=== PATIENT | male | born 1940 | race Caucasian/White ===

== ENCOUNTER 2016-08-03 09:50 | Inpatient (IN) | payer BC, MEDICARE ==
[~2016-08-03] VITALS: Ht 170.2 cm; Wt 86.2 kg
[~2016-08-03 09:50] MED LIST: ATOR20TA PO; CLON1TAB3 PO; HYDR-2758 PO; HYOS0.3715 PO; INSU100C4 SQ; INSU100I13 SQ; INSU100I17 SQ; MULT1TAB52 PO; Metoprolol Tartrate PO; NAPR220C4 PO; NITR0.4T SL; QUIN40TA7 PO; RANI150T6 PO; TICA90TA PO; ZOLP12.54 PO; [UNRECOGNIZED DRUG - CODE] PO
[2016-08-03] MEDS ORDERED: FAMOTIDINE 20 MG/2 ML VIAL IVP ONE (10:30)
[2016-08-03] MEDS ORDERED: IV NORMAL SALINE 1000ML BAG 1,000 ML IV ONE ×2 (10:30→15:15)
[2016-08-03] MEDS ORDERED: ONDANSETRON PF 4 MG/2 ML VIAL. IV ONE (10:30)
[2016-08-03] MEDS ORDERED: fentaNYL PF VIAL 100 MCG/2 ML VIAL IV ONE ×3 (10:30→13:45)
[2016-08-03 10:40] LABS: BASO # 0.1 x10^3/uL (0.0-0.2); BASO % 0 % (0-3); EOS % 0 % (0-3); HEMATOCRIT 42.5 % (39.0-53.0); HEMOGLOBIN 14.6 g/dL (13.0-17.5); LYMPH # 1.6 x10^3/uL (1.0-4.8); LYMPH % 11 % (24-48); MEAN CORPUSCULAR HEMOGLOBIN 31 pg (25-35); MEAN CORPUSCULAR HGB CONC 34 g/dL (31-37); MEAN CORPUSCULAR VOLUME 91 fL (79-100); MONO % 8 % (0-9); NEUT % 81 % (31-73); PLATELET COUNT 332 x10^3/uL (140-400); RED BLOOD COUNT 4.68 x10^6/uL (4.30-5.70); RED CELL DISTRIBUTION WIDTH 12.6 % (11.5-14.5); WHITE BLOOD COUNT 14.9 x10^3/uL (4.0-11.0)
--- NOTE | 2016-08-03 10:42 | PHYS DOC ---
Past Medical History Past Medical History: Anxiety, Arthritis, Diabetes-Type II, High Cholesterol, Hypertension, GA, Other Past Surgical History: Cholecystectomy, Knee Replacement, Other Additional Past Surgical Histo: lt anklex3,bilat ROTATOR CUFF,rt.knee replacement, CARDIAC STENT, BACK SX Alcohol Use: None Drug Use: None Adult General Chief Complaint Chief Complaint: BLOODY STOOL HPI HPI Patient is a 76 year old male with history of hypertension, diabetes type 2, anxiety, who presents today with generalized abdominal pain and diarrhea that began 3 days ago. Patient denies any nausea vomiting. He is also complaining of bloody stools since this morning. Patient states he was seen by the PCP 3 days ago on the onset of symptoms. He states they did labs that he has not received any results. PCP Dr. Catrachita Henry but currently sees Dr. Archana Etienne's because Dr. Henry is out of town for 1 month. Review of Systems Review of Systems Constitutional: Denies fever or chills [] Eyes: Denies change in visual acuity, redness, or eye pain [] HENT: Denies nasal congestion or sore throat [] Respiratory: Denies cough or shortness of breath [] Cardiovascular: No additional information not addressed in HPI [] GI: generalized abdominal pain, diarrhea and bloody stools [] : Denies dysuria or hematuria [] Musculoskeletal: Denies back pain or joint pain [] Integument: Denies rash or skin lesions [] Neurologic: Denies headache, focal weakness or sensory changes [] Endocrine: Denies polyuria or polydipsia [] Current Medications Current Medications Current Medications Medications (Trade) Dose Ordered Sig/Amber Start Time Stop Time Status Last Admin Dose Admin Ciprofloxacin Lactate 200 ml @ 200 mls/hr ONCE ONCE 08/03/16 14:15 08/03/16 15:14 DC Famotidine (Pepcid) 20 mg 1X ONCE 08/03/16 10:30 08/03/16 10:36 DC 08/03/16 10:46 20 MG Fentanyl Citrate (Fentanyl 2ml Vial) 50 mcg 1X ONCE 08/03/16 13:45 08/03/16 13:46 DC 08/03/16 13:34 50 MCG Info (Do NOT chart on this entry -- for MONITORING) 1 each PRN DAILY PRN 08/03/16 12:45 08/05/16 12:44 Iohexol (Omnipaque 300 Mg/ml) 60 ml 1X ONCE 08/03/16 12:45 08/03/16 12:46 DC Metronidazole 100 ml @ 100 mls/hr ONCE ONCE 08/03/16 14:15 08/03/16 15:14 DC 08/03/16 14:22 100 MLS/HR Ondansetron HCl (Zofran) 4 mg 1X ONCE 08/03/16 10:30 08/03/16 10:36 DC 08/03/16 10:47 4 MG Sodium Chloride 1,000 ml @ 1,000 mls/hr 1X ONCE 08/03/16 10:30 08/03/16 11:29 DC 08/03/16 10:46 1,000 MLS/HR Allergies Allergies Allergies Coded Allergies Type Severity Reaction Last Updated Verified pseudoephedrine Allergy Severe urinary retention 08/22/14 Yes codeine Adverse Reaction Intermediate gi upset 08/22/14 Yes Physical Exam Physical Exam Constitutional: Well developed, well nourished, no acute distress, non-toxic appearance. [] HENT: Normocephalic, atraumatic, bilateral external ears normal, oropharynx moist, no oral exudates, nose normal. [] Eyes: PERRLA, EOMI, conjunctiva normal, no discharge. [] Neck: Normal range of motion, no tenderness, supple, no stridor. [] Cardiovascular:Heart rate regular rhythm, no murmur [] Lungs & Thorax: Bilateral breath sounds clear to auscultation [] Abdomen: Bowel sounds normal, soft, no tenderness, no masses, no pulsatile masses. [] Skin: Warm, dry, no erythema, no rash. [] Back: No tenderness, no CVA tenderness. [] Extremities: No tenderness, no cyanosis, no clubbing, ROM intact, no edema. [] Neurologic: Alert and oriented X 3, normal motor function, normal sensory function, no focal deficits noted. [] Psychologic: Affect normal, judgement normal, mood normal. [] Current Patient Data Vital Signs Vital Signs Date Time Temp Pulse Resp B/P (MAP) Pulse Ox O2 Delivery O2 Flow Rate FiO2 08/03/16 13:09 92 21 177/84 (115) 95 Room Air 08/03/16 10:12 98.9 98.9 Lab Values Laboratory Tests Test 08/03/16 10:30 08/03/16 13:10 White Blood Count 14.9 x10^3/uL (4.0-11.0) H Red Blood Count 4.68 x10^6/uL (4.30-5.70) Hemoglobin 14.6 g/dL (13.0-17.5) Hematocrit 42.5 % (39.0-53.0) Mean Corpuscular Volume 91 fL (79-100) Mean Corpuscular Hemoglobin 31 pg (25-35) Mean Corpuscular Hemoglobin Concent 34 g/dL (31-37) Red Cell Distribution Width 12.6 % (11.5-14.5) Platelet Count 332 x10^3/uL (140-400) Neutrophils (%) (Auto) 81 % (31-73) H Lymphocytes (%) (Auto) 11 % (24-48) L Monocytes (%) (Auto) 8 % (0-9) Eosinophils (%) (Auto) 0 % (0-3) Basophils (%) (Auto) 0 % (0-3) Neutrophils # (Auto) 12.2 x10^3uL (1.8-7.7) H Lymphocytes # (Auto) 1.6 x10^3/uL (1.0-4.8) Monocytes # (Auto) 1.1 x10^3/uL (0.0-1.1) Eosinophils # (Auto) 0.0 x10^3/uL (0.0-0.7) Basophils # (Auto) 0.1 x10^3/uL (0.0-0.2) Stool Occult Blood Positive (NEG) Sodium Level 143 mmol/L (136-145) Potassium Level 3.9 mmol/L (3.5-5.1) Chloride Level 107 mmol/L (98-107) Carbon Dioxide Level 23 mmol/L (21-32) Anion Gap 13 (6-14) Blood Urea Nitrogen 13 mg/dL (8-26) Creatinine 1.4 mg/dL (0.7-1.3) H Estimated GFR (Cockcroft-Gault) 49.4 BUN/Creatinine Ratio 9 (6-20) Glucose Level 156 mg/dL (70-99) H Calcium Level 8.7 mg/dL (8.5-10.1) Total Bilirubin 0.6 mg/dL (0.2-1.0) Aspartate Amino Transferase (AST) 20 U/L (15-37) Alanine Aminotransferase (ALT) 21 U/L (16-63) Alkaline Phosphatase 90 U/L (46-116) Total Protein 6.5 g/dL (6.4-8.2) Albumin 2.8 g/dL (3.4-5.0) L Albumin/Globulin Ratio 0.8 (1.0-1.7) L Lipase 156 U/L (73-393) Urine Collection Type Unknown Urine Color Yellow Urine Clarity Clear Urine pH 6.0 Urine Specific [place] 1.020 Urine Protein >=300 mg/dL (NEG-TRACE) Urine Glucose (UA) 250 mg/dL (NEG) Urine Ketones (Stick) 15 mg/dL (NEG) Urine Blood Negative (NEG) Urine Nitrite Negative (NEG) Urine Bilirubin Negative (NEG) Urine Urobilinogen Dipstick 0.2 mg/dL (0.2 mg/dL) Urine Leukocyte Esterase Negative (NEG) Urine RBC Occ /HPF (0-2) Urine WBC Occ /HPF (0-4) Urine Bacteria 0 /HPF (0-FEW) Urine Hyaline Casts Few /HPF Urine Mucus Slight /LPF Laboratory Tests 08/03/16 10:30 Laboratory Tests 08/03/16 10:30 EKG EKG [] Radiology/Procedures Radiology/Procedures []PROCEDURE: CT ABD PELV W/ IV CONTRST ONLY Indication abdominal pain. Bloody stools. Diarrhea. Axial images through the abdomen and pelvis were obtained. IV contrast, approximately 60 cc of Omnipaque 300 was administered. No oral contrast was administered. No prior CT imaging of the abdomen or pelvis is available. No acute or significant finding is seen at either lung base. Postoperative changes are noted in the groin. The liver and spleen appear unremarkable. Clips are seen in the gallbladder fossa. There are no adrenal masses and the kidneys appear normal. No pancreatic abnormality is seen. There is marked thickening involving the cecum and the ascending colon with similar findings involving the transverse colon but not quite to as great a degree as in the right colon. Similar findings are seen in the proximal descending colon. Apart from diverticulosis the remainder of the descending and sigmoid colon appear unremarkable. There is perhaps some thickening involving the rectosigmoid. The findings are most compatible with colitis. This may be on an infectious or ischemic basis. Inflammatory bowel disease is not excluded. No additional finding in the pelvis is seen. Degenerative changes are seen in the lumbar spine. IMPRESSION: Changes involving the large bowel, predominantly the right and transverse colon, compatible with colitis. DICTATED and SIGNED BY: EVELYN TOMPKINS MD DATE: 08/03/16 1312 CC: EDUARDO HAINES APRN; ARCHANA THOMAS MD ~ Course & Med Decision Making Course & Med Decision Making Pertinent Labs and Imaging studies reviewed. (See chart for details) This is a 76-year-old male patient who presents today with generalized abdominal pain, diarrhea for 3 days. Patient is complaining of bloody stools since this morning. Positive Hemoccult, CBC with a WBC of 14.9, CMP with creatinine of 1.4. CT of the abdomen and pelvic was noted for colitis. Patient was given IV fluids in the ED. He was given multiple doses of pain medicine with no relief. Patient was admitted on Flagyl and Cipro IV fluids nausea medicine and pain medicine. 14:[address] Franklin was accepted patient for admission. 14:30 Consulted with [facility] for Dr. Miller who will follow-up with patient for GI Dragon Disclaimer Dragon Disclaimer This electronic medical record was generated, in whole or in part, using a voice recognition dictation system. Departure Departure Impression: Primary Impression: Acute colitis Additional Impression: Intractable abdominal pain Disposition: ADMITTED INPATIENT Admitting Physician: Bryan Franklin Condition: STABLE Referrals: MARINE HENRY MD (PCP) Problem Qualifiers EDUARDO HAINES APRN Aug 03, 2016 10:42
[2016-08-03 10:48] LABS: CALCIUM 8.7 mg/dL (8.5-10.1); CREATININE 1.4 mg/dL (0.7-1.3); GFR 49.4; POTASSIUM 3.9 mmol/L (3.5-5.1)
--- NOTE | 2016-08-03 10:52 | ACF ---
Admission Forms Criteria GASTROINTESTINAL BLEEDING Clinical Indications for Inpatient Care (Place 'X' for any and all applicable criteria): Ongoing inpatient care may be indicated for gastrointestinal bleeding with ANY ONE of the following (4)(20)(21)(22)(23)(24): [X]I. Active bleeding (eg, fresh voluminous blood in emesis or nasogastric aspirate, or per rectum) [ ]II. Hemodynamic instability [ ]III. Anticoagulation therapy or coagulopathy ((eg, advanced liver disease, irreversible anticoagulation) [ ]IV. Ischemic colitis (22) [ ]V. Endoscopy showing arterial bleeding, adherent clot, nonbleeding visible vessel, varices, flat red spots, ulcer size greater than 2 cm, or portal hypertensive gastropathy [ ]. High-risk low platelet count [ ]VII. Anemia requiring inpatient care as indicated by ANY ONE of the following a)[ ] Cognitive impairment b)[ ] Syncope c)[ ] Heart failure d)[ ] Chest pain e)[ ] Dyspnea f)[ ] Other findings suggesting inadequate perfusion (eg, peripheral or myocardial ischemia, end organ dysfunction) [ ]VIII. High-risk low platelet count [ ]IX. Suspected variceal cause of bleeding as indicated by ANY ONE of the following(27)(28): a)[ ] Known varices b)[ ] Hepatomegaly or splenomegaly c)[ ] Ascites d)[ ] Jaundice or scleral icterus e)[ ] History of liver disease (eg, cirrhosis) f)[ ] Physical findings of portal hypertension (eg, caput medusa) g)[ ] Comorbid disorder indicating risk for portal vein thrombosis (eg , abdominal surgery, sepsis, shock, exchange transfusion, prior umbilical vein catheterization) Extended stay may be needed until ALL of the following are present(20)(38)(47): [ ]a) Hemodynamic stability [ ]b) No evidence of active bleeding (eg, stable Hematocrit) [ ]c) Platelet count, prothrombin time, and partial thromboplastin time acceptable for next level of care [ ]d) Surgical or other acute intervention not needed [ ]e) Oral hydration and diet tolerated The original [employer] content created by Brandon Fragoso has been revised. The portions of the content which have been revised are identified through the use of italic text or in bold, and Brandon Fragoso has neither reviewed nor approved the modified material. All other unmodified content is copyright [facility]. Please see references footnoted in the original [facility] edition 2016 ROXANA ANDERSON. Aug 03, 2016 10:52
[2016-08-03 10:53] LABS: ALBUMIN 2.8 g/dL (3.4-5.0); ALBUMIN/GLOBULIN RATIO 0.8 (1.0-1.7); TOTAL BILIRUBIN 0.6 mg/dL (0.2-1.0); TOTAL PROTEIN 6.5 g/dL (6.4-8.2)
[2016-08-03 10:55] LABS: NEG OBC FOB NEG; POS OBC FOB POS
[2016-08-03] MEDS ORDERED: CONTRAST GIVEN MC PRN (12:45)
[2016-08-03] MEDS ORDERED: IOHEXOL 300 MG/ML 75 ML VIAL IV ONE (12:45)
[2016-08-03 13:19] LABS: BILIRUBIN,URINE NEGATIVE (NEG); GLUCOSE,URINE 250 mg/dL (NEG); NITRITE,URINE NEGATIVE (NEG); PROTEIN,URINE >=300 mg/dL (NEG-TRACE); UROBILINOGEN,URINE 0.2 mg/dL (0.2 mg/dL)
--- NOTE | 2016-08-03 13:22 | RAD ---
Indication abdominal pain. Bloody stools. Diarrhea. Axial images through the abdomen and pelvis were obtained. IV contrast, approximately 60 cc of Omnipaque 300 was administered. No oral contrast was administered. No prior CT imaging of the abdomen or pelvis is available. No acute or significant finding is seen at either lung base. Postoperative changes are noted in the groin. The liver and spleen appear unremarkable. Clips are seen in the gallbladder fossa. There are no adrenal masses and the kidneys appear normal. No pancreatic abnormality is seen. There is marked thickening involving the cecum and the ascending colon with similar findings involving the transverse colon but not quite to as great a degree as in the right colon. Similar findings are seen in the proximal descending colon. Apart from diverticulosis the remainder of the descending and sigmoid colon appear unremarkable. There is perhaps some thickening involving the rectosigmoid. The findings are most compatible with colitis. This may be on an infectious or ischemic basis. Inflammatory bowel disease is not excluded. No additional finding in the pelvis is seen. Degenerative changes are seen in the lumbar spine. IMPRESSION: Changes involving the large bowel, predominantly the right and transverse colon, compatible with colitis.
[2016-08-03 13:28] LABS: BACTERIA,URINE 0 /HPF (0-FEW); RBC,URINE OCC /HPF (0-2); WBC,URINE OCC /HPF (0-4)
[2016-08-03] MEDS ORDERED: CIPROFLOXACIN 400MG PREMIX 200 ML IV ONE (14:15)
[2016-08-03 15:15] VITALS: BP 183/91
[2016-08-03] MEDS ORDERED: ONDANSETRON PF 4 MG/2 ML VIAL. IV PRN ×2 (15:15→16:15)
--- NOTE | 2016-08-03 15:45 | PDOC2 ---
GI CONSULT Reason For Consult: Colitis HPI: HPI: 76 y/o male evaluated in the ER for 3 days of diarrhea (>5 watery stools daily) and diffuse abdominal pain. He has also noted red blood mixed w/ stool beginning yesterday. No sick contacts. His , Stacey, notes he did recently travel to [place] where he ate a lot of spicy foods (which he also did on Father's Day). No n/v but hasn't eaten much because eating makes pain worse. says he looks bloated. Tried some leftover antibiotics at home ( three doses) w/o relief. Occasional reflux improved w/ Zantac PRN. H/o pancreatitis in the attributed to alcohol, no longer drinks. Also s/p cholecystectomy for gallstones. Has had EGD and colonoscopy in the past (?[facility] >10 years ago), believes both normal. Take ASA 81mg QD and Advil PRN. Significant labs: WBC 14.9, Cr 1.4, glucose 156, hemoccult +. CT w/ colitis, worse in the right colon, also sigmoid and descending colon diverticulosis. D/ w ER provider, started on IV Flagyl and Cipro. PMH: PMH: CAD/NV w/ 1 heart stent, HTN, HLD, IDDM, arthritis, anxiety, cholecystectomy, right knee replacement, left ankle surgery, bilateral rotator cuff repair, back surgery x 2, bilateral inguinal hernia repair FH: Family History: No pertinent hx Social History: ALCOHOL: none Drugs: None ROS: GEN: Denies fevers, chills, sweats HEENT: Denies blurred vision, sore throat CV: Denies chest pain RESP: Denies shortness of air, cough GI: Per HPI : Denies hematuria, dysuria ENDO: Denies weight changes NEURO: Denies confusion, dizziness MSK: Denies weakness, joint pain/swelling SKIN: Denies jaundice, pruritus Vitals: Vitals: Vital Signs Date Time Temp Pulse Resp B/P (MAP) Pulse Ox O2 Delivery O2 Flow Rate FiO2 08/03/16 13:09 92 21 177/84 (115) 95 Room Air 08/03/16 10:12 98.9 98.9 Labs: Labs: Laboratory Tests Test 08/03/16 10:30 08/03/16 13:10 White Blood Count 14.9 x10^3/uL (4.0-11.0) Red Blood Count 4.68 x10^6/uL (4.30-5.70) Hemoglobin 14.6 g/dL (13.0-17.5) Hematocrit 42.5 % (39.0-53.0) Mean Corpuscular Volume 91 fL (79-100) Mean Corpuscular Hemoglobin 31 pg (25-35) Mean Corpuscular Hemoglobin Concent 34 g/dL (31-37) Red Cell Distribution Width 12.6 % (11.5-14.5) Platelet Count 332 x10^3/uL (140-400) Neutrophils (%) (Auto) 81 % (31-73) Lymphocytes (%) (Auto) 11 % (24-48) Monocytes (%) (Auto) 8 % (0-9) Eosinophils (%) (Auto) 0 % (0-3) Basophils (%) (Auto) 0 % (0-3) Neutrophils # (Auto) 12.2 x10^3uL (1.8-7.7) Lymphocytes # (Auto) 1.6 x10^3/uL (1.0-4.8) Monocytes # (Auto) 1.1 x10^3/uL (0.0-1.1) Eosinophils # (Auto) 0.0 x10^3/uL (0.0-0.7) Basophils # (Auto) 0.1 x10^3/uL (0.0-0.2) Stool Occult Blood Positive (NEG) Sodium Level 143 mmol/L (136-145) Potassium Level 3.9 mmol/L (3.5-5.1) Chloride Level 107 mmol/L (98-107) Carbon Dioxide Level 23 mmol/L (21-32) Anion Gap 13 (6-14) Blood Urea Nitrogen 13 mg/dL (8-26) Creatinine 1.4 mg/dL (0.7-1.3) Estimated GFR (Cockcroft-Gault) 49.4 BUN/Creatinine Ratio 9 (6-20) Glucose Level 156 mg/dL (70-99) Calcium Level 8.7 mg/dL (8.5-10.1) Total Bilirubin 0.6 mg/dL (0.2-1.0) Aspartate Amino Transf (AST/SGOT) 20 U/L (15-37) Alanine Aminotransferase (ALT/SGPT) 21 U/L (16-63) Alkaline Phosphatase 90 U/L (46-116) Total Protein 6.5 g/dL (6.4-8.2) Albumin 2.8 g/dL (3.4-5.0) Albumin/Globulin Ratio 0.8 (1.0-1.7) Lipase 156 U/L (73-393) Urine Collection Type Unknown Urine Color Yellow Urine Clarity Clear Urine pH 6.0 Urine Specific [place] 1.020 Urine Protein >=300 mg/dL (NEG-TRACE) Urine Glucose (UA) 250 mg/dL (NEG) Urine Ketones (Stick) 15 mg/dL (NEG) Urine Blood Negative (NEG) Urine Nitrite Negative (NEG) Urine Bilirubin Negative (NEG) Urine Urobilinogen Dipstick 0.2 mg/dL (0.2 mg/dL) Urine Leukocyte Esterase Negative (NEG) Urine RBC Occ /HPF (0-2) Urine WBC Occ /HPF (0-4) Urine Bacteria 0 /HPF (0-FEW) Urine Hyaline Casts Few /HPF Urine Mucus Slight /LPF Allergies: Coded Allergies: pseudoephedrine (Verified Allergy, Severe, urinary retention, 08/22/14) codeine (Verified Adverse Reaction, Intermediate, gi upset, 08/22/14) Medications: Current Medications Medications (Trade) Dose Ordered Sig/Amber Route PRN Reason Start Time Stop Time Status Last Admin Dose Admin Sodium Chloride 1,000 ml @ 1,000 mls/hr 1X ONCE IV 08/03/16 10:30 08/03/16 11:29 DC 08/03/16 10:46 Famotidine (Pepcid) 20 mg 1X ONCE IVP 08/03/16 10:30 08/03/16 10:36 DC 08/03/16 10:46 Fentanyl Citrate (Fentanyl 2ml Vial) 50 mcg 1X ONCE IV 08/03/16 10:30 08/03/16 10:36 DC 08/03/16 10:47 Ondansetron HCl (Zofran) 4 mg 1X ONCE IV 08/03/16 10:30 08/03/16 10:36 DC 08/03/16 10:47 Fentanyl Citrate (Fentanyl 2ml Vial) 50 mcg 1X ONCE IV 08/03/16 12:00 08/03/16 12:02 DC 08/03/16 12:06 Fentanyl Citrate (Fentanyl 2ml Vial) 50 mcg 1X ONCE IV 08/03/16 13:45 08/03/16 13:46 DC 08/03/16 13:34 Metronidazole 100 ml @ 100 mls/hr ONCE ONCE IV 08/03/16 14:15 08/03/16 15:14 DC 08/03/16 14:22 Imaging: Imaging: CT A/P w/ IV contrast 08/03/16 No acute or significant finding is seen at either lung base. Postoperative changes are noted in the groin. The liver and spleen appear unremarkable. Clips are seen in the gallbladder fossa. There are no adrenal masses and the kidneys appear normal. No pancreatic abnormality is seen. There is marked thickening involving the cecum and the ascending colon with similar findings involving the transverse colon but not quite to as great a degree as in the right colon. Similar findings are seen in the proximal descending colon. Apart from diverticulosis the remainder of the descending and sigmoid colon appear unremarkable. There is perhaps some thickening involving the rectosigmoid. The findings are most compatible with colitis. This may be on an infectious or ischemic basis. Inflammatory bowel disease is not excluded. No additional finding in the pelvis is seen. Degenerative changes are seen in the lumbar spine. IMPRESSION: Changes involving the large bowel, predominantly the right and transverse colon, compatible with colitis. PE: GEN: NAD, seen in ER, pleasant/cooperative HEENT: Atraumatic, PERRL LUNGS: CTAB anteriorly HEART: RRR ABD: NABS, soft, some distention, diffusely "sore" EXTREMITY: No edema SKIN: No rashes, no jaundice NEURO/PSYCH: A & O 3 A/P: A/P: Abd pain, diarrhea, bloody stools -onset 3 days ago, recent travel to [place] -began w/ pain and diarrhea, noted some blood mixed w/ stool yesterday Abnormal CT, leukocytosis -c/w colitis, worse in right colon -on IV atbx Acid reflux - occasional -takes H2 harleen PRN -occasional NSAID use -has had previous EGD, believes normal CRC screen -recalls normal colonoscopy @ [facility] >10 years ago -- ?infectious colitis, possibly ischemic Agree w/ IV atbx. Note cardiac diet ordered - would keep to clears for now. ROXY NIETO Aug 03, 2016 15:45
[2016-08-03] MEDS: HYDROmorphone 2 MG/ML VIAL IV PRN ×3 (15:53→22:45)
[2016-08-03] MEDS ORDERED: ACETAMINOPHEN 325 MG TABLET. PO PRN (16:15)
[2016-08-03] MEDS ORDERED: hydrALAZINE 20 MG/ML VIAL. IVP PRN (16:15)
[2016-08-03] MEDS ORDERED: HYDROcodone/APAP 5/325MG 1 TAB TABLET PO PRN (16:15)
--- NOTE | 2016-08-03 16:16 | PDOC1 ---
History and Physical Past Medical History Cardiovascular: HTN, Hyperlipidemia Pulmonary: No pertinent hx GI: GERD Heme/Onc: No pertinent hx Hepatobiliary: No pertinent hx Psych: Anxiety Rheumatologic: No pertinent hx Infectious disease: No pertinent hx Renal/: No pertinent hx Endocrine: Diabetes Past Surgical History Past Surgical History: Cholecystectomy, Other Social History ALCOHOL: none Drugs: None Current Problem List Problem List Problems Medical Problems: (1) Acute colitis Status: Acute (2) Intractable abdominal pain Status: Acute Current Medications Current Medications Current Medications Medications (Trade) Dose Ordered Sig/Amber Start Time Stop Time Status Last Admin Dose Admin Ciprofloxacin Lactate 200 ml @ 200 mls/hr ONCE ONCE 08/03/16 14:15 08/03/16 15:14 DC 08/03/16 15:54 200 MLS/HR Famotidine (Pepcid) 20 mg 1X ONCE 08/03/16 10:30 08/03/16 10:36 DC 08/03/16 10:46 20 MG Fentanyl Citrate (Fentanyl 2ml Vial) 50 mcg 1X ONCE 08/03/16 13:45 08/03/16 13:46 DC 08/03/16 13:34 50 MCG Hydromorphone HCl (Dilaudid) 1 mg PRN Q3HRS PRN 08/03/16 15:15 08/03/16 15:53 1 MG Info (Do NOT chart on this entry -- for MONITORING) 1 each PRN DAILY PRN 08/03/16 12:45 08/05/16 12:44 Iohexol (Omnipaque 300 Mg/ml) 60 ml 1X ONCE 08/03/16 12:45 08/03/16 12:46 DC Metronidazole 100 ml @ 100 mls/hr ONCE ONCE 08/03/16 14:15 08/03/16 15:14 DC 08/03/16 14:22 100 MLS/HR Ondansetron HCl (Zofran) 4 mg PRN Q8HRS PRN 08/03/16 15:15 08/04/16 15:14 Sodium Chloride 1,000 ml @ 100 mls/hr 1X ONCE 08/03/16 15:15 08/04/16 01:14 08/03/16 15:53 100 MLS/HR Allergies Allergies Allergies Coded Allergies Type Severity Reaction Last Updated Verified pseudoephedrine Allergy Severe urinary retention 08/22/14 Yes codeine Adverse Reaction Intermediate gi upset 08/22/14 Yes ROS Review of System CONSTITUTIONAL: No fever or chills EYES: No recent changes SKIN: No rash or itching CARDIOVASCULAR: No chest pain, syncope, palpitations, or edema RESPIRATORY: No SOB or cough GASTROINTESTINAL: Nausea, diarrhea, abdominal pain NEUROLOGICAL: No headaches or weakness ENDOCRINE: No cold or heat intolerance GENITOURINARY: No urgency or frequency of urination MUSCULOSKELETAL: No back pain or joint pain LYMPHATICS: No enlarged lymph nodes PSYCHIATRIC: No anxiety or depression Physical Exam Physical Exam GEN.: No apparent distress. Alert and oriented times 3 HEENT: Head is normocephalic, atraumatic NECK: Supple. no JVD LUNGS: Clear to auscultation. normal airflow. HEART: RRR, S1, S2 present. Peripheral pulses intact ABDOMEN: Soft, nontender. Positive bowel sounds. distended. EXTREMITIES: Without any cyanosis. NEUROLOGIC: Normal speech, normal tone PSYCHIATRIC: Normal affect, normal mood. SKIN: No ulcerations Vitals Vitals Vital Signs Date Time Temp Pulse Resp B/P (MAP) Pulse Ox O2 Delivery O2 Flow Rate FiO2 08/03/16 15:15 97.9 106 18 183/91 (121) 95 Room Air 97.9 Labs Labs Laboratory Tests Test 08/03/16 10:30 08/03/16 13:10 White Blood Count 14.9 x10^3/uL (4.0-11.0) Red Blood Count 4.68 x10^6/uL (4.30-5.70) Hemoglobin 14.6 g/dL (13.0-17.5) Hematocrit 42.5 % (39.0-53.0) Mean Corpuscular Volume 91 fL (79-100) Mean Corpuscular Hemoglobin 31 pg (25-35) Mean Corpuscular Hemoglobin Concent 34 g/dL (31-37) Red Cell Distribution Width 12.6 % (11.5-14.5) Platelet Count 332 x10^3/uL (140-400) Neutrophils (%) (Auto) 81 % (31-73) Lymphocytes (%) (Auto) 11 % (24-48) Monocytes (%) (Auto) 8 % (0-9) Eosinophils (%) (Auto) 0 % (0-3) Basophils (%) (Auto) 0 % (0-3) Neutrophils # (Auto) 12.2 x10^3uL (1.8-7.7) Lymphocytes # (Auto) 1.6 x10^3/uL (1.0-4.8) Monocytes # (Auto) 1.1 x10^3/uL (0.0-1.1) Eosinophils # (Auto) 0.0 x10^3/uL (0.0-0.7) Basophils # (Auto) 0.1 x10^3/uL (0.0-0.2) Stool Occult Blood Positive (NEG) Sodium Level 143 mmol/L (136-145) Potassium Level 3.9 mmol/L (3.5-5.1) Chloride Level 107 mmol/L (98-107) Carbon Dioxide Level 23 mmol/L (21-32) Anion Gap 13 (6-14) Blood Urea Nitrogen 13 mg/dL (8-26) Creatinine 1.4 mg/dL (0.7-1.3) Estimated GFR (Cockcroft-Gault) 49.4 BUN/Creatinine Ratio 9 (6-20) Glucose Level 156 mg/dL (70-99) Calcium Level 8.7 mg/dL (8.5-10.1) Total Bilirubin 0.6 mg/dL (0.2-1.0) Aspartate Amino Transf (AST/SGOT) 20 U/L (15-37) Alanine Aminotransferase (ALT/SGPT) 21 U/L (16-63) Alkaline Phosphatase 90 U/L (46-116) Total Protein 6.5 g/dL (6.4-8.2) Albumin 2.8 g/dL (3.4-5.0) Albumin/Globulin Ratio 0.8 (1.0-1.7) Lipase 156 U/L (73-393) Urine Collection Type Unknown Urine Color Yellow Urine Clarity Clear Urine pH 6.0 Urine Specific [place] 1.020 Urine Protein >=300 mg/dL (NEG-TRACE) Urine Glucose (UA) 250 mg/dL (NEG) Urine Ketones (Stick) 15 mg/dL (NEG) Urine Blood Negative (NEG) Urine Nitrite Negative (NEG) Urine Bilirubin Negative (NEG) Urine Urobilinogen Dipstick 0.2 mg/dL (0.2 mg/dL) Urine Leukocyte Esterase Negative (NEG) Urine RBC Occ /HPF (0-2) Urine WBC Occ /HPF (0-4) Urine Bacteria 0 /HPF (0-FEW) Urine Hyaline Casts Few /HPF Urine Mucus Slight /LPF Laboratory Tests Test 08/03/16 10:30 08/03/16 13:10 White Blood Count 14.9 x10^3/uL (4.0-11.0) Red Blood Count 4.68 x10^6/uL (4.30-5.70) Hemoglobin 14.6 g/dL (13.0-17.5) Hematocrit 42.5 % (39.0-53.0) Mean Corpuscular Volume 91 fL (79-100) Mean Corpuscular Hemoglobin 31 pg (25-35) Mean Corpuscular Hemoglobin Concent 34 g/dL (31-37) Red Cell Distribution Width 12.6 % (11.5-14.5) Platelet Count 332 x10^3/uL (140-400) Neutrophils (%) (Auto) 81 % (31-73) Lymphocytes (%) (Auto) 11 % (24-48) Monocytes (%) (Auto) 8 % (0-9) Eosinophils (%) (Auto) 0 % (0-3) Basophils (%) (Auto) 0 % (0-3) Neutrophils # (Auto) 12.2 x10^3uL (1.8-7.7) Lymphocytes # (Auto) 1.6 x10^3/uL (1.0-4.8) Monocytes # (Auto) 1.1 x10^3/uL (0.0-1.1) Eosinophils # (Auto) 0.0 x10^3/uL (0.0-0.7) Basophils # (Auto) 0.1 x10^3/uL (0.0-0.2) Stool Occult Blood Positive (NEG) Sodium Level 143 mmol/L (136-145) Potassium Level 3.9 mmol/L (3.5-5.1) Chloride Level 107 mmol/L (98-107) Carbon Dioxide Level 23 mmol/L (21-32) Anion Gap 13 (6-14) Blood Urea Nitrogen 13 mg/dL (8-26) Creatinine 1.4 mg/dL (0.7-1.3) Estimated GFR (Cockcroft-Gault) 49.4 BUN/Creatinine Ratio 9 (6-20) Glucose Level 156 mg/dL (70-99) Calcium Level 8.7 mg/dL (8.5-10.1) Total Bilirubin 0.6 mg/dL (0.2-1.0) Aspartate Amino Transf (AST/SGOT) 20 U/L (15-37) Alanine Aminotransferase (ALT/SGPT) 21 U/L (16-63) Alkaline Phosphatase 90 U/L (46-116) Total Protein 6.5 g/dL (6.4-8.2) Albumin 2.8 g/dL (3.4-5.0) Albumin/Globulin Ratio 0.8 (1.0-1.7) Lipase 156 U/L (73-393) Urine Collection Type Unknown Urine Color Yellow Urine Clarity Clear Urine pH 6.0 Urine Specific [place] 1.020 Urine Protein >=300 mg/dL (NEG-TRACE) Urine Glucose (UA) 250 mg/dL (NEG) Urine Ketones (Stick) 15 mg/dL (NEG) Urine Blood Negative (NEG) Urine Nitrite Negative (NEG) Urine Bilirubin Negative (NEG) Urine Urobilinogen Dipstick 0.2 mg/dL (0.2 mg/dL) Urine Leukocyte Esterase Negative (NEG) Urine RBC Occ /HPF (0-2) Urine WBC Occ /HPF (0-4) Urine Bacteria 0 /HPF (0-FEW) Urine Hyaline Casts Few /HPF Urine Mucus Slight /LPF VTE Prophylaxis Ordered VTE Prophylaxis Devices: Yes VTE Pharmacological Prophylaxi: Yes REBEL SIM MD Aug 03, 2016 16:16
[2016-08-03] MEDS ORDERED: DEXTROSE 50% 25 GM / 50ML DISP.SYRIN. IV PRN (16:30)
[2016-08-03] MEDS: IV NORMAL SALINE 1000ML BAG 1,000 ML IV SCH ×2 (16:30→21:54)
[2016-08-03] MEDS: INSULIN ASPART 300 UNITS/3 ML INSULN.PEN SQ SCH (17:00)
[2016-08-03] MEDS ORDERED: INSU100I13 SQ (17:49)
[2016-08-03] MEDS ORDERED: CALC1TAB75 PO (17:49)
[2016-08-03] MEDS ORDERED: HYDR-2758 PO (17:49)
[2016-08-03] MEDS ORDERED: TAMS0.4C2 PO (17:49)
[2016-08-03] MEDS ORDERED: ATOR40TA59 PO (17:49)
[2016-08-03] MEDS ORDERED: QUIN20TA7 PO (17:49)
[2016-08-03] MEDS ORDERED: ASPI-630 PO (17:49)
[2016-08-03] MEDS ORDERED: AMLO10TA2 PO (17:49)
[2016-08-03] MEDS ORDERED: TRIA80OI TP (17:49)
[2016-08-03] MEDS ORDERED: CYCL5TAB PO (17:49)
[2016-08-03] MEDS ORDERED: TRIAMCINOLONE ACETONIDE 0.1% TOPICAL CREAM 15GM TUBE. TP PRN ×2 (18:45)
[2016-08-03 19:15] VITALS: BP 152/83
[2016-08-03] MEDS: ATORVASTATIN CALCIUM 40 MG TABLET. PO SCH (21:22)
[2016-08-03] MEDS: ZOLPIDEM 5 MG TABLET. PO SCH (21:22)
[2016-08-03] MEDS: CIPROFLOXACIN 400MG PREMIX 200 ML IV SCH (21:22)
[2016-08-03] MEDS: INSULIN DETEMIR 300 UNITS/3 ML INSULN.PEN. SQ SCH (21:26)
[2016-08-03 23:08] VITALS: BP 153/78
[2016-08-04] MEDS: HYDROmorphone 2 MG/ML VIAL IV PRN ×5 (02:45→16:30)
[2016-08-04] MEDS: IV NORMAL SALINE 1000ML BAG 1,000 ML IV SCH ×2 (02:46→16:30)
[2016-08-04 03:04] VITALS: BP 138/97
[2016-08-04 05:24] LABS: BASO # 0.1 x10^3/uL (0.0-0.2); BASO % 0 % (0-3); EOS % 0 % (0-3); HEMATOCRIT 40.9 % (39.0-53.0); HEMOGLOBIN 13.5 g/dL (13.0-17.5); LYMPH # 1.6 x10^3/uL (1.0-4.8); LYMPH % 10 % (24-48); MEAN CORPUSCULAR HEMOGLOBIN 31 pg (25-35); MEAN CORPUSCULAR HGB CONC 33 g/dL (31-37); MEAN CORPUSCULAR VOLUME 93 fL (79-100); MONO % 9 % (0-9); NEUT % 81 % (31-73); PLATELET COUNT 315 x10^3/uL (140-400); RED BLOOD COUNT 4.41 x10^6/uL (4.30-5.70); RED CELL DISTRIBUTION WIDTH 13.1 % (11.5-14.5); WHITE BLOOD COUNT 16.5 x10^3/uL (4.0-11.0)
[2016-08-04 05:49] LABS: ALBUMIN 2.2 g/dL (3.4-5.0); ALBUMIN/GLOBULIN RATIO 0.7 (1.0-1.7); CALCIUM 7.8 mg/dL (8.5-10.1); CREATININE 1.2 mg/dL (0.7-1.3); POTASSIUM 4.2 mmol/L (3.5-5.1); TOTAL BILIRUBIN 0.4 mg/dL (0.2-1.0); TOTAL PROTEIN 5.3 g/dL (6.4-8.2)
[2016-08-04 07:00] VITALS: BP 150/73
--- NOTE | 2016-08-04 07:55 | ACF ---
Admission Forms Criteria GASTROENTEROLOGY GRG Clinical Indications for Admission to Inpatient Care (Place 'X' for any and all applicable criteria): Hospital admission is needed for appropriate care of the patient because of ANY ONE of the following: [ ]I. Hemoperitoneum(7) [ ]II. Ascites requiring acute treatment indicated by ANY ONE of the following( 8)(9): [ ]a) Hemodynamic instability remaining after emergency or observation level care (as appropriate) [ ]b) Peritoneal signs present (eg, abdominal rigidity, rebound tenderness, absent bowel sounds) [ ]c) Tachypnea, Hypoxemia, or other respiratory symptoms remain after emergency or observation level care (as appropriate) [ ]d) Suspected infected ascites as indicated by ANY ONE of the following: [ ]i) Temperature greater than 100 degrees F (37.8 degrees C) [ ]ii) Abdominal pain or tenderness not relieved by paracentesis [ ]iii) Systemic signs of infection (eg, elevated WBC count, fever) [ ]iv) Ascitic fluid analysis consistent with infection ( eg, elevated WBC count): [ ]v) Vital sign abnormality [X]III. Suspected acute intra-abdominal process indicated by ANY ONE of the following(1)(2)(3)(4)(5): [ ]a) Hemodynamic instability [ ]b) Peritoneal signs present (eg, abdominal rigidity, rebound tenderness, absent bowel sounds) [ ]c) Bowel obstruction suspected (eg, severe vomiting, abdominal distension) [X]d) Suspected mesenteric ischemia or ischemic colitis(6) [ ]e) Other signs or symptoms of acute abdominal disease (eg, severe pain, free air): [ ]IV. Severe liver disease indicated by ANY ONE of the following(8)(9)(10)(11)( 12)(13)(14): [ ]a) Acute hepatitis (eg, transaminase level greater than 1000 IU/L) [ ]b) Acute elevation of prothrombin time to more than 50% above normal or INR greater than 1.5 [ ]c) Bilirubin greater than 20 mg/dL (342 micromoles/L) (15) [ ]d) New-onset or worsening hepatic encephalopathy [ ]e) Acute liver necrosis [ ]f) Vomiting or dehydration that is severe of persistent [ ]g) Hemodynamic instability due to liver disease [ ]h) Acute renal failure [ ]i) Hepatic abscess [ ]j) Dehydration that is severe or persistent [ ]k) Hepatic hydrothorax(21) [ ]l) Other indications of severe liver disease (eg, persistent fever , ingestion of hepatotoxin) [ ]V. Severe diarrhea indicated by ANY ONE of the following(17)(18)(19)(20)(21)( 22)(23): [ ]a) High fever or other high-risk infection situation [ ]b) Intractable bloody diarrhea (eg, more than 6 bloody stools per day) [ ]c) Suspected Clostridium difficile-associated diarrhea(24) [ ]d) Change in mental status that persists after emergency or observation level care (as appropriate) [ ]e) Severe dehydration (eg, greater than 9% loss of body weight in children) [ ]f) Inability to maintain hydration [ ]g) Peritoneal signs present (eg, abdominal rigidity, rebound tenderness, absent bowel sounds) [ ]h) Abdominal ischemia suspected(6) [ ]i) Hemodynamic instability that persists after emergency or observation level care (as appropriate) [ ]j) Severe electrolyte abnormalities requiring inpatient care [ ]k) Acute renal failure [ ]. Suspected toxic megacolon(5)(6) [ ]VII.Severe dysphagia indicated by ANY ONE of the following(25)(26): [ ]a) Suspected esophageal perforation or fistula(27) [ ]b) Suspected cause that requires inpatient care (eg, caustic ingestion, severe esophagitis) (28) [ ]c) Severe dehydration (eg, greater than 9% loss of body weight in children) [ ]d) Inability to manage secretions or maintain hydration [ ]e) Hemodynamic instability that persists after emergency or observation level care (as appropriate) [ ]f) Severe electrolyte abnormalities requiring inpatient care [ ]g) Acute renal failure [ ]VIII.Vomiting and ANY ONE of the following (29)(30)(31)(32): [ ]a) High fever or other high-risk infection situation [ ]b) Change in mental status that persists after emergency or observation level care (as appropriate) [ ]c) Severe dehydration (e.g., greater than 9% loss of body weight in children) [ ]d) Peritoneal signs present (e.g., abdominal rigidity, rebound tenderness, absent bowel sounds) [ ]e) Hemodynamic instability that persists after emergency or observation level care (as appropriate) [ ]f) Severe electrolyte abnormalities requiring inpatient care [ ]g) Acute renal failure [ ]h) Bowel obstruction suspected (e.g., severe vomiting, abdominal distension) [ ]i) Vomiting that is severe or persistent after medical treatment [ ]IX. Significant dehydration indicated by ANY ONE of the following(23)(24)(25) [ ]a) Clinical findings of severe dehydration indicated by ANY ONE of the following: [ ]i) Acute loss of weight from baseline (5% of body weight in adults, 9% in pediatric patients) [ ]ii) Hemodynamic instability [ ]iii) Acute renal failure [ ]iv) Serum sodium greater than 150 mEq/L (mmol/L) [ ]b) Dehydration that is persistent indicated by ALL of the following: [ ]i) Oral rehydration therapy not tolerated or insufficient to adequately correct dehydration [ ]ii) Appropriate intravenous treatment (eg, fluids) does not readily correct dehydration hours of (ie, after 12 to 24 of treatment) [ ]X. Gastroparesis and ANY ONE of the following(37)(38)(39): [ ]a) Dehydration that is severe or persistent [ ]b) Severe electrolyte abnormalities requiring inpatient care [ ]c) Acute renal failure [ ]d) Vomiting that is severe or persistent [ ]XI. Complications of transplanted liver indicated by ANY ONE of the following (40)(41): [ ]a) Acute graft rejection requiring inpatient management (eg, intravenous immunosuppression)(42) [ ]b) Failure of transplanted liver as indicated by ANY ONE of the following: [ ]i) Acute hepatitis (eg, transaminase level greater than 1000 International Units per liter (IU/L)) [ ]ii) Acute elevation of prothrombin time to more than 50% above baseline or INR greater than 1.5 [ ]iii) Bilirubin greater than 20 mg/dL (342 micromoles/L) [ ]iv) New-onset or worsening hepatic encephalopathy [ ]v) Acute elevation of serum ammonia level (eg, greater than 210 mcg/dL (150 micromoles/L)) [ ]vi) Acute liver necrosis [ ]c) Infection requiring inpatient management (eg, Hemodynamic instability, need for intravenous antimicrobial treatment)(43)(44)(45)(46)(47)(48)(49)(50) [ ]d) Other complication of transplanted liver (eg, thrombosis, autoimmune hepatitis, variceal bleeding) requiring inpatient management(51)(52) [ ]XII Complications of transplanted pancreas indicated by ANY ONE of the following(53): [ ]a) Acute graft rejection requiring inpatient management (eg, intravenous immunosuppression)(42)(54) [ ]b) Failure of transplanted pancreas as indicated by ANY ONE of the following: [ ]i) Serum amylase greater than 3 times the upper limit of normal or baseline [ ]ii) Serum lipase greater than 3 times the upper limit of normal or baseline [ ]iii) Imaging findings consistent with pancreatic inflammation or necrosis [ ]c) Infection requiring inpatient management (eg, Hemodynamic instability, need for intravenous antimicrobial treatment)(43)(44)(45)(46)(47)(48)(49)(50) [ ]d) Other complication of transplanted liver (eg, thrombosis, autoimmune hepatitis, variceal bleeding) requiring inpatient management(51)(52) [ ]X. Gastroenterology condition and ALL of the following: [ ]a) Symptom or finding for which emergency and observation care have failed or are not considered appropriate (Also use General Criteria: Observation Care as appropriate) [ ]b) Presence of ANY ONE of the following: [ ]i) A General Admission Criteria [ ]ii) A Pediatric General Admission Criteria. The original [facility] [employer] content created by [employer] has been revised. The portions of the content which have been revised are identified through the use of italic text or in bold,and [facility] has neither reviewed nor approved the modified material. All other unmodified content is copyright [facility]. Please see references footnoted in the original [email or web address] edition [facility] Admission Criteria Met?: Yes ROXANA ANDERSON Aug 04, 2016 07:55
[2016-08-04 07:59] LABS: PLT ESTIMATE ADEQUATE (ADEQUATE)
[2016-08-04] MEDS: INSULIN ASPART 300 UNITS/3 ML INSULN.PEN SQ SCH ×3 (08:00→16:43)
--- NOTE | 2016-08-04 08:21 | HP ---
ADMIT DATE: 08/03/2016 CHIEF COMPLAINT: Abdominal pain. HISTORY OF PRESENT ILLNESS: A 76-year-old male patient presented to the ER with complaints of 3 days' history of diarrhea, nausea and abdominal pain, diffuse. He is not feeling well last Monday and went to see his family doctor; however, symptoms got worse today and noted to have some blood in his stool with diarrhea. The patient went to [place] last week and he ate some spicy food last Monday and Monday and Monday, family thinks, which might have contributed to his symptoms. The patient has a history of pancreatitis in the past and denies any alcohol usage right now and he tried antibiotics at home, 3 doses. PAST MEDICAL HISTORY: Coronary artery disease; type 2 diabetes mellitus, insulin dependent; CAD with HI in the past; arthritis; anxiety; cholecystectomy; right knee replacement; left knee surgery; back surgery; inguinal hernia repair. FAMILY HISTORY: No GI cancer. PERSONAL HISTORY: No smoking, no alcohol, no drug abuse. ALLERGIES: CODEINE, SULFA, PSEUDOEPHEDRINE. REVIEW OF SYSTEMS: CONSTITUTIONAL: No fever or chills. EYES: No recent vision changes. SKIN: No rash or itching. CARDIOVASCULAR: No chest pain, syncope, palpitations or edema. RESPIRATORY: No shortness of breath, cough. GASTROINTESTINAL: No nausea, vomiting, diarrhea or abdominal pain. NEUROLOGICAL: No headache, paralysis. ENDOCRINOLOGIC: No cold or heat intolerance. GENITOURINARY: No burning with urination, no urgency. MUSCULOSKELETAL: No back pain or joint pain. LYMPHATICS: No enlarged nodes. PSYCHIATRIC: No anxiety or depression. PHYSICAL EXAMINATION: GENERAL: No apparent distress. HEENT: Head normocephalic, atraumatic. NECK: Supple. LUNGS: Clear to auscultation. HEART: Regular rate and rhythm; S1, S2 present; pulses intact. ABDOMEN: Soft and positive bowel sounds. EXTREMITIES: No cyanosis or edema. NEUROLOGIC: Normal speech and normal tone; alert and oriented. PSYCHIATRIC: Normal affect, normal mood. SKIN: No ulceration. LABORATORY FINDINGS: WBC of 14.9, hemoglobin 14.6, MCV 91, platelets 332. Chemistry: Sodium is 143, potassium 3.9, chloride is 107, carbon dioxide 23, BUN is 13, creatinine 1.4, glucose is 156. Urine, clarity is clear, protein is more than 30, ____. Stool occult blood positive. IMAGING STUDIES: CT of the abdomen and pelvis showed large bowel changes, prominently right and transverse colon combative with colitis. ASSESSMENT: 1. Acute abdominal pain due to colitis. 2. Leukocytosis. 3. Gastroesophageal reflux disease. 4. Hypertension. 5. Type 2 diabetes mellitus, insulin dependent. 6. Coronary artery disease. 7. Benign prostatic hypertrophy. PLAN: 1. The patient has been placed on IV hydration with normal saline at 125 mL per hour and currently is on ciprofloxacin and Flagyl and we will continue both antibiotics. 2. Clear liquid diet. 3. Pain has been controlled with Dilaudid. The patient tolerating very well. Avoid CO2 narcosis. 4. Gastroenterology has been consulted. 5. We will cut down his insulin. We will change it to 10 units of Levemir at nighttime and morning with sliding scale insulin as the patient is taking less food at this time. 6. CBC and BMP in the a.m. Monitor leukocytosis. 7. The patient's blood pressure has been not controlled. I will give 10 mg of IV hydralazine x 1. 8. No DVT prophylaxis due to fobt positive. 9. If the patient's hemoglobin drops significantly less than 8, we will transfuse 1 unit of PRBC. REBEL SIM MD DR: DAYNA/tata JOB#: [id number] / [id number] LAURENT
[2016-08-04] MEDS: CIPROFLOXACIN 400MG PREMIX 200 ML IV SCH ×2 (08:26→20:29)
[2016-08-04] MEDS: TAMSULOSIN 0.4 MG CAP.ER.24H. PO SCH (08:26)
[2016-08-04] MEDS: ASPIRIN CHEWABLE 81 MG TABLET. PO SCH (08:26)
[2016-08-04] MEDS: CYCLOBENZAPRINE 10 MG TABLET. PO SCH (08:26)
[2016-08-04] MEDS: CALCIUM CARB/VIT D3 500/200 TABLET. PO SCH (08:26)
[2016-08-04] MEDS: LISINOPRIL 10 MG TABLET PO SCH (08:27)
[2016-08-04] MEDS: amLODIPine BESYLATE 10 MG TABLET PO SCH (08:27)
[2016-08-04] MEDS: INSULIN DETEMIR 300 UNITS/3 ML INSULN.PEN. SQ SCH ×2 (08:32→21:22)
[2016-08-04] MEDS ORDERED: QUINAPRIL HCL PO SCH (09:00)
--- NOTE | 2016-08-04 10:51 | PDOC ---
PROGRESS NOTES Chief Complaint Chief Complaint 1. COlitis, infectious vs ischemic - first episode 2. SIRS POA, no sepsis 3. Acute abd pain sec to # 1 4. DM 2 controlled 5. Mild to MOd PCM History of Present Illness History of Present Illness Abd pain, mostly hypogastric persists but well controlled with Current IV pain med - CTs can reviewed, shows colitis, first episode LAst c scope yrs ago -ok Gi fahad reviewed WBC 16, HH ok NO fevers ON antibiotics IV On liquid diet NO bloody BM today PLAN: COnt IVF- might be able to dec rate to 100cc CBC again cristopher Keep on liquid diet Check ESR Dw pt and COnt iV antibiotics Vitals Vitals Vital Signs Date Time Temp Pulse Resp B/P (MAP) Pulse Ox O2 Delivery O2 Flow Rate FiO2 08/04/16 09:34 Nasal Cannula 1.0 08/04/16 08:27 79 150/73 08/04/16 07:01 18 08/04/16 07:00 97.7 94 97.7 Physical Exam General: Alert, Oriented X3, Cooperative Heart: Regular rate, Normal S1, Normal S2 Lungs: Clear Abdomen: Normal bowel sounds, Soft, Other (tenderness hypogastric areas) Extremities: No clubbing, No cyanosis Skin: No rashes, No breakdown Labs LABS Laboratory Tests Test 08/03/16 13:10 08/03/16 16:16 08/03/16 20:58 08/04/16 04:45 Urine Collection Type Unknown Urine Color Yellow Urine Clarity Clear Urine pH 6.0 Urine Specific [place] 1.020 Urine Protein >=300 mg/dL (NEG-TRACE) Urine Glucose (UA) 250 mg/dL (NEG) Urine Ketones (Stick) 15 mg/dL (NEG) Urine Blood Negative (NEG) Urine Nitrite Negative (NEG) Urine Bilirubin Negative (NEG) Urine Urobilinogen Dipstick 0.2 mg/dL (0.2 mg/dL) Urine Leukocyte Esterase Negative (NEG) Urine RBC Occ /HPF (0-2) Urine WBC Occ /HPF (0-4) Urine Bacteria 0 /HPF (0-FEW) Urine Hyaline Casts Few /HPF Urine Mucus Slight /LPF Glucose (Fingerstick) 159 mg/dL (70-99) 158 mg/dL (70-99) White Blood Count 16.5 x10^3/uL (4.0-11.0) Red Blood Count 4.41 x10^6/uL (4.30-5.70) Hemoglobin 13.5 g/dL (13.0-17.5) Hematocrit 40.9 % (39.0-53.0) Mean Corpuscular Volume 93 fL (79-100) Mean Corpuscular Hemoglobin 31 pg (25-35) Mean Corpuscular Hemoglobin Concent 33 g/dL (31-37) Red Cell Distribution Width 13.1 % (11.5-14.5) Platelet Count 315 x10^3/uL (140-400) Neutrophils (%) (Auto) 81 % (31-73) Lymphocytes (%) (Auto) 10 % (24-48) Monocytes (%) (Auto) 9 % (0-9) Eosinophils (%) (Auto) 0 % (0-3) Basophils (%) (Auto) 0 % (0-3) Neutrophils # (Auto) 13.3 x10^3uL (1.8-7.7) Lymphocytes # (Auto) 1.6 x10^3/uL (1.0-4.8) Monocytes # (Auto) 1.5 x10^3/uL (0.0-1.1) Eosinophils # (Auto) 0.0 x10^3/uL (0.0-0.7) Basophils # (Auto) 0.1 x10^3/uL (0.0-0.2) Segmented Neutrophils % 87 % (35-66) Band Neutrophils % 2 % (0-9) Lymphocytes % 6 % (24-48) Monocytes % 5 % (0-10) Platelet Estimate Adequate (ADEQUATE) Erythrocyte Sedimentation Rate 43 (0-15) Sodium Level 142 mmol/L (136-145) Potassium Level 4.2 mmol/L (3.5-5.1) Chloride Level 108 mmol/L (98-107) Carbon Dioxide Level 24 mmol/L (21-32) Anion Gap 10 (6-14) Blood Urea Nitrogen 13 mg/dL (8-26) Creatinine 1.2 mg/dL (0.7-1.3) Estimated GFR (Cockcroft-Gault) 59.0 BUN/Creatinine Ratio 11 (6-20) Glucose Level 142 mg/dL (70-99) Calcium Level 7.8 mg/dL (8.5-10.1) Total Bilirubin 0.4 mg/dL (0.2-1.0) Aspartate Amino Transf (AST/SGOT) 18 U/L (15-37) Alanine Aminotransferase (ALT/SGPT) 16 U/L (16-63) Alkaline Phosphatase 75 U/L (46-116) Total Protein 5.3 g/dL (6.4-8.2) Albumin 2.2 g/dL (3.4-5.0) Albumin/Globulin Ratio 0.7 (1.0-1.7) Test 08/04/16 07:35 Glucose (Fingerstick) 133 mg/dL (70-99) Review of Systems Review of Systems abd pain, no emesis, no diarrhea/bloody BM today Assessment and Plan Assessmemt and Plan Problems Medical Problems: (1) Acute colitis Status: Acute (2) Intractable abdominal pain Status: Acute Problems: Comment Review of Relevant I have reviewed the following items yasmine (where applicable) has been applied. Labs Laboratory Tests Test 08/03/16 10:30 08/03/16 13:10 08/03/16 16:16 08/03/16 20:58 White Blood Count 14.9 x10^3/uL (4.0-11.0) Red Blood Count 4.68 x10^6/uL (4.30-5.70) Hemoglobin 14.6 g/dL (13.0-17.5) Hematocrit 42.5 % (39.0-53.0) Mean Corpuscular Volume 91 fL (79-100) Mean Corpuscular Hemoglobin 31 pg (25-35) Mean Corpuscular Hemoglobin Concent 34 g/dL (31-37) Red Cell Distribution Width 12.6 % (11.5-14.5) Platelet Count 332 x10^3/uL (140-400) Neutrophils (%) (Auto) 81 % (31-73) Lymphocytes (%) (Auto) 11 % (24-48) Monocytes (%) (Auto) 8 % (0-9) Eosinophils (%) (Auto) 0 % (0-3) Basophils (%) (Auto) 0 % (0-3) Neutrophils # (Auto) 12.2 x10^3uL (1.8-7.7) Lymphocytes # (Auto) 1.6 x10^3/uL (1.0-4.8) Monocytes # (Auto) 1.1 x10^3/uL (0.0-1.1) Eosinophils # (Auto) 0.0 x10^3/uL (0.0-0.7) Basophils # (Auto) 0.1 x10^3/uL (0.0-0.2) Stool Occult Blood Positive (NEG) Sodium Level 143 mmol/L (136-145) Potassium Level 3.9 mmol/L (3.5-5.1) Chloride Level 107 mmol/L (98-107) Carbon Dioxide Level 23 mmol/L (21-32) Anion Gap 13 (6-14) Blood Urea Nitrogen 13 mg/dL (8-26) Creatinine 1.4 mg/dL (0.7-1.3) Estimated GFR (Cockcroft-Gault) 49.4 BUN/Creatinine Ratio 9 (6-20) Glucose Level 156 mg/dL (70-99) Calcium Level 8.7 mg/dL (8.5-10.1) Total Bilirubin 0.6 mg/dL (0.2-1.0) Aspartate Amino Transf (AST/SGOT) 20 U/L (15-37) Alanine Aminotransferase (ALT/SGPT) 21 U/L (16-63) Alkaline Phosphatase 90 U/L (46-116) Total Protein 6.5 g/dL (6.4-8.2) Albumin 2.8 g/dL (3.4-5.0) Albumin/Globulin Ratio 0.8 (1.0-1.7) Lipase 156 U/L (73-393) Urine Collection Type Unknown Urine Color Yellow Urine Clarity Clear Urine pH 6.0 Urine Specific [place] 1.020 Urine Protein >=300 mg/dL (NEG-TRACE) Urine Glucose (UA) 250 mg/dL (NEG) Urine Ketones (Stick) 15 mg/dL (NEG) Urine Blood Negative (NEG) Urine Nitrite Negative (NEG) Urine Bilirubin Negative (NEG) Urine Urobilinogen Dipstick 0.2 mg/dL (0.2 mg/dL) Urine Leukocyte Esterase Negative (NEG) Urine RBC Occ /HPF (0-2) Urine WBC Occ /HPF (0-4) Urine Bacteria 0 /HPF (0-FEW) Urine Hyaline Casts Few /HPF Urine Mucus Slight /LPF Glucose (Fingerstick) 159 mg/dL (70-99) 158 mg/dL (70-99) Test 08/04/16 04:45 08/04/16 07:35 White Blood Count 16.5 x10^3/uL (4.0-11.0) Red Blood Count 4.41 x10^6/uL (4.30-5.70) Hemoglobin 13.5 g/dL (13.0-17.5) Hematocrit 40.9 % (39.0-53.0) Mean Corpuscular Volume 93 fL (79-100) Mean Corpuscular Hemoglobin 31 pg (25-35) Mean Corpuscular Hemoglobin Concent 33 g/dL (31-37) Red Cell Distribution Width 13.1 % (11.5-14.5) Platelet Count 315 x10^3/uL (140-400) Neutrophils (%) (Auto) 81 % (31-73) Lymphocytes (%) (Auto) 10 % (24-48) Monocytes (%) (Auto) 9 % (0-9) Eosinophils (%) (Auto) 0 % (0-3) Basophils (%) (Auto) 0 % (0-3) Neutrophils # (Auto) 13.3 x10^3uL (1.8-7.7) Lymphocytes # (Auto) 1.6 x10^3/uL (1.0-4.8) Monocytes # (Auto) 1.5 x10^3/uL (0.0-1.1) Eosinophils # (Auto) 0.0 x10^3/uL (0.0-0.7) Basophils # (Auto) 0.1 x10^3/uL (0.0-0.2) Segmented Neutrophils % 87 % (35-66) Band Neutrophils % 2 % (0-9) Lymphocytes % 6 % (24-48) Monocytes % 5 % (0-10) Platelet Estimate Adequate (ADEQUATE) Erythrocyte Sedimentation Rate 43 (0-15) Sodium Level 142 mmol/L (136-145) Potassium Level 4.2 mmol/L (3.5-5.1) Chloride Level 108 mmol/L (98-107) Carbon Dioxide Level 24 mmol/L (21-32) Anion Gap 10 (6-14) Blood Urea Nitrogen 13 mg/dL (8-26) Creatinine 1.2 mg/dL (0.7-1.3) Estimated GFR (Cockcroft-Gault) 59.0 BUN/Creatinine Ratio 11 (6-20) Glucose Level 142 mg/dL (70-99) Calcium Level 7.8 mg/dL (8.5-10.1) Total Bilirubin 0.4 mg/dL (0.2-1.0) Aspartate Amino Transf (AST/SGOT) 18 U/L (15-37) Alanine Aminotransferase (ALT/SGPT) 16 U/L (16-63) Alkaline Phosphatase 75 U/L (46-116) Total Protein 5.3 g/dL (6.4-8.2) Albumin 2.2 g/dL (3.4-5.0) Albumin/Globulin Ratio 0.7 (1.0-1.7) Glucose (Fingerstick) 133 mg/dL (70-99) Laboratory Tests Test 08/03/16 13:10 08/03/16 16:16 08/03/16 20:58 08/04/16 04:45 Urine Collection Type Unknown Urine Color Yellow Urine Clarity Clear Urine pH 6.0 Urine Specific [place] 1.020 Urine Protein >=300 mg/dL (NEG-TRACE) Urine Glucose (UA) 250 mg/dL (NEG) Urine Ketones (Stick) 15 mg/dL (NEG) Urine Blood Negative (NEG) Urine Nitrite Negative (NEG) Urine Bilirubin Negative (NEG) Urine Urobilinogen Dipstick 0.2 mg/dL (0.2 mg/dL) Urine Leukocyte Esterase Negative (NEG) Urine RBC Occ /HPF (0-2) Urine WBC Occ /HPF (0-4) Urine Bacteria 0 /HPF (0-FEW) Urine Hyaline Casts Few /HPF Urine Mucus Slight /LPF Glucose (Fingerstick) 159 mg/dL (70-99) 158 mg/dL (70-99) White Blood Count 16.5 x10^3/uL (4.0-11.0) Red Blood Count 4.41 x10^6/uL (4.30-5.70) Hemoglobin 13.5 g/dL (13.0-17.5) Hematocrit 40.9 % (39.0-53.0) Mean Corpuscular Volume 93 fL (79-100) Mean Corpuscular Hemoglobin 31 pg (25-35) Mean Corpuscular Hemoglobin Concent 33 g/dL (31-37) Red Cell Distribution Width 13.1 % (11.5-14.5) Platelet Count 315 x10^3/uL (140-400) Neutrophils (%) (Auto) 81 % (31-73) Lymphocytes (%) (Auto) 10 % (24-48) Monocytes (%) (Auto) 9 % (0-9) Eosinophils (%) (Auto) 0 % (0-3) Basophils (%) (Auto) 0 % (0-3) Neutrophils # (Auto) 13.3 x10^3uL (1.8-7.7) Lymphocytes # (Auto) 1.6 x10^3/uL (1.0-4.8) Monocytes # (Auto) 1.5 x10^3/uL (0.0-1.1) Eosinophils # (Auto) 0.0 x10^3/uL (0.0-0.7) Basophils # (Auto) 0.1 x10^3/uL (0.0-0.2) Segmented Neutrophils % 87 % (35-66) Band Neutrophils % 2 % (0-9) Lymphocytes % 6 % (24-48) Monocytes % 5 % (0-10) Platelet Estimate Adequate (ADEQUATE) Erythrocyte Sedimentation Rate 43 (0-15) Sodium Level 142 mmol/L (136-145) Potassium Level 4.2 mmol/L (3.5-5.1) Chloride Level 108 mmol/L (98-107) Carbon Dioxide Level 24 mmol/L (21-32) Anion Gap 10 (6-14) Blood Urea Nitrogen 13 mg/dL (8-26) Creatinine 1.2 mg/dL (0.7-1.3) Estimated GFR (Cockcroft-Gault) 59.0 BUN/Creatinine Ratio 11 (6-20) Glucose Level 142 mg/dL (70-99) Calcium Level 7.8 mg/dL (8.5-10.1) Total Bilirubin 0.4 mg/dL (0.2-1.0) Aspartate Amino Transf (AST/SGOT) 18 U/L (15-37) Alanine Aminotransferase (ALT/SGPT) 16 U/L (16-63) Alkaline Phosphatase 75 U/L (46-116) Total Protein 5.3 g/dL (6.4-8.2) Albumin 2.2 g/dL (3.4-5.0) Albumin/Globulin Ratio 0.7 (1.0-1.7) Test 08/04/16 07:35 Glucose (Fingerstick) 133 mg/dL (70-99) Medications Current Medications Sodium Chloride 1,000 ml @ 1,000 mls/hr 1X ONCE IV Last administered on 10:46; Start 08/03/16 at 10:30; Stop 08/03/16 at 11:29; Status DC Famotidine (Pepcid) 20 mg 1X ONCE IVP Last administered on 08/03/16 10:46; Start 08/03/16 at 10:30; Stop 08/03/16 at 10:36; Status DC Fentanyl Citrate (Fentanyl 2ml Vial) 50 mcg 1X ONCE IV Last administered on 10:47; Start 08/03/16 at 10:30; Stop 08/03/16 at 10:36; Status DC Ondansetron HCl (Zofran) 4 mg 1X ONCE IV Last administered on 08/03/16 10:47 ; Start 08/03/16 at 10:30; Stop 08/03/16 at 10:36; Status DC Fentanyl Citrate (Fentanyl 2ml Vial) 50 mcg 1X ONCE IV Last administered on 12:06; Start 08/03/16 at 12:00; Stop 08/03/16 at 12:02; Status DC Iohexol (Omnipaque 300 Mg/ml) 60 ml 1X ONCE IV ; Start 08/03/16 at 12:45; Stop 08/03/16 at 12:46; Status DC Info (Do NOT chart on this entry -- for MONITORING) 1 each PRN DAILY PRN MC SEE COMMENTS; Start 08/03/16 at 12:45; Stop 08/05/16 at 12:44 Fentanyl Citrate (Fentanyl 2ml Vial) 50 mcg 1X ONCE IV Last administered on 13:34; Start 08/03/16 at 13:45; Stop 08/03/16 at 13:46; Status DC Metronidazole 100 ml @ 100 mls/hr Q8HRS IV Last administered on 08/04/16 06: 10; Start 08/03/16 at 22:00 Ciprofloxacin Lactate 200 ml @ 200 mls/hr Q12HR IV Last administered on 08:26; Start 08/03/16 at 21:00 Ciprofloxacin Lactate 200 ml @ 200 mls/hr ONCE ONCE IV Last administered on 15:54; Start 08/03/16 at 14:15; Stop 08/03/16 at 15:14; Status DC Metronidazole 100 ml @ 100 mls/hr ONCE ONCE IV Last administered on 14:22; Start 08/03/16 at 14:15; Stop 08/03/16 at 15:14; Status DC Ondansetron HCl (Zofran) 4 mg PRN Q8HRS PRN IV NAUSEA/VOMITING; Start 08/03/16 at 15:15; Stop 08/03/16 at 18:05; Status DC Sodium Chloride 1,000 ml @ 100 mls/hr 1X ONCE IV Last administered on 15:53; Start 08/03/16 at 15:15; Stop 08/04/16 at 01:14; Status DC Hydromorphone HCl (Dilaudid) 1 mg PRN Q3HRS PRN IV PAIN SEVERE Last administered on 08/04/16 09:34; Start 08/03/16 at 15:15 Acetaminophen (Tylenol) 325 mg PRN Q6HRS PRN PO MILD PAIN / TEMP; Start at 16:15 Acetaminophen/ Hydrocodone Bitart (Lortab 5/325) 1 tab PRN Q6HRS PRN PO MODERATE TO SEVERE PAIN; Start 08/03/16 at 16:15 Hydralazine HCl (Apresoline) 10 mg PRN Q4HRS PRN IVP ELEVATED BP, SEE COMMENTS ; Start 08/03/16 at 16:15 Ondansetron HCl (Zofran) 4 mg PRN Q8HRS PRN IV NAUSEA/VOMITING; Start 08/03/16 at 16:15; Stop 08/04/16 at 08:15; Status DC Sodium Chloride 1,000 ml @ 125 mls/hr Q8H IV Last administered on 08/04/16 02 :46; Start 08/03/16 at 16:30; Stop 08/05/16 at 16:29 Insulin Aspart (NovoLOG) 0-9 UNITS TIDWMEALS SQ ; Start 08/03/16 at 17:00 Dextrose (Dextrose 50%-Water Syringe) 12.5 gm PRN Q15MIN PRN IV SEE COMMENTS; Start 08/03/16 at 16:30 Insulin Detemir (Levemir) 10 units BID SQ Last administered on 08/04/16 08:32 ; Start 08/03/16 at 21:00 Amlodipine Besylate (Norvasc) 10 mg DAILY PO Last administered on 08/04/16 08: 27; Start 08/04/16 at 09:00 Aspirin (Children'S Aspirin) 81 mg DAILY PO Last administered on 08/04/16 08: 26; Start 08/04/16 at 09:00 Atorvastatin Calcium (Lipitor) 40 mg QHS PO Last administered on 08/03/16 21: 22; Start 08/03/16 at 21:00 Tamsulosin HCl (Flomax) 0.4 mg DAILY PO Last administered on 08/04/16 08:26; Start 08/04/16 at 09:00 Calcium/Vitamin D (Oscal D 500mg/ 200uts) 1 tab DAILY PO Last administered on 08:26; Start 08/04/16 at 09:00 Cyclobenzaprine HCl (Flexeril) 5 mg DAILY PO Last administered on 08/04/16 08: 26; Start 08/04/16 at 09:00 Non-Formulary Medication 50 mg DAILY PO ; Start 08/04/16 at 09:00; Stop at 09:00; Status DC Triamcinolone Acetonide (Kenalog) 1 nadya PRN BID PRN TP DRY SCALY SKIN ON LEGS; Start 08/03/16 at 18:45; Status Cancel Zolpidem Tartrate (Ambien) 5 mg QHS PO Last administered on 08/03/16 21:22; Start 08/03/16 at 21:00 Lisinopril (Prinivil) 10 mg DAILY PO Last administered on 08/04/16 08:27; Start 08/04/16 at 09:00 Triamcinolone Acetonide (Kenalog) 1 nadya PRN BID PRN TP DRY SCALY SKIN ON LEGS; Start 08/03/16 at 18:45 Ondansetron HCl (Zofran) 4 mg PRN Q6HRS PRN IV NAUSEA/VOMITING; Start 08/04/16 at 16:15 Active Scripts Active Nitrostat (Nitroglycerin) 0.4 Mg Tab.subl 0.4 Mg SL PRN Q5MIN PRN 30 Days [Metoprolol Tartrate] 25 MG Tablet 12.5 Mg PO BID Reported Quinapril Hcl 20 Mg Tablet 50 Mg PO DAILY Calcium 600 + Vit D 200 Tablet (Calcium Carbonate/Vitamin D3) 1 Each Tablet 1 Each PO DAILY Hydrocodone-Apap 5-325 (Hydrocodone Bit/Acetaminophen) 1 Each Tablet 1 Tab PO BID Aspirin 81 Mg Tab.chew 1 Tab PO DAILY Tamsulosin Hcl 0.4 Mg Cap.er.24h 1 Cap PO DAILY Cyclobenzaprine Hcl 5 Mg Tablet 1 Tab PO DAILY Atorvastatin Calcium 40 Mg Tablet 1 Tab PO QHS Amlodipine Besylate 10 Mg Tablet 10 Mg PO DAILY Triamcinolone Acetonide 80 Gm Oint...g. 1 Nadya TP BID PRN Lantus Solostar (Insulin Glargine,Hum.rec.anlog) 100 Unit/1 Ml Insuln.pen 20 Unit SQ BID Multivitamins (Multivitamin) 1 Each Tablet 1 Tab PO DAILY Zolpidem Tartrate Er (Zolpidem Tartrate) 12.5 Mg Tab.mphase 1 Tab PO QHS Clonazepam 1 Mg Tablet 1 Mg PO HS Zantac (Ranitidine Hcl) 150 Mg Tablet 300 Mg PO DAILY PRN Vitals/I & O Vital Sign - Last 24 Hours 08/03/16 08/03/16 08/03/16 08/03/16 11:05 11:35 12:05 12:06 Pulse 85 84 92 Resp B/P (MAP) 166/77 (106) 168/82 (110) 174/84 (114) Pulse Ox 90 94 95 95 O2 Delivery Room Air Room Air Room Air Room Air 08/03/16 08/03/16 08/03/16 08/03/16 13:09 15:15 19:15 19:16 Temp 97.9 98.2 97.9 98.2 Pulse 92 106 95 Resp 18 18 18 B/P (MAP) 177/84 (115) 183/91 (121) 152/83 (106) Pulse Ox 95 95 92 O2 Delivery Room Air Room Air Room Air Room Air 08/03/16 08/03/16 08/03/16 08/04/16 20:30 22:45 23:08 02:45 Temp 97.9 97.9 Pulse 89 Resp 18 18 B/P (MAP) 153/78 (103) Pulse Ox 92 O2 Delivery Room Air Room Air Room Air Nasal Cannula O2 Flow Rate 1.0 08/04/16 08/04/16 08/04/16 08/04/16 03:04 07:00 07:01 07:15 Temp 97.5 97.7 97.5 97.7 Pulse 91 79 Resp 18 20 18 B/P (MAP) 138/97 (111) 150/73 (98) Pulse Ox 94 94 O2 Delivery Nasal Cannula Nasal Cannula Nasal Cannula Room Air O2 Flow Rate 2.0 2.0 1.0 1.0 08/04/16 08/04/16 08/04/16 08:27 08:27 09:34 Pulse 79 79 B/P (MAP) 150/73 150/73 O2 Delivery Nasal Cannula O2 Flow Rate 1.0 Intake and Output 08/03/16 08/03/16 08/04/16 15:00 23:00 07:00 Intake Total 1000 ml 100 ml 200 ml Balance 1000 ml 100 ml 200 ml MADAI WING MD Aug 04, 2016 10:51
[2016-08-04 11:00] VITALS: BP 121/64
--- NOTE | 2016-08-04 11:41 | PDOC ---
Subjective: Subjective: Pain controlled w/ meds. No recurrent diarrhea or bleeding. Tolerating clears. Objective: Vital Signs: Vital Signs Date Time Temp Pulse Resp B/P (MAP) Pulse Ox O2 Delivery O2 Flow Rate FiO2 08/04/16 11:27 Room Air 08/04/16 11:00 97.7 75 20 121/64 (83) 93 2.0 97.7 Labs: Laboratory Tests Test 08/03/16 13:10 08/03/16 16:16 08/03/16 20:58 08/04/16 04:45 Urine Collection Type Unknown Urine Color Yellow Urine Clarity Clear Urine pH 6.0 Urine Specific [place] 1.020 Urine Protein >=300 mg/dL Urine Glucose (UA) 250 mg/dL Urine Ketones (Stick) 15 mg/dL Urine Blood Negative Urine Nitrite Negative Urine Bilirubin Negative Urine Urobilinogen Dipstick 0.2 mg/dL Urine Leukocyte Esterase Negative Urine RBC Occ /HPF Urine WBC Occ /HPF Urine Bacteria 0 /HPF Urine Hyaline Casts Few /HPF Urine Mucus Slight /LPF Glucose (Fingerstick) 159 mg/dL 158 mg/dL White Blood Count 16.5 x10^3/uL Red Blood Count 4.41 x10^6/uL Hemoglobin 13.5 g/dL Hematocrit 40.9 % Mean Corpuscular Volume 93 fL Mean Corpuscular Hemoglobin 31 pg Mean Corpuscular Hemoglobin Concent 33 g/dL Red Cell Distribution Width 13.1 % Platelet Count 315 x10^3/uL Neutrophils (%) (Auto) 81 % Lymphocytes (%) (Auto) 10 % Monocytes (%) (Auto) 9 % Eosinophils (%) (Auto) 0 % Basophils (%) (Auto) 0 % Neutrophils # (Auto) 13.3 x10^3uL Lymphocytes # (Auto) 1.6 x10^3/uL Monocytes # (Auto) 1.5 x10^3/uL Eosinophils # (Auto) 0.0 x10^3/uL Basophils # (Auto) 0.1 x10^3/uL Segmented Neutrophils % 87 % Band Neutrophils % 2 % Lymphocytes % 6 % Monocytes % 5 % Platelet Estimate Adequate Erythrocyte Sedimentation Rate 43 Sodium Level 142 mmol/L Potassium Level 4.2 mmol/L Chloride Level 108 mmol/L Carbon Dioxide Level 24 mmol/L Anion Gap 10 Blood Urea Nitrogen 13 mg/dL Creatinine 1.2 mg/dL Estimated GFR (Cockcroft-Gault) 59.0 BUN/Creatinine Ratio 11 Glucose Level 142 mg/dL Calcium Level 7.8 mg/dL Total Bilirubin 0.4 mg/dL Aspartate Amino Transf (AST/SGOT) 18 U/L Alanine Aminotransferase (ALT/SGPT) 16 U/L Alkaline Phosphatase 75 U/L Total Protein 5.3 g/dL Albumin 2.2 g/dL Albumin/Globulin Ratio 0.7 Test 08/04/16 07:35 08/04/16 10:54 Glucose (Fingerstick) 133 mg/dL 203 mg/dL PE: GEN: NAD LUNGS: clear, nasal cannula HEART: RRR ABD: BS hyperactive, sanding machine 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 Concern for ischemic colitis - worse in right colon. Continue atbx and clears for now. ROXY NIETO Aug 04, 2016 11:41
[2016-08-04 15:00] VITALS: BP 120/65
[2016-08-04] MEDS ORDERED: ONDANSETRON PF 4 MG/2 ML VIAL. IV PRN (16:15)
[2016-08-04 19:05] VITALS: BP 123/62
[2016-08-04] MEDS: ATORVASTATIN CALCIUM 40 MG TABLET. PO SCH (20:29)
[2016-08-04] MEDS: ZOLPIDEM 5 MG TABLET. PO SCH ×2 (21:17→22:47)
[2016-08-04 23:10] VITALS: BP 132/61
[2016-08-05] MEDS: IV NORMAL SALINE 1000ML BAG 1,000 ML IV SCH ×2 (00:30→08:30)
[2016-08-05 03:30] VITALS: BP 140/73
[2016-08-05 04:04] LABS: BASO # 0.1 x10^3/uL (0.0-0.2); BASO % 1 % (0-3); EOS % 4 % (0-3); HEMATOCRIT 35.2 % (39.0-53.0); HEMOGLOBIN 11.8 g/dL (13.0-17.5); LYMPH % 18 % (24-48); MEAN CORPUSCULAR HEMOGLOBIN 31 pg (25-35); MEAN CORPUSCULAR HGB CONC 33 g/dL (31-37); MEAN CORPUSCULAR VOLUME 93 fL (79-100); MONO % 10 % (0-9); NEUT % 68 % (31-73); PLATELET COUNT 290 x10^3/uL (140-400); RED CELL DISTRIBUTION WIDTH 13.2 % (11.5-14.5); WHITE BLOOD COUNT 11.3 x10^3/uL (4.0-11.0)
[2016-08-05 04:13] LABS: CALCIUM 7.6 mg/dL (8.5-10.1); CREATININE 1.3 mg/dL (0.7-1.3); GFR 53.8; POTASSIUM 3.8 mmol/L (3.5-5.1)
[2016-08-05 07:15] VITALS: BP 150/78
[2016-08-05] MEDS: INSULIN ASPART 300 UNITS/3 ML INSULN.PEN SQ SCH ×3 (08:00→16:41)
[2016-08-05] MEDS: CYCLOBENZAPRINE 10 MG TABLET. PO SCH (08:09)
[2016-08-05] MEDS: CALCIUM CARB/VIT D3 500/200 TABLET. PO SCH (08:09)
[2016-08-05] MEDS: ASPIRIN CHEWABLE 81 MG TABLET. PO SCH (08:09)
[2016-08-05] MEDS: TAMSULOSIN 0.4 MG CAP.ER.24H. PO SCH (08:09)
[2016-08-05] MEDS: LISINOPRIL 10 MG TABLET PO SCH (08:11)
[2016-08-05] MEDS: amLODIPine BESYLATE 10 MG TABLET PO SCH (08:11)
[2016-08-05] MEDS: CIPROFLOXACIN 400MG PREMIX 200 ML IV SCH (08:21)
[2016-08-05] MEDS: INSULIN DETEMIR 300 UNITS/3 ML INSULN.PEN. SQ SCH ×2 (08:25→21:19)
[2016-08-05] MEDS ORDERED: IOHEXOL 350 MG/ML 100 ML VIAL. IV ONE (08:45)
[2016-08-05] MEDS ORDERED: CONTRAST GIVEN MC PRN (09:00)
[2016-08-05 10:50] VITALS: BP 151/78
--- NOTE | 2016-08-05 11:09 | RAD ---
CTA of the abdomen and pelvis with contrast, 07/16/2016: History: Bloody diarrhea, possible ischemia Multidetector CT imaging was performed following an IV bolus injection of iodinated contrast material. Multiplanar reconstructions were produced as well as 3-D volume rendered reconstructions of the major arteries. There is moderate aortoiliac calcific plaquing. There is no evidence of aortic aneurysm or dissection. There is mild calcific plaquing at the origin of the celiac artery without evidence of high-grade stenosis. There is more extensive calcific plaquing of the superior mesenteric artery origin, however, there is only mild associated luminal narrowing. There are single bilateral renal arteries. There is mild associated narrowing of the proximal left renal artery and moderate narrowing of the proximal right renal artery. A patent inferior mesenteric artery is present with mild calcific plaquing at its origin. No high-grade iliac or common femoral arterial stenosis is identified. A small amount of bilateral pleural fluid has developed since 08/03/2016. There is mild underlying streaky atelectasis/infiltrate in the left base. There is bilateral renal cortical scarring. A couple of small renal cortical cysts are present on the right. Scattered diverticula are present in the colon. Colonic mural thickening involving primarily the right colon appears to have improved slightly. No free fluid or free air is evident in the abdomen or pelvis. IMPRESSION: 1. Moderate calcific plaquing of the abdominal aorta and its branches. 2. No high-grade celiac or superior mesenteric arterial stenosis is evident. 3. Moderate narrowing of the proximal right renal artery. 4. Mural thickening in the right colon appears to have improved slightly since 08/03/2016. 5. Colonic diverticulosis. 6. Small bilateral pleural effusions have developed with mild left basilar atelectasis/infiltrate. PQRS Compliance Statement: One or more of the following individualized dose reduction techniques were utilized for this examination: 1. Automated exposure control 2. Adjustment of the mA and/or kV according to patient size 3. Use of iterative reconstruction technique
[2016-08-05] MEDS ORDERED: LABETALOL 20 MG/4 ML DISP.SYRIN. IVP PRN (12:00)
--- NOTE | 2016-08-05 12:07 | PDOC ---
PROGRESS NOTES Chief Complaint Chief Complaint 1. c diff diarrhea with colitis- first episode 2. SIRS POA, no sepsis 3. Acute abd pain sec to # 1 4. DM 2 controlled 5. 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 HTN, uncontrolled History of Present Illness History of Present Illness Still having loose BM, non bloody BP on high side C diff positive - first episode ESR only 40s, no fever WBC down to 11 from 16 Rpt CTA reveiwed, some plaquing, reduced colon inflammation BP on high side PLAN: Dec IVF rate to 80cc Start liquid diet LAbs cristopher Labetolol prn Will dc once tolerating PO, reduced freq BM and BP controlled Dw and RN C diff literature provided Vitals Vitals Vital Signs Date Time Temp Pulse Resp B/P (MAP) Pulse Ox O2 Delivery O2 Flow Rate FiO2 08/05/16 10:50 98.2 88 18 151/78 (102) 91 Room Air 98.2 08/04/16 23:10 Physical Exam General: Alert, Oriented X3, Cooperative Heart: Regular rate, Normal S1, Normal S2 Lungs: Clear Abdomen: Normal bowel sounds, Soft, Other (tenderness hypogastric areas) Extremities: No clubbing, No cyanosis Skin: No rashes, No breakdown Labs LABS Laboratory Tests Test 08/04/16 16:06 08/04/16 20:39 08/05/16 03:30 08/05/16 08:19 Glucose (Fingerstick) 100 mg/dL (70-99) 158 mg/dL (70-99) 123 mg/dL (70-99) White Blood Count 11.3 x10^3/uL (4.0-11.0) Red Blood Count 3.80 x10^6/uL (4.30-5.70) Hemoglobin 11.8 g/dL (13.0-17.5) Hematocrit 35.2 % (39.0-53.0) Mean Corpuscular Volume 93 fL (79-100) Mean Corpuscular Hemoglobin 31 pg (25-35) Mean Corpuscular Hemoglobin Concent 33 g/dL (31-37) Red Cell Distribution Width 13.2 % (11.5-14.5) Platelet Count 290 x10^3/uL (140-400) Neutrophils (%) (Auto) 68 % (31-73) Lymphocytes (%) (Auto) 18 % (24-48) Monocytes (%) (Auto) 10 % (0-9) Eosinophils (%) (Auto) 4 % (0-3) Basophils (%) (Auto) 1 % (0-3) Neutrophils # (Auto) 7.7 x10^3uL (1.8-7.7) Lymphocytes # (Auto) 2.0 x10^3/uL (1.0-4.8) Monocytes # (Auto) 1.1 x10^3/uL (0.0-1.1) Eosinophils # (Auto) 0.4 x10^3/uL (0.0-0.7) Basophils # (Auto) 0.1 x10^3/uL (0.0-0.2) Sodium Level 142 mmol/L (136-145) Potassium Level 3.8 mmol/L (3.5-5.1) Chloride Level 109 mmol/L (98-107) Carbon Dioxide Level 26 mmol/L (21-32) Anion Gap 7 (6-14) Blood Urea Nitrogen 13 mg/dL (8-26) Creatinine 1.3 mg/dL (0.7-1.3) Estimated GFR (Cockcroft-Gault) 53.8 Glucose Level 111 mg/dL (70-99) Calcium Level 7.6 mg/dL (8.5-10.1) Test 08/05/16 10:52 Glucose (Fingerstick) 119 mg/dL (70-99) Review of Systems Review of Systems no abd pain, diarrhea, no emesis, no cp Assessment and Plan Assessmemt and Plan Problems Medical Problems: (1) Acute colitis Status: Acute (2) Intractable abdominal pain Status: Acute Problems: Comment Review of Relevant I have reviewed the following items yasmine (where applicable) has been applied. Labs Laboratory Tests Test 08/03/16 13:10 08/03/16 16:16 08/03/16 16:20 08/03/16 20:58 Urine Collection Type Unknown Urine Color Yellow Urine Clarity Clear Urine pH 6.0 Urine Specific [place] 1.020 Urine Protein >=300 mg/dL (NEG-TRACE) Urine Glucose (UA) 250 mg/dL (NEG) Urine Ketones (Stick) 15 mg/dL (NEG) Urine Blood Negative (NEG) Urine Nitrite Negative (NEG) Urine Bilirubin Negative (NEG) Urine Urobilinogen Dipstick 0.2 mg/dL (0.2 mg/dL) Urine Leukocyte Esterase Negative (NEG) Urine RBC Occ /HPF (0-2) Urine WBC Occ /HPF (0-4) Urine Bacteria 0 /HPF (0-FEW) Urine Hyaline Casts Few /HPF Urine Mucus Slight /LPF Glucose (Fingerstick) 159 mg/dL (70-99) 158 mg/dL (70-99) Clostridium difficile Toxin (PCR) Positive (Negative) Test 08/04/16 04:45 08/04/16 07:35 08/04/16 10:54 08/04/16 16:06 White Blood Count 16.5 x10^3/uL (4.0-11.0) Red Blood Count 4.41 x10^6/uL (4.30-5.70) Hemoglobin 13.5 g/dL (13.0-17.5) Hematocrit 40.9 % (39.0-53.0) Mean Corpuscular Volume 93 fL (79-100) Mean Corpuscular Hemoglobin 31 pg (25-35) Mean Corpuscular Hemoglobin Concent 33 g/dL (31-37) Red Cell Distribution Width 13.1 % (11.5-14.5) Platelet Count 315 x10^3/uL (140-400) Neutrophils (%) (Auto) 81 % (31-73) Lymphocytes (%) (Auto) 10 % (24-48) Monocytes (%) (Auto) 9 % (0-9) Eosinophils (%) (Auto) 0 % (0-3) Basophils (%) (Auto) 0 % (0-3) Neutrophils # (Auto) 13.3 x10^3uL (1.8-7.7) Lymphocytes # (Auto) 1.6 x10^3/uL (1.0-4.8) Monocytes # (Auto) 1.5 x10^3/uL (0.0-1.1) Eosinophils # (Auto) 0.0 x10^3/uL (0.0-0.7) Basophils # (Auto) 0.1 x10^3/uL (0.0-0.2) Segmented Neutrophils % 87 % (35-66) Band Neutrophils % 2 % (0-9) Lymphocytes % 6 % (24-48) Monocytes % 5 % (0-10) Platelet Estimate Adequate (ADEQUATE) Erythrocyte Sedimentation Rate 43 (0-15) Sodium Level 142 mmol/L (136-145) Potassium Level 4.2 mmol/L (3.5-5.1) Chloride Level 108 mmol/L (98-107) Carbon Dioxide Level 24 mmol/L (21-32) Anion Gap 10 (6-14) Blood Urea Nitrogen 13 mg/dL (8-26) Creatinine 1.2 mg/dL (0.7-1.3) Estimated GFR (Cockcroft-Gault) 59.0 BUN/Creatinine Ratio 11 (6-20) Glucose Level 142 mg/dL (70-99) Calcium Level 7.8 mg/dL (8.5-10.1) Total Bilirubin 0.4 mg/dL (0.2-1.0) Aspartate Amino Transf (AST/SGOT) 18 U/L (15-37) Alanine Aminotransferase (ALT/SGPT) 16 U/L (16-63) Alkaline Phosphatase 75 U/L (46-116) Total Protein 5.3 g/dL (6.4-8.2) Albumin 2.2 g/dL (3.4-5.0) Albumin/Globulin Ratio 0.7 (1.0-1.7) Glucose (Fingerstick) 133 mg/dL (70-99) 203 mg/dL (70-99) 100 mg/dL (70-99) Test 08/04/16 20:39 08/05/16 03:30 08/05/16 08:19 08/05/16 10:52 Glucose (Fingerstick) 158 mg/dL (70-99) 123 mg/dL (70-99) 119 mg/dL (70-99) White Blood Count 11.3 x10^3/uL (4.0-11.0) Red Blood Count 3.80 x10^6/uL (4.30-5.70) Hemoglobin 11.8 g/dL (13.0-17.5) Hematocrit 35.2 % (39.0-53.0) Mean Corpuscular Volume 93 fL (79-100) Mean Corpuscular Hemoglobin 31 pg (25-35) Mean Corpuscular Hemoglobin Concent 33 g/dL (31-37) Red Cell Distribution Width 13.2 % (11.5-14.5) Platelet Count 290 x10^3/uL (140-400) Neutrophils (%) (Auto) 68 % (31-73) Lymphocytes (%) (Auto) 18 % (24-48) Monocytes (%) (Auto) 10 % (0-9) Eosinophils (%) (Auto) 4 % (0-3) Basophils (%) (Auto) 1 % (0-3) Neutrophils # (Auto) 7.7 x10^3uL (1.8-7.7) Lymphocytes # (Auto) 2.0 x10^3/uL (1.0-4.8) Monocytes # (Auto) 1.1 x10^3/uL (0.0-1.1) Eosinophils # (Auto) 0.4 x10^3/uL (0.0-0.7) Basophils # (Auto) 0.1 x10^3/uL (0.0-0.2) Sodium Level 142 mmol/L (136-145) Potassium Level 3.8 mmol/L (3.5-5.1) Chloride Level 109 mmol/L (98-107) Carbon Dioxide Level 26 mmol/L (21-32) Anion Gap 7 (6-14) Blood Urea Nitrogen 13 mg/dL (8-26) Creatinine 1.3 mg/dL (0.7-1.3) Estimated GFR (Cockcroft-Gault) 53.8 Glucose Level 111 mg/dL (70-99) Calcium Level 7.6 mg/dL (8.5-10.1) Laboratory Tests Test 08/04/16 16:06 08/04/16 20:39 08/05/16 03:30 08/05/16 08:19 Glucose (Fingerstick) 100 mg/dL (70-99) 158 mg/dL (70-99) 123 mg/dL (70-99) White Blood Count 11.3 x10^3/uL (4.0-11.0) Red Blood Count 3.80 x10^6/uL (4.30-5.70) Hemoglobin 11.8 g/dL (13.0-17.5) Hematocrit 35.2 % (39.0-53.0) Mean Corpuscular Volume 93 fL (79-100) Mean Corpuscular Hemoglobin 31 pg (25-35) Mean Corpuscular Hemoglobin Concent 33 g/dL (31-37) Red Cell Distribution Width 13.2 % (11.5-14.5) Platelet Count 290 x10^3/uL (140-400) Neutrophils (%) (Auto) 68 % (31-73) Lymphocytes (%) (Auto) 18 % (24-48) Monocytes (%) (Auto) 10 % (0-9) Eosinophils (%) (Auto) 4 % (0-3) Basophils (%) (Auto) 1 % (0-3) Neutrophils # (Auto) 7.7 x10^3uL (1.8-7.7) Lymphocytes # (Auto) 2.0 x10^3/uL (1.0-4.8) Monocytes # (Auto) 1.1 x10^3/uL (0.0-1.1) Eosinophils # (Auto) 0.4 x10^3/uL (0.0-0.7) Basophils # (Auto) 0.1 x10^3/uL (0.0-0.2) Sodium Level 142 mmol/L (136-145) Potassium Level 3.8 mmol/L (3.5-5.1) Chloride Level 109 mmol/L (98-107) Carbon Dioxide Level 26 mmol/L (21-32) Anion Gap 7 (6-14) Blood Urea Nitrogen 13 mg/dL (8-26) Creatinine 1.3 mg/dL (0.7-1.3) Estimated GFR (Cockcroft-Gault) 53.8 Glucose Level 111 mg/dL (70-99) Calcium Level 7.6 mg/dL (8.5-10.1) Test 08/05/16 10:52 Glucose (Fingerstick) 119 mg/dL (70-99) Medications Current Medications Sodium Chloride 1,000 ml @ 1,000 mls/hr 1X ONCE IV Last administered on 10:46; Start 08/03/16 at 10:30; Stop 08/03/16 at 11:29; Status DC Famotidine (Pepcid) 20 mg 1X ONCE IVP Last administered on 08/03/16 10:46; Start 08/03/16 at 10:30; Stop 08/03/16 at 10:36; Status DC Fentanyl Citrate (Fentanyl 2ml Vial) 50 mcg 1X ONCE IV Last administered on 10:47; Start 08/03/16 at 10:30; Stop 08/03/16 at 10:36; Status DC Ondansetron HCl (Zofran) 4 mg 1X ONCE IV Last administered on 08/03/16 10:47 ; Start 08/03/16 at 10:30; Stop 08/03/16 at 10:36; Status DC Fentanyl Citrate (Fentanyl 2ml Vial) 50 mcg 1X ONCE IV Last administered on 12:06; Start 08/03/16 at 12:00; Stop 08/03/16 at 12:02; Status DC Iohexol (Omnipaque 300 Mg/ml) 60 ml 1X ONCE IV ; Start 08/03/16 at 12:45; Stop 08/03/16 at 12:46; Status DC Info (Do NOT chart on this entry -- for MONITORING) 1 each PRN DAILY PRN MC SEE COMMENTS; Start 08/03/16 at 12:45; Stop 08/05/16 at 12:44 Fentanyl Citrate (Fentanyl 2ml Vial) 50 mcg 1X ONCE IV Last administered on 13:34; Start 08/03/16 at 13:45; Stop 08/03/16 at 13:46; Status DC Metronidazole 100 ml @ 100 mls/hr Q8HRS IV Last administered on 08/05/16 06: 25; Start 08/03/16 at 22:00 Ciprofloxacin Lactate 200 ml @ 200 mls/hr Q12HR IV Last administered on 08:21; Start 08/03/16 at 21:00 Ciprofloxacin Lactate 200 ml @ 200 mls/hr ONCE ONCE IV Last administered on 15:54; Start 08/03/16 at 14:15; Stop 08/03/16 at 15:14; Status DC Metronidazole 100 ml @ 100 mls/hr ONCE ONCE IV Last administered on 14:22; Start 08/03/16 at 14:15; Stop 08/03/16 at 15:14; Status DC Ondansetron HCl (Zofran) 4 mg PRN Q8HRS PRN IV NAUSEA/VOMITING; Start 08/03/16 at 15:15; Stop 08/03/16 at 18:05; Status DC Sodium Chloride 1,000 ml @ 100 mls/hr 1X ONCE IV Last administered on 15:53; Start 08/03/16 at 15:15; Stop 08/04/16 at 01:14; Status DC Hydromorphone HCl (Dilaudid) 1 mg PRN Q3HRS PRN IV PAIN SEVERE Last administered on 08/04/16 16:30; Start 08/03/16 at 15:15 Acetaminophen (Tylenol) 325 mg PRN Q6HRS PRN PO MILD PAIN / TEMP; Start at 16:15 Acetaminophen/ Hydrocodone Bitart (Lortab 5/325) 1 tab PRN Q6HRS PRN PO MODERATE TO SEVERE PAIN Last administered on 08/04/16 21:17; Start 08/03/16 at 16:15 Hydralazine HCl (Apresoline) 10 mg PRN Q4HRS PRN IVP ELEVATED BP, SEE COMMENTS ; Start 08/03/16 at 16:15 Ondansetron HCl (Zofran) 4 mg PRN Q8HRS PRN IV NAUSEA/VOMITING; Start 08/03/16 at 16:15; Stop 08/04/16 at 08:15; Status DC Sodium Chloride 1,000 ml @ 100 mls/hr Q10H IV Last administered on 08/04/16 16:30; Start 08/03/16 at 16:30; Stop 08/05/16 at 16:29 Insulin Aspart (NovoLOG) 0-9 UNITS TIDWMEALS SQ Last administered on 08/04/16 12:20; Start 08/03/16 at 17:00 Dextrose (Dextrose 50%-Water Syringe) 12.5 gm PRN Q15MIN PRN IV SEE COMMENTS; Start 08/03/16 at 16:30 Insulin Detemir (Levemir) 10 units BID SQ Last administered on 08/04/16 21:22 ; Start 08/03/16 at 21:00 Amlodipine Besylate (Norvasc) 10 mg DAILY PO Last administered on 08/04/16 08: 27; Start 08/04/16 at 09:00 Aspirin (Children'S Aspirin) 81 mg DAILY PO Last administered on 08/04/16 08: 26; Start 08/04/16 at 09:00 Atorvastatin Calcium (Lipitor) 40 mg QHS PO Last administered on 08/04/16 20: 29; Start 08/03/16 at 21:00 Tamsulosin HCl (Flomax) 0.4 mg DAILY PO Last administered on 08/04/16 08:26; Start 08/04/16 at 09:00 Calcium/Vitamin D (Oscal D 500mg/ 200uts) 1 tab DAILY PO Last administered on 08:26; Start 08/04/16 at 09:00 Cyclobenzaprine HCl (Flexeril) 5 mg DAILY PO Last administered on 08/04/16 08: 26; Start 08/04/16 at 09:00 Non-Formulary Medication 50 mg DAILY PO ; Start 08/04/16 at 09:00; Stop at 09:00; Status DC Triamcinolone Acetonide (Kenalog) 1 nadya PRN BID PRN TP DRY SCALY SKIN ON LEGS; Start 08/03/16 at 18:45; Status Cancel Zolpidem Tartrate (Ambien) 5 mg QHS PO Last administered on 08/04/16 22:47; Start 08/03/16 at 21:00 Lisinopril (Prinivil) 10 mg DAILY PO Last administered on 08/04/16 08:27; Start 08/04/16 at 09:00 Triamcinolone Acetonide (Kenalog) 1 nadya PRN BID PRN TP DRY SCALY SKIN ON LEGS; Start 08/03/16 at 18:45 Ondansetron HCl (Zofran) 4 mg PRN Q6HRS PRN IV NAUSEA/VOMITING; Start 08/04/16 at 16:15 Iohexol (Omnipaque 350 Mg/ml) 90 ml 1X ONCE IV Last administered on 08/05/16 08:45; Start 08/05/16 at 08:45; Stop 08/05/16 at 08:46; Status DC Info (Do NOT chart on this entry -- for MONITORING) 1 each PRN DAILY PRN MC SEE COMMENTS; Start 08/05/16 at 09:00; Stop 08/07/16 at 08:59 Labetalol HCl (Normodyne) 10 mg PRN Q2HR PRN IVP HYPERTENSION, SEE COMMENTS; Start 08/05/16 at 12:00 Active Scripts Active Nitrostat (Nitroglycerin) 0.4 Mg Tab.subl 0.4 Mg SL PRN Q5MIN PRN 30 Days [Metoprolol Tartrate] 25 MG Tablet 12.5 Mg PO BID Reported Quinapril Hcl 20 Mg Tablet 50 Mg PO DAILY Calcium 600 + Vit D 200 Tablet (Calcium Carbonate/Vitamin D3) 1 Each Tablet 1 Each PO DAILY Hydrocodone-Apap 5-325 (Hydrocodone Bit/Acetaminophen) 1 Each Tablet 1 Tab PO BID Aspirin 81 Mg Tab.chew 1 Tab PO DAILY Tamsulosin Hcl 0.4 Mg Cap.er.24h 1 Cap PO DAILY Cyclobenzaprine Hcl 5 Mg Tablet 1 Tab PO DAILY Atorvastatin Calcium 40 Mg Tablet 1 Tab PO QHS Amlodipine Besylate 10 Mg Tablet 10 Mg PO DAILY Triamcinolone Acetonide 80 Gm Oint...g. 1 Nadya TP BID PRN Lantus Solostar (Insulin Glargine,Hum.rec.anlog) 100 Unit/1 Ml Insuln.pen 20 Unit SQ BID Multivitamins (Multivitamin) 1 Each Tablet 1 Tab PO DAILY Zolpidem Tartrate Er (Zolpidem Tartrate) 12.5 Mg Tab.mphase 1 Tab PO QHS Clonazepam 1 Mg Tablet 1 Mg PO HS Zantac (Ranitidine Hcl) 150 Mg Tablet 300 Mg PO DAILY PRN Vitals/I & O Vital Sign - Last 24 Hours 08/04/16 08/04/16 08/04/16 08/04/16 13:16 15:00 16:30 17:15 Temp 98.1 98.1 Pulse 80 Resp 20 B/P (MAP) 120/65 (83) Pulse Ox 94 O2 Delivery Nasal Cannula Nasal Cannula Room Air Room Air O2 Flow Rate 1.0 2.0 08/04/16 08/04/16 08/04/16 08/04/16 19:05 20:00 21:17 22:30 Temp 97.9 97.9 Pulse 95 Resp 20 18 18 B/P (MAP) 123/62 (82) Pulse Ox 91 O2 Delivery Room Air Room Air Room Air Room Air 08/04/16 08/05/16 08/05/16 08/05/16 23:10 03:30 07:15 07:45 Temp 98.2 98.6 99.3 98.2 98.6 99.3 Pulse 100 90 93 Resp 18 16 22 B/P (MAP) 132/61 (84) 140/73 (95) 150/78 (102) Pulse Ox 91 91 90 O2 Delivery Room Air Room Air Room Air O2 Flow Rate 08/05/16 08/05/16 08/05/16 08:11 08:11 10:50 Temp 98.2 98.2 Pulse 93 93 88 Resp 18 B/P (MAP) 150/78 150/78 151/78 (102) Pulse Ox 91 O2 Delivery Room Air Intake and Output 08/04/16 08/04/16 08/05/16 15:00 23:00 07:00 Intake Total 340 ml 0 ml Output Total 200 ml 220 ml 150 ml Balance -200 ml 120 ml -150 ml MADAI WING MD Aug 05, 2016 12:07
--- NOTE | 2016-08-05 13:39 | PDOC ---
Subjective: Subjective: Better. No diarrhea. A little pain. Tried a different diet last night (?), felt sick. Did okay w/ full liquids for lunch. Objective: Vital Signs: Vital Signs Date Time Temp Pulse Resp B/P (MAP) Pulse Ox O2 Delivery O2 Flow Rate FiO2 08/05/16 10:50 98.2 88 18 151/78 (102) 91 Room Air 98.2 08/04/16 23:10 Labs: Laboratory Tests Test 08/04/16 16:06 08/04/16 20:39 08/05/16 08:19 08/05/16 10:52 Glucose (Fingerstick) 100 mg/dL (70-99) 158 mg/dL (70-99) 123 mg/dL (70-99) 119 mg/dL (70-99) Imaging: CTA A/P 08/05/16 IMPRESSION: 1. Moderate calcific plaquing of the abdominal aorta and its branches. 2. No high-grade celiac or superior mesenteric arterial stenosis is evident. 3. Moderate narrowing of the proximal right renal artery. 4. Mural thickening in the right colon appears to have improved slightly since . 5. Colonic diverticulosis. 6. Small bilateral pleural effusions have developed with mild left basilar atelectasis/infiltrate. PE: GEN: NAD, laying in bed LUNGS: clear, nasal cannula HEART: RRR ABD: BS+, soft, maybe a little tender NEURO/PSYCH: A & O 3 A/P: C Diff -no more bleeding/diarrhea, still has some pain/bloating (improving) -tolerating full liquids -on IV Cipro and Flagyl -last colonoscopy >10 years ago -colitis worse in right colon, CTA as above (no SMA/celiac stenosis, improving colitis) -- Stop Cipro. Will change to PO Flagyl. ROXY LANDERS Aug 05, 2016 13:39
[2016-08-05] MEDS: metroNIDAZOLE 500 MG TABLET PO SCH ×2 (14:00→21:13)
[2016-08-05 16:20] VITALS: BP 146/83
[2016-08-05 19:00] VITALS: BP 157/77
[2016-08-05] MEDS: ATORVASTATIN CALCIUM 40 MG TABLET. PO SCH (21:13)
[2016-08-05] MEDS: ZOLPIDEM 5 MG TABLET. PO SCH (21:13)
[2016-08-05 23:00] VITALS: BP 164/84
[2016-08-06] VITALS (7 sets, daily range): BP systolic 151–177; BP diastolic 76–89
[2016-08-06] MEDS: metroNIDAZOLE 500 MG TABLET PO SCH ×3 (06:15→21:55)
[2016-08-06 06:22] LABS: BASO # 0.1 x10^3/uL (0.0-0.2); BASO % 1 % (0-3); EOS % 2 % (0-3); HEMATOCRIT 39.4 % (39.0-53.0); HEMOGLOBIN 13.3 g/dL (13.0-17.5); LYMPH % 18 % (24-48); MEAN CORPUSCULAR HEMOGLOBIN 31 pg (25-35); MEAN CORPUSCULAR HGB CONC 34 g/dL (31-37); MEAN CORPUSCULAR VOLUME 91 fL (79-100); MONO % 9 % (0-9); NEUT % 71 % (31-73); PLATELET COUNT 352 x10^3/uL (140-400); RED BLOOD COUNT 4.32 x10^6/uL (4.30-5.70); RED CELL DISTRIBUTION WIDTH 12.8 % (11.5-14.5); WHITE BLOOD COUNT 11.3 x10^3/uL (4.0-11.0)
[2016-08-06 06:48] LABS: CALCIUM 8.1 mg/dL (8.5-10.1); GFR 72.8; POTASSIUM 3.8 mmol/L (3.5-5.1)
[2016-08-06] MEDS: INSULIN ASPART 300 UNITS/3 ML INSULN.PEN SQ SCH ×3 (08:00→16:57)
[2016-08-06] MEDS: ASPIRIN CHEWABLE 81 MG TABLET. PO SCH (09:23)
[2016-08-06] MEDS: LISINOPRIL 10 MG TABLET PO SCH (09:23)
[2016-08-06] MEDS: CALCIUM CARB/VIT D3 500/200 TABLET. PO SCH (09:24)
[2016-08-06] MEDS: CYCLOBENZAPRINE 10 MG TABLET. PO SCH (09:24)
[2016-08-06] MEDS: amLODIPine BESYLATE 10 MG TABLET PO SCH (09:24)
[2016-08-06] MEDS: TAMSULOSIN 0.4 MG CAP.ER.24H. PO SCH (09:24)
[2016-08-06] MEDS: INSULIN DETEMIR 300 UNITS/3 ML INSULN.PEN. SQ SCH ×2 (09:27→21:58)
--- NOTE | 2016-08-06 12:51 | PDOC ---
PROGRESS NOTES Chief Complaint Chief Complaint 1. c diff diarrhea with colitis- first episode 2. SIRS POA, no sepsis 3. Acute abd pain sec to # 1 4. DM 2 controlled 5. 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 HTN, uncontrolled History of Present Illness History of Present Illness no loose stools REading the papers Wants 1 more day to stay Family at bedside NO fevers Now on PO flagyl; PLAN: HOme cristopher on PO flagyl x 14 days total duration Vitals Vitals Vital Signs Date Time Temp Pulse Resp B/P (MAP) Pulse Ox O2 Delivery O2 Flow Rate FiO2 08/06/16 11:25 97.9 79 20 151/81 (104) 95 Room Air 97.9 Physical Exam General: Alert, Oriented X3, Cooperative Heart: Regular rate, Normal S1, Normal S2 Lungs: Clear Abdomen: Normal bowel sounds, Soft, Other (tenderness hypogastric areas) Extremities: No clubbing, No cyanosis Skin: No rashes, No breakdown Labs LABS Laboratory Tests Test 08/05/16 16:18 08/05/16 20:44 08/06/16 05:50 08/06/16 07:17 Glucose (Fingerstick) 130 mg/dL (70-99) 142 mg/dL (70-99) 136 mg/dL (70-99) White Blood Count 11.3 x10^3/uL (4.0-11.0) Red Blood Count 4.32 x10^6/uL (4.30-5.70) Hemoglobin 13.3 g/dL (13.0-17.5) Hematocrit 39.4 % (39.0-53.0) Mean Corpuscular Volume 91 fL (79-100) Mean Corpuscular Hemoglobin 31 pg (25-35) Mean Corpuscular Hemoglobin Concent 34 g/dL (31-37) Red Cell Distribution Width 12.8 % (11.5-14.5) Platelet Count 352 x10^3/uL (140-400) Neutrophils (%) (Auto) 71 % (31-73) Lymphocytes (%) (Auto) 18 % (24-48) Monocytes (%) (Auto) 9 % (0-9) Eosinophils (%) (Auto) 2 % (0-3) Basophils (%) (Auto) 1 % (0-3) Neutrophils # (Auto) 8.0 x10^3uL (1.8-7.7) Lymphocytes # (Auto) 2.0 x10^3/uL (1.0-4.8) Monocytes # (Auto) 1.0 x10^3/uL (0.0-1.1) Eosinophils # (Auto) 0.2 x10^3/uL (0.0-0.7) Basophils # (Auto) 0.1 x10^3/uL (0.0-0.2) Sodium Level 143 mmol/L (136-145) Potassium Level 3.8 mmol/L (3.5-5.1) Chloride Level 108 mmol/L (98-107) Carbon Dioxide Level 26 mmol/L (21-32) Anion Gap 9 (6-14) Blood Urea Nitrogen 8 mg/dL (8-26) Creatinine 1.0 mg/dL (0.7-1.3) Estimated GFR (Cockcroft-Gault) 72.8 Glucose Level 125 mg/dL (70-99) Calcium Level 8.1 mg/dL (8.5-10.1) Test 08/06/16 11:26 Glucose (Fingerstick) 157 mg/dL (70-99) Review of Systems Review of Systems all 14 pt negative Assessment and Plan Assessmemt and Plan Problems Medical Problems: (1) Acute colitis Status: Acute (2) Intractable abdominal pain Status: Acute Problems: Comment Review of Relevant I have reviewed the following items yasmine (where applicable) has been applied. Labs Laboratory Tests Test 08/04/16 16:06 08/04/16 20:39 08/05/16 03:30 08/05/16 08:19 Glucose (Fingerstick) 100 mg/dL (70-99) 158 mg/dL (70-99) 123 mg/dL (70-99) White Blood Count 11.3 x10^3/uL (4.0-11.0) Red Blood Count 3.80 x10^6/uL (4.30-5.70) Hemoglobin 11.8 g/dL (13.0-17.5) Hematocrit 35.2 % (39.0-53.0) Mean Corpuscular Volume 93 fL (79-100) Mean Corpuscular Hemoglobin 31 pg (25-35) Mean Corpuscular Hemoglobin Concent 33 g/dL (31-37) Red Cell Distribution Width 13.2 % (11.5-14.5) Platelet Count 290 x10^3/uL (140-400) Neutrophils (%) (Auto) 68 % (31-73) Lymphocytes (%) (Auto) 18 % (24-48) Monocytes (%) (Auto) 10 % (0-9) Eosinophils (%) (Auto) 4 % (0-3) Basophils (%) (Auto) 1 % (0-3) Neutrophils # (Auto) 7.7 x10^3uL (1.8-7.7) Lymphocytes # (Auto) 2.0 x10^3/uL (1.0-4.8) Monocytes # (Auto) 1.1 x10^3/uL (0.0-1.1) Eosinophils # (Auto) 0.4 x10^3/uL (0.0-0.7) Basophils # (Auto) 0.1 x10^3/uL (0.0-0.2) Sodium Level 142 mmol/L (136-145) Potassium Level 3.8 mmol/L (3.5-5.1) Chloride Level 109 mmol/L (98-107) Carbon Dioxide Level 26 mmol/L (21-32) Anion Gap 7 (6-14) Blood Urea Nitrogen 13 mg/dL (8-26) Creatinine 1.3 mg/dL (0.7-1.3) Estimated GFR (Cockcroft-Gault) 53.8 Glucose Level 111 mg/dL (70-99) Calcium Level 7.6 mg/dL (8.5-10.1) Test 08/05/16 10:52 08/05/16 16:18 08/05/16 20:44 08/06/16 05:50 Glucose (Fingerstick) 119 mg/dL (70-99) 130 mg/dL (70-99) 142 mg/dL (70-99) White Blood Count 11.3 x10^3/uL (4.0-11.0) Red Blood Count 4.32 x10^6/uL (4.30-5.70) Hemoglobin 13.3 g/dL (13.0-17.5) Hematocrit 39.4 % (39.0-53.0) Mean Corpuscular Volume 91 fL (79-100) Mean Corpuscular Hemoglobin 31 pg (25-35) Mean Corpuscular Hemoglobin Concent 34 g/dL (31-37) Red Cell Distribution Width 12.8 % (11.5-14.5) Platelet Count 352 x10^3/uL (140-400) Neutrophils (%) (Auto) 71 % (31-73) Lymphocytes (%) (Auto) 18 % (24-48) Monocytes (%) (Auto) 9 % (0-9) Eosinophils (%) (Auto) 2 % (0-3) Basophils (%) (Auto) 1 % (0-3) Neutrophils # (Auto) 8.0 x10^3uL (1.8-7.7) Lymphocytes # (Auto) 2.0 x10^3/uL (1.0-4.8) Monocytes # (Auto) 1.0 x10^3/uL (0.0-1.1) Eosinophils # (Auto) 0.2 x10^3/uL (0.0-0.7) Basophils # (Auto) 0.1 x10^3/uL (0.0-0.2) Sodium Level 143 mmol/L (136-145) Potassium Level 3.8 mmol/L (3.5-5.1) Chloride Level 108 mmol/L (98-107) Carbon Dioxide Level 26 mmol/L (21-32) Anion Gap 9 (6-14) Blood Urea Nitrogen 8 mg/dL (8-26) Creatinine 1.0 mg/dL (0.7-1.3) Estimated GFR (Cockcroft-Gault) 72.8 Glucose Level 125 mg/dL (70-99) Calcium Level 8.1 mg/dL (8.5-10.1) Test 08/06/16 07:17 08/06/16 11:26 Glucose (Fingerstick) 136 mg/dL (70-99) 157 mg/dL (70-99) Laboratory Tests Test 08/05/16 16:18 08/05/16 20:44 08/06/16 05:50 08/06/16 07:17 Glucose (Fingerstick) 130 mg/dL (70-99) 142 mg/dL (70-99) 136 mg/dL (70-99) White Blood Count 11.3 x10^3/uL (4.0-11.0) Red Blood Count 4.32 x10^6/uL (4.30-5.70) Hemoglobin 13.3 g/dL (13.0-17.5) Hematocrit 39.4 % (39.0-53.0) Mean Corpuscular Volume 91 fL (79-100) Mean Corpuscular Hemoglobin 31 pg (25-35) Mean Corpuscular Hemoglobin Concent 34 g/dL (31-37) Red Cell Distribution Width 12.8 % (11.5-14.5) Platelet Count 352 x10^3/uL (140-400) Neutrophils (%) (Auto) 71 % (31-73) Lymphocytes (%) (Auto) 18 % (24-48) Monocytes (%) (Auto) 9 % (0-9) Eosinophils (%) (Auto) 2 % (0-3) Basophils (%) (Auto) 1 % (0-3) Neutrophils # (Auto) 8.0 x10^3uL (1.8-7.7) Lymphocytes # (Auto) 2.0 x10^3/uL (1.0-4.8) Monocytes # (Auto) 1.0 x10^3/uL (0.0-1.1) Eosinophils # (Auto) 0.2 x10^3/uL (0.0-0.7) Basophils # (Auto) 0.1 x10^3/uL (0.0-0.2) Sodium Level 143 mmol/L (136-145) Potassium Level 3.8 mmol/L (3.5-5.1) Chloride Level 108 mmol/L (98-107) Carbon Dioxide Level 26 mmol/L (21-32) Anion Gap 9 (6-14) Blood Urea Nitrogen 8 mg/dL (8-26) Creatinine 1.0 mg/dL (0.7-1.3) Estimated GFR (Cockcroft-Gault) 72.8 Glucose Level 125 mg/dL (70-99) Calcium Level 8.1 mg/dL (8.5-10.1) Test 08/06/16 11:26 Glucose (Fingerstick) 157 mg/dL (70-99) Medications Current Medications Sodium Chloride 1,000 ml @ 1,000 mls/hr 1X ONCE IV Last administered on t 10:46; Start 08/03/16 at 10:30; Stop 08/03/16 at 11:29; Status DC Famotidine (Pepcid) 20 mg 1X ONCE IVP Last administered on 08/03/16 10:46; Start 08/03/16 at 10:30; Stop 08/03/16 at 10:36; Status DC Fentanyl Citrate (Fentanyl 2ml Vial) 50 mcg 1X ONCE IV Last administered on 10:47; Start 08/03/16 at 10:30; Stop 08/03/16 at 10:36; Status DC Ondansetron HCl (Zofran) 4 mg 1X ONCE IV Last administered on 08/03/16 10:47 ; Start 08/03/16 at 10:30; Stop 08/03/16 at 10:36; Status DC Fentanyl Citrate (Fentanyl 2ml Vial) 50 mcg 1X ONCE IV Last administered on 12:06; Start 08/03/16 at 12:00; Stop 08/03/16 at 12:02; Status DC Iohexol (Omnipaque 300 Mg/ml) 60 ml 1X ONCE IV ; Start 08/03/16 at 12:45; Stop 08/03/16 at 12:46; Status DC Info (Do NOT chart on this entry -- for MONITORING) 1 each PRN DAILY PRN MC SEE COMMENTS; Start 08/03/16 at 12:45; Stop 08/05/16 at 12:44; Status DC Fentanyl Citrate (Fentanyl 2ml Vial) 50 mcg 1X ONCE IV Last administered on 13:34; Start 08/03/16 at 13:45; Stop 08/03/16 at 13:46; Status DC Metronidazole 100 ml @ 100 mls/hr Q8HRS IV Last administered on 08/05/16 06: 25; Start 08/03/16 at 22:00; Stop 08/05/16 at 13:39; Status DC Ciprofloxacin Lactate 200 ml @ 200 mls/hr Q12HR IV Last administered on 08:21; Start 08/03/16 at 21:00; Stop 08/05/16 at 12:24; Status DC Ciprofloxacin Lactate 200 ml @ 200 mls/hr ONCE ONCE IV Last administered on 15:54; Start 08/03/16 at 14:15; Stop 08/03/16 at 15:14; Status DC Metronidazole 100 ml @ 100 mls/hr ONCE ONCE IV Last administered on 14:22; Start 08/03/16 at 14:15; Stop 08/03/16 at 15:14; Status DC Ondansetron HCl (Zofran) 4 mg PRN Q8HRS PRN IV NAUSEA/VOMITING; Start 08/03/16 at 15:15; Stop 08/03/16 at 18:05; Status DC Sodium Chloride 1,000 ml @ 100 mls/hr 1X ONCE IV Last administered on 15:53; Start 08/03/16 at 15:15; Stop 08/04/16 at 01:14; Status DC Hydromorphone HCl (Dilaudid) 1 mg PRN Q3HRS PRN IV PAIN SEVERE Last administered on 08/04/16 16:30; Start 08/03/16 at 15:15 Acetaminophen (Tylenol) 325 mg PRN Q6HRS PRN PO MILD PAIN / TEMP; Start at 16:15 Acetaminophen/ Hydrocodone Bitart (Lortab 5/325) 1 tab PRN Q6HRS PRN PO MODERATE TO SEVERE PAIN Last administered on 08/04/16 21:17; Start 08/03/16 at 16:15 Hydralazine HCl (Apresoline) 10 mg PRN Q4HRS PRN IVP ELEVATED BP, SEE COMMENTS ; Start 08/03/16 at 16:15 Ondansetron HCl (Zofran) 4 mg PRN Q8HRS PRN IV NAUSEA/VOMITING; Start 08/03/16 at 16:15; Stop 08/04/16 at 08:15; Status DC Sodium Chloride 1,000 ml @ 100 mls/hr Q10H IV Last administered on 08/04/16 16:30; Start 08/03/16 at 16:30; Stop 08/05/16 at 16:29; Status DC Insulin Aspart (NovoLOG) 0-9 UNITS TIDWMEALS SQ Last administered on 08/06/16 12:04; Start 08/03/16 at 17:00 Dextrose (Dextrose 50%-Water Syringe) 12.5 gm PRN Q15MIN PRN IV SEE COMMENTS; Start 08/03/16 at 16:30 Insulin Detemir (Levemir) 10 units BID SQ Last administered on 08/06/16 09:27 ; Start 08/03/16 at 21:00 Amlodipine Besylate (Norvasc) 10 mg DAILY PO Last administered on 08/06/16 09: 24; Start 08/04/16 at 09:00 Aspirin (Children'S Aspirin) 81 mg DAILY PO Last administered on 08/06/16 09: 23; Start 08/04/16 at 09:00 Atorvastatin Calcium (Lipitor) 40 mg QHS PO Last administered on 08/05/16 21: 13; Start 08/03/16 at 21:00 Tamsulosin HCl (Flomax) 0.4 mg DAILY PO Last administered on 08/06/16 09:24; Start 08/04/16 at 09:00 Calcium/Vitamin D (Oscal D 500mg/ 200uts) 1 tab DAILY PO Last administered on 09:24; Start 08/04/16 at 09:00 Cyclobenzaprine HCl (Flexeril) 5 mg DAILY PO Last administered on 08/06/16 09: 24; Start 08/04/16 at 09:00 Non-Formulary Medication 50 mg DAILY PO ; Start 08/04/16 at 09:00; Stop at 09:00; Status DC Triamcinolone Acetonide (Kenalog) 1 nadya PRN BID PRN TP DRY SCALY SKIN ON LEGS; Start 08/03/16 at 18:45; Status Cancel Zolpidem Tartrate (Ambien) 5 mg QHS PO Last administered on 08/05/16 21:13; Start 08/03/16 at 21:00 Lisinopril (Prinivil) 10 mg DAILY PO Last administered on 08/06/16 09:23; Start 08/04/16 at 09:00 Triamcinolone Acetonide (Kenalog) 1 nadya PRN BID PRN TP DRY SCALY SKIN ON LEGS; Start 08/03/16 at 18:45 Ondansetron HCl (Zofran) 4 mg PRN Q6HRS PRN IV NAUSEA/VOMITING; Start 08/04/16 at 16:15 Iohexol (Omnipaque 350 Mg/ml) 90 ml 1X ONCE IV Last administered on 08/05/16 08:45; Start 08/05/16 at 08:45; Stop 08/05/16 at 08:46; Status DC Info (Do NOT chart on this entry -- for MONITORING) 1 each PRN DAILY PRN MC SEE COMMENTS; Start 08/05/16 at 09:00; Stop 08/07/16 at 08:59 Labetalol HCl (Normodyne) 10 mg PRN Q2HR PRN IVP HYPERTENSION, SEE COMMENTS; Start 08/05/16 at 12:00 Metronidazole (Flagyl) 500 mg Q8HRS PO Last administered on 08/06/16 06:15; Start 08/05/16 at 14:00 Active Scripts Active Nitrostat (Nitroglycerin) 0.4 Mg Tab.subl 0.4 Mg SL PRN Q5MIN PRN 30 Days [Metoprolol Tartrate] 25 MG Tablet 12.5 Mg PO BID Reported Quinapril Hcl 20 Mg Tablet 50 Mg PO DAILY Calcium 600 + Vit D 200 Tablet (Calcium Carbonate/Vitamin D3) 1 Each Tablet 1 Each PO DAILY Hydrocodone-Apap 5-325 (Hydrocodone Bit/Acetaminophen) 1 Each Tablet 1 Tab PO BID Aspirin 81 Mg Tab.chew 1 Tab PO DAILY Tamsulosin Hcl 0.4 Mg Cap.er.24h 1 Cap PO DAILY Cyclobenzaprine Hcl 5 Mg Tablet 1 Tab PO DAILY Atorvastatin Calcium 40 Mg Tablet 1 Tab PO QHS Amlodipine Besylate 10 Mg Tablet 10 Mg PO DAILY Triamcinolone Acetonide 80 Gm Oint...g. 1 Nadya TP BID PRN Lantus Solostar (Insulin Glargine,Hum.rec.anlog) 100 Unit/1 Ml Insuln.pen 20 Unit SQ BID Multivitamins (Multivitamin) 1 Each Tablet 1 Tab PO DAILY Zolpidem Tartrate Er (Zolpidem Tartrate) 12.5 Mg Tab.mphase 1 Tab PO QHS Clonazepam 1 Mg Tablet 1 Mg PO HS Zantac (Ranitidine Hcl) 150 Mg Tablet 300 Mg PO DAILY PRN Vitals/I & O Vital Sign - Last 24 Hours 08/05/16 08/05/16 08/05/16 08/05/16 16:20 19:00 20:00 23:00 Temp 99.0 99.9 98.4 99.0 99.9 98.4 Pulse 88 87 84 Resp 20 20 20 B/P (MAP) 146/83 (104) 157/77 (103) 164/84 (110) Pulse Ox 94 94 93 O2 Delivery Room Air Room Air Room Air Room Air 08/06/16 08/06/16 08/06/16 08/06/16 03:00 07:15 09:23 09:24 Temp 98.1 97.7 98.1 97.7 Pulse 88 83 83 83 Resp 20 18 B/P (MAP) 159/88 (111) 169/85 (113) 169/85 169/85 Pulse Ox 93 96 O2 Delivery Room Air Room Air 08/06/16 11:25 Temp 97.9 97.9 Pulse 79 Resp 20 B/P (MAP) 151/81 (104) Pulse Ox 95 O2 Delivery Room Air Intake and Output 08/05/16 08/05/16 08/06/16 15:00 23:00 07:00 Intake Total 1200 ml 540 ml 120 ml Output Total 1000 ml Balance 1200 ml 540 ml -880 ml MADAI WING MD Aug 06, 2016 12:51
[2016-08-06] MEDS: ATORVASTATIN CALCIUM 40 MG TABLET. PO SCH (21:55)
[2016-08-07 03:08] VITALS: BP 159/78
[2016-08-07] MEDS: metroNIDAZOLE 500 MG TABLET PO SCH (06:20)
[2016-08-07 06:36] LABS: CALCIUM 8.2 mg/dL (8.5-10.1); CREATININE 1.1 mg/dL (0.7-1.3); GFR 65.3; POTASSIUM 3.5 mmol/L (3.5-5.1)
[2016-08-07 07:00] VITALS: BP 158/83
[2016-08-07] MEDS: INSULIN ASPART 300 UNITS/3 ML INSULN.PEN SQ SCH (08:00)
[2016-08-07] MEDS: ASPIRIN CHEWABLE 81 MG TABLET. PO SCH (08:33)
[2016-08-07] MEDS: LISINOPRIL 10 MG TABLET PO SCH (08:33)
[2016-08-07] MEDS: TAMSULOSIN 0.4 MG CAP.ER.24H. PO SCH (08:33)
[2016-08-07] MEDS: CYCLOBENZAPRINE 10 MG TABLET. PO SCH (08:35)
[2016-08-07] MEDS: CALCIUM CARB/VIT D3 500/200 TABLET. PO SCH (08:35)
[2016-08-07] MEDS: amLODIPine BESYLATE 10 MG TABLET PO SCH (08:35)
[2016-08-07] MEDS: INSULIN DETEMIR 300 UNITS/3 ML INSULN.PEN. SQ SCH (08:40)
[2016-08-07] MEDS ORDERED: METR500T PO (10:26)
--- NOTE | 2016-08-07 10:29 | PDOC3 ---
Discharge Summary Visit Information Date of Admission: Aug 03, 2016 Date of Discharge: Aug 07, 2016 Admitting Diagnosis Comment: 1. c diff diarrhea with colitis- first episode 2. SIRS POA, no sepsis 3. Acute abd pain sec to # 1 4. DM 2 controlled 5. 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 HTN, uncontrolled Final Diagnosis Problems Medical Problems: (1) Acute colitis Status: Acute (2) Intractable abdominal pain Status: Acute Brief Hospital Course Allergies Allergies Coded Allergies Type Severity Reaction Last Updated Verified pseudoephedrine Allergy Severe urinary retention 08/22/14 Yes codeine Adverse Reaction Intermediate gi upset 08/22/14 Yes Vital Signs Vital Signs Date Time Temp Pulse Resp B/P (MAP) Pulse Ox O2 Delivery O2 Flow Rate FiO2 08/07/16 08:35 76 158/83 08/07/16 08:00 Room Air 08/07/16 07:00 98.1 20 93 98.1 Lab Results Laboratory Tests Test 08/05/16 10:52 08/05/16 16:18 08/05/16 20:44 08/06/16 05:50 Glucose (Fingerstick) 119 mg/dL (70-99) 130 mg/dL (70-99) 142 mg/dL (70-99) White Blood Count 11.3 x10^3/uL (4.0-11.0) Red Blood Count 4.32 x10^6/uL (4.30-5.70) Hemoglobin 13.3 g/dL (13.0-17.5) Hematocrit 39.4 % (39.0-53.0) Mean Corpuscular Volume 91 fL (79-100) Mean Corpuscular Hemoglobin 31 pg (25-35) Mean Corpuscular Hemoglobin Concent 34 g/dL (31-37) Red Cell Distribution Width 12.8 % (11.5-14.5) Platelet Count 352 x10^3/uL (140-400) Neutrophils (%) (Auto) 71 % (31-73) Lymphocytes (%) (Auto) 18 % (24-48) Monocytes (%) (Auto) 9 % (0-9) Eosinophils (%) (Auto) 2 % (0-3) Basophils (%) (Auto) 1 % (0-3) Neutrophils # (Auto) 8.0 x10^3uL (1.8-7.7) Lymphocytes # (Auto) 2.0 x10^3/uL (1.0-4.8) Monocytes # (Auto) 1.0 x10^3/uL (0.0-1.1) Eosinophils # (Auto) 0.2 x10^3/uL (0.0-0.7) Basophils # (Auto) 0.1 x10^3/uL (0.0-0.2) Sodium Level 143 mmol/L (136-145) Potassium Level 3.8 mmol/L (3.5-5.1) Chloride Level 108 mmol/L (98-107) Carbon Dioxide Level 26 mmol/L (21-32) Anion Gap 9 (6-14) Blood Urea Nitrogen 8 mg/dL (8-26) Creatinine 1.0 mg/dL (0.7-1.3) Estimated GFR (Cockcroft-Gault) 72.8 Glucose Level 125 mg/dL (70-99) Calcium Level 8.1 mg/dL (8.5-10.1) Test 08/06/16 07:17 08/06/16 11:26 08/06/16 15:07 08/06/16 16:39 Glucose (Fingerstick) 136 mg/dL (70-99) 157 mg/dL (70-99) 155 mg/dL (70-99) 153 mg/dL (70-99) Test 08/06/16 20:45 08/07/16 05:40 08/07/16 07:26 Glucose (Fingerstick) 170 mg/dL (70-99) 150 mg/dL (70-99) Sodium Level 142 mmol/L (136-145) Potassium Level 3.5 mmol/L (3.5-5.1) Chloride Level 106 mmol/L (98-107) Carbon Dioxide Level 26 mmol/L (21-32) Anion Gap 10 (6-14) Blood Urea Nitrogen 12 mg/dL (8-26) Creatinine 1.1 mg/dL (0.7-1.3) Estimated GFR (Cockcroft-Gault) 65.3 Glucose Level 142 mg/dL (70-99) Calcium Level 8.2 mg/dL (8.5-10.1) Laboratory Tests Test 08/06/16 11:26 08/06/16 15:07 08/06/16 16:39 08/06/16 20:45 Glucose (Fingerstick) 157 mg/dL (70-99) 155 mg/dL (70-99) 153 mg/dL (70-99) 170 mg/dL (70-99) Test 08/07/16 05:40 08/07/16 07:26 Sodium Level 142 mmol/L (136-145) Potassium Level 3.5 mmol/L (3.5-5.1) Chloride Level 106 mmol/L (98-107) Carbon Dioxide Level 26 mmol/L (21-32) Anion Gap 10 (6-14) Blood Urea Nitrogen 12 mg/dL (8-26) Creatinine 1.1 mg/dL (0.7-1.3) Estimated GFR (Cockcroft-Gault) 65.3 Glucose Level 142 mg/dL (70-99) Calcium Level 8.2 mg/dL (8.5-10.1) Glucose (Fingerstick) 150 mg/dL (70-99) Brief Hospital Course Mr. Barraza is a 76 old [sex] who presented with [ ]diarrhea, turned out to be c diff, first episode, non immunocomp, non toxic appearing, non SNU. Diarrhea down to 2 BMs per day, tolerating PO fine. Rx given for flagyl total 14 days duration, COnsult: GI Proc NOne; Dispo: home Pt seen and examined Discharge Information Condition at Discharge: Improved, Stable Disposition/Orders: D/C to Home Scheduled Amlodipine Besylate (Amlodipine Besylate), 10 MG PO DAILY, (Reported) Aspirin (Aspirin), 1 TAB PO DAILY, (Reported) Atorvastatin Calcium (Atorvastatin Calcium), 1 TAB PO QHS, (Reported) Calcium Carbonate/Vitamin D3 (Calcium 600 + Vit D 200 Tablet), 1 EACH PO DAILY, (Reported) Clonazepam (Clonazepam), 1 MG PO HS, (Reported) Cyclobenzaprine Hcl (Cyclobenzaprine Hcl), 1 TAB PO DAILY, (Reported) Hydrocodone Bit/Acetaminophen (Hydrocodone-Apap 5-325 ), 1 TAB PO BID, ( Reported) Insulin Glargine,Hum.rec.anlog (Lantus Solostar), 20 UNIT SQ BID, (Reported) Multivitamin (Multivitamins), 1 TAB PO DAILY, (Reported) Quinapril Hcl (Quinapril Hcl), 50 MG PO DAILY, (Reported) Tamsulosin Hcl (Tamsulosin Hcl), 1 CAP PO DAILY, (Reported) Zolpidem Tartrate (Zolpidem Tartrate Er), 1 TAB PO QHS, (Reported) [Metoprolol Tartrate], 12.5 MG PO BID Scheduled PRN Nitroglycerin (Nitrostat), 0.4 MG SL PRN Q5MIN PRN for CHEST PAIN Ranitidine Hcl (Zantac), 300 MG PO DAILY PRN for INDIGESTION, (Reported) Triamcinolone Acetonide (Triamcinolone Acetonide), 1 AVANI TP BID PRN for DRY SKIN / SCALING, (Reported) MADAI WING MD Aug 07, 2016 10:29
[2016-08-07 11:00] VITALS: BP 151/76
== END 2016-08-07 11:54 | disposition home or self-care (01) | DRG 372 ==
LOC: ER 09:50 → 4 NORTH 14:18
PROVIDERS: ADMIT Internal Medicine; ATTEND Internal Medicine
DX: A04.7 Enterocolitis due to Clostridium difficile (principal); E44.0 Moderate protein-calorie malnutrition; R65.10 Systemic inflammatory response syndrome (SIRS) of non-infectious origin without acute organ dysfunction; I42.9 Cardiomyopathy, unspecified; R10.9 Unspecified abdominal pain; E11.9 Type 2 diabetes mellitus without complications; E78.00 Pure hypercholesterolemia, unspecified; E78.5 Hyperlipidemia, unspecified; F41.9 Anxiety disorder, unspecified; I10 Essential (primary) hypertension; K21.9 Gastro-esophageal reflux disease without esophagitis; K52.9 Noninfective gastroenteritis and colitis, unspecified; K57.30 Diverticulosis of large intestine without perforation or abscess without bleeding; M19.90 Unspecified osteoarthritis, unspecified site; Z90.49 Acquired absence of other specified parts of digestive tract; Z95.5 Presence of coronary angioplasty implant and graft; Z96.651 Presence of right artificial knee joint; I25.2 Old myocardial infarction; I25.10 Atherosclerotic heart disease of native coronary artery without angina pectoris; N40.0 Benign prostatic hyperplasia without lower urinary tract symptoms; Z88.5 Allergy status to narcotic agent; Z88.8 Allergy status to other drugs, medicaments and biological substances
CPT/HCPCS: 36415; 74174; 74177; 80048; 80053; 81001; 82274; 82962; 83690; 85007; 85027; 85651; 87045; 87324; 96365; 96375; 96376; J0744; J1170; J1815; J2405; J3010; J3490; J7030; Q9967; S0028; 99285-25

== ENCOUNTER → 2016-09-21 | Outpatient (CLI) | payer BC, MEDICARE ==
[~2016-09-21] MED LIST changes: +AMLO10TA2 PO; +ASPI-630 PO; +ATOR40TA59 PO; +CALC1TAB75 PO; +CYCL5TAB PO; +METR500T PO; +QUIN20TA7 PO; +TAMS0.4C2 PO; +TRIA80OI TP
--- NOTE | 2016-09-21 11:42 | KCIC ---
EXAM: Lumbar spine, 3 views HISTORY: Pain. COMPARISON: None. FINDINGS: Frontal, lateral and coned sacral views of the lumbar spine are obtained. There is mild lumbar levoscoliosis centered at L3. There is no significant listhesis. There is degenerative endplate remodeling with anterior predominant spurring at all visualized lower thoracic and lumbar levels. There is degenerative disc space narrowing and facet arthropathy predominantly at L4-L5 and L5-S1. There is atherosclerosis throughout the aorta and iliac bifurcation. There are cholecystectomy clips. There is a clip within the pelvis an there are suspected findings consistent with prior inguinal hernia repair. IMPRESSION: 1. 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 2. Mild lumbar scoliosis. Electronically signed by: Fatou Kuhn MD (09/21/2016 11:39 AM) [id number]
== END | disposition home or self-care (01) ==
LOC: KCIC 10:59
PROVIDERS: ATTEND Family Medicine
DX: M51.36 Other intervertebral disc degeneration, lumbar region (principal); M41.86 Other forms of scoliosis, lumbar region
CPT/HCPCS: 72100

== ENCOUNTER → 2016-09-28 | Outpatient (CLI) | payer BC, MEDICARE ==
[~2016-09-28] MED LIST changes: +REGADENOSON 0.4 MG/5 ML DISP.SYRIN. IV ONE
--- NOTE | 2016-09-28 13:58 | RAD ---
APPROVED REPORT Test Type: Pharmacological Stress Nurse/Tech: Zakia Peterson R.N. Test Indications: CAD Cardiac History: SEE EMR Medications: SEE EMR Medical History: SEE EMR Resting ECG: SR Resting Heart Rate: 59 bpm Resting Blood Pressure: 129/70mmHg Pretest Chest Pain: None Nurse/Tech Notes S1S2, lungs CTA, denied chest pain, SOA or dizziness. Consent: The procedure was explained to the patient in lay terms. Informed consent was witnessed. Jose Angel eout was entered into [employer]. History and Stress Test performed by Zakia Peterson R.N. Pharm. Details Pharmacologic stress testing was performed using 0.4mg per 5ml of regadenoson given intravenously ove r 7-10 seconds. Stress Symptoms Epigastric pain, nausea. POST EXERCISE Reason for Termination: Infusion complete Max HR: 93 bpm Max Blood Pressure: 147/77mmHg Blood Pressure response to exercise: Normal blood pressure response during stress. Heart Rate response to exercise: Normal Chest Pain: No. Arrhythmia: No. ST Change: No. INTERPRETATION Stress EKG Conclusion: Resting EKG shows a normal sinus rhythm with mild nonspecific ST segment carrera es. The stress EKG shows no significant changes from baseline. No EKG evidence of stress-induced ischemia. Imaging Protocol IMAGE PROTOCOL: Rest Tc-99m/stress Tc-99m 1 day Rest: Stress: Viability: Radiopharm.Tc99m [id number] Sestamibi [id number] 33mCi Img Date 09/28/2016 09/28/2016 Inj-Img [id number]. 60min. Rest Admin Site:IV - Left AntecubitalAdministrator:Radu Lazcano, RT (R)(N) Stress Admin Site: IV - Left AntecubitalAdministrator: HINA Nettles STRESS DATA End Diast. Vol.80.0mlAv. Heart Rate81.0bpm End Syst. Vol.19.0mlCO Index BSA0.0L/min Myocardial Rohb018.0gEject. Thmodryj07.0% Stress Rates Pk. Fill Rate4.82EDV/secLVtime Pk. Fill 219.50msec Pk. Empty Rate5.99ESV/secLVtime Pk. Ehbae878.27msec 02/15 Pk. Fill0.59EDV/sec Stress Scores Regional WT0.00Summed WT1.00 Regional WM0.00Summed WM1.00 LV Perfusion The stress scans showed no significant defects. The rest scans showed no significant defects. Nuclear imaging shows no reversible ischemia or infarct. Wall Motion Left ventricular systolic function is normal with an ejection fraction of greater than 70%. LV Perf. Quant 17 Seg. SSS2.00 17 Seg. SRS3.00 17 Seg. SDS0.00 Stress Defect Extent (% LAD)0.00Rest Defect Extent (% LAD)0.00Rev. Defect Extent (% LAD)0.00 Stress Defect Extent (% LCX) 15.00Rest Defect Extent (% LCX)7.50Rev. Defect Extent (% LCX)0.00 Stress Defect Extent (% RCA)0.00Rest Defect Extent (% RCA)0.00Rev. Defect Extent (% RCA)0.00 Stress Defect Extent (% FRAN)2.60Rest Defect Extent (% FRAN)1.30Rev. Defect Extent (% FRAN)0.00 Conclusion 1. No EKG evidence of stress-induced ischemia. 2. Nuclear imaging shows no reversible ischemia or infarct. 3. Normal left ventricular systolic function with ejection fraction of greater than 70%. 4. Low risk Lexiscan nuclear stress test.
--- NOTE | 2016-09-28 14:11 | CARD ---
APPROVED REPORT EXAM: Two-dimensional and M-mode echocardiogram with Doppler and color Doppler. Other Information Quality : GoodHR: 72bpm Rhythm : NSR INDICATION Cardiac Disease: CAD 2D DIMENSIONS RVDd3.0 (2.9-3.5cm)Left Atrium(2D)4.3 (1.6-4.0cm) IVSd1.0 (0.7-1.1cm)Aortic Root(2D)3.0 (2.0-3.7cm) LVDd4.8 (3.9-5.9cm)LVOT Diameter2.3 (1.8-2.4cm) PWd1.0 (0.7-1.1cm)LVDs3.3 (2.5-4.0cm) FS (%) 30.4 %SV62.4 ml LVEF(%)57.7 (>50%) Aortic Valve AoV Peak Roberto.136.8cm/sAoV VTI29.9cm AO Peak GR.7.5mmHgLVOT Peak Roberto.120.2cm/s AO Mean GR.4mmHgAVA (VMAX)3.59cm2 Mitral Valve MV E Gnyvyedn44.7cm/sMV E Peak Gr.5mmHg MV DECEL [id number] A Ikqgsiqs087.8cm/s MV E Mean Gr.2mmHgE/A Ratio0.8 MV A [id number] Pulmonary Valve PV Peak Jzorooyw159.7cm/s Tricuspid Valve TR P. Qhhdedhs322vw/sTR Peak Gr.28mmHg Pulmonary Vein S1 Erropshp95.9cm/sD2 Xnksnqbt56.3cm/s PVa ecifuvoh83sjyw LEFT VENTRICLE The left ventricle is normal size. There is normal left ventricular wall thickness. The left ventricu lar systolic function is normal and the ejection fraction is within normal range. The Ejection Fracti on is 55-60%. There is normal LV segmental wall motion. Transmitral Doppler flow pattern is Grade I-a bnormal relaxation pattern. RIGHT VENTRICLE The right ventricle is normal size. There is normal right ventricular wall thickness. The right ventr icular systolic function is normal. ATRIA The left atrium size is normal. The right atrium size is normal. The interatrial septum is intact wit h no evidence for an atrial septal defect or patent foramen ovale as noted on 2-D or Doppler imaging. AORTIC VALVE The aortic valve is mildly thickened. The aortic valve is trileaflet. Doppler and Color Flow revealed no significant aortic regurgitation. There is no significant aortic valvular stenosis. MITRAL VALVE The mitral valve leaflets are thickened. There is no evidence of mitral valve prolapse. There is no m itral valve stenosis. Doppler and Color Flow revealed mild mitral regurgitation. TRICUSPID VALVE Doppler and Color Flow revealed mild tricuspid regurgitation. The pulmonary artery systolic pressure is estimated at 32 mmHg. PULMONIC VALVE The pulmonary valve is not well visualized but appears to open adequately. Doppler and Color Flow rev ealed no pulmonic valvular regurgitation. There is no pulmonic valvular stenosis by spectral Doppler. GREAT VESSELS The aortic root is normal in size. The ascending aorta is normal in size. The pulmonary artery is nor mal. The IVC is normal in size and collapses >50% with inspiration. PERICARDIAL EFFUSION There is no evidence of significant pericardial effusion. Critical Notification Critical Value: No <Conclusion> The left ventricle is normal size. The left ventricular systolic function is normal and the ejection fraction is within normal range. The Ejection Fraction is 55-60%. There is no significant aortic valvular stenosis. Doppler and Color Flow revealed no significant aortic regurgitation. Doppler and Color Flow revealed mild mitral regurgitation. Doppler and Color Flow revealed mild tricuspid regurgitation. The pulmonary artery systolic pressure is estimated at 32 mmHg.
== END | disposition home or self-care (01) ==
LOC: NM 08:34 → EDSTATUS 09:30
PROVIDERS: ATTEND Internal Medicine Cardiovascular Disease
DX: I08.1 Rheumatic disorders of both mitral and tricuspid valves (principal); I25.10 Atherosclerotic heart disease of native coronary artery without angina pectoris
CPT/HCPCS: 78452; 82962; 93017; 93306; 96374; 96375; 96376; A9500; J2785

== ENCOUNTER → 2017-04-10 | Outpatient (CLI) | payer BC, MEDICARE | END | disposition home or self-care (01) | LOC: US 12:29 | DX: R60.0 Localized edema (principal) | CPT/HCPCS: 93970 ==

== ENCOUNTER → 2017-06-13 | Outpatient (CLI) | payer BC, MEDICARE | END | disposition home or self-care (01) | LOC: PNCL 12:49 | DX: M54.5 Low back pain (principal); I10 Essential (primary) hypertension; E11.9 Type 2 diabetes mellitus without complications; Z79.4 Long term (current) use of insulin; Z88.5 Allergy status to narcotic agent; Z90.49 Acquired absence of other specified parts of digestive tract; Z95.5 Presence of coronary angioplasty implant and graft; Z96.612 Presence of left artificial shoulder joint; Z96.653 Presence of artificial knee joint, bilateral | CPT/HCPCS: 99214 ==

== ENCOUNTER → 2017-11-06 | Outpatient (CLI) | payer BC, MEDICARE ==
[~2017-11-06] MED LIST changes: -AMLO10TA2 PO; +AMLO10TA6 PO; +AMLO1CAP15 PO; +AMLO1TAB99 PO; +AMOX500C PO; -CLON1TAB3 PO; +CLON1TAB4 PO; +CLOP75TA PO; +FINA5TAB4 PO; +LOSA100T7 PO; +QUIN20TA17 PO; -QUIN20TA7 PO; +QUIN40TA16 PO; -QUIN40TA7 PO; +RANI150T21 PO; -RANI150T6 PO; -REGADENOSON 0.4 MG/5 ML DISP.SYRIN. IV ONE; -[UNRECOGNIZED DRUG - CODE] PO
--- NOTE | 2017-11-06 09:21 | CARD ---
MR#: [id number] Date of Study: 11/06/2017 Ordering Physician: JOHN DA SILVA, Referring Physician: JOHN DA SILVA Tech: Loni Hutchins MARILEE APPROVED REPORT EXAM: Two-dimensional and M-mode echocardiogram with Doppler and color Doppler. Other Information Quality : Good INDICATION Cardiac Disease: CAD 2D DIMENSIONS IVSd1.1 (0.7-1.1cm)Aortic Root(2D)3.1 (2.0-3.7cm) LVDd4.3 (3.9-5.9cm)LVOT Diameter2.0 (1.8-2.4cm) PWd1.1 (0.7-1.1cm)LVDs3.1 (2.5-4.0cm) FS (%) 28.6 %SV46.9 ml LVEF(%)55.4 (>50%) M-Mode DIMENSIONS Left Atrium(MM)3.58 (2.5-4.0cm)Aortic Root3.45 (2.2-3.7cm) Aortic Valve AoV Peak Roberto.148.1cm/sAoV VTI32.2cm AO Peak GR.8.8mmHgLVOT Peak Roberto.98.8cm/s AO Mean GR.5mmHgAVA (VMAX)2.05cm2 JOSELYN (VTI)2.00cm2 Mitral Valve MV E Vgptkmqr10.1cm/sMV E Peak Gr.4mmHg MV DECEL [id number] A Kxzkngdo00.7cm/s MV E Mean Gr.1mmHgE/A Ratio0.8 MV A [id number] Pulmonary Valve PV Peak Hileuyhj626.0cm/s Tricuspid Valve TR P. Uhujitoa802tg/sRAP CNDLSVQR8ryHj TR Peak Gr.41jpYpJCWD75ljIi LEFT VENTRICLE The left ventricle is normal size. There is normal left ventricular wall thickness. The left ventricu lar systolic function is normal. The ejection fraction is 55-60%. There is normal LV segmental wall m otion. Transmitral Doppler flow pattern is Grade I-abnormal relaxation pattern. RIGHT VENTRICLE The right ventricle is normal size. There is normal right ventricular wall thickness. The right ventr icular systolic function is normal. ATRIA The left atrium size is normal. The right atrium size is normal. The interatrial septum is intact wit h no evidence for an atrial septal defect or patent foramen ovale as noted on 2-D or Doppler imaging. AORTIC VALVE The aortic valve is normal in structure and function. The aortic valve is trileaflet. Doppler and Col or Flow revealed no significant aortic regurgitation. There is no significant aortic valvular stenosi s. MITRAL VALVE The mitral valve is normal in structure and function. There is no evidence of mitral valve prolapse. There is no mitral valve stenosis. Doppler and Color Flow revealed no mitral valve regurgitation note d. TRICUSPID VALVE The tricuspid valve is normal in structure and function. Doppler and Color Flow revealed trace tricus pid regurgitation. The PA pressure was estimated at 29 mmHg. There is no tricuspid valve prolapse or vegetation. There is no tricuspid valve stenosis. PULMONIC VALVE The pulmonary valve is normal in structure and function. Doppler and Color Flow revealed no pulmonic valvular regurgitation. There is no pulmonic valvular stenosis. GREAT VESSELS The aortic root is normal in size. The ascending aorta is normal in size. PERICARDIAL EFFUSION There is no evidence of significant pericardial effusion. Critical Notification Critical Value: No <Conclusion> The left ventricle is normal size. The left ventricular systolic function is normal. The ejection fraction is 55-60%. There is no significant aortic valvular stenosis. Doppler and Color Flow revealed no significant aortic regurgitation. Doppler and Color Flow revealed no mitral valve regurgitation noted. Doppler and Color Flow revealed trace tricuspid regurgitation. The PA pressure was estimated at 29 mmHg. Signed by : Jose De Jesus Elliott MD Electronically Approved : 11/06/2017 09:20:14
== END | disposition home or self-care (01) ==
LOC: ECHO 08:32
PROVIDERS: ATTEND Internal Medicine Cardiovascular Disease
DX: I25.10 Atherosclerotic heart disease of native coronary artery without angina pectoris (principal); I10 Essential (primary) hypertension; E11.9 Type 2 diabetes mellitus without complications; E78.00 Pure hypercholesterolemia, unspecified; E78.5 Hyperlipidemia, unspecified; K21.9 Gastro-esophageal reflux disease without esophagitis; Z96.653 Presence of artificial knee joint, bilateral; Z96.612 Presence of left artificial shoulder joint; Z87.891 Personal history of nicotine dependence; Z88.5 Allergy status to narcotic agent; Z88.6 Allergy status to analgesic agent; Z88.8 Allergy status to other drugs, medicaments and biological substances
CPT/HCPCS: 93306

== ENCOUNTER → 2017-12-25 | Outpatient (CLI) | payer BC, MEDICARE ==
[~2017-12-25] MED LIST changes: +BUPIVACAINE MPF 0.25% 10 ML VIAL. ONE; +IOHEXOL 180 MG/ML 10 ML VIAL. ONE; +LIDOCAINE 2% PF Vial for OR 5 ML VIAL. ONE; +methylPREDNISolone ACETATE 40 MG/ML VIAL. ONE; +methylPREDNISolone ACETATE 80 MG/ML VIAL. ONE
--- NOTE | 2017-12-25 22:20 | PAIN ---
DATE OF SERVICE: 12/25/2017 PROGRESS NOTE FOR PAIN CLINIC DIAGNOSES: Lumbar radiculopathy with lumbar degenerative disk disease, post lumbar laminectomy syndrome and lumbar spondylosis and lumbosacral spondylosis. HISTORY OF PRESENT ILLNESS: The patient is a 77-year-old male who returns for followup, last seen 06/13/2017. The patient was on Plavix and we had treated him with Medrol Dosepak, which helped for several months, but the pain returned now only on the right side, it was previously on his left side in the low back, worse with standing, walking, sitting, better with lying down or resting. The patient reports the pain is severe in the back itself, not radiating to the lower extremities. He rates it as a 9 on a scale of 10 at its worst, 7 at its least, 8 on his average and is an 8 today. The patient reports it is cramping, tight, stabbing, shooting and aching in the low back itself, worse with again standing and especially with extension in the spine and axial loading of the lumbar spine. The patient reports it is better with sitting or lying down, but prolonged sitting can cause the pain as well, only on the right side. The patient reports the left side got better after Medrol Dosepak, but the right side has been very significantly tender. The patient reports no new motor or sensory deficits. No new bowel or bladder incontinence or other complaints. PHYSICAL EXAMINATION: VITAL SIGNS: The patient's blood pressure is 125/68, pulse 66, respirations 18, temperature 98.3 degrees Fahrenheit. Height is 5 feet 6 inches, weight is 189 pounds. GENERAL: The patient is awake, alert, oriented, appropriate, very pleasant demeanor. HEENT: Head shows normocephalic, atraumatic. Extraocular movements are intact and symmetrical. Oral cavity, mucous membranes moist and pink. Dentition is intact. NECK: Shows anterior throat supple without palpable lymphadenopathy noted. Swallow reflex symmetrical. CHEST: Normal with inspection. Breath sounds clear to auscultation bilaterally. HEART: Shows S1, S2 clear. No murmurs auscultated. ABDOMEN: Soft, nontender, nondistended. No palpable organomegaly is noted. No rebound or guarding demonstrated. BACK: Shows spine grossly in the midline. The patient's back shows moderate tenderness with palpation in the inferior aspect of the lumbar paraspinous musculature. Rotation shows some tenderness to the right with greater than 10 degree rotation, especially with extension, there is significant pain in the low right back and up the left, decreased with forward flexion at 45 degrees. The patient's lower extremities show deep tendon reflexes at 2+ in the patellar, 1+ tendo-calcaneus tendons. Motor exam is 4/5 and equal dorsiflexion, extension, quadriceps and hamstring flexion bilaterally. Peripheral pulses are 1+ posterior tibial. No peripheral edema is noted. Options were discussed with the patient. The patient's old chart was reviewed, as his current medications have been updated. Current review of systems updated today as well and he has been off his Plavix now for 7 days. We will proceed with a right-sided lumbar L4-L5 and L5-S1 facet joint injections. Risks were discussed including, but not limited to, bleeding, infection, possibility of epidural hematoma and subsequent neurologic compromise, dural puncture, headache, spinal cord and/or nerve damage, side effects to steroid medication, poor results regarding pain control. The patient understands and wished to proceed. The patient will return to the clinic in approximately 3 weeks for followup, was counseled as to his return appointment, activity level and side effects to be aware of. The patient will restart his Plavix tomorrow. DIAGNOSIS: Lumbar and lumbosacral spondylosis with post lumbar laminectomy syndrome and lumbar degenerative disk disease. PROCEDURE: Lumbar right-sided L4-L5 and L5-S1 facet joint injections with C-arm fluoroscopic guidance under sterile prep and drape using local anesthetic. MEDICATION INJECTED: A total of 2 mL of 0.25% bupivacaine and 1 mL of Isovue for contrast and 120 mg of Depo-Medrol as well. CONDITION ON DISCHARGE: Stable. The patient tolerated the procedure well, had no complications. KAITLIN SCHUMACHER MD DR: RICARDO/tata JOB#: [id number] / [id number]
== END | disposition home or self-care (01) ==
LOC: PNCL 08:12
PROVIDERS: ATTEND Anesthesiology
DX: M51.16 Intervertebral disc disorders with radiculopathy, lumbar region (principal); M47.817 Spondylosis without myelopathy or radiculopathy, lumbosacral region; M96.1 Postlaminectomy syndrome, not elsewhere classified; Z88.5 Allergy status to narcotic agent; Z88.8 Allergy status to other drugs, medicaments and biological substances
CPT/HCPCS: 64493; 64494; J1030; J1040; J2001; J3490; Q9965

== ENCOUNTER → 2018-02-22 | Outpatient (CLI) | payer BC, MEDICARE ==
[~2018-02-22] MED LIST changes: +CLON1TAB11 PO; -CLON1TAB4 PO; -HYDR-2758 PO; +HYDR-2761 PO; -LIDOCAINE 2% PF Vial for OR 5 ML VIAL. ONE; +LOSA100T14 PO; -LOSA100T7 PO
--- NOTE | 2018-02-22 14:05 | PAIN ---
DATE OF SERVICE: 02/22/2018 PROGRESS NOTE FOR PAIN CLINIC DIAGNOSES: Lumbar radiculopathy with lumbar degenerative disk disease, lumbar post-laminectomy syndrome and lumbar and lumbosacral spondylosis. HISTORY OF PRESENT ILLNESS: The patient is a 77-year-old male who returns for followup status post right side L4-L5 and L5-S1 facet joint injections. On 12/25/2017, the patient did very well with about 90% improvement, he reports for about the first month or so. The patient reports it is much improved first week, especially but after that the pain began to return over the next 3-4 weeks, but again doing much better for about a month towards increase in distance walking, doing household activities, sleeping better, getting out of the car easier, traveling easier with good results and good comfort. The patient reports his pain is returning now in the right side, the low back, remains in the low back without radiation in lower extremities. At this time, the patient reports his pain is 7 on a scale of 10 at its worst, 6 on average, 5 at its least and is a 6 today. The patient reports it is sharp, burning pain. It is stabbing, on and off in intensity, again worse with standing, walking, better with sitting or lying down. The patient reports no new motor or sensory deficits, no new bowel or bladder incontinence or other complaints. PHYSICAL EXAMINATION: VITAL SIGNS: The patient's blood pressure is 128/68, pulse 70, respirations 18, temperature 97.9 degrees Fahrenheit, height is 5 feet 6 inches, weight is 189 pounds. GENERAL: The patient is awake, alert, oriented, appropriate, very pleasant demeanor. HEENT: Shows normocephalic, atraumatic. Extraocular movements intact and symmetrical. Oral cavity: Mucous membranes moist and pink. Dentition is intact. NECK: Shows anterior throat supple without palpable lymphadenopathy noted. Swallow reflex symmetrical. CHEST: Shows normal on inspection. Breath sounds clear to auscultation bilaterally. HEART: Shows S1, S2 clear. No murmurs auscultated. ABDOMEN: Soft, nontender, nondistended. No palpable organomegaly is noted. No rebound or guarding demonstrated. BACK: Shows spine grossly in the midline. Normal appearing thoracic kyphosis and lumbar lordotic curvature. Lumbar paraspinous muscle shows paraspinous muscles symmetrical, but moderately tender with palpation diffusely bilaterally. Well-healed surgical scar is noted in lumbar distribution. Once again, the patient has good rotational motion, however, some extension with significant pain and axial loading in the low back on the right only. Also with right lateral rotation past 10 degrees shows some moderate to severe pain in the right side as well. Left side is nontender. Forward flexion is nontender at 45 degrees. EXTREMITIES: The patient's lower extremities show deep tendon reflexes at 1+ in patellar and tendo-calcaneus tendons. Motor exam is approximately 4 on a scale of 5, but equal and symmetrical dorsiflexion, extension, right and left. Peripheral pulses are 1+ posterior tibia. No peripheral edema is noted. Options were discussed with the patient. The patient's old chart was reviewed as his current medication regimen updated. Current review of systems updated today as well. We will proceed with a right-sided L4-L5 and L5-S1 facet joint injections using C-arm fluoroscopic guidance. Risks were again discussed including, but not limited to bleeding, infection, possibility of epidural hematoma, subsequent neurologic compromise, dural puncture, headaches, spinal cord and/or nerve damage, side effects of steroid medication and poor results regarding pain control. The patient understands and wished to proceed. The patient will return to clinic in approximately 3 weeks for followup, was counseled on return appointment, activity level and side effects to be aware of. We discussed if he has similar results, we may discuss potential radiofrequency ablation in the future. The patient is interested in pursuing this. We will see how his results do after his injection today and proceed at that point. The patient will restart his Plavix tomorrow as instructed. DIAGNOSES: Lumbar and lumbosacral spondylosis. PROCEDURES: Right-sided L4-L5 and L5-S1 facet joint injection using C-arm fluoroscopic guidance under sterile prep and drape using local anesthetic. MEDICATION INJECTED: A total of 2 mL of 0.25% bupivacaine as well as 120 mg Depo-Medrol and 1 mL of Isovue for contrast. CONDITION AT DISCHARGE: Stable. The patient tolerated the procedure well, had no complications. KAITLIN SCHUMACHER MD DR: RICARDO/tata JOB#: [id number] / [id number]
== END | disposition home or self-care (01) ==
LOC: PNCL 10:59
PROVIDERS: ATTEND Anesthesiology
DX: M47.817 Spondylosis without myelopathy or radiculopathy, lumbosacral region (principal); M51.16 Intervertebral disc disorders with radiculopathy, lumbar region; M96.1 Postlaminectomy syndrome, not elsewhere classified; Z88.5 Allergy status to narcotic agent; Z88.8 Allergy status to other drugs, medicaments and biological substances
CPT/HCPCS: 64493; 64494; J1030; J1040; J3490; Q9965

== ENCOUNTER → 2018-03-28 | Outpatient (CLI) | payer BC, MEDICARE ==
[~2018-03-28] MED LIST changes: -AMLO10TA6 PO; +AMLO10TA8 PO; -BUPIVACAINE MPF 0.25% 10 ML VIAL. ONE; -IOHEXOL 180 MG/ML 10 ML VIAL. ONE; -methylPREDNISolone ACETATE 40 MG/ML VIAL. ONE; -methylPREDNISolone ACETATE 80 MG/ML VIAL. ONE
--- NOTE | 2018-03-28 22:59 | PAIN ---
DATE OF SERVICE: 03/28/2018 PROGRESS NOTE FOR PAIN CLINIC DIAGNOSES: Lumbar radiculopathy with lumbar degenerative disk disease, lumbar post-laminectomy syndrome and lumbar and lumbosacral spondylosis. HISTORY OF PRESENT ILLNESS: The patient is a 77-year-old male who returns for followup status post bilateral lumbar facet joint injections with about 90% improvement and this has been holding on about a month. The patient reports the right side was doing much better. His left side does have some pain in it, but he attributes this to where he is walking with his left knee, scheduled for total knee replacement about a month from now and is looking forward to having this done as he says right done years ago, which is with much improvement. The patient reports his pain is back now, is more in the middle or the left, rates it 5 on a scale of 10 at its worst, 5 on average, 4 at its least and is a 4 today. The patient reports it is a burning, tight, shooting, but on and off, some days he has no pain whatsoever, other days it is present, but again very tolerable with about 90% improvement overall. The patient reports he is sleeping well at night, does not awaken him from sleep. Increases distance walking, doing activities at home, traveling without significant increase in pain and doing much more comfortably. The patient reports no new motor or sensory deficits, no new bowel or bladder incontinence or other complaints. PHYSICAL EXAMINATION: VITAL SIGNS: The patient's blood pressure is 130/77, pulse 60, respirations 16, temperature 98.0 degrees Fahrenheit, height is 5 feet 6 inches, weight is 188 pounds. GENERAL: The patient is awake, alert, oriented, appropriate, very pleasant demeanor. HEENT: Head is normocephalic, atraumatic. Extraocular movements intact and symmetrical. Oral cavity: Mucous membranes moist and pink. Dentition intact. NECK: Shows anterior throat supple without palpable lymphadenopathy noted. Swallow reflex symmetrical. CHEST: Shows normal with inspection. Breath sounds clear to auscultation bilaterally. HEART: Shows S1, S2 clear. ABDOMEN: Soft, nontender, nondistended. BACK: Shows spine grossly in the midline. Thoracic paraspinous musculature and lumbar paraspinous muscle shows symmetrical. Lumbar paraspinous muscle shows some mild tenderness to palpation in the low lumbar distribution bilaterally, right and left, but without radiation. The patient has good rotational motion with some minor tenderness with extension and axial loading but only very minor on the left side. Forward flexion relieving the pain and full rotation at 45 degrees, right and left lateral rotation, some very mild tenderness with far right rotation, but only very minimal on the right side than the left. EXTREMITIES: The patient's lower extremities show deep tendon reflexes at 1+ in the patellar and tendo-calcaneus tendons. Motor exam is 4 on a scale of 5, but equal and symmetrical with dorsiflexion, extension, quadriceps, hamstring flexion. Peripheral pulses are 1+. No peripheral edema is noted. Options were discussed with the patient. The patient's old chart was reviewed as his current medication regimen updated. Current review of systems updated today as well. We will hold on any further injections as the patient is doing quite well. Encouraged him to increase his activity as tolerated. Again, the patient is awaiting total knee replacement on the left in approximately 1 month and will follow up after total knee replacement if his lumbar spine is still problematic. In the meantime, the patient will maintain activity as tolerated, stretching and strengthening exercises as well as walking as the best as his knee will allow and the patient will follow up as scheduled. KAITLIN SCHUMACHER MD DR: RICARDO/tata JOB#: [id number] / [id number]
== END | disposition home or self-care (01) ==
LOC: PNCL 10:19
PROVIDERS: ATTEND Anesthesiology
DX: M51.16 Intervertebral disc disorders with radiculopathy, lumbar region (principal); M47.896 Other spondylosis, lumbar region; M47.897 Other spondylosis, lumbosacral region; M96.1 Postlaminectomy syndrome, not elsewhere classified
CPT/HCPCS: G0463

== ENCOUNTER → 2018-04-05 | Outpatient (CLI) | payer BC, MEDICARE ==
[~2018-04-05] MED LIST changes: +BUPIVACAINE MPF 0.25% 10 ML VIAL. ONE; +methylPREDNISolone ACETATE 40 MG/ML VIAL. ONE
--- NOTE | 2018-04-05 11:50 | PAIN ---
DATE OF SERVICE: 04/05/2018 PROGRESS NOTE FOR PAIN CLINIC DIAGNOSES: 1. Lumbar radiculopathy with lumbar degenerative disk disease, post-lumbar laminectomy syndrome and lumbosacral spondylosis. 2. Myofascial pain. HISTORY OF PRESENT ILLNESS: The patient is a 77-year-old male who returns for followup status post lumbar, right-sided L4-L5 and L5-S1 facet joint injections but very good improvement. The patient reports about 99% improvement, which is currently still lasting since performed on 02/22/2018. The patient did very well with these, was last seen on March 28 for followup, was doing quite well at that time. The patient reported since then, he has been shoveling some snow at home as it caused some significant pain in the base of his neck and shoulder, especially on the left side superiorly near the neck and upper back. The patient it is 8 on a scale of 10 at its worst, 7 on average, 3 at its least and is a 7 today; was sharp, tight, becoming more severe, spastic, constant, aching and burning. The patient reports it is better with resting or propping his arms upon out of a chair but has been difficulty with driving and using his arms for repetitive motion, especially on the left side since shoveling some snow about 3 days ago. The patient reports it does not awaken him from sleep; however, the patient reports no new motor or sensory deficits, back is doing much better and he is to increase his activities, walking, standing, change positions, traveling in the car with his back due to significant decrease in pain. PHYSICAL EXAMINATION: VITAL SIGNS: The patient's blood pressure 130/71, pulse 67, respirations 18 and temperature 98.1 degrees Fahrenheit. Height is 5 feet 6 inches and weighs 193 pounds. GENERAL: The patient is awake, alert, oriented, appropriate and very pleasant demeanor. HEENT: Head shows normocephalic and atraumatic. Extraocular movements are intact and symmetrical. Oral cavity, mucous membranes moist and pink. Dentition is intact. NECK: Shows anterior throat supple without palpable lymphadenopathy noted. Swallow reflex symmetrical. CHEST: Shows normal with inspection. Breath sounds are clear to auscultation bilaterally. HEART: Shows S1 and S2 clear. No murmurs auscultated. ABDOMEN: Soft, nontender and nondistended. No palpable organomegaly is noted. No rebound or guarding demonstrated. BACK: Shows spine grossly in the midline with slight exaggeration of the thoracic kyphosis and some minor flattening of the lumbar lordotic curvature. Lumbar paraspinal musculature shows symmetrical on inspection, on palpation shows only very mild tenderness in the low lumbar distribution but only very minimally on the right side compared to left. The patient shows good rotational motion both laterally greater than 10 degrees, right and left as well as extension greater than 10 degrees with very mild tenderness, decreased with forward flexion 45 degrees, right and left lateral rotation is nonpainful. The patient's upper back shows significant tenderness and very firm rope like musculature in the bilateral inferior cervical paraspinal musculature as well as the left greater than right but present bilaterally trapezius musculature and the superior and middle aspect of the trapezius bilaterally, very firm rope like musculature, again worse on the left and right, very tender without radiation. EXTREMITIES: The patient's upper extremity shows good rotational motion of the shoulder, both actively and passively without pain. Upper extremity deep tendon reflexes 2+ in the biceps and triceps tendons. Motor exam is strong with body technician/painter strength rated 5/5 as his biceps and triceps flexion. The patient lower extremities show deep tendon reflexes 1+ in the patella and tendo-calcaneus tendons. Motor exam is strong with approximately 4 on a scale of 5 but equal and symmetrical with dorsiflexion and extension. Peripheral pulses are 1+ posterior tibial. No peripheral edema is noted, 2+ radial. Options are discussed with the patient. The patient's old chart was reviewed as well as his current medications regimen updated. Current review of systems updated today as well and we will proceed with the trigger point injections of the bilateral cervical paraspinous musculature as well as the bilateral trapezius musculature. Risks were again discussed including, but not limited to bleeding, infection, possibility of intravascular injection sequelae, pneumothorax, side effects of steroid medication, poor results regarding pain control. The patient understands and wished to proceed. The patient will return to the clinic in approximately 2 weeks for followup, was counseled as to return appointment, activity level and side effects to be aware of. DIAGNOSIS: Myofascial pain. PROCEDURE: Trigger point injections, bilateral cervical paraspinous musculature and bilateral trapezius musculature under sterile prep and drape using local anesthetic. MEDICATION INJECTED: A total of 40 mg Depo-Medrol plus a total of 8 mL of 0.25% bupivacaine after negative aspiration at each injection site. CONDITION AT DISCHARGE: Stable. The patient tolerated the procedure well and had no complications. KAITLIN SCHUMACHER MD DR: RICARDO/tata JOB#: [id number] / [id number]
== END | disposition home or self-care (01) ==
LOC: PNCL 08:16
PROVIDERS: ATTEND Anesthesiology
DX: M79.18 Myalgia, other site (principal); M51.16 Intervertebral disc disorders with radiculopathy, lumbar region; M96.1 Postlaminectomy syndrome, not elsewhere classified; M47.27 Other spondylosis with radiculopathy, lumbosacral region; Z88.5 Allergy status to narcotic agent; Z88.8 Allergy status to other drugs, medicaments and biological substances
CPT/HCPCS: 20553; J1030; J3490

== ENCOUNTER 2018-04-23 02:30 | Inpatient (IN) | payer BC, MEDICARE ==
[~2018-04-23] VITALS: Ht 167.6 cm; Wt 85.3 kg
[~2018-04-23 02:30] MED LIST changes: -BUPIVACAINE MPF 0.25% 10 ML VIAL. ONE; +RANI-376 PO; -RANI150T21 PO; -methylPREDNISolone ACETATE 40 MG/ML VIAL. ONE
[2018-04-23] MEDS ORDERED: fentaNYL PF VIAL 100 MCG/2 ML VIAL IV ONE ×2 (03:45→05:15)
[2018-04-23 04:02] LABS: BASO # 0.1 x10^3/uL (0.0-0.2); BASO % 1 % (0-3); EOS # 0.8 x10^3/uL (0.0-0.7); EOS % 7 % (0-3); HEMOGLOBIN 12.2 g/dL (13.0-17.5); LYMPH # 1.7 x10^3/uL (1.0-4.8); LYMPH % 15 % (24-48); MEAN CORPUSCULAR HEMOGLOBIN 31 pg (25-35); MEAN CORPUSCULAR HGB CONC 33 g/dL (31-37); MEAN CORPUSCULAR VOLUME 94 fL (79-100); MONO % 8 % (0-9); NEUT # 8.1 x10^3uL (1.8-7.7); NEUT % 70 % (31-73); PLATELET COUNT 335 x10^3/uL (140-400); RED BLOOD COUNT 3.95 x10^6/uL (4.30-5.70); RED CELL DISTRIBUTION WIDTH 13.1 % (11.5-14.5); WHITE BLOOD COUNT 11.7 x10^3/uL (4.0-11.0)
--- NOTE | 2018-04-23 04:10 | PHYS DOC ---
Past Medical History Past Medical History: Anxiety, Arthritis, Diabetes-Type II, High Cholesterol, Hypertension, PR, Other Past Surgical History: Cholecystectomy, Knee Replacement, Other Additional Past Surgical Histo: lt anklex3,bilat ROTATOR CUFF,rt.knee replacement, CARDIAC STENT, BACK SX Alcohol Use: None Drug Use: None Adult General Chief Complaint Chief Complaint: MECHANICAL FALL HPI HPI Patient is a 78 year old male who presents with a mechanical fall face first. Pt and pt's deny LOC after he fell and hit his head. He reports neck pain and extreme sensitivity in his hands b/l. The fall occured one hour ago and was caused by his blanket tripping him, he adamantly denies dizziness, lightheaded ness, or muscle imbalance as the cause. He describes the hand pain as an intense burning, 10/10, present in his hands b/l that is worst in digits 3-5 b/ l. He was scheduled for surgery today (04/23/18) at 0645 - he has been off his blood thinners the past 5 days because of this surgery - he was taking clopidogrel and aspirin. He denies CP, SOB, visual changes, n/v, constipation, diarrhea, fever/chills. Review of Systems Review of Systems Constitutional: Denies fever or chills Eyes: Denies change in visual acuity, redness, or eye pain HENT: Denies nasal congestion or sore throat Respiratory: Denies cough or shortness of breath Cardiovascular: No additional information not addressed in HPI GI: Denies abdominal pain, nausea, vomiting, bloody stools or diarrhea : Denies dysuria or hematuria Musculoskeletal: Admits to neck pain and hand pain that was not present before the fall. Integument: Denies rash or skin lesions Neurologic: Denies headache, focal weakness Endocrine: Denies polyuria or polydipsia All other systems were reviewed and found to be within normal limits, except as documented in this note. Current Medications Current Medications Current Medications Medications (Trade) Dose Ordered Sig/Amber Start Time Stop Time Status Last Admin Dose Admin Dexamethasone Sodium Phosphate (Decadron) 10 mg 1X ONCE 04/23/18 05:15 04/23/18 05:16 DC Fentanyl Citrate (Fentanyl 2ml Vial) 50 mcg 1X ONCE 04/23/18 05:15 04/23/18 05:16 DC 04/23/18 05:15 50 MCG Morphine Sulfate (Morphine Sulfate) 4 mg PRN Q2HR PRN 04/23/18 05:30 04/24/18 05:29 UNV Allergies Allergies Allergies Coded Allergies Type Severity Reaction Last Updated Verified pseudoephedrine Allergy Severe urinary retention 08/22/14 Yes codeine Adverse Reaction Intermediate gi upset 08/22/14 Yes Physical Exam Physical Exam Constitutional: Mild distress, hands are flexed b/l close to his thorax and will not move them due to painl. HENT: Normocephalic, traumatic w/ superficial laceration on his forehead, nose is swollen from fall with blood present in both turbinates, no septal hematoma, deviation or fracture appreciated on inspection. Eyes: PERRLA, EOMI, conjunctiva normal, no discharge. Neck: Tenderness at C3-C5, patient was placed in C-Spine collar rapidly. Cardiovascular:Heart rate regular rhythm, no murmur Lungs & Thorax: Bilateral breath sounds clear to auscultation Abdomen: Bowel sounds normal, soft, no tenderness, no masses, no pulsatile masses. Skin: Warm, dry, no erythema, no rash. Back: No tenderness, no CVA tenderness. Extremities: Exquisitely tender in hands b/l - pt writhed in pain when his hand was slightly brushed - unable to palpate hand/wrist d/t extreme pain. Elbow extension and flexion strength was +5/5 b/l, distal hand pharmacy operations specialist/finger movements/ wrist unable to be tested d/t patients pain. LE muscle strength +5/5 b/l on hip flexion/extension, foot plantarflexion and dorsiflexion. Neurologic: Alert and oriented X 3, normal motor function in LE's b'l and UE's b /l except for hands b/l - could not be assessed. CN II-XII grossly intact b/l. no focal deficits noted. Psychologic: Affect normal, judgement normal, mood normal. Current Patient Data Vital Signs Vital Signs Date Time Temp Pulse Resp B/P (MAP) Pulse Ox O2 Delivery O2 Flow Rate FiO2 04/23/18 05:15 20 04/23/18 02:44 97.7 77 204/95 (131) 100 Room Air 97.7 Lab Values Laboratory Tests Test 04/23/18 03:50 White Blood Count 11.7 x10^3/uL (4.0-11.0) H Red Blood Count 3.95 x10^6/uL (4.30-5.70) L Hemoglobin 12.2 g/dL (13.0-17.5) L Hematocrit 37.0 % (39.0-53.0) L Mean Corpuscular Volume 94 fL (79-100) Mean Corpuscular Hemoglobin 31 pg (25-35) Mean Corpuscular Hemoglobin Concent 33 g/dL (31-37) Red Cell Distribution Width 13.1 % (11.5-14.5) Platelet Count 335 x10^3/uL (140-400) Neutrophils (%) (Auto) 70 % (31-73) Lymphocytes (%) (Auto) 15 % (24-48) L Monocytes (%) (Auto) 8 % (0-9) Eosinophils (%) (Auto) 7 % (0-3) H Basophils (%) (Auto) 1 % (0-3) Neutrophils # (Auto) 8.1 x10^3uL (1.8-7.7) H Lymphocytes # (Auto) 1.7 x10^3/uL (1.0-4.8) Monocytes # (Auto) 1.0 x10^3/uL (0.0-1.1) Eosinophils # (Auto) 0.8 x10^3/uL (0.0-0.7) H Basophils # (Auto) 0.1 x10^3/uL (0.0-0.2) Prothrombin Time 13.5 SEC (11.7-14.0) Prothrombin Time INR 1.1 (0.8-1.1) Sodium Level 140 mmol/L (136-145) Potassium Level 4.3 mmol/L (3.5-5.1) Chloride Level 105 mmol/L (98-107) Carbon Dioxide Level 25 mmol/L (21-32) Anion Gap 10 (6-14) Blood Urea Nitrogen 34 mg/dL (8-26) H Creatinine 1.6 mg/dL (0.7-1.3) H Estimated GFR (Cockcroft-Gault) 42.1 BUN/Creatinine Ratio 21 (6-20) H Glucose Level 128 mg/dL (70-99) H Calcium Level 8.6 mg/dL (8.5-10.1) Total Bilirubin 0.3 mg/dL (0.2-1.0) Aspartate Amino Transferase (AST) 43 U/L (15-37) H Alanine Aminotransferase (ALT) 54 U/L (16-63) Alkaline Phosphatase 197 U/L (46-116) H Total Protein 6.9 g/dL (6.4-8.2) Albumin 2.6 g/dL (3.4-5.0) L Albumin/Globulin Ratio 0.6 (1.0-1.7) L Laboratory Tests 04/23/18 03:50 Laboratory Tests 04/23/18 03:50 EKG EKG []Normal sinus rhythm rate of 76 no acute ischemic changes noted interpreted by me time of encounter. Radiology/Procedures Radiology/Procedures [] Impressions: FINDINGS: No pathologic extra-axial or intra-axial fluid collection. The ventricles and basal cisterns are within normal limits. No acute intracranial bleed. No focal loss of recinos-white differentiation. Orbits within normal limits. No large scalp hematoma. No acute calvarial fractures. IMPRESSION: No acute intracranial process. Indication:pt fell; head/neck pain TECHNIQUE: CT of the cervical spine without IV contrast with multiplanar reformats. COMPARISON:None FINDINGS: The cervical spine is in normal anatomic alignment. Atlantoaxial joint or is preserved. No compression deformities. Facet joints are in normal anatomic alignment with multilevel moderate facet arthropathy. No acute fractures. Noncontrast appearance of the visualized neck soft tissue is within normal limits. Moderate atherosclerotic disease of the bilateral carotid bulbs. Clear lung apices. IMPRESSION: 1. No acute cervical spine fracture. 2. Advanced multilevel degenerative disc disease of the cervical spine with facet arthropathy. Electronically signed by: Marianne Zimmerman DO (04/23/2018 4:33 AM) [facility] DICTATED and SIGNED BY: MARIANNE ZIMMERMAN DO DATE: 04/23/18 0433 MY READ HAND XRAY NO ACUTE FRACTURE. Course & Med Decision Making Course & Med Decision Making 78 yo male with a history of diabetes, arthritis, prior PR w/ stent placement, dyslipidemia, and HTN walked into the ED because of a mechanical fall in which he fell face first and hit his head w/out LOC. Pt reports neck pain and extreme hand pain, the latter described as a terrible burning pain rated 10/10. On PE the slightest brush of his skin on his hands caused him extreme pain and he writhed around in pain. He is tender at C3-5 and was immediately placed in a C- spine collar. He denies BAILEY, n/v, visual changes, fever/chills, CP, or SOA. CN II -XII are grossly intact b/l. No focal deficits were appreciated on neuro examination and muscle strength was +5/5 b/l in LE's and UE's other than his hands, which could not be tested d/t pain. Ddx Central Cord Compression SDH Epidural hematoma Diabetes Workup: CT head w/out contrast X-Ray of hands Fentanyl PERSISTENT SIGNIFICANT PAIN IN HANDS, D/W GLENDA N'SURG REVIEWED [facility] , PLAN KEEP CSPINE, GIVE DECADRN ADMIT FOR MRI THEY WILL CONSULT D/W CHRISTOFER FOR ADMIT Dragon Disclaimer Dragsweetie Disclaimer This electronic medical record was generated, in whole or in part, using a voice recognition dictation system. Departure Departure Impression: Primary Impression: Neck injury Disposition: ADMITTED INPATIENT Admitting Physician: Princess Stock Condition: STABLE Referrals: MARINE BRYSON MD (PCP) ROBERT FLOYD MD Apr 23, 2018 04:10
[2018-04-23 04:12] LABS: PROTHROMBIN TIME PATIENT 13.5 SEC (11.7-14.0)
[2018-04-23 04:14] LABS: CALCIUM 8.6 mg/dL (8.5-10.1); CREATININE 1.6 mg/dL (0.7-1.3); GFR 42.1; POTASSIUM 4.3 mmol/L (3.5-5.1)
[2018-04-23 04:21] LABS: ALBUMIN 2.6 g/dL (3.4-5.0); ALBUMIN/GLOBULIN RATIO 0.6 (1.0-1.7); TOTAL BILIRUBIN 0.3 mg/dL (0.2-1.0); TOTAL PROTEIN 6.9 g/dL (6.4-8.2)
--- NOTE | 2018-04-23 04:36 | RAD ---
PQRS Compliance statement: One or more of the following individualized dose reduction techniques were utilized for this examination: 1. Automated exposure control. 2. Adjustment of the mA and/or kV according to patient size. 3. Use of iterative reconstruction technique. Indication:pt fell; head/neck pain TECHNIQUE: CT head without IV contrast COMPARISON:None FINDINGS: No pathologic extra-axial or intra-axial fluid collection. The ventricles and basal cisterns are within normal limits. No acute intracranial bleed. No focal loss of recinos-white differentiation. Orbits within normal limits. No large scalp hematoma. No acute calvarial fractures. IMPRESSION: No acute intracranial process. Indication:pt fell; head/neck pain TECHNIQUE: CT of the cervical spine without IV contrast with multiplanar reformats. COMPARISON:None FINDINGS: The cervical spine is in normal anatomic alignment. Atlantoaxial joint or is preserved. No compression deformities. Facet joints are in normal anatomic alignment with multilevel moderate facet arthropathy. No acute fractures. Noncontrast appearance of the visualized neck soft tissue is within normal limits. Moderate atherosclerotic disease of the bilateral carotid bulbs. Clear lung apices. IMPRESSION: 1. No acute cervical spine fracture. 2. Advanced multilevel degenerative disc disease of the cervical spine with facet arthropathy. Electronically signed by: Jm Zimmerman DO (04/23/2018 4:33 AM) [facility]
--- NOTE | 2018-04-23 04:38 | RAD ---
PQRS Compliance statement: One or more of the following individualized dose reduction techniques were utilized for this examination: 1. Automated exposure control. 2. Adjustment of the mA and/or kV according to patient size. 3. Use of iterative reconstruction technique. Indication:pt fell; facial pain TECHNIQUE: CT of the maxillofacial bones without IV contrast multiplanar reformats. COMPARISON: None FINDINGS: No acute fractures. Nasal septum is slightly deviated to the right side. No nasal cavity hematoma. Hypoplastic right maxillary sinus. The bilateral temporomandibular joints and mandible are within normal limits. The globes, extraocular muscles and intraorbital fat are within normal limits. IMPRESSION: No acute findings. Electronically signed by: Jm Zimmerman DO (04/23/2018 4:35 AM) [facility]
[2018-04-23] MEDS ORDERED: DEXAMETHASONE SOD PHOS 20 MG/5 ML VIAL. IV ONE (05:15)
--- NOTE | 2018-04-23 05:46 | RAD ---
Indication:hand pain after fall TECHNIQUE: 3 views of left hand and 3 views of the right hand COMPARISON: None FINDINGS: Left hand: No acute fracture or dislocation. Moderate radiocarpal and intercarpal joint osteoarthritis. Right hand: No acute fracture or dislocation. Advanced radiocarpal an intercarpal joint osteoarthritis. IMPRESSION: As above. Electronically signed by: Jm Zimmerman DO (04/23/2018 5:43 AM) [facility]
[2018-04-23] MEDS: MORPHINE SULFATE 4 MG/ML VIAL. IV PRN ×3 (05:53→11:49)
--- NOTE | 2018-04-23 07:12 | EKG ---
[facility] [address] [place] [address] Test Date: 2018-04-23 Test Time: 03:40:09 Pat Name: JATINDER HOUSE Department: Room: 440 1 Gender: M Drafter Structural: : 1940 Requested By: ROBERT FLOYD Order Number: [id number] Reading MD: Damien Griffiths MD Measurements Intervals [place] Rate: 76 P: 48 DE: 210 QRS: 15 QRSD: 86 T: -3 QT: 370 QTc: 420 Interpretive Statements SINUS RHYTHM Electronically Signed On 05-01-2018 23:13:26 CDT by Damien Griffiths MD
[2018-04-23] MEDS ORDERED: DEXTROSE 50% 25 GM / 50ML DISP.SYRIN. IV PRN (09:00)
[2018-04-23] MEDS ORDERED: FAMOTIDINE 20 MG TABLET. PO PRN (09:00)
[2018-04-23] MEDS ORDERED: hydrALAZINE 20 MG/ML VIAL. IVP PRN (09:00)
[2018-04-23] MEDS ORDERED: ZOLPIDEM 5 MG TABLET. PO PRN (09:00)
[2018-04-23] MEDS ORDERED: NITROGLYCERIN SUBLINGUAL 0.4 MG BOTTLE OF 25. SL PRN (09:00)
[2018-04-23] MEDS ORDERED: clonazePAM 1 MG TABLET PO PRN (09:00)
[2018-04-23] MEDS ORDERED: CYCLOBENZAPRINE 10 MG TABLET. PO PRN (09:00)
--- NOTE | 2018-04-23 09:01 | PDOC1 ---
History and Physical Date of Admission Date of Admission 04/23/18 Identification/Chief Complaint Chief Complaint Fall, hand pain Source Source: Patient History of Present Illness History of Present Illness Pt was scheduled to have knee replacement today. Was preparing for surgery and had been increasing his water intake. Due to this was having to use the restroom often. Got up this morning around 2am and thinks he got tripped by a blanket, fell and hit his face on a dresser. states that they were able to get his facial bleeding controlled at home, but pt was having severe pain in his hands so they decided to come to the ER. Pt says that he was feeling well prior to this. He had stopped his Plavix for 5 days for his surgery. Denies weakness, denies numbness. Pain is a burning type of pain Past Medical History Cardiovascular: CAD, HTN, Hyperlipidemia Pulmonary: No pertinent hx CENTRAL NERVOUS SYSTEM: Carpal Tunnel Syndrome GI: GERD Heme/Onc: No pertinent hx Hepatobiliary: No pertinent hx Psych: Anxiety Rheumatologic: No pertinent hx Infectious disease: No pertinent hx ENT: No pertinent hx Renal/: Chronic renal insuff Endocrine: Diabetes Dermatology: No pertinent hx Past Surgical History Past Surgical History: Cholecystectomy, Other (knee surgery) Family History Family History: Heart Disease Social History Smoke: No ALCOHOL: none Drugs: None Current Problem List Problem List Problems Medical Problems: (1) Neck injury Status: Acute Current Medications Current Medications Current Medications Medications (Trade) Dose Ordered Sig/Amber Start Time Stop Time Status Last Admin Dose Admin Dexamethasone Sodium Phosphate (Decadron) 10 mg 1X ONCE 04/23/18 05:15 04/23/18 05:16 DC 04/23/18 05:40 10 MG Fentanyl Citrate (Fentanyl 2ml Vial) 50 mcg 1X ONCE 04/23/18 05:15 04/23/18 05:16 DC 04/23/18 05:15 50 MCG Morphine Sulfate (Morphine Sulfate) 4 mg PRN Q2HR PRN 04/23/18 05:30 04/24/18 05:29 04/23/18 05:53 4 MG Allergies Allergies Allergies Coded Allergies Type Severity Reaction Last Updated Verified pseudoephedrine Allergy Severe urinary retention 08/22/14 Yes codeine Adverse Reaction Intermediate gi upset 08/22/14 Yes ROS Review of System CONSTITUTIONAL: No fever or chills EYES: No recent changes SKIN: No rash or itching CARDIOVASCULAR: No chest pain, syncope, palpitations, or edema RESPIRATORY: No SOB or cough GASTROINTESTINAL: No nausea, vomiting or abdominal pain NEUROLOGICAL: No headaches or weakness ENDOCRINE: No cold or heat intolerance GENITOURINARY: No urgency or frequency of urination MUSCULOSKELETAL: No back pain or joint pain LYMPHATICS: No enlarged lymph nodes PSYCHIATRIC: No anxiety or depression Physical Exam Physical Exam GEN.: moderate distress when hands are touched. Alert and oriented. HEENT: Head is normocephalic, lacerations on face with no acute bleeding, pt wearing c-collar NECK: Supple. LUNGS: Clear to auscultation. HEART: RRR, S1, S2 present. Peripheral pulses intact ABDOMEN: Soft, nontender. Positive bowel sounds. EXTREMITIES: Without any cyanosis. NEUROLOGIC: Normal speech, normal tone PSYCHIATRIC: Normal affect, normal mood. SKIN: No ulcerations Vitals Vitals Vital Signs Date Time Temp Pulse Resp B/P (MAP) Pulse Ox O2 Delivery O2 Flow Rate FiO2 04/23/18 05:53 18 04/23/18 05:43 71 95 04/23/18 02:44 97.7 204/95 (131) Room Air 97.7 Labs Labs Laboratory Tests Test 04/23/18 03:50 04/23/18 08:35 White Blood Count 11.7 x10^3/uL (4.0-11.0) Red Blood Count 3.95 x10^6/uL (4.30-5.70) Hemoglobin 12.2 g/dL (13.0-17.5) Hematocrit 37.0 % (39.0-53.0) Mean Corpuscular Volume 94 fL (79-100) Mean Corpuscular Hemoglobin 31 pg (25-35) Mean Corpuscular Hemoglobin Concent 33 g/dL (31-37) Red Cell Distribution Width 13.1 % (11.5-14.5) Platelet Count 335 x10^3/uL (140-400) Neutrophils (%) (Auto) 70 % (31-73) Lymphocytes (%) (Auto) 15 % (24-48) Monocytes (%) (Auto) 8 % (0-9) Eosinophils (%) (Auto) 7 % (0-3) Basophils (%) (Auto) 1 % (0-3) Neutrophils # (Auto) 8.1 x10^3uL (1.8-7.7) Lymphocytes # (Auto) 1.7 x10^3/uL (1.0-4.8) Monocytes # (Auto) 1.0 x10^3/uL (0.0-1.1) Eosinophils # (Auto) 0.8 x10^3/uL (0.0-0.7) Basophils # (Auto) 0.1 x10^3/uL (0.0-0.2) Prothrombin Time 13.5 SEC (11.7-14.0) Prothromb Time International Ratio 1.1 (0.8-1.1) Sodium Level 140 mmol/L (136-145) Potassium Level 4.3 mmol/L (3.5-5.1) Chloride Level 105 mmol/L (98-107) Carbon Dioxide Level 25 mmol/L (21-32) Anion Gap 10 (6-14) Blood Urea Nitrogen 34 mg/dL (8-26) Creatinine 1.6 mg/dL (0.7-1.3) Estimated GFR (Cockcroft-Gault) 42.1 BUN/Creatinine Ratio 21 (6-20) Glucose Level 128 mg/dL (70-99) Calcium Level 8.6 mg/dL (8.5-10.1) Total Bilirubin 0.3 mg/dL (0.2-1.0) Aspartate Amino Transf (AST/SGOT) 43 U/L (15-37) Alanine Aminotransferase (ALT/SGPT) 54 U/L (16-63) Alkaline Phosphatase 197 U/L (46-116) Total Protein 6.9 g/dL (6.4-8.2) Albumin 2.6 g/dL (3.4-5.0) Albumin/Globulin Ratio 0.6 (1.0-1.7) Glucose (Fingerstick) 191 mg/dL (70-99) Laboratory Tests Test 04/23/18 03:50 04/23/18 08:35 White Blood Count 11.7 x10^3/uL (4.0-11.0) Red Blood Count 3.95 x10^6/uL (4.30-5.70) Hemoglobin 12.2 g/dL (13.0-17.5) Hematocrit 37.0 % (39.0-53.0) Mean Corpuscular Volume 94 fL (79-100) Mean Corpuscular Hemoglobin 31 pg (25-35) Mean Corpuscular Hemoglobin Concent 33 g/dL (31-37) Red Cell Distribution Width 13.1 % (11.5-14.5) Platelet Count 335 x10^3/uL (140-400) Neutrophils (%) (Auto) 70 % (31-73) Lymphocytes (%) (Auto) 15 % (24-48) Monocytes (%) (Auto) 8 % (0-9) Eosinophils (%) (Auto) 7 % (0-3) Basophils (%) (Auto) 1 % (0-3) Neutrophils # (Auto) 8.1 x10^3uL (1.8-7.7) Lymphocytes # (Auto) 1.7 x10^3/uL (1.0-4.8) Monocytes # (Auto) 1.0 x10^3/uL (0.0-1.1) Eosinophils # (Auto) 0.8 x10^3/uL (0.0-0.7) Basophils # (Auto) 0.1 x10^3/uL (0.0-0.2) Prothrombin Time 13.5 SEC (11.7-14.0) Prothromb Time International Ratio 1.1 (0.8-1.1) Sodium Level 140 mmol/L (136-145) Potassium Level 4.3 mmol/L (3.5-5.1) Chloride Level 105 mmol/L (98-107) Carbon Dioxide Level 25 mmol/L (21-32) Anion Gap 10 (6-14) Blood Urea Nitrogen 34 mg/dL (8-26) Creatinine 1.6 mg/dL (0.7-1.3) Estimated GFR (Cockcroft-Gault) 42.1 BUN/Creatinine Ratio 21 (6-20) Glucose Level 128 mg/dL (70-99) Calcium Level 8.6 mg/dL (8.5-10.1) Total Bilirubin 0.3 mg/dL (0.2-1.0) Aspartate Amino Transf (AST/SGOT) 43 U/L (15-37) Alanine Aminotransferase (ALT/SGPT) 54 U/L (16-63) Alkaline Phosphatase 197 U/L (46-116) Total Protein 6.9 g/dL (6.4-8.2) Albumin 2.6 g/dL (3.4-5.0) Albumin/Globulin Ratio 0.6 (1.0-1.7) Glucose (Fingerstick) 191 mg/dL (70-99) VTE Prophylaxis Ordered VTE Prophylaxis Devices: No VTE Pharmacological Prophylaxi: No Assessment/Plan Assessment/Plan Pt is a 78yo male who fell at home early this morning now with significant burning pain in his hands 1)Pain in hands- nuerosurgery has been consulted. He is still currently in c- collar. States pain is controlled with IV pain medication 2)OA- pt was supposed to be having knee replacement today 3)DM2- previously well controlled. Currently not at goal; pt only took 1/2 of Lantus last night because of scheduled surgery. Will resume pt's Lantus 20 units QHS and his Novolog 10 units with breakfast and 8 units with lunch and dinner. Will have SSI available as well 4)HTN- poorly controlled currently, likely with contribution from pain. Will resume pt's amlodipine 10mg, Metoprolol 25mg BID and will put pt on Losartan during hospitalization (normally on olmesartan). 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
[2018-04-23] MEDS ORDERED: INSULIN LISPRO 300 UNITS/3 ML INSULN.PEN. SQ SCH (09:30)
[2018-04-23] MEDS ORDERED: INSULIN GLARGINE 300 UNITS/3 ML INSULN.PEN. SQ SCH ×2 (10:00→21:00)
[2018-04-23] MEDS ORDERED: TAMSULOSIN 0.4 MG CAP.ER.24H. PO SCH (10:00)
[2018-04-23] MEDS ORDERED: LOSARTAN POTASSIUM 50 MG TABLET. PO SCH (10:00)
[2018-04-23] MEDS ORDERED: FINASTERIDE 5 MG TABLET. PO SCH (10:00)
[2018-04-23] MEDS ORDERED: HYDROcodone/APAP 5/325MG 1 TAB TABLET PO SCH (10:00)
[2018-04-23] MEDS ORDERED: ASPIRIN CHEWABLE 81 MG TABLET. PO SCH (10:00)
[2018-04-23] MEDS ORDERED: amLODIPine BESYLATE 10 MG TABLET PO SCH (10:00)
[2018-04-23] MEDS ORDERED: METOPROLOL TART IMMED RELEASE 25 MG TABLET. PO SCH (10:00)
[2018-04-23 11:00] VITALS: BP 187/88
--- NOTE | 2018-04-23 11:22 | RAD ---
EXAM: Cervical spine MRI without contrast. HISTORY: Pain status post fall. TECHNIQUE: Multiplanar, multisequence magnetic resonance imaging of the cervical spine was performed without contrast. COMPARISON: CT obtained on the same date. FINDINGS: There is cervical kyphosis centered at C5. There is mild anterolisthesis of C4 on C5, measuring 3 mm. There is mild retrolisthesis of C5 on C6, measuring 3 mm. There is a minimal retrolisthesis of C6 on C7, measuring 2 mm. There is minimal anterolisthesis of T1 on T2 and T2 on T3, measuring 2 mm. There is degenerative endplate remodeling with disc space narrowing and osteophytosis primarily at C5-C6 and C6-C7. There is nonspecific trace fluid within the disc space at C5-C6. There is no suspicious osseous lesion. There is no convincing acute or subacute fracture. There is increased signal within the interspinous space at C5-C6, physiologic or due to a ligamentous sprain. There is deformation of the cervical spinal cord at multiple levels due to significant central canal stenosis. No convincing spinal cord signal abnormality is seen to suggest myelomalacia or edema. There is paranasal sinus mucosal thickening. There is slight cerebral and cerebellar volume loss, partially included on the [id number]. There is an elongated T2 hyperintense collection within the retropharyngeal/prevertebral space extending from C2-C3 to the upper thoracic vertebral levels, measuring 5 mm in maximum thickness. Given a history of recent trauma, this is likely due to a hematoma. At C2-C3, there is endplate remodeling. There is moderate bilateral facet arthropathy. There is mild central canal stenosis measuring 8.9 mm in anterior posterior dimension. At C3-C4, there is a disc bulge and endplate osteophytosis. There is [id number] bilateral facet arthropathy. There is uncovertebral arthropathy. There is moderate right and severe left foraminal stenosis. There is mild central canal stenosis measuring 7.9 mm in anterior posterior dimension. At C4-C5, there is a disc bulge and endplate remodeling. There is mild right and severe left facet arthropathy. There is left greater than right uncovertebral arthropathy. There is mild right and severe left foraminal stenosis. There is moderate central canal stenosis measuring 7.1 mm in anterior posterior dimension. At C5-C6, there is a posterior central to left paracentral disc protrusion with minimal inferior extrusion superimposed on a disc bulge and endplate osteophytosis. There is moderate left facet arthropathy. There is bilateral uncovertebral arthropathy. There is severe left greater than right foraminal stenosis. There is severe central canal stenosis measuring 5.6 mm in anterior posterior dimension. At C6-C7, there is a disc bulge and endplate osteophytosis. There is uncovertebral arthropathy. There is severe bilateral foraminal stenosis. There is severe central canal stenosis measuring 6.0 mm in anterior posterior dimension. At C7-T1, there is a posterior central disc protrusion with slight superior extrusion superimposed on a disc bulge and endplate osteophytosis. There is mild facet arthropathy. There is mild right foraminal stenosis. There is mild central canal stenosis measuring 8.5 mm in anterior posterior dimension. IMPRESSION: 1. 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 There is no spinal cord signal abnormality to suggest myelomalacia, edema or contusion. 2. Elongated fluid collection within the prevertebral space from C2-C3 to the upper thoracic levels, measuring 5 mm in thickness. Given a history of recent trauma, this is likely a retropharyngeal/prevertebral soft tissue hematoma. 3. Slight increased signal within the interspinous space at C5-C6, possibly physiologic or due to ligamentous injury given a history of recent trauma. No fracture is seen. 4. Severe multilevel degenerative change throughout the cervical spine, resulting in significant foraminal and central canal stenosis at the aforementioned levels. Electronically signed by: Fatou Kuhn MD (04/23/2018 11:19 AM) [id number]
[2018-04-23] MEDS: INSULIN LISPRO 300 UNITS/3 ML INSULN.PEN. SQ SCH ×2 (12:07→17:18)
--- NOTE | 2018-04-23 12:22 | NUR ---
SW following. Discussed with RN, pt from home with . Pt having MRI today to determine if pt will need surgery or not. SW will continue to follow.
[2018-04-23 15:00] VITALS: BP 203/106
[2018-04-23 15:46] VITALS: BP 203/106
--- NOTE | 2018-04-23 16:55 | PDOC ---
Provider Note Provider Note Patient seen and examined s/p fall on imaging has multilevel cervical stenosis will need cervical laminectomy he will need to follow up with me in the office in 2 weeks cautioned him about falling family at bedside will start medrol dose pack may restart plavix 04/26 full consult to follow MERE OVALLES MD Apr 23, 2018 16:55
--- NOTE | 2018-04-23 17:03 | PDOC3 ---
Discharge Summary Date of Admission: Apr 23, 2018 Date of Discharge: Apr 23, 2018 Follow-Up: Other (2 weeks with neurosurgeon) Admitting Diagnosis comment: Neck pain, hand pain FINAL DIAGNOSIS Cervical stenosis, OA, DM2, HTN, BPH, CAD, Anxiety, Anemia, CKD, PEM-moderate Brief Hospital Course Pt is a 78yo male who fell at home early this morning now with significant burning pain in his hands 1)Pain in hands- pt has cervical stenosis. Dr. Sy evaluated pt and would like him to f/u in 2 weeks. Pt planning on using pain medication that he has at home 2)OA- pt was supposed to be having knee replacement today, will have to be rescheduled 3)DM2- previously well controlled. Currently not at goal; pt only took 1/2 of Lantus last night because of scheduled surgery. Pt resumed on normal regimen of Lantus 20 units QHS and his Novolog 10 units with breakfast and 8 units with lunch and dinner. SSI was also available 4)HTN- poorly controlled currently, likely with contribution from pain. Pt resumed on amlodipine 10mg, Metoprolol 25mg BID and Losartan during hospitalization (normally on olmesartan). 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 Discharge Medications Current Medications Fentanyl Citrate (Fentanyl 2ml Vial) 50 mcg 1X ONCE IV Last administered on 01/01at 03:56; Start 04/23/18 at 03:45; Stop 04/23/18 at 03:46; Status DC Dexamethasone Sodium Phosphate (Decadron) 10 mg 1X ONCE IV Last administered on 04/23/18at 05:40; Start 04/23/18 at 05:15; Stop 04/23/18 at 05:16; Status DC Fentanyl Citrate (Fentanyl 2ml Vial) 50 mcg 1X ONCE IV Last administered on 01/01at 05:15; Start 04/23/18 at 05:15; Stop 04/23/18 at 05:16; Status DC Morphine Sulfate (Morphine Sulfate) 4 mg PRN Q2HR PRN IV PAIN Last administered on 04/23/18at 11:49; Start 04/23/18 at 05:30; Stop 04/24/18 at 05:29 Aspirin (Children'S Aspirin) 81 mg DAILY PO ; Start 04/23/18 at 10:00 Clonazepam (KlonoPIN) 1 mg HS PO ; Start 04/23/18 at 21:00 Finasteride (Proscar) 5 mg DAILY PO ; Start 04/23/18 at 10:00 Acetaminophen/ Hydrocodone Bitart (Lortab 5/325) 1 tab BID PO ; Start 04/23/18 at 10:00 Insulin Glargine (Lantus) 20 units BID SQ ; Start 04/23/18 at 10:00; Stop at 10:00; Status DC Nitroglycerin (Nitrostat) 0.4 mg PRN Q5MIN PRN SL CHEST PAIN; Start 04/23/18 at 09:00 Tamsulosin HCl (Flomax) 0.4 mg DAILY PO ; Start 04/23/18 at 10:00 Amlodipine Besylate (Norvasc) 10 mg DAILY PO ; Start 04/23/18 at 10:00 Cyclobenzaprine HCl (Flexeril) 5 mg PRN Q6HRS PRN PO MUSCLE SPASMS; Start 04/23 at 09:00 Insulin Human Lispro (HumaLOG) 10 units [id number] SQ ; Start 04/23/18 at 09:30 Famotidine (Pepcid) 20 mg PRN DAILY PRN PO acid reflux; Start 04/23/18 at 09:00 Zolpidem Tartrate (Ambien) 5 mg PRN QHS PRN PO INSOMNIA; Start 04/23/18 at 09: 00 Metoprolol Tartrate (Lopressor) 25 mg BID PO ; Start 04/23/18 at 10:00 Insulin Glargine (Lantus) 20 units QHS SQ ; Start 04/23/18 at 21:00 Dextrose (Dextrose 50%-Water Syringe) 12.5 gm PRN Q15MIN PRN IV SEE COMMENTS; Start 04/23/18 at 09:00 Insulin Human Lispro (HumaLOG) 0-5 UNITS TIDWMEALS SQ Last administered on 04/23at 12:07; Start 04/23/18 at 12:00 Atorvastatin Calcium (Lipitor) 40 mg QHS PO ; Start 04/23/18 at 21:00 Clonazepam (KlonoPIN) 1 mg PRN DAILY PRN PO ANXIETY / AGITATION; Start at 09:00 Losartan Potassium (Cozaar) 100 mg DAILY PO ; Start 04/23/18 at 10:00 Hydralazine HCl (Apresoline Inj) 10 mg PRN Q4HRS PRN IVP ELEVATED BP, SEE COMMENTS Last administered on 04/23/18at 15:46; Start 04/23/18 at 09:00 Active Scripts Active Nitrostat (Nitroglycerin) 0.4 Mg Tab.subl 0.4 Mg SL PRN Q5MIN PRN 30 Days [Metoprolol Tartrate] 25 MG Tablet 12.5 Mg PO BID Reported Finasteride 5 Mg Tablet 1 Tab PO DAILY Amoxicillin 500 Mg Capsule 4 Cap PO P0ACNETE Novolog Flexpen (Insulin Aspart) 100 Unit/1 Ml Insuln.pen 13 Unit SQ TID Clopidogrel (Clopidogrel Bisulfate) 75 Mg Tablet 1 Tab PO DAILY Amlodipine-Benazepril 10-40 Mg (Amlodipine Besylate/Benazepril) 1 Each Capsule 1 Cap PO DAILY Hydrocodone-Apap 5-325 (Hydrocodone Bit/Acetaminophen) 1 Each Tablet 1 Tab PO BID Aspirin 81 Mg Tab.chew 1 Tab PO DAILY Tamsulosin Hcl 0.4 Mg Cap.er.24h 1 Cap PO DAILY Cyclobenzaprine Hcl 5 Mg Tablet 1 Tab PO DAILY Lantus Solostar (Insulin Glargine,Hum.rec.anlog) 100 Unit/1 Ml Insuln.pen 20 Unit SQ BID Multivitamins (Multivitamin) 1 Each Tablet 1 Tab PO DAILY Zolpidem Tartrate Er (Zolpidem Tartrate) 12.5 Mg Tab.mphase 1 Tab PO QHS Clonazepam 1 Mg Tablet 1 Mg PO HS Zantac (Ranitidine Hcl) 150 Mg Tablet 300 Mg PO DAILY PRN Vital Signs Vital Signs Date Time Temp Pulse Resp B/P (MAP) Pulse Ox O2 Delivery O2 Flow Rate FiO2 04/23/18 15:46 120 203/106 04/23/18 15:00 97.9 18 95 Room Air 97.9 Labs Laboratory Tests Test 04/23/18 03:50 04/23/18 08:35 04/23/18 11:58 04/23/18 16:17 White Blood Count 11.7 x10^3/uL (4.0-11.0) Red Blood Count 3.95 x10^6/uL (4.30-5.70) Hemoglobin 12.2 g/dL (13.0-17.5) Hematocrit 37.0 % (39.0-53.0) Mean Corpuscular Volume 94 fL (79-100) Mean Corpuscular Hemoglobin 31 pg (25-35) Mean Corpuscular Hemoglobin Concent 33 g/dL (31-37) Red Cell Distribution Width 13.1 % (11.5-14.5) Platelet Count 335 x10^3/uL (140-400) Neutrophils (%) (Auto) 70 % (31-73) Lymphocytes (%) (Auto) 15 % (24-48) Monocytes (%) (Auto) 8 % (0-9) Eosinophils (%) (Auto) 7 % (0-3) Basophils (%) (Auto) 1 % (0-3) Neutrophils # (Auto) 8.1 x10^3uL (1.8-7.7) Lymphocytes # (Auto) 1.7 x10^3/uL (1.0-4.8) Monocytes # (Auto) 1.0 x10^3/uL (0.0-1.1) Eosinophils # (Auto) 0.8 x10^3/uL (0.0-0.7) Basophils # (Auto) 0.1 x10^3/uL (0.0-0.2) Prothrombin Time 13.5 SEC (11.7-14.0) Prothromb Time International Ratio 1.1 (0.8-1.1) Sodium Level 140 mmol/L (136-145) Potassium Level 4.3 mmol/L (3.5-5.1) Chloride Level 105 mmol/L (98-107) Carbon Dioxide Level 25 mmol/L (21-32) Anion Gap 10 (6-14) Blood Urea Nitrogen 34 mg/dL (8-26) Creatinine 1.6 mg/dL (0.7-1.3) Estimated GFR (Cockcroft-Gault) 42.1 BUN/Creatinine Ratio 21 (6-20) Glucose Level 128 mg/dL (70-99) Calcium Level 8.6 mg/dL (8.5-10.1) Total Bilirubin 0.3 mg/dL (0.2-1.0) Aspartate Amino Transf (AST/SGOT) 43 U/L (15-37) Alanine Aminotransferase (ALT/SGPT) 54 U/L (16-63) Alkaline Phosphatase 197 U/L (46-116) Total Protein 6.9 g/dL (6.4-8.2) Albumin 2.6 g/dL (3.4-5.0) Albumin/Globulin Ratio 0.6 (1.0-1.7) Glucose (Fingerstick) 191 mg/dL (70-99) 212 mg/dL (70-99) 216 mg/dL (70-99) Laboratory Tests Test 04/23/18 03:50 04/23/18 08:35 04/23/18 11:58 04/23/18 16:17 White Blood Count 11.7 x10^3/uL (4.0-11.0) Red Blood Count 3.95 x10^6/uL (4.30-5.70) Hemoglobin 12.2 g/dL (13.0-17.5) Hematocrit 37.0 % (39.0-53.0) Mean Corpuscular Volume 94 fL (79-100) Mean Corpuscular Hemoglobin 31 pg (25-35) Mean Corpuscular Hemoglobin Concent 33 g/dL (31-37) Red Cell Distribution Width 13.1 % (11.5-14.5) Platelet Count 335 x10^3/uL (140-400) Neutrophils (%) (Auto) 70 % (31-73) Lymphocytes (%) (Auto) 15 % (24-48) Monocytes (%) (Auto) 8 % (0-9) Eosinophils (%) (Auto) 7 % (0-3) Basophils (%) (Auto) 1 % (0-3) Neutrophils # (Auto) 8.1 x10^3uL (1.8-7.7) Lymphocytes # (Auto) 1.7 x10^3/uL (1.0-4.8) Monocytes # (Auto) 1.0 x10^3/uL (0.0-1.1) Eosinophils # (Auto) 0.8 x10^3/uL (0.0-0.7) Basophils # (Auto) 0.1 x10^3/uL (0.0-0.2) Prothrombin Time 13.5 SEC (11.7-14.0) Prothromb Time International Ratio 1.1 (0.8-1.1) Sodium Level 140 mmol/L (136-145) Potassium Level 4.3 mmol/L (3.5-5.1) Chloride Level 105 mmol/L (98-107) Carbon Dioxide Level 25 mmol/L (21-32) Anion Gap 10 (6-14) Blood Urea Nitrogen 34 mg/dL (8-26) Creatinine 1.6 mg/dL (0.7-1.3) Estimated GFR (Cockcroft-Gault) 42.1 BUN/Creatinine Ratio 21 (6-20) Glucose Level 128 mg/dL (70-99) Calcium Level 8.6 mg/dL (8.5-10.1) Total Bilirubin 0.3 mg/dL (0.2-1.0) Aspartate Amino Transf (AST/SGOT) 43 U/L (15-37) Alanine Aminotransferase (ALT/SGPT) 54 U/L (16-63) Alkaline Phosphatase 197 U/L (46-116) Total Protein 6.9 g/dL (6.4-8.2) Albumin 2.6 g/dL (3.4-5.0) Albumin/Globulin Ratio 0.6 (1.0-1.7) Glucose (Fingerstick) 191 mg/dL (70-99) 212 mg/dL (70-99) 216 mg/dL (70-99) Allergies Allergies Coded Allergies Type Severity Reaction Last Updated Verified pseudoephedrine Allergy Severe urinary retention 08/22/14 Yes codeine Adverse Reaction Intermediate gi upset 08/22/14 Yes Disposition/Orders: D/C to Home MARINE BRYSON MD Apr 23, 2018 17:03
--- NOTE | 2018-04-23 17:20 | NUR ---
Discharge instructions and belongings reviewed with patient and , verbalized understanding. Escorted out by Cassidy HEARN accompanied by his .
[2018-04-23] MEDS ORDERED: ATORVASTATIN CALCIUM 40 MG TABLET. PO SCH (21:00)
[2018-04-23] MEDS ORDERED: clonazePAM 1 MG TABLET PO SCH (21:00)
[2018-04-24 00:15] LABS: HEMOGLOBIN A1C 6.8 % (4.8-5.6)
--- NOTE | 2018-04-24 12:53 | CONS ---
DATE OF CONSULTATION: 04/23/2018. REASON FOR CONSULTATION: Cervical spinal stenosis and cervical myelopathy. HISTORY OF PRESENT ILLNESS: The patient is a pleasant 78-year-old man who was actually scheduled to have knee replacement surgery today. Last night, he was up going to the bathroom, tripped and struck his forehead on a dresser. He did have some bleeding associated with this and the relates that that was controlled, but the patient was having very severe pain in his hands related to his fall and came to the Emergency Room. He reports that over the last year, he has had episodes frequently of numbness, which can radiate into his right arm. He denies weakness. Currently, denies significant numbness. He describes his pain as a severe burning pain. Of note, he does take Plavix and stopped the Plavix 5 days ago related to preparation for surgery. Following the visit to the Emergency Room, he was admitted for further evaluation and treatment. PAST MEDICAL HISTORY: Cardiovascular: Coronary artery disease, hypertension, hyperlipidemia. Endocrine: Diabetes. PAST SURGICAL HISTORY: Cholecystectomy. MEDICATIONS: Reviewed on the MRAD. ALLERGIES: PSEUDOEPHEDRINE associated with URINARY RETENTION, CODEINE with GI UPSET, remainder of his medications are noncontributory. PERSONAL HISTORY: He does not smoke. He does not use alcohol. REVIEW OF SYSTEMS: Twelve points was performed. Pertinent neurologically he has problems with carpal tunnel syndrome. PHYSICAL EXAMINATION: GENERAL: The patient is alert and oriented x 3 with normal recent and remote memory, normal speech. He is in mild distress because of bilateral hand pain. NEUROLOGIC: Cranial nerve examination: Pupils are equal, normal extraocular motor function. Facial motor and facial sensory examination was normal. Lower cranial nerves were intact. Motor examination: Strength is 5/5 in upper and lower extremities. There was significant pain with the use of each of his hands, which he describes as a burning pain, but he was able to elicit normal strength. On sensory examination, he is intact to light touch in upper and lower extremities with marked hyperesthesia of both hands. Reflexes were 1+ and symmetric without pathologic reflexes. There was full range of motion of upper and lower extremities bilaterally. LABORATORY DATA: I reviewed a CT scan of the cervical spine and an MRI of the cervical spine. There is severe stenosis present at C5-C6 and C6-C7 and more moderate stenosis at C4-C5 and C3-C4. I did not see any evidence of a spinal cord contusion on the images. There did appear to be a prevertebral fluid, which extended from C2-C3 to the upper thoracic region measuring 5 mm in thickness and was felt to be most likely vertebral soft tissue hematoma. Also at C5-C6 posteriorly, there was increased signal within the interspinous space, suggesting ligamentous injury. 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 RECOMMENDATIONS: At this point, I would treat the patient symptomatically, let him recover from this problem. In 4-6 weeks, assuming that he has a good recovery, I would move forward with a cervical laminectomy to fully decompress his spine. I feel that his knee surgery should be delayed until his cervical problems have been addressed. I discussed this with the patient and his family. MERE OVALLES MD DR: ADOLFO/tata JOB#: [id number] / [id number] LAURENT
[2018-07-18] MEDS ORDERED: AMLO1TAB99 PO (10:19)
[2018-07-18] MEDS ORDERED: METO25TA4 PO (10:19)
[2018-07-18] MEDS ORDERED: AMOX500C PO (10:19)
[2018-07-18] MEDS ORDERED: QUIN40TA16 PO (10:19)
[2018-07-18] MEDS ORDERED: CALC-161 PO (10:19)
== END 2018-04-23 17:57 | disposition home or self-care (01) | DRG 552 ==
LOC: ER 02:30 → 4 NORTH 05:00
PROVIDERS: ADMIT Family Medicine; ATTEND Family Medicine
DX: M48.02 Spinal stenosis, cervical region (principal); M50.00 Cervical disc disorder with myelopathy, unspecified cervical region; E44.0 Moderate protein-calorie malnutrition; D64.9 Anemia, unspecified; E11.22 Type 2 diabetes mellitus with diabetic chronic kidney disease; E78.00 Pure hypercholesterolemia, unspecified; E78.5 Hyperlipidemia, unspecified; F41.9 Anxiety disorder, unspecified; I12.9 Hypertensive chronic kidney disease with stage 1 through stage 4 chronic kidney disease, or unspecified chronic kidney disease; I25.10 Atherosclerotic heart disease of native coronary artery without angina pectoris; K21.9 Gastro-esophageal reflux disease without esophagitis; M46.90 Unspecified inflammatory spondylopathy, site unspecified; Z96.659 Presence of unspecified artificial knee joint; S19.9XXA Unspecified injury of neck, initial encounter; N18.9 Chronic kidney disease, unspecified; M19.90 Unspecified osteoarthritis, unspecified site; N40.0 Benign prostatic hyperplasia without lower urinary tract symptoms; W01.190A Fall on same level from slipping, tripping and stumbling with subsequent striking against furniture, initial encounter; Z79.4 Long term (current) use of insulin; Z79.899 Other long term (current) drug therapy; Z95.5 Presence of coronary angioplasty implant and graft; Y93.89 Activity, other specified; Y92.89 Other specified places as the place of occurrence of the external cause; Y99.8 Other external cause status; Z68.30 Body mass index [BMI] 30.0-30.9, adult; Z88.8 Allergy status to other drugs, medicaments and biological substances
CPT/HCPCS: 36415; 70450; 70486; 72125; 72141; 73130; 80053; 82962; 83036; 85025; 85610; 93005; 96374; 96376; J0360; J1100; J1815; J2270; J3010; 99285-25

== ENCOUNTER → 2018-06-12 | Outpatient (CLI) | payer BC, MEDICARE ==
[~2018-06-12] MED LIST changes: +BUPIVACAINE MPF 0.25% 10 ML VIAL. ONE; +CALC-161 PO; +METO25TA4 PO; +methylPREDNISolone ACETATE 40 MG/ML VIAL. ONE
--- NOTE | 2018-06-12 23:26 | PAIN ---
DATE OF SERVICE: 06/12/2018 PROGRESS NOTE FOR PAIN CLINIC DIAGNOSES: 1. Lumbar radiculopathy with lumbar degenerative disk disease, and lumbar post-laminectomy syndrome and spondylosis. 2. Myofascial pain. 3. Left knee joint pain with osteoarthritis. HISTORY OF PRESENT ILLNESS: The patient is a 78-year-old male who returns for followup status post trigger point injections and also bilateral lumbar facet injections with about 90% improvement. This was in February. The patient had trigger points in 03/2018 in the shoulders, neck and upper back, with very good results as well. The patient reports about 75% improvement. He fell shortly after that at home and hit his face on a dresser. He had multiple x-rays and CT scans of the head and neck showing some significant stenosis in the cervical spine, but no acute fractures. The patient reports that he is doing better from that, but he is scheduled to have a decompressive cervical laminotomy from Dr. Sy coming up in the near future and also left knee replacement after that. The patient reports his pain now is in the base of the shoulder on the left side and upper part of the shoulder and neck on the left as well. Right side is doing fairly well. The patient reports his pain is an 8 on a scale of 10 at its worst, 6 at its least and 8 is average and an 8 today. The patient reports it is cramping, dull, shooting, stabbing in the left shoulder posteriorly and locates it fairly specifically in the posterior left trapezius. The patient reports no radiation of the pain in the upper extremity at this point. No new findings. The patient reports no bowel or bladder incontinence or other complaints. PHYSICAL EXAMINATION: VITAL SIGNS: The patient's blood pressure is 139/69, pulse 63, respirations 18 and temperature 98.2 degrees Fahrenheit. Weight is 192 pounds. GENERAL: The patient is awake, alert, oriented, appropriate, very pleasant demeanor. HEENT EXAMINATION: Shows normocephalic and atraumatic. Extraocular movements are intact and symmetrical. Oral cavity, mucous membranes are moist and pink. Dentition is intact. NECK: Shows anterior throat supple, without palpable lymphadenopathy noted. Swallow reflex is symmetrical. CHEST: Shows normal on inspection. Breath sounds are clear to auscultation bilaterally. HEART: Shows S1, S2 clear. No murmurs auscultated. ABDOMEN: Soft, nontender and nondistended. No palpable organomegaly is noted. No rebound or guarding demonstrated. BACK: The patient's back shows spine grossly in the midline. Cervical paraspinous muscle shows symmetrical on inspection. With palpation, it shows some moderate tenderness, but only diffusely into the upper back. The left trapezius shows very firm rope-like musculature, very tender with palpation, even with moderate palpation on the left side. Right side is firm, but not specifically tender and without specific trigger points like the left. There is some significant firm tenderness in the superior medial aspect of the left trapezius. However, the rhomboid muscles are soft and nontender, with no trigger point regions identified. The patient has good rotational motion of both cervical and thoracic pines, without difficulty with extension, flexion or right and left lateral rotation. EXTREMITIES: Upper extremities show deep tendon reflexes at 2+ in the biceps and triceps tendons. Motor exam is strong with narrative writer strength rated at 5/5 and equal and his lower extremities show deep tendon reflexes 1+ in the patellar tendons. Motor exam is 4/5 with symmetrical with dorsiflexion and extension. Peripheral pulses are 2+ radial, 1+ posterior tibial. No peripheral edema is noted bilaterally. Options were discussed with the patient. The patient's old chart was reviewed as was his current medication regimen updated. Current review of systems updated today as well. We will proceed with trigger point injection of the left trapezius. Risks were discussed including, but not limited to bleeding, infection, possibility of intravascular injection sequelae, spread of local anesthetic and numbness, side effects to steroid medication and poor results regarding pain control. The patient understands and wishes to proceed. The patient will return to the clinic in approximately 2 weeks for followup. He was counseled of his return appointment, activity level and side effects to be aware of. We did discuss potential knee injection on the left on his return appointment. We will have him hold his Plavix prior to this if he would like to proceed, as he did have some significant reduction in pain from the orthopedic injection he had not long ago as well. DIAGNOSIS: Myofascial pain. PROCEDURE: Trigger point injection in the left trapezius under sterile prep and drape using local anesthetic. MEDICATION INJECTED: A total of 40 mg Depo-Medrol plus 3 mL of 0.25% bupivacaine after negative aspiration at each injection site. CONDITION AT DISCHARGE: Stable. The patient tolerated the procedure well, had no complications. KAITLIN SCHUMACHER MD DR: RICARDO/tata JOB#: [id number] / [id number]
== END | disposition home or self-care (01) ==
LOC: PNCL 08:46
PROVIDERS: ATTEND Anesthesiology
DX: M79.18 Myalgia, other site (principal); M17.12 Unilateral primary osteoarthritis, left knee; M51.16 Intervertebral disc disorders with radiculopathy, lumbar region; M96.1 Postlaminectomy syndrome, not elsewhere classified; M47.26 Other spondylosis with radiculopathy, lumbar region; Z88.5 Allergy status to narcotic agent; Z88.8 Allergy status to other drugs, medicaments and biological substances
CPT/HCPCS: 20552; J1030; J3490; 20553

== ENCOUNTER → 2018-06-26 | Outpatient (CLI) | payer BC, MEDICARE ==
[~2018-06-26] MED LIST changes: +IOHEXOL 180 MG/ML 10 ML VIAL. ONE; -methylPREDNISolone ACETATE 40 MG/ML VIAL. ONE; +methylPREDNISolone ACETATE 80 MG/ML VIAL. ONE
--- NOTE | 2018-06-26 19:10 | PAIN ---
DATE OF SERVICE: 06/26/2018 DIAGNOSES: 1. Lumbar radiculopathy with lumbar degenerative disk disease and post-lumbar laminectomy syndrome with lumbar spondylosis. 2. Myofascial pain. 3. Left knee joint pain with primary osteoarthritis. HISTORY OF PRESENT ILLNESS: The patient is a 78-year-old male who returns for followup status post both trigger point injections in left trapezius and lumbar facet injections with very good response. The patient reports his main complaint today is his left knee pain and we discussed this with him on his last visit, which was 06/12/2018. He held his Plavix for 5 days and we would like to get a left intraarticular knee joint injection. We discussed that. It was very significantly painful with walking, standing, putting weightbearing on the left leg, especially stepping on a stair or a curb, putting all his weight on his left side. The patient reports it is burning and sharp with weightbearing. Without weightbearing, is very comfortable with sitting or lying down. Does not awaken him from sleep at night, just worse with activity. The patient reports it is a 9 on a scale of 10 at its worst in the past week, 8 on average, 3 at its least and is a 3 today. The patient reports no new motor or sensory deficits, no new changes, but still significant pain in the left knee. The patient reports his shoulder is doing much better on the left side as is his low back feeling much better. The patient is planning to have some cervical surgery coming up soon with Dr. Sy. PHYSICAL EXAMINATION: VITAL SIGNS: The patient's blood pressure 140/72, pulse 60, respirations are 16, temperature is 98.0 degrees Fahrenheit, height is 5 feet 6 inches, and weight is 193 pounds. GENERAL: The patient is awake, alert, oriented, appropriate, very pleasant demeanor. HEENT: Shows normocephalic, atraumatic. Extraocular movements are intact, symmetrical. Oral cavity: Mucous membranes moist and pink. Dentition is intact. NECK: Shows anterior throat supple without palpable lymphadenopathy noted. Swallow reflex is symmetrical. CHEST: Shows normal on inspection. Breath sounds clear to auscultation bilaterally. HEART: Shows S1, S2 clear. No murmurs auscultated. ABDOMEN: Soft, nontender, nondistended. No palpable organomegaly is noted. No rebound or guarding demonstrated. BACK: Shows spine grossly in the midline. Normal appearing thoracic kyphosis and some slight flattening of lumbar lordotic curvature. Lumbar paraspinous muscle shows symmetrical on inspection. On palpation shows some moderate tenderness, but only diffusely. The patient's left shoulder shows good range of motion without significant pain reported. EXTREMITIES: The patient's lower extremities show deep tendon reflexes at 1+ in the patellar and tendo calcaneus tendons. Motor exam is approximately 4 on a scale of 5, but equal and symmetrical with dorsiflexion, extension, quadricep and hamstring flexion. Peripheral pulses are 1+ posterior tibia. No peripheral edema is noted. The patient's left knee shows good hinge motion both passively and actively without specific ratcheting, without crepitus. Options were discussed with the patient. The patient's old chart was reviewed as was his current medication regimen updated. Current review of systems is updated today as well. We will proceed with a left intraarticular knee joint injection with fluoroscopic guidance. Risks were again discussed including, but not limited to bleeding, infection, possibility of intravascular injection sequelae, spread of local anesthetic and numbness, side effects of steroid medication, exposure to fluoroscopy and poor results regarding pain control. The patient understands and wished to proceed. The patient will return to the clinic in approximately 2 weeks for followup, was counseled on return appointment, activity level and side effects to be aware of. DIAGNOSIS: Primary osteoarthritis, left knee joint with left knee joint pain. PROCEDURE: Left intraarticular knee joint injection using C-arm fluoroscopic guidance under sterile prep and drape using local anesthetic. MEDICATION INJECTED: A total of 80 mg Depo-Medrol plus total of 3 mL of 0.25% bupivacaine and 1.5 mL of contrast. CONDITION AT DISCHARGE: Stable. The patient tolerated the procedure well, had no complications. KAITLIN SCHUMACHER MD DR: RICARDO/tata JOB#: [id number] / [id number]
== END | disposition home or self-care (01) ==
LOC: PNCL 08:24
PROVIDERS: ATTEND Anesthesiology
DX: M17.12 Unilateral primary osteoarthritis, left knee (principal); M79.18 Myalgia, other site; M51.16 Intervertebral disc disorders with radiculopathy, lumbar region; M96.1 Postlaminectomy syndrome, not elsewhere classified; M47.26 Other spondylosis with radiculopathy, lumbar region; Z88.5 Allergy status to narcotic agent; Z88.8 Allergy status to other drugs, medicaments and biological substances
CPT/HCPCS: 20610; 77002; J1040; J3490; Q9965

== ENCOUNTER → 2018-07-16 | Outpatient (CLI) | payer BC, MEDICARE ==
[~2018-07-16] MED LIST changes: -BUPIVACAINE MPF 0.25% 10 ML VIAL. ONE; -IOHEXOL 180 MG/ML 10 ML VIAL. ONE; -methylPREDNISolone ACETATE 80 MG/ML VIAL. ONE
== END | disposition home or self-care (01) ==
LOC: SURGPAT 13:27
PROVIDERS: ATTEND Neurological Surgery
DX: Z01.818 Encounter for other preprocedural examination (principal); M48.02 Spinal stenosis, cervical region; M47.12 Other spondylosis with myelopathy, cervical region
CPT/HCPCS: 36415; 87641

== ENCOUNTER → 2018-10-22 | Outpatient (CLI) | payer BC, MEDICARE ==
[2018-08-03 14:24] VITALS: BP 150/86
[~2018-10-22] MED LIST changes: -AMLO1CAP15 PO; +AMLO1CAP54 PO; -CLON1TAB11 PO; +CLONAZEPAM1 MG PO; +DOCU-109 PO; +OXYC1TAB15 PO
--- NOTE | 2018-10-22 10:13 | KCIC ---
CERVICAL SPINE 2-3V History: Postop cervical fusion 08/01/2018 Comparison: April 23, 2018 exams Findings: 2 views of the cervical spine are submitted. There is now posterior fusion hardware with posterior lateral mass screws at C3, C4, C5, C6, C7 attached to intact vertical rods. There has been multilevel posterior decompression at these levels. Cervical vertebral body stature is similar. There is again mild segmental reversal of the lordotic curvature at C5-6. There is very minimal posterior subluxation C5 relative to C6 as seen previously. There is again degenerative disc disease and spondylosis greatest at C5-6 and C6-7. Impression: 1. There is now intact posterior hardware C3-C7, posterior decompression at these levels. There is again degenerative disc disease and spondylosis greatest at C5-6 and C6-7. Electronically signed by: Raj Cruz MD (10/22/2018 10:10 AM) [id number]
== END | disposition home or self-care (01) ==
LOC: KCIC 08:07
PROVIDERS: ATTEND Neurological Surgery
DX: M50.323 Other cervical disc degeneration at C6-C7 level (principal); M47.892 Other spondylosis, cervical region
CPT/HCPCS: 72040

== ENCOUNTER → 2018-11-14 | Outpatient (CLI) | payer BC, MEDICARE ==
[2018-08-03 14:24] VITALS: BP 150/86
[~2018-11-14] MED LIST changes: -NITR0.4T SL; +NITR0.4T24 SL
--- NOTE | 2018-11-14 21:23 | PAIN ---
DATE OF SERVICE: 11/14/2018 PROGRESS NOTE FOR PAIN CLINIC DIAGNOSES: 1. Lumbar radiculopathy with lumbar degenerative disk disease, lumbar spinal stenosis with post-lumbar laminectomy syndrome. 2. Myofascial pain. 3. Left knee joint pain with osteoarthritis. HISTORY OF PRESENT ILLNESS: The patient is a 78-year-old male who returns for followup status post lumbar facet injections as well as left knee joint injection and trigger point injections. The patient reports he was going to get his knee replaced. The morning of that surgery, he fell, hit his head, actually fractured his neck and ended up having a posterior cervical laminectomy and fusion. The patient reports his neck is doing much better, still has some significant pain in the left knee and is waiting until the first of new year to do a knee surgery and replacement; however, he has recovered from his neck surgery. The patient reports his low back, however, is his main complaint of significant pain in the back itself bilaterally, not with any radiation to the lower extremities. The patient reports it is worse with standing, walking and increase in activity, especially extension of the lumbar spine and axial loading of the low back. The patient reports the pain is 8 on a scale of 10 at all times, worst, average and at its least over the past week and is an 8 today. The patient reports it is tight, aching, dull, sharp, shooting at times, but mostly staying in the back itself. The patient reports it is better with lying down. He did get a new mattress, which he reports he is sleeping better, much worse with walking, standing and weightbearing. The patient is to continue to take his Plavix. PHYSICAL EXAMINATION: VITAL SIGNS: The patient's blood pressure 151/71, pulse 66, respirations 18, temperature 98.4 degrees Fahrenheit, height is 5 feet 6 inches, weight is 196 pounds. GENERAL: The patient is awake, alert, oriented, appropriate, very pleasant demeanor. HEENT: Shows normocephalic, atraumatic. Extraocular movements are intact and symmetrical. Oral cavity: Mucous membranes moist and pink. Dentition is intact. NECK: Shows anterior throat supple without palpable lymphadenopathy noted. Swallow reflex symmetrical. CHEST: Shows normal on inspection. Breath sounds clear to auscultation bilaterally. HEART: Shows S1, S2 clear. No murmurs auscultated. ABDOMEN: Soft, nontender, nondistended. No palpable organomegaly is noted. No rebound or guarding demonstrated. BACK: Shows spine grossly in the midline. Normal appearing thoracic kyphosis. Some minor flattening of lumbar lordotic curvature. Well-healed surgical scar noted in the superior thoracic and inferior cervical distribution, but it is healing nicely. The patient's low back shows well-healed surgical scar in the lumbar distribution as well. The patient's low back shows symmetrical with inspection in the lumbar paraspinous musculature. With palpation shows some moderate tenderness, but only diffusely without significant radiation. The patient has good rotational motion with some moderate tenderness with right and left lateral rotation greater than 10 degrees with some significant extension, pain greater than 10 degrees posteriorly and very mild pain with anterior forward flexion at 45 degrees. EXTREMITIES: The patient's lower extremities show deep tendon reflexes 1+ in the patellar and tendo calcaneus tendons. Motor exam is strong with 4 on a scale of 5, but equal and symmetrical with dorsiflexion, extension, quadriceps and hamstring flexion bilaterally. Peripheral pulses are 1+ in the posterior tibia. No peripheral edema is noted. PLAN: Options were discussed with the patient. The patient's old chart was reviewed as his current medication regimen updated. Current review of systems updated today as well. We will check with his prescribing physician to clear holding his Plavix for 7 days prior to lumbar facet joint injections. The patient did very well with these in the past, but significant pain now returning in the low back itself, especially with axial loading of the lumbar spine. If this is deemed safe and appropriate, we will have him hold the Plavix in 7 days and return for bilateral L4-L5 and L5-S1 facet joint injections at that time. KAITLIN SCHUMACHER MD DR: RICARDO/tata JOB#: [id number] / [id number]
== END | disposition home or self-care (01) ==
LOC: PNCL 07:53
PROVIDERS: ATTEND Anesthesiology
DX: M17.12 Unilateral primary osteoarthritis, left knee (principal); M51.16 Intervertebral disc disorders with radiculopathy, lumbar region; M48.061 Spinal stenosis, lumbar region without neurogenic claudication; M79.18 Myalgia, other site
CPT/HCPCS: G0463

== ENCOUNTER → 2018-11-26 | Outpatient (CLI) | payer BC, MEDICARE ==
[2018-08-03 14:24] VITALS: BP 150/86
[~2018-11-26] MED LIST changes: +BUPIVACAINE MPF 0.25% 10 ML VIAL. ONE; +IOHEXOL 180 MG/ML 10 ML VIAL. ONE; +methylPREDNISolone ACETATE 40 MG/ML VIAL. ONE; +methylPREDNISolone ACETATE 80 MG/ML VIAL. ONE
--- NOTE | 2018-11-26 15:28 | PAIN ---
DATE OF SERVICE: 11/26/2018 PROGRESS NOTE FOR PAIN CLINIC DIAGNOSES: Lumbar radiculopathy with lumbar degenerative disk disease and lumbar post laminectomy syndrome, lumbosacral spondylosis. HISTORY OF PRESENT ILLNESS: The patient is a 78-year-old male who returns for followup status post evaluation and preauthorization for lumbar facet joint injections. The patient has obtained this and would like to proceed today. He has been off his Plavix now for 7 days, reports pain in the bilateral low back more on the right than the left, but present bilaterally. The patient reports no new motor or sensory deficits. No new bowel or bladder incontinence, but still significant pain in the low back especially with standing, walking and extension of the lumbar spine especially with rotation of the spine, standing, walking as well. The patient reports no new motor or sensory deficits. No new bowel or bladder incontinence or other complaints, but still significant pain across the low back, more noticeable with standing. The patient describes the pain as burning, sharp, aching at times in the low back itself, rates at 8 on a scale of 10 at its worst in the past week, 7 on average, and 7 at its least and is 7 today. The patient reports no new motor or sensory deficits, no new bowel or bladder incontinence, better with lying down or sleeping, does not awaken him from sleep. PHYSICAL EXAMINATION: VITAL SIGNS: The patient's blood pressure is 136/66, pulse 70, respirations 18, temperature 99.5 degrees Fahrenheit, height is 5 feet 6 inches, weight is 189 pounds. GENERAL: The patient is awake, alert, oriented, appropriate, very pleasant demeanor. HEENT: Shows normocephalic, atraumatic. Extraocular movements are intact and symmetrical. Oral cavity: Mucous membranes moist and pink. Dentition is intact. NECK: Shows anterior throat supple without palpable lymphadenopathy noted. Swallow reflex symmetrical. CHEST: Shows normal on inspection. Breath sounds clear to auscultation bilaterally. HEART: Shows S1, S2 clear. No murmurs auscultated. ABDOMEN: Soft, nontender, nondistended. BACK: Shows spine grossly in the midline. Lumbar paraspinous muscle shows symmetrical on inspection. The patient has well-healed surgical scar. Lumbar paraspinous muscles are moderately tender with palpation bilaterally, but only diffusely without radiation. The patient shows good rotational motion with some moderate tenderness right and left lateral, more on the right than the left. With extension shows significant tenderness, decreased with forward flexion at 45 degrees. EXTREMITIES: Lower extremities show deep tendon reflexes 1+ in the patellar and tendo-calcaneus tendons. Motor exam is approximately 4 on a scale of 5, but symmetrical and equal with dorsiflexion, extension, quadriceps and hamstring flexion. Peripheral pulses are 1+ in the posterior tibia. No peripheral edema is noted. Options were discussed with the patient. The patient's old chart was reviewed as his current medication regimen updated. Current review of systems updated today as well and we will proceed with bilateral L4-L5 and L5-S1 facet joint injections today with fluoroscopic guidance. Risks were again discussed including, but not limited to bleeding, infection, possibility of epidural hematoma, subsequent neurological compromise, dural puncture, headaches, spinal cord and/or nerve damage, side effects of steroid medication and poor results regarding pain control. The patient understands and wished to proceed. The patient will return to clinic in approximately 2 weeks for followup. She was counseled on return appointment, activity level and side effects to be aware of. DIAGNOSES: Lumbar and lumbosacral spondylosis. PROCEDURES: Bilateral L4-L5 and L5-S1 facet joint injections using C-arm fluoroscopic guidance under sterile prep and drape using local anesthetic. MEDICATION INJECTED: The patient received a total of 120 mg Depo-Medrol plus total of 4 mL of 0.25% bupivacaine and total of 2 mL of contrast. CONDITION AT DISCHARGE: Stable. The patient tolerated the procedure well, had no complications. KAITLIN SCHUMACHER MD DR: RICARDO/tata JOB#: [id number] / [id number]
== END ==
LOC: PNCL 07:43
PROVIDERS: ATTEND Anesthesiology
DX: M51.16 Intervertebral disc disorders with radiculopathy, lumbar region (principal); M47.816 Spondylosis without myelopathy or radiculopathy, lumbar region; M96.1 Postlaminectomy syndrome, not elsewhere classified
CPT/HCPCS: 64493; 64494; J1030; J1040; J3490; Q9965

== ENCOUNTER → 2018-11-27 | Outpatient (CLI) | payer BC, MEDICARE ==
[2018-08-03 14:24] VITALS: BP 150/86
[~2018-11-27] MED LIST changes: -BUPIVACAINE MPF 0.25% 10 ML VIAL. ONE; -IOHEXOL 180 MG/ML 10 ML VIAL. ONE; +REGADENOSON 0.4 MG/5 ML DISP.SYRIN. IV ONE; -methylPREDNISolone ACETATE 40 MG/ML VIAL. ONE; -methylPREDNISolone ACETATE 80 MG/ML VIAL. ONE
--- NOTE | 2018-11-27 12:09 | RAD ---
MR#: [id number] Date of Study: 11/27/2018 Ordering Physician: JOHN DA SILVA Referring Physician: CRISTINA FRIED Tech: HINA Nettles APPROVED REPORT Test Type: Pharmacological Stress Nurse/Tech: Isis Lacey RN Test Indications: CAD, Dyspnea Cardiac History: Hypertension, Diabetes,ME 2013 with stent placement, decreased kidney function Medications: See Electronic Medical Record Medical History: See Electronic Medical Record Resting ECG: SB with BBB Resting Heart Rate: 57 bpm Resting Blood Pressure: 138/63mmHg Pretest Chest Pain: No chest pain Nurse/Tech Notes S1,S2 and lungs clear to auscultation. Consent: The procedure was explained to the patient in lay terms. Informed consent was witnessed. Jose Angel eout was entered into [employer]. History and Stress Test performed by HINA Nettles Pharm. Details Pharmacologic stress testing was performed using 0.4mg per 5ml of regadenoson given intravenously ove r 7-10 seconds. Stress Symptoms Dizziness POST EXERCISE Reason for Termination: Infusion complete Target HR: No Max HR: 86 bpm 71% of Maximum Predicted HR: 121 bpm Max Blood Pressure: 159/70mmHg Blood Pressure response to exercise: Normal blood pressure response during stress. Heart Rate response to exercise: WNL Chest Pain: No. Arrhythmia: No. ST Change: No. INTERPRETATION Stress EKG Conclusion: Baseline EKG showed sinus rhythm. No ischemic changes at peak stress. No arr hythmias. Imaging Protocol IMAGE PROTOCOL: Rest Tc-99m/stress Tc-99m 1 day Rest: Stress: Viability: Radiopharm.Tc99m YewqfhhoxTd14g Sestamibi Xasp61bRy 33mCi Duration 15min. 10min. Img Date 11/27/2018 11/27/2018 Inj-Img [id number]. 90min. Rest Admin Site:IV - Left AntecubitalAdministrator:HINA Nettles Stress Admin Site: IV - Left AntecubitalAdministrator: Radu Lazcano, RT (R)(N) STRESS DATA End Diast. Vol.108.0mlAv. Heart Rate80.0bpm End Syst. Vol.25.0mlCO Index BSA0.0L/min Myocardial Ahbc870.0gEject. Cguayenp87.0% Stress Rates Pk. Fill Rate4.23EDV/secLVtime Pk. Fill 192.24msec Pk. Empty Rate4.45ESV/secLVtime Pk. Bpjkn459.99msec 1/3 Pk. Fill1.22EDV/sec Stress Scores Regional WT0.00Summed WT0.00 Regional WM0.00Summed WM0.00 Study quality was good. Left Ventricular size was Normal at Rest and Stress. Lung uptake was . Left Ventricular ejection fraction is 77%. The rest and stress images show normal perfusion, normal contraction and thickening. LV Perf. Quant 17 Seg. SSS3.00 17 Seg. SRS1.00 17 Seg. SDS2.00 Stress Defect Extent (% LAD)0.00Rest Defect Extent (% LAD)0.00Rev. Defect Extent (% LAD)0.00 Stress Defect Extent (% LCX) 20.00Rest Defect Extent (% LCX)17.50Rev. Defect Extent (% LCX)0.00 Stress Defect Extent (% RCA)0.00Rest Defect Extent (% RCA)0.00Rev. Defect Extent (% RCA)0.00 Stress Defect Extent (% FRAN)3.50Rest Defect Extent (% FRAN)4.80Rev. Defect Extent (% FRAN)0.00 Conclusion 1. Regadenoson cardioisotope stress test did not show any evidence of ischemia or infarct. 2. Normal left ventricular systolic function with ejection fraction calculated at 77%. 3. Low risk for cardiac events. Signed by : John Da Silva, Electronically Approved : 11/27/2018 12:08:21
--- NOTE | 2018-11-27 12:47 | CARD ---
MR#: [id number] Date of Study: 11/27/2018 Ordering Physician: JOHN HEBERT, Referring Physician: Ebony FRIED: Kinjal Cedillo APPROVED REPORT EXAM: Two-dimensional and M-mode echocardiogram with Doppler and color Doppler. Other Information Quality : AverageHR: 70bpm INDICATION Cardiac Disease: CAD LEFT VENTRICLE The left ventricle is normal size. The left ventricular systolic function is normal. The ejection fra ction is 55-60%. There is normal LV segmental wall motion. RIGHT VENTRICLE The right ventricle is normal size. There is normal right ventricular wall thickness. The right ventr icular systolic function is normal. ATRIA The left atrium is mildly dilated. The right atrium size is normal. The interatrial septum is intact with no evidence for an atrial septal defect or patent foramen ovale as noted on 2-D or Doppler imagi ng. AORTIC VALVE The aortic valve is normal in structure and function. Doppler and Color Flow revealed no significant aortic regurgitation. There is no significant aortic valvular stenosis. MITRAL VALVE The mitral valve is normal in structure and function. There is no mitral valve stenosis. Doppler and Color Flow revealed no mitral valve regurgitation noted. TRICUSPID VALVE The tricuspid valve is normal in structure and function. Doppler and Color Flow revealed trace tricus pid regurgitation. PA Pressure 31 mm Hg. There is no tricuspid valve stenosis. GREAT VESSELS The aortic root is normal in size. PERICARDIAL EFFUSION There is no evidence of significant pericardial effusion. Critical Notification Critical Value: No <Conclusion> The left ventricular systolic function is normal. The ejection fraction is 55-60%. There is normal LV segmental wall motion. Trace tricuspid regurgitation. PA Pressure 31 mm Hg. There is no evidence of significant pericardial effusion. Signed by : John Hebert, Electronically Approved : 11/27/2018 12:46:40
== END | disposition home or self-care (01) ==
LOC: NM 08:12
PROVIDERS: ATTEND Internal Medicine Cardiovascular Disease
DX: I45.4 Nonspecific intraventricular block (principal); I25.10 Atherosclerotic heart disease of native coronary artery without angina pectoris; I10 Essential (primary) hypertension; E11.9 Type 2 diabetes mellitus without complications; I25.2 Old myocardial infarction; R06.00 Dyspnea, unspecified; R42 Dizziness and giddiness
CPT/HCPCS: 78452; 93017; 93306; A9500; J2785

== ENCOUNTER → 2019-01-07 | Outpatient (CLI) | payer BC, MEDICARE ==
[2018-08-03 14:24] VITALS: BP 150/86
[~2019-01-07] MED LIST changes: +BUPIVACAINE MPF 0.25% 10 ML VIAL. ONE; +IOHEXOL 180 MG/ML 10 ML VIAL. ONE; -REGADENOSON 0.4 MG/5 ML DISP.SYRIN. IV ONE; +methylPREDNISolone ACETATE 80 MG/ML VIAL. ONE
--- NOTE | 2019-01-07 21:43 | PAIN ---
DATE OF SERVICE: 01/07/2019 PROGRESS NOTE FOR PAIN CLINIC DIAGNOSES: 1. Lumbar degenerative disc disease with lumbar radiculopathy post lumbar laminectomy syndrome and lumbar and lumbosacral spondylosis. 2. Right shoulder joint pain with osteoarthritis and biceps tendinitis. 3. Left knee joint pain with osteoarthritis. HISTORY OF PRESENT ILLNESS: The patient is a 78-year-old male who returns for followup status post lumbar facet joint injections on 11/26. The patient reports near 100% improvement with his low back pain. He is doing much better with increased activity with greater ease and comfort, walking greater distances, doing household activities, sleeping better at night. His chief complaint today is right shoulder pain. He has had some difficulty with this in the past. It has been several years since it has been treated. He is having difficulty raising his right arm over his head and abduction of the right shoulder secondary to the pain. The patient reports he has a constant pain now, it is sharp and aching, especially with movement or any type of weight lifting or bearing with the right arm. The patient rates it as a 9 on a scale of 10 at its worst over the past week, 9 on average and 5 at its least and is at 9 today. The patient reports it is sharp and constant with activity, better with sitting or lying down. It does not generally awake him from sleep at night. PHYSICAL EXAMINATION: VITAL SIGNS: The patient's blood pressure is 172/70, respirations are 18, pulse is 87, temperature is 98.0 degrees Fahrenheit, height is 5 feet 6 inches, weighs 191 pounds. GENERAL: The patient is awake, alert, oriented, appropriate, very pleasant demeanor. HEENT: Shows normocephalic and atraumatic. Extraocular movements are intact and symmetrical. Oral cavity shows mucous membranes are moist and pink. Dentition is intact. NECK: Shows anterior throat supple without palpable lymphadenopathy noted. Swallow reflex symmetrical. CHEST: Shows normal on inspection. Breath sounds clear to auscultation bilaterally. HEART: Shows S1 and S2 clear. No murmurs auscultated. ABDOMEN: Soft, nontender, nondistended. No palpable organomegaly is noted. No rebound or guarding demonstrated. BACK: Shows spine grossly in the midline. Lumbar paraspinous muscle shows symmetrical on inspection, well-healed surgical scar. Lumbar paraspinous muscle shows some mild tenderness diffusely, but only diffusely throughout the upper, middle, and lower distributions of the paraspinous muscles without significant radiation. The patient has good rotational motion of the lumbar spine with much better comfort on previous exam, especially with extension, very minor pain with extension, but not with right or left lateral rotation or with forward flexion. EXTREMITIES: The patient's lower extremities show deep tendon reflexes at 1+ in the patellar and tendo-calcaneus tendons. Motor exam is strong with approximately 4 on a scale of 5, but equal and symmetrical dorsiflexion, extension, quadriceps, and hamstring flexion. The patient's upper extremities show deep tendon reflexes 2+ in the biceps and triceps tendons with focus on the patient's right shoulder, shows normal in appearance; with palpation shows significant tenderness over the right anterior aspect of the deltoid and over the bicipital groove of the biceps tendon. This is worse with biceps flexion, no pain with triceps flexion, and no loss of strength on resistance with either but significant pain with biceps flexion and significant pain with palpation over the biceps groove and the anterior deltoid as well. The patient shows good rotational motion of the shoulder with significant pain with resistance and abduction past 45 degrees on the right. Left side is normal on exam and appearance. Options were discussed with the patient. The patient's old chart was reviewed as his current medication regimen updated. Current review of systems updated today as well and we will proceed with a right shoulder biceps tendon injection with fluoroscopic guidance today. Risks were discussed including but not limited to bleeding, infection, possibility of intravascular injection sequelae, spread of local anesthetic and numbness, side effects of steroid medication, exposure to fluoroscopy and poor results regarding pain control. The patient understands and wished to proceed. The patient will return to the clinic in approximately 2 weeks for followup, was counseled as to his return appointment, activity level, and side effects to be aware of. DIAGNOSIS: Right biceps tendinitis. PROCEDURE: Right biceps tendon injection using C-arm fluoroscopic guidance under sterile prep and drape using local anesthetic. MEDICATION INJECTED: Total of 3 mL of 0.25% bupivacaine and 80 mg of Depo-Medrol and 1 mL of contrast. CONDITION AT DISCHARGE: Stable. The patient tolerated the procedure well, had no complications. KAITLIN SCHUMACHER MD DR: RICARDO/tata JOB#: [id number] / [id number]
== END ==
LOC: PNCL 12:51
PROVIDERS: ATTEND Anesthesiology
DX: M75.21 Bicipital tendinitis, right shoulder (principal); M51.16 Intervertebral disc disorders with radiculopathy, lumbar region; M96.1 Postlaminectomy syndrome, not elsewhere classified; M47.817 Spondylosis without myelopathy or radiculopathy, lumbosacral region; M19.011 Primary osteoarthritis, right shoulder; M17.12 Unilateral primary osteoarthritis, left knee
CPT/HCPCS: 20550; J1040; J3490; Q9965

== ENCOUNTER → 2019-01-31 | Outpatient (CLI) | payer BC, MEDICARE ==
[2018-08-03 14:24] VITALS: BP 150/86
[~2019-01-31] MED LIST changes: -BUPIVACAINE MPF 0.25% 10 ML VIAL. ONE; -IOHEXOL 180 MG/ML 10 ML VIAL. ONE; -methylPREDNISolone ACETATE 80 MG/ML VIAL. ONE
--- NOTE | 2019-01-31 09:23 | KCIC ---
EXAM: Right shoulder, 3 views. HISTORY: Pain. COMPARISON: None. FINDINGS: 3 views of the right shoulder obtained. There is decreased apical pleural space due to image projection or chronic rotator cuff pathology. There is mild acromioclavicular and glenohumeral spurring. There is no fracture. There is cervical spinal fusion instrumentation. IMPRESSION: 1. Mild acromioclavicular and glenohumeral osteoarthritis. 2. Decreased subacromial space due to image projection or chronic rotator cuff pathology. Electronically signed by: Fatou Kuhn MD (01/31/2019 9:20 AM) [place] [id number]
== END | disposition home or self-care (01) ==
LOC: KCIC 08:51
PROVIDERS: ATTEND Family Medicine
DX: M19.011 Primary osteoarthritis, right shoulder (principal); M75.81 Other shoulder lesions, right shoulder
CPT/HCPCS: 73030

== ENCOUNTER → 2019-07-18 | Outpatient (CLI) | payer BC, MEDICARE ==
[2018-08-03 14:24] VITALS: BP 150/86
[~2019-07-18] MED LIST changes: +MULT-445 PO; -MULT1TAB52 PO; -ZOLP12.54 PO; +ZOLP12.56 PO
--- NOTE | 2019-07-18 14:05 | RAD ---
INDICATION: Reason: Bilateral Lower Extremity Edema / Spl. Instructions: / History: COMPARISON: None. TECHNIQUE: Grayscale, color and doppler ultrasound images were obtained of the bilateral lower extremity venous vasculature. RIGHT: No thrombus identified in the common femoral vein, femoral vein, popliteal vein or visualized calf veins. LEFT: No thrombus identified in the common femoral vein, femoral vein, popliteal vein or visualized calf veins. IMPRESSION: * No thrombus identified in deep venous system of bilateral lower extremities. * 35 x 30 x 12 mm hypoechoic structure within the right popliteal fossa. Most common cause would be complex Galindo's cyst with other possible causes including a soft tissue hematoma. Cannot evaluate for infectious involvement on ultrasound. Electronically signed by: Tawanda Gaspar MD (07/18/2019 2:02 PM) [id number]
== END | disposition home or self-care (01) ==
LOC: US 12:54
PROVIDERS: ATTEND Family Medicine
DX: R60.0 Localized edema (principal)
CPT/HCPCS: 93970

== ENCOUNTER → 2019-08-13 | Outpatient (CLI) | payer BC, MEDICARE ==
[2018-08-03 14:24] VITALS: BP 150/86
--- NOTE | 2019-08-13 11:36 | RAD ---
MR#: [id number] Date of Study: 08/13/2019 Ordering Physician: JOHN DA SILVA, Referring Physician: JOHN DA SILVA, Tech: Cristiana Cottrell RDMS, RVT, RTR APPROVED REPORT Patient Location : OUT-PATIENT Indications Lower Extremity Edema : Bilateral Greater Saphenous Veins (GSV) Significant venous relux noted in the RIGHT GSV at the following levels : Superficial Femoral Junctio n, Proximal Thigh, Mid Thigh, Distal Thigh, Proximal Calf, Mid Calf, Distal Calf Significant venous relux noted in the LEFT GSV at the following levels : Superficial Femoral Junction , Proximal Thigh, Mid Thigh, Distal Thigh, Proximal Calf, Mid Calf, Distal Calf Findings Grayscale images of the bilateral greater saphenous veins did not reveal any obvious evidence of thro mbus. The right great saphenous vein measures 3.6 mm and has a maximum reflux time of 3 seconds. Th e left great saphenous vein measures 4.2 mm and has a maximum reflux time of 1.4 seconds. Bilateral lesser saphenous veins did not show any evidence of reflux. The left lesser saphenous vein demonstrates chronic appearing thrombus. Critical Notification Critical Value: No <Conclusion> 1. Positive for reflux in the bilateral greater saphenous veins. 2. Incidental note is made of a probable chronic thrombus involving the left lesser saphenous vein Signed by : Damien Griffiths, Electronically Approved : 08/13/2019 11:35:57
== END | disposition home or self-care (01) ==
LOC: US 11:25
PROVIDERS: ATTEND Internal Medicine Cardiovascular Disease
DX: I82.813 Embolism and thrombosis of superficial veins of lower extremities, bilateral (principal)
CPT/HCPCS: 93970

== ENCOUNTER → 2019-10-02 | Outpatient (CLI) | payer BC, MEDICARE ==
[2018-08-03 14:24] VITALS: BP 150/86
--- NOTE | 2019-10-02 16:50 | RAD ---
MR#: [id number] Date of Study: 10/02/2019 Ordering Physician: JOHN DA SILVA, Referring Physician: JOHN DA SILVA, Tech: Star Shipley MBA, RDMS, RVT, RDCS, RTR APPROVED REPORT Bilateral Lower Extremity Venous Study for DVT Patient Location: OUT-PATIENT Indications S/P B/L GSV VENASEALS Vein Imaging (Right) CFV (R): Compressible SFJ (R): Compressible FEM (R): Compressible POP (R): Compressible DFV (R): Compressible PTV (R): Spontaneous GSV (R): Absent Flow Peroneals (R): Spontaneous Vein Imaging (Left) CFV (L): Compressible SFJ (L): Compressible FEM (L): Compressible POP (L): Compressible DFV (L): Compressible PTV (L): Spontaneous GSV (L): Absent Flow Doppler Evaluation (Right) CFV (R): Spontaneous POP (R):Spontaneous Doppler Evaluation (Left) CFV (L):Spontaneous POP (L):Spontaneous Findings The bilateral lower extremity deep veins were evaluated for thrombus with color Doppler, spectral and grayscale images. On the right the grayscale images of the common femoral, superficial femoral and popliteal veins do n ot demonstrate any evidence of thrombus and these veins appear to be compressible. The below-knee vei ns were not well visualized but grossly appear to be compressible. Spectral imaging and color Doppler do not reveal any evidence of obstruction to flow with normal respirophasic variation above the knee . Below the knee there is spontaneous flow noted. On the left, the grayscale images of the common femoral, superficial femoral and popliteal veins do n ot demonstrate any evidence of thrombus and these veins appear to be compressible. The below-knee vei ns again were not well visualized but grossly appear to be compressible. Spectral imaging and color D oppler do not reveal any evidence of obstruction to flow with normal respirophasic variation above th e knee. The below-knee veins demonstrate spontaneous flow. Critical Notification Critical Value: No <Conclusion> 1. Successful bilateral GSV ablations 2. Negative for DVT Signed by : Damien Griffiths, Electronically Approved : 10/02/2019 16:49:48
== END | disposition home or self-care (01) ==
LOC: US 15:12
PROVIDERS: ATTEND Internal Medicine Cardiovascular Disease
DX: I87.2 Venous insufficiency (chronic) (peripheral) (principal); M79.604 Pain in right leg; M79.605 Pain in left leg
CPT/HCPCS: 93970

== ENCOUNTER → 2019-11-15 | Outpatient (CLI) | payer BC, MEDICARE ==
[2018-08-03 14:24] VITALS: BP 150/86
[~2019-11-15] MED LIST changes: +BUPIVACAINE MPF 0.25% 10 ML VIAL. ONE; +HYDR-2869 PO; +IOHEXOL 180 MG/ML 10 ML VIAL. ONE; +QUIN10TA15 PO; +methylPREDNISolone ACETATE 80 MG/ML VIAL. ONE
--- NOTE | 2019-11-15 11:36 | PDOC ---
Progress Note - Pain Clinic Date of Service: DOS: DATE: 11/15/19 TIME: 11:31 Diagnosis: Dx: Bilateral biceps tendinitis Right and left shoulder joint pain with osteoarthritis Lumbar degenerative disc disease with lumbar radiculopathy post lumbar laminectomy syndrome and lumbar spondylosis Left knee joint pain with primary osteoarthritis left knee History or Present Illness: HPI: 79-year-old male returns follow-up status post right shoulder joint injections and right biceps tendon injection also bilateral facet joint injections and left knee injection last year patient reports he is been doing fairly well but over the past 3 months pain is beginning to return in the left knee specifically with walking standing weightbearing especially putting all his weight on his left leg with stepping on stairs or steps rates his pain is an 8 on a scale of 10 is worst 7 on average and a 3 at its least and is a 7 today patient reports also significant pain in the bilateral shoulders right greater than left but present bilaterally with flexion and lifting items with his arms. Patient reports no new motor or sensory deficits no bowel bladder incontinence better with sitting or laying down does not awaken from sleep generally but worse with using upper extremities and standing on the left knee. Patient has pain is aching in the knee and the shoulder is more of a stabbing shooting pain which can be more sharp and severe with weightbearing and reaching. Reports no new deficits Physical Exam: VS: Blood pressure is 128/67 pulse 60 respirations 16 temperature 90.6 3 Fahrenheit weight is 190 pounds PE: PHYSICAL EXAMINATION: GENERAL: The patient is awake, alert, oriented, appropriate, very pleasant demeanor HEENT: Shows normocephalic, atraumatic. Extraocular movements are intact and symmetrical. Oral cavity: Mucous membranes moist and pink. NECK: Shows anterior throat supple without palpable lymphadenopathy noted. Swallow reflex symmetrical. CHEST: Shows normal on inspection. Breath sounds are clear bilaterally, no rales rhonchi or wheezes auscultated. HEART: Shows S1, S2 clear. No murmurs auscultated. ABDOMEN: Soft, nontender, nondistended, obese. No palpable organomegaly is noted. No rebound or guarding demonstrated. BACK: Shows spine grossly in the midline. Normal-appearing cervical lordotic curvature. There is slightly increased thoracic kyphosis, some minor flattening of the lumbar lordotic curvature. Lumbar paraspinous muscles show symmetrical on inspection, on palpation shows some moderate tenderness diffusely throughout the upper, middle and lower distribution of the paraspinous muscles bilaterally, but without specific trigger points, without radiation of pain. The patient has good rotational motion of the lumbar spine, both laterally as well as extension and flexion without significant difficulty. No tenderness over the spinous processes, sacrum or sacroiliac regions. EXTREMITIES: Lower extremities show deep tendon reflexes 1+ in the patellar and tendo calcaneus tendons. Motor exam is 4 on a scale of 5 with right dorsiflexion, extension, quadriceps and hamstring flexion and 4/5 on the left. Peripheral pulses are 1+ posterior tibial. No peripheral edema is noted bilaterally. Lower extremities are warm and dry to touch, equal in color and appearance. Patient's left knee shows some moderate tenderness with palpation over the medial and lateral collateral ligaments but with negative shelf sign shows good range of motion with hinge motion without crepitus or ratcheting. Patient's upper extremities show deep tendon reflexes 2+ in the biceps triceps tendons, geologist petroleum strength strong with approximate 4 to scale 5 equal and symmetrical geologist petroleum strength bicep and tricep flexion. Patient shows significant tenderness over the superior aspect of the biceps tendon insertion over the humerus more so on the right than left are present bilaterally patient also has well-healed surgical scar from previous shoulder replacement on the left. SKIN: Shows warm and dry, good turgor. No edema. No sores, rashes or bruising throughout. Procedure: Procedure: Options were discussed with the patient. Patient will chart was reviewed his his current medication regimen updated current review of systems updated today as well. We will proceed with bilateral biceps tendon injections with fluoroscopic guidance today. Risks are discussed including but not limited to bleeding infection possibility of intravascular injection sequelae spread of local anesthetic and numbness exposure fluoroscopy side effects of steroid medication importance of screening pain control. 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 Medication Injected: Med Injected: Under sterile prep and drape using C-arm fluoroscopic guidance patient's bilateral biceps tendons sheaths were injected using 22-gauge Quincke needle with stylette each side with good visualization with fluoroscopic guidance medications injected is 40 mg Depo-Medrol each side as well as 1 cc each side of contrast and 2 cc each side of 0.25% bupivacaine after negative aspiration each side. Patient tolerated procedure well had no complications. Condition at Discharge: Condition at Discharge: Condition at discharge stable patient tolerated procedure well had no complications. KAITLIN SCHUMACHER MD Nov 15, 2019 11:36
== END | disposition home or self-care (01) ==
LOC: PNCL 10:54
PROVIDERS: ATTEND Anesthesiology
DX: M75.21 Bicipital tendinitis, right shoulder (principal); M75.22 Bicipital tendinitis, left shoulder; M19.012 Primary osteoarthritis, left shoulder; M19.011 Primary osteoarthritis, right shoulder; M17.12 Unilateral primary osteoarthritis, left knee; M51.16 Intervertebral disc disorders with radiculopathy, lumbar region; M47.896 Other spondylosis, lumbar region; I10 Essential (primary) hypertension; E11.9 Type 2 diabetes mellitus without complications; Z88.5 Allergy status to narcotic agent; Z79.82 Long term (current) use of aspirin; Z79.899 Other long term (current) drug therapy; Z98.890 Other specified postprocedural states; Z87.891 Personal history of nicotine dependence; Z79.84 Long term (current) use of oral hypoglycemic drugs
CPT/HCPCS: 20550; 77002; J1040; J3490; Q9965; 20605

== ENCOUNTER → 2019-11-22 | Outpatient (CLI) | payer BC, MEDICARE ==
[2018-08-03 14:24] VITALS: BP 150/86
[~2019-11-22] MED LIST changes: +AMLO-187 PO; -AMLO10TA8 PO; +CALC-627 PO; -CALC1TAB75 PO; +METO50TA6 PO
--- NOTE | 2019-11-22 10:11 | PDOC ---
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 Patient had bilateral biceps tendon injections on his last visit did very well with his reports about 100% improvement in the bilateral shoulders reports his knee is slightly improved after the injection as well but still significantly painful with walking standing putting weight on his left knee and left leg such as climbing stairs or planning on a step. Patient reports the knee is a 7 on scale 10 is worst average and least over the past week is a 7 today describes as sharp and aching worse with weightbearing better with sitting or laying down does not awaken him from sleep at night not painful with resting. Patient reports no new motor or sensory deficits no new bowel or bladder consult complaints. Shoulders are much more comfortable now with repetitive motions lifting reaching over his head is very pleased with his progress thus far. Physical Exam: VS: Pressure is 141/63 pulse 59 respirations 18 temperature 98.7 F height is 5 feet 6 inches weight is 185 pounds PE: PHYSICAL EXAMINATION: GENERAL: The patient is awake, alert, oriented, appropriate, very pleasant demeanor HEENT: Shows normocephalic, atraumatic. Extraocular movements are intact and symmetrical. Patient wearing eyeglasses NECK: Shows anterior throat supple without palpable lymphadenopathy noted. Swallow reflex symmetrical. CHEST: Shows normal on inspection. Breath sounds are clear bilaterally. HEART: Shows S1, S2 clear. No murmurs auscultated. ABDOMEN: Soft, nontender, nondistended. No palpable organomegaly is noted. No rebound or guarding demonstrated. BACK: Shows spine grossly in the midline. Normal-appearing cervical lordotic curvature. There is slightly increased thoracic kyphosis, some minor flattening of the lumbar lordotic curvature. Lumbar paraspinous muscles show symmetrical on inspection, on palpation shows some moderate tenderness diffusely throughout the upper, middle and lower distribution of the paraspinous muscles bilaterally without specific trigger points, without radiation of pain. The patient has good rotational motion of the lumbar spine, both laterally as well as extension and flexion without significant difficulty. No tenderness over the spinous processes, sacrum or sacroiliac regions. EXTREMITIES: Lower extremities show deep tendon reflexes 1+ in the patellar and tendo calcaneus tendons. Motor exam is 4 on a scale of 5 with right dorsiflexion, extension, quadriceps and hamstring flexion and 4/5 on the left. Peripheral pulses are 1+ posterior tibial. No peripheral edema is noted bilaterally. Lower extremities are warm and dry to touch, equal in color and appearance. Patient's left knee shows moderate tenderness with palpation over the medial collateral ligament but not the lateral patient is good range of motion in hinged fashion without ratcheting or crepitus. SKIN: Shows warm and dry, good turgor. No edema. No sores, rashes or bruising throughout. Procedure: Procedure: Options were discussed with the patient. Patient's old chart was reviewed his his current medication regimen updated current review of systems updated today as well. We will proceed with a left intra-articular knee joint injection today with fluoroscopic guidance. Risks were discussed including but not limited to bleeding infection possibility of intravascular injection sequelae spread local anesthetic numbness side effects of steroid medication exposure to fluoroscopy and poor results chronic pain control. Patient understands wished to proceed patient return to clinic in approximately 2 weeks for follow-up was counseled as to return appointment activity level and side effects to be aware of. Medication Injected: Med Injected: Under sterile prep and drape patient in the supine position using C-arm fluoroscopic guidance patient's left knee was visualized using 1% lidocaine was topically anesthetized over the medial joint compartment space and then using a 22-gauge Quincke needle with stylette was entered into the joint space of the knee under direct visualization without significant difficulty stylet was removed at this time 1.5 cc of contrast was injected with good spread throughout the knee joint without washout. At this point bupivacaine 3 cc 0.25% and 80 mg Depo-Medrol was then injected to the knee without difficulty or resistance. Needle was withdrawn and sterile bandage was applied. Patient tolerated proced ure well had no complications. Condition at Discharge: Condition at Discharge: Condition at discharge is stable patient tolerated procedure well had no complications. KAITLIN SCHUMACHER MD Nov 22, 2019 10:11
== END ==
LOC: PNCL 09:01
PROVIDERS: ATTEND Anesthesiology
DX: M19.011 Primary osteoarthritis, right shoulder (principal); M17.12 Unilateral primary osteoarthritis, left knee; M75.22 Bicipital tendinitis, left shoulder; M75.21 Bicipital tendinitis, right shoulder; M51.16 Intervertebral disc disorders with radiculopathy, lumbar region; I10 Essential (primary) hypertension; E11.9 Type 2 diabetes mellitus without complications; M47.896 Other spondylosis, lumbar region; Z87.891 Personal history of nicotine dependence; Z79.82 Long term (current) use of aspirin; Z88.5 Allergy status to narcotic agent; Z88.8 Allergy status to other drugs, medicaments and biological substances; Z79.899 Other long term (current) drug therapy; Z79.84 Long term (current) use of oral hypoglycemic drugs
CPT/HCPCS: 20610; 77002; J1040; J3490; Q9965

== ENCOUNTER → 2019-11-28 | Outpatient (CLI) | payer BC, MEDICARE ==
[2018-08-03 14:24] VITALS: BP 150/86
[~2019-11-28] MED LIST changes: -IOHEXOL 180 MG/ML 10 ML VIAL. ONE; +methylPREDNISolone ACETATE 40 MG/ML VIAL. ONE; -methylPREDNISolone ACETATE 80 MG/ML VIAL. ONE
--- NOTE | 2019-11-28 11:28 | PDOC ---
Progress Note - Pain Clinic Date of Service: DOS: DATE: 11/28/19 TIME: 11:24 Diagnosis: Dx: Lumbar to colopathy with lumbar degenerative disc disease and lumbar postlaminectomy syndrome and spondylosis Bilateral biceps tendinitis Right shoulder joint pain with osteoarthritis Left knee joint pain with osteoarthritis Myofascial pain History or Present Illness: HPI: 79-year-old male returns follow-up status post left knee joint injection with near under percent improvement in his left knee pain his chief complaint today however is neck pain and right shoulder pain mostly the behind the right ear and radiating to the shoulder and neck on the right side worse for about 3 to 4 days patient reports last time this happened he had his eyeglasses adjusted and this helped but it did not help this time after changing his glasses he is wearing a facemask with straps around the ears but they are not extremely tight. Patient reports he is out had any other activity that may have caused this that he is aware of no injury no falls or startles no cough or strains otherwise and no different activity. Patient rates the pain as a 9 on scale 10 at all times worst least an average over the past few days describes as sharp and constant in the right neck behind the ear and into the superior aspect of the shoulder. Physical Exam: VS: Blood pressure is 124/65 pulse 63 respirations 18 temperature 98.4 F height is 5 foot 6 inches weight is 185 pounds PE: PHYSICAL EXAMINATION: GENERAL: The patient is awake, alert, oriented, appropriate, very pleasant demeanor HEENT: Shows normocephalic, atraumatic. Extraocular movements are intact and symmetrical. NECK: Shows anterior throat supple without palpable lymphadenopathy noted. Swallow reflex symmetrical. CHEST: Shows normal on inspection. Breath sounds are clear bilaterally no rales rhonchi or wheezes. HEART: Shows S1, S2 clear. No murmurs auscultated. ABDOMEN: Soft, nontender, nondistended, obese. No palpable organomegaly is noted. No rebound or guarding demonstrated. BACK: Shows spine grossly in the midline. Normal-appearing cervical lordotic curvature. Patient's neck shows some significant tenderness at the superior aspect of the medial aspect of the sternocleidomastoid muscle on the right, with very firm ropelike musculature consistent with trigger point areas of musculature in the superior aspect of this muscle. No specific radiation is elicited with direct palpation but significantly tender. There is slightly increased thoracic kyphosis, some minor flattening of the lumbar lordotic curvature. Lumbar paraspinous muscles show symmetrical on inspection, on palpation shows some moderate tenderness diffusely throughout the upper, middle and lower distribution of the paraspinous muscles bilaterally and also into the lower thoracic paraspinous musculature, firm and tender, but without specific trigger points, without radiation of pain. The patient has good rotational motion of the lumbar spine, both laterally as well as extension and flexion with out significant difficulty. SKIN: Shows warm and dry, good turgor. No edema. No sores, rashes or bruising throughout. Procedure: Procedure: Options were discussed with the patient. Patient's old chart was reviewed his his current medication regimen updated current review of systems updated today as well. We will proceed with trigger point injections of the right sternocleidomastoid muscle. Risks were discussed including but not limited to bleeding infection possibility of intravascular injection sequelae spread to local anesthetic and numbness side effects steroid medication portals regarding pain control. Patient understands wished to proceed. Patient return to clinic in approximately 2 weeks or as necessary and like to call for his next appointment when needed. Medication Injected: Med Injected: Under sterile prep and drape patient's right side of his neck was prepped and draped in usual fashion and sternocleidomastoid superior aspect was identified and very firm ropelike musculature identified and injected with 25-gauge needle using a total of 3 cc 0.25% bupivacaine and total of 40 mg Depo-Medrol after negative aspiration at 3 injection sites of the sternocleidomastoid muscle. Patient tolerated the procedure well and had no complications. Condition at Discharge: Condition at Discharge: Condition at discharge is stable patient tolerated procedure well had no complications. KAITLIN SCHUMACHER MD Nov 28, 2019 11:28
== END ==
LOC: PNCL 10:13
PROVIDERS: ATTEND Anesthesiology
DX: M51.16 Intervertebral disc disorders with radiculopathy, lumbar region (principal); M46.1 Sacroiliitis, not elsewhere classified; M79.18 Myalgia, other site; M47.896 Other spondylosis, lumbar region; M17.12 Unilateral primary osteoarthritis, left knee; M19.011 Primary osteoarthritis, right shoulder; M75.22 Bicipital tendinitis, left shoulder; M75.21 Bicipital tendinitis, right shoulder; I10 Essential (primary) hypertension; E11.9 Type 2 diabetes mellitus without complications; Z87.891 Personal history of nicotine dependence; Z79.82 Long term (current) use of aspirin; Z79.899 Other long term (current) drug therapy; Z88.5 Allergy status to narcotic agent; Z88.8 Allergy status to other drugs, medicaments and biological substances; Z79.84 Long term (current) use of oral hypoglycemic drugs
CPT/HCPCS: 20552; J1030; J3490

== ENCOUNTER → 2019-12-13 | Outpatient (CLI) | payer BC, MEDICARE ==
[2018-08-03 14:24] VITALS: BP 150/86
[~2019-12-13] MED LIST changes: +IOHEXOL 180 MG/ML 10 ML VIAL. ONE
--- NOTE | 2019-12-13 12:46 | PDOC ---
Progress Note - Pain Clinic Date of Service: DOS: DATE: 12/13/19 TIME: 12:40 Diagnosis: Dx: Right shoulder joint pain with osteoarthritis Bilateral biceps tendinitis Lumbar radiculopathy with lumbar degenerative disc disease lumbar postlaminectomy syndrome and spondylosis Left knee joint pain with osteoarthritis Myofascial pain History or Present Illness: HPI: 79-year-old male returns follow-up status post trigger point injections in the cervical and sternocleidomastoid on the right patient reports did very well with about 75% improvement after the injections patient which his chief complaint today however is right shoulder pain worse without any specific injury or accident since his last visit but reports the pain is getting worse in the anterior superior aspect of the right shoulder worse with weightbearing especially carrying things at his side any weightbearing or lifting with his arm. Patient reports is worse with raising over his head but not reaching backwards patient reports pain is a 7 on scale 10 is worse over the past week 7 on average 7 its least is a 7 today. Describes pain as aching becoming more constant with weightbearing and disturbing sleep about every 6 hours. Patient reports no new motor or sensory deficits or other complaints again his neck is doing much better after trigger point injections on his last visit. Physical Exam: VS: Blood pressure is 120/58 pulse 64 respirations 18 temperature 97.5 F weight is 183 pounds PE: PHYSICAL EXAMINATION: GENERAL: The patient is awake, alert, oriented, appropriate, very pleasant demeanor HEENT: Shows normocephalic, atraumatic. Extraocular movements are intact and symmetrical. NECK: Shows anterior throat supple without palpable lymphadenopathy noted. Swallow reflex symmetrical. CHEST: Shows normal on inspection. Breath sounds are clear bilaterally. HEART: Shows S1, S2 clear. No murmurs auscultated. ABDOMEN: Soft, nontender, nondistended, obese. No palpable organomegaly is noted. No rebound or guarding demonstrated. BACK: Shows spine grossly in the midline. Normal-appearing cervical lordotic curvature. Cervical spine shows good rotation motion both laterally greater than 45 degrees closer to 90 degrees as well as full extension full forward flexion without significant difficulty. Cervical paraspinous muscles show some moderate tenderness but only diffusely without specific trigger points on exam today right and left. There is slightly increased thoracic kyphosis, some minor flattening of the lumbar lordotic curvature, with well-healed surgical scar noted. Lumbar paraspinous muscles show symmetrical on inspection, on palpation shows some moderate tenderness diffusely throughout the upper, middle and lower distribution of the paraspinous muscles, but without specific trigger points, without radiation of pain. The patient has good rotational motion of the lumbar spine, both laterally as well as extension and flexion without significant difficulty. No tenderness over the spinous processes, sacrum or sacroiliac regions. EXTREMITIES: Lower extremities show deep tendon reflexes 1+ in the patellar and tendo calcaneus tendons. Motor exam is 4 on a scale of 5 with right dorsiflexion, extension, quadriceps and hamstring flexion and 4/5 on the left. Peripheral pulses are 1 posterior tibial. No peripheral edema is noted bilaterally. Lower extremities are warm and dry to touch, equal in color and appearance. Upper extremities show deep tendon reflexes 2+ in the bicep and triceps tendons are equal motor exam is strong with manager progressive care strength rated 5 out of 5 as is biceps triceps flexion. Patient's right shoulder significant tenderness over the right acromioclavicular joint with palpation superiorly as well as posteriorly and laterally. Patient shows some significant tenderness with abduction of the shoulder on the right with resistance but not with adduction SKIN: Shows warm and dry, good turgor. No edema. No sores, rashes or bruising throughout. Procedure: Procedure: Options were discussed with the patient. Patient will chart reviewed his his current medication regimen updated current review of systems updated today as well. We will proceed with right acromioclavicular joint injection with fluoroscopic guidance today. Risks were discussed including but not limited to bleeding infection possibility of intravascular injection sequelae spread to local anesthetic and numbness side effects steroid medication exposure fluoroscopy and portal scarring pain control. Patient understands wished to proceed patient return to clinic in approximate 2 weeks for follow-up was counseled as to return appointment activity level and side effects to be aware of. Medication Injected: Med Injected: Sterile prep and drape using C-arm fluoroscopic guidance pates right shoulder was visualized and anesthetized over the acromioclavicular joint. Using a 25- gauge needle the joint was entered under direct fluoroscopic vision negative aspiration was noted and 1.5 cc of contrast was injected with good spread within the joint. At this time 2 cc of 0.25% bupivacaine and 40 mg total of Depo- Medrol was then injected into the joint. Needle was removed sterile bandage was applied. Patient tolerated procedure well and had no complications. Condition at Discharge: Condition at Discharge: Patient tolerated the procedure well had no complications. Patient was discharged in stable condition. KAITLIN SCHUMACHER MD Dec 13, 2019 12:46
== END ==
LOC: PNCL 11:24
PROVIDERS: ATTEND Anesthesiology
DX: M19.011 Primary osteoarthritis, right shoulder (principal); M51.16 Intervertebral disc disorders with radiculopathy, lumbar region; M46.1 Sacroiliitis, not elsewhere classified; M17.12 Unilateral primary osteoarthritis, left knee; M79.18 Myalgia, other site; M47.896 Other spondylosis, lumbar region; I10 Essential (primary) hypertension; E11.9 Type 2 diabetes mellitus without complications; Z88.5 Allergy status to narcotic agent; Z88.8 Allergy status to other drugs, medicaments and biological substances; Z79.899 Other long term (current) drug therapy; Z79.82 Long term (current) use of aspirin; Z79.84 Long term (current) use of oral hypoglycemic drugs
CPT/HCPCS: 20605; 77002; J1030; J3490; Q9965

== ENCOUNTER → 2020-04-23 | Outpatient (CLI) | payer BC, MEDICARE ==
[2018-08-03 14:24] VITALS: BP 150/86
[~2020-04-23] MED LIST changes: -BUPIVACAINE MPF 0.25% 10 ML VIAL. ONE; -IOHEXOL 180 MG/ML 10 ML VIAL. ONE; -methylPREDNISolone ACETATE 40 MG/ML VIAL. ONE
--- NOTE | 2020-04-23 11:04 | RAD ---
EXAM: Bilateral lower extremity venous Doppler sonogram. HISTORY: Pain and swelling. Elevated d-dimer. TECHNIQUE: Haas scale and color Doppler sonographic evaluation of the bilateral lower extremity veins with spectral waveform analysis was performed. FINDINGS: There is normal color flow, normal compressibility and there are normal spectral waveforms in the common femoral, superficial femoral, popliteal, posterior tibial and greater saphenous veins. IMPRESSION: No Doppler evidence of lower extremity deep venous thrombosis. Electronically signed by: Fatou Kuhn MD (04/23/2020 11:02 AM) [id number]
== END ==
LOC: US 10:18
PROVIDERS: ATTEND Nurse Practitioner Gerontology
DX: R22.43 Localized swelling, mass and lump, lower limb, bilateral (principal); R79.1 Abnormal coagulation profile
CPT/HCPCS: 93970

== ENCOUNTER → 2020-05-05 | Outpatient (CLI) | payer BC, MEDICARE ==
[2018-08-03 14:24] VITALS: BP 150/86
[~2020-05-05] MED LIST changes: +REGADENOSON 0.4 MG/5 ML DISP.SYRIN. IV ONE
--- NOTE | 2020-05-05 15:46 | RAD ---
MR#: [id number] Date of Study: 05/05/2020 Ordering Physician: JOHN DA SILVA, Referring Physician: CRISTINA FRIED Tech: RT Jacqui (R) (N) APPROVED REPORT Test Type: Pharmacological Stress Nurse/Tech: MIRIAM CHU Test Indications: CAD Cardiac History: CAD, STENT, DC- SEE EMR Medications: SEE EMR Medical History: SEE EMR Resting ECG: SR W/ 1ST DEGREE AVB Resting Heart Rate: 55 bpm Resting Blood Pressure: 134/62mmHg Pretest Chest Pain: No chest pain Nurse/Tech Notes S1,S2, LUNGS CTA, DENIED CP OR SOA, VSS. Consent: The procedure was explained to the patient in lay terms. Informed consent was witnessed. Jose Angel eout was entered into [employer]. History and Stress Test performed by RT Jacqui (R) (N) Pharm. Details Pharmacologic stress testing was performed using 0.4mg per 5ml of regadenoson given intravenously ove r 7-10 seconds. Stress Symptoms PT HAD A BRIEF EPISODE OF SOA, DENIED CP, VSS. PT TOLERATED TEST WELL. POST EXERCISE Reason for Termination: Infusion complete Max HR: 70 bpm Max Blood Pressure: 144/66mmHg Blood Pressure response to exercise: Normal blood pressure response during stress. Heart Rate response to exercise: NORMAL HEART RATE RESPONSE TO STRESS Chest Pain: No. Arrhythmia: No. ST Change: No. NO SIGNIFICANT CHANGES FROM BASELINE EKG. INTERPRETATION Stress EKG Conclusion: Baseline EKG showed sinus rhythm. No ischemic changes at peak stress. No arr hythmias. Imaging Protocol IMAGE PROTOCOL: Rest Tc-99m/stress Tc-99m 1 day Rest: Stress: Viability: Radiopharm.Tc99m [id number] Sestamibi Dose10.5mCi 30.5mCi Duration 13min. 13min. Img Date 05/05/2020 05/05/2020 Inj-Img [id number]. 60min. Rest Admin Site:IV - Right AntecubitalAdministrator:J LUIS Jain, ARRT (R)(N) Stress Admin Site: IV - Right AntecubitalAdministrator: Fatou Gao RT (R)(N) STRESS DATA End Diast. Vol.137.0mlLVEDV index BSA71.0ml End Syst. Vol.37.0mlLVESV index BSA19.0ml Myocardial Ojjt683.0gEject. Zqxlyyao95.0% Stress Scores Regional WT3.00Summed WT14.00 Regional WM0.00Summed WM0.00 Study quality was good. Left Ventricular size was Normal at Rest and Stress. Lung uptake was . Left Ventricular ejection fraction is 73%. The rest and stress images show normal perfusion, normal contraction and thickening. LV Perf. Quant 17 Seg. SSS4.00 17 Seg. SRS4.00 17 Seg. SDS0.00 Stress Defect Extent (% LAD)0.00Rest Defect Extent (% LAD)0.00Rev. Defect Extent (% LAD)0.00 Stress Defect Extent (% LCX) 40.00Rest Defect Extent (% LCX)20.00Rev. Defect Extent (% LCX)15.00 Stress Defect Extent (% RCA)1.10Rest Defect Extent (% RCA)4.40Rev. Defect Extent (% RCA)0.00 Stress Defect Extent (% FRAN)9.10Rest Defect Extent (% FRAN)5.90Rev. Defect Extent (% FRAN)2.60 Conclusion 1. Regadenoson cardioisotope stress test did not show any evidence of ischemia or infarct. 2. Normal left ventricular systolic function with ejection fraction calculated at 73%. 3. Low risk for cardiac events. Signed by : John Da Silva, Electronically Approved : 05/05/2020 15:45:41
== END ==
LOC: NM 09:42
PROVIDERS: ATTEND Internal Medicine Cardiovascular Disease
DX: I25.10 Atherosclerotic heart disease of native coronary artery without angina pectoris (principal); I25.2 Old myocardial infarction; Z95.5 Presence of coronary angioplasty implant and graft
CPT/HCPCS: 78452; 93017; A9500; J2785

== ENCOUNTER → 2020-05-21 | Outpatient (CLI) | payer BC, MEDICARE ==
[2018-08-03 14:24] VITALS: BP 150/86
[~2020-05-21] MED LIST changes: +ASPI81TA59 PO; +BUPIVACAINE MPF 0.25% 10 ML VIAL. ONE; +IOHEXOL 180 MG/ML 10 ML VIAL. ONE; -REGADENOSON 0.4 MG/5 ML DISP.SYRIN. IV ONE; +methylPREDNISolone ACETATE 40 MG/ML VIAL. ONE; +methylPREDNISolone ACETATE 80 MG/ML VIAL. ONE
--- NOTE | 2020-05-21 09:09 | PDOC ---
Progress Note - Pain Clinic Date of Service: DOS: DATE: 05/21/20 TIME: 09:04 Diagnosis: Dx: Lumbar degenerative disease with lumbar and lumbosacral spondylosis and postlaminectomy syndrome Left knee joint pain with osteoarthritis left knee joint Right shoulder joint pain with osteoarthritis and bilateral biceps tendinitis History or Present Illness: HPI: 80-year-old male returns for follow-up status post previous right shoulder joint injection as well as intra-articular knee joint injections on the left right biceps tendon injection and lumbar facet injections. Patient reports he did very well with each of these about 90% improvement with each of the procedures but his main complaint today is pain in the low back on the right side also some left knee pain patient was last visit was December 12 and we had a shoulder joint injection at that time he is doing much better with that patient reports pain in the low back on the right side only worse with twisting bending standing and walking especially changing positions getting up from seated position. 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 Physical Exam: VS: Blood pressure is 157/73 pulse 66 respiration 16 temperature 98.3 F height is 5 feet 6 inches weight is 183 pounds PE: PHYSICAL EXAMINATION: GENERAL: The patient is awake, alert, oriented, appropriate, very pleasant demeanor HEENT: Shows normocephalic, atraumatic. Extraocular movements are intact and symmetrical. Oral cavity: Mucous membranes moist and pink. NECK: Shows anterior throat supple without palpable lymphadenopathy noted. Swallow reflex symmetrical. CHEST: Shows normal on inspection. Breath sounds are clear bilaterally, distant but no rales or rhonchi. HEART: Shows S1, S2 clear. No murmurs auscultated. ABDOMEN: Soft, nontender, nondistended, obese. No palpable organomegaly is noted. BACK: Shows spine grossly in the midline. Normal-appearing cervical lordotic curvature. There is slightly increased thoracic kyphosis, some minor flattening of the lumbar lordotic curvature. Well-healed midline lumbar surgical scar is noted. Lumbar paraspinous muscles show symmetrical on inspection, on palpation shows some moderate tenderness diffusely throughout the upper, middle and lower distribution of the paraspinous muscles without specific trigger points, without radiation of pain. The patient has good rotational motion of the lumbar spine, both laterally as well as extension and flexion without significant difficulty. EXTREMITIES: Lower extremities show deep tendon reflexes 1+ in the patellar and tendo calcaneus tendons. Motor exam is 4 on a scale of 5 with right dorsiflexi on, extension, quadriceps and hamstring flexion and 4/5 on the left. Peripheral pulses are 1+ posterior tibial. No peripheral edema is noted bilaterally. Lower extremities are warm and dry to touch, equal in color and appearance. SKIN: Shows warm and dry, good turgor. No edema. No sores, rashes or bruising throughout. Procedure: Procedure: Options were discussed with the patient. Patient chart was reviewed, his current medication regimen updated current review of systems updated today as well. We will proceed with right-sided L4-5 and L5-S1 facet injections today with fluoroscopic guidance. Risks were discussed including but not limited to: Bleeding, infection, possibility of epidural hematoma and subsequent neurologi eliecer compromise, dural puncture, headaches, spinal cord and/or nerve damage, side effects of steroid medication, and poor results regarding pain control. Patient understands and wished to proceed. Patient return to the clinic in approximately 2 weeks for follow-up, was counseled as to return appointment activity level and side effects to be aware of. Medication Injected: Med Injected: Under sterile prep and drape using C-arm fluoroscopic guidance AP and lateral and oblique views, right L4-5 and L5-S1 facet joint injections were performed, medications injected: 120 mg Depo-Medrol +2 cc 0.25% bupivacaine +1 cc contrast. Condition at discharge stable patient tolerated the procedure well and no complications. Condition at Discharge: Condition at Discharge: Patient discharged stable, patient alert procedure well had no complications. KAITLIN SCHUMACHER MD May 21, 2020 09:08
--- NOTE | 2020-05-21 09:09 | PDOC4 ---
PROCEDURE Procedure Patient was consented for right-sided L4-5 and L5-S1 facet injections with f luoroscopic guidance. Risks were discussed including but not limited to: Bleeding, infection, possibility of epidural hematoma and subsequent neurological compromise, dural puncture, headaches, spinal cord and/or nerve damage, side effects of steroid medication, and poor results regarding pain control. Patient understands and wished to proceed. Under sterile prep and drape using C-arm fluoroscopic guidance AP and lateral and oblique views, right L4-5 and L5-S1 facet joint injections were performed, medications injected: 120 mg Depo-Medrol +2 cc 0.25% bupivacaine +1 cc contrast. Condition at discharge stable patient tolerated the procedure well and no complications. KAITLIN SCHUMACHER MD May 21, 2020 09:09
== END | disposition home or self-care (01) ==
LOC: PNCL 08:01
PROVIDERS: ATTEND Anesthesiology
DX: M51.36 Other intervertebral disc degeneration, lumbar region (principal); M47.817 Spondylosis without myelopathy or radiculopathy, lumbosacral region; M96.1 Postlaminectomy syndrome, not elsewhere classified; M17.12 Unilateral primary osteoarthritis, left knee; M19.011 Primary osteoarthritis, right shoulder; M75.22 Bicipital tendinitis, left shoulder; M75.21 Bicipital tendinitis, right shoulder; E78.00 Pure hypercholesterolemia, unspecified; I12.9 Hypertensive chronic kidney disease with stage 1 through stage 4 chronic kidney disease, or unspecified chronic kidney disease; N18.9 Chronic kidney disease, unspecified; E66.9 Obesity, unspecified; K21.9 Gastro-esophageal reflux disease without esophagitis; E11.22 Type 2 diabetes mellitus with diabetic chronic kidney disease; N40.0 Benign prostatic hyperplasia without lower urinary tract symptoms; Z87.891 Personal history of nicotine dependence; Z79.82 Long term (current) use of aspirin; Z79.4 Long term (current) use of insulin; Z79.899 Other long term (current) drug therapy; Z98.890 Other specified postprocedural states; Z72.89 Other problems related to lifestyle; Z88.5 Allergy status to narcotic agent; Z88.8 Allergy status to other drugs, medicaments and biological substances; Z82.49 Family history of ischemic heart disease and other diseases of the circulatory system
CPT/HCPCS: 64493; 64494; J1030; J1040; J3490; Q9965

== ENCOUNTER → 2020-05-26 | Outpatient (CLI) | payer BC, MEDICARE ==
[2018-08-03 14:24] VITALS: BP 150/86
[~2020-05-26] MED LIST changes: -BUPIVACAINE MPF 0.25% 10 ML VIAL. ONE; -IOHEXOL 180 MG/ML 10 ML VIAL. ONE; -methylPREDNISolone ACETATE 40 MG/ML VIAL. ONE; -methylPREDNISolone ACETATE 80 MG/ML VIAL. ONE
--- NOTE | 2020-05-26 12:18 | CARD ---
MR#: [id number] Date of Study: 05/26/2020 Ordering Physician: JOHN DA SILVA, Referring Physician: JOHN DA SILVA Tech: Flavia Marquez [facility] APPROVED REPORT EXAM: Two-dimensional and M-mode echocardiogram with Doppler and color Doppler. Other Information Quality : GoodHR: 59bpm Rhythm : NSR INDICATION Cardiac Disease: RISK FACTORS Hypertension Hyperlipidemia Diabetes 2D DIMENSIONS RVDd3.3 (2.9-3.5cm)Left Atrium(2D)5.1 (1.6-4.0cm) IVSd1.7 (0.7-1.1cm)Aortic Root(2D)3.2 (2.0-3.7cm) LVDd4.6 (3.9-5.9cm)LVOT Diameter2.0 (1.8-2.4cm) PWd1.4 (0.7-1.1cm)LVDs3.0 (2.5-4.0cm) FS (%) 34.8 %SV63.3 ml LVEF(%)64.1 (>50%) Aortic Valve AoV Peak Roberto.126.0cm/sAoV VTI27.1cm AO Peak GR.6.4mmHgLVOT Peak Roberto.104.2cm/s AO Mean GR.3mmHgAVA (VMAX)2.61cm2 Mitral Valve MV E Rwultagz750.2cm/sMV DECEL TYEE052sx MV A Llrmxgro615.9cm/sE/A Ratio0.9 Tricuspid Valve TR P. Cnpmvthj588sz/sTR Peak Gr.34mmHg LEFT VENTRICLE The left ventricle is normal size. There is mild to moderate concentric left ventricular hypertrophy. The left ventricular systolic function is normal. Estimated ejection fraction 55-60%, There is norm al LV segmental wall motion. Transmitral Doppler flow pattern is Grade I-abnormal relaxation pattern. RIGHT VENTRICLE The right ventricle is normal size. There is normal right ventricular wall thickness. The right ventr icular systolic function is normal. ATRIA The left atrium is mildly dilated. The right atrium size is normal. The interatrial septum is intact with no evidence for an atrial septal defect or patent foramen ovale as noted on 2-D or Doppler imagi ng. AORTIC VALVE The aortic valve is normal in structure and function. Doppler and Color Flow revealed no significant aortic regurgitation. There is no significant aortic valvular stenosis. MITRAL VALVE The mitral valve is normal in structure and function. There is no evidence of mitral valve prolapse. There is no mitral valve stenosis. Doppler and Color-flow revealed mild mitral regurgitation. TRICUSPID VALVE The tricuspid valve is normal in structure and function. Doppler and Color Flow revealed mild tricusp id regurgitation. Estimated PAP 37 mmHg. There is no tricuspid valve stenosis. PULMONIC VALVE The pulmonary valve is normal in structure and function. Doppler and Color Flow revealed no pulmonic valvular regurgitation. GREAT VESSELS The aortic root is normal in size. The ascending aorta is normal in size. The IVC is normal in size a nd collapses >50% with inspiration. PERICARDIAL EFFUSION There is no evidence of significant pericardial effusion. Critical Notification Critical Value: No <Conclusion> The left ventricular systolic function is normal. Estimated ejection fraction 55-60%, There is normal LV segmental wall motion. Transmitral Doppler flow pattern is Grade I-abnormal relaxation pattern. Mild mitral regurgitation. Mild tricuspid regurgitation. Estimated PAP 37 mmHg. There is no evidence of significant pericardial effusion. Signed by : John Da Silva, Electronically Approved : 05/26/2020 12:18:03
== END ==
LOC: ECHO 08:30
PROVIDERS: ATTEND Internal Medicine Cardiovascular Disease
DX: I08.1 Rheumatic disorders of both mitral and tricuspid valves (principal); I25.10 Atherosclerotic heart disease of native coronary artery without angina pectoris
CPT/HCPCS: 93306

== ENCOUNTER → 2020-06-04 | Outpatient (CLI) | payer BC, MEDICARE ==
[2018-08-03 14:24] VITALS: BP 150/86
[~2020-06-04] MED LIST changes: +BUME1TAB3 PO; +BUPIVACAINE MPF 0.25% 10 ML VIAL. ONE; +IOHEXOL 180 MG/ML 10 ML VIAL. ONE; +LABE200T4 PO; +METH-561 PO; +OMEP20CA16 PO; +PATI8.4P PO; +methylPREDNISolone ACETATE 80 MG/ML VIAL. ONE
--- NOTE | 2020-06-04 09:24 | PDOC ---
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 Patient reports he did very well with about a 75% improvement in the pain in the low back patient reports it is still improved with walking standing changing positions feeling much better with the low back he can increase his activity distance walking household activities as well as travel with greater ease and comfort patient rates his main pain now is in his left knee rated 8 on scale 10 is worst average and least over the past week and is an 8 today patient describes as stabbing and sharp with weightbearing standing walking generally better with sitting or laying down does not awaken her from sleep at night much worse with climbing stairs and climbing up on a step putting all of his weight on his left leg. Patient reports some minor radiation to the medial aspect of the knee and into the lower leg but only rarely. Patient reports no new motor or sensory deficits no bowel or bladder incontinence no other changes. Physical Exam: VS: Blood pressure 165/68 pulse 61 respirations 18 temperature 98.4 F height 5 feet 6 inches weight is 181 pounds PE: PHYSICAL EXAMINATION: GENERAL: The patient is awake, alert, oriented, appropriate, very pleasant demeanor HEENT: Shows normocephalic, atraumatic. Extraocular movements are intact and symmetrical. NECK: Shows anterior throat supple without palpable lymphadenopathy noted. Swallow reflex symmetrical. CHEST: Shows normal on inspection. Breath sounds are clear bilaterally, no rales or rhonchi bilaterally. HEART: Shows S1, S2 clear. No murmurs auscultated. ABDOMEN: Soft, nontender, nondistended, obese. No palpable organomegaly is noted. No rebound or guarding demonstrated. BACK: Shows spine grossly in the midline. Normal-appearing cervical lordotic curvature. There is slightly increased thoracic kyphosis, some minor flattening of the lumbar lordotic curvature. Well-healed surgical scars noted in the lumbar distribution. Lumbar paraspinous muscles show symmetrical on inspection, on palpation shows some moderate tenderness diffusely throughout the upper, middle and lower distribution of the paraspinous muscles without specific trigger points, without radiation of pain. The patient has good rotational motion of the lumbar spine, both laterally as well as extension and flexion with only mild discomfort but without difficulty. EXTREMITIES: Lower extremities show deep tendon reflexes 2+ in the patellar and tendo calcaneus tendons. Motor exam is 4 on a scale of 5 with right dorsiflexion, extension, quadriceps and hamstring flexion and 4/5 on the left. Peripheral pulses are 1+ posterior tibial. No peripheral edema is noted bilaterally. Lower extremities are warm and dry to touch, equal in color and appearance. Patient's left knee shows normal on appearance with palpation shows mild tenderness the medial collateral ligament but only with deep palpation lateral aspect is nontender range of motion shows good range without ratcheting or crepitus bilaterally. SKIN: Shows warm and dry, good turgor. No edema. No sores, rashes or bruising throughout. Procedure: Procedure: Options discussed with the patient. Patient chart reviews his current medication regimen updated current review of systems updated today as well. We will proceed with a left intra-articular knee joint injection today with fluoroscopic guidance. Risks are discussed including but not limited to bleeding infection possibility of intravascular injection sequelae spread of local anesthetic numbness side effects steroid medication exposure fluoroscopy and portals regarding pain control. Patient understands wished to proceed. Patient return to clinic in approximately 3 weeks for follow-up, was counseled as to return appointment, activity level, and side effects to be aware of. Medication Injected: Med Injected: Patient supine position under sterile preparation using C-arm fluoroscopic guidance patient's left knee was sterilely prepped and draped in usual fashion using 1% lidocaine 25-gauge needle skin was anesthetized over the medial aspect of the intra-articular knee joint and using a 22-gauge quickie needle with stylette joint was entered under direct fluoroscopic visualization without difficulty. Stylet was removed 1.5 cc of contrast was then injected into the knee joint with good spread within the intra-articular knee without uptake or washout. At this time solution of 3 cc 0.25% ropivacaine and 80 mg of Depo- Medrol was then injected into the left knee joint. Needle was removed sterile bandage was applied. Patient tolerated the procedure well and had no complications. Condition at Discharge: Condition at Discharge: Condition at discharge stable, patient alert the procedure well and had no complications. KAITLIN SCHUMACHER MD Jun 04, 2020 09:24
--- NOTE | 2020-06-04 09:25 | PDOC4 ---
PROCEDURE Procedure Patient was consented for right intra-articular knee joint injection. Risk were discussed including but not limited to bleeding infection possibility of intravascular injection and sequelae, side effects of steroid medication local anesthetic spread and numbness, exposure to fluoroscopy and poor results regarding pain control. Patient understands wished to proceed. Patient supine position under sterile preparation using C-arm fluoroscopic guidance patient's left knee was sterilely prepped and draped in usual fashion using 1% lidocaine 25-gauge needle skin was anesthetized over the medial aspect of the intra-articular knee joint and using a 22-gauge quickie needle with stylette joint was entered under direct fluoroscopic visualization without difficulty. Stylet was removed 1.5 cc of contrast was then injected into the knee joint with good spread within the intra-articular knee without uptake or washout. At this time solution of 3 cc 0.25% ropivacaine and 80 mg of Depo- Medrol was then injected into the left knee joint. Needle was removed sterile bandage was applied. Patient tolerated the procedure well and had no complications. KAITLIN SCHUMACHER MD Jun 04, 2020 09:24
== END | disposition home or self-care (01) ==
LOC: PNCL 08:59
PROVIDERS: ATTEND Anesthesiology
DX: M17.12 Unilateral primary osteoarthritis, left knee (principal); M25.562 Pain in left knee; M51.36 Other intervertebral disc degeneration, lumbar region; M47.817 Spondylosis without myelopathy or radiculopathy, lumbosacral region; M96.1 Postlaminectomy syndrome, not elsewhere classified; M79.18 Myalgia, other site; M75.22 Bicipital tendinitis, left shoulder; M75.21 Bicipital tendinitis, right shoulder; M19.011 Primary osteoarthritis, right shoulder; I12.9 Hypertensive chronic kidney disease with stage 1 through stage 4 chronic kidney disease, or unspecified chronic kidney disease; E11.22 Type 2 diabetes mellitus with diabetic chronic kidney disease; N18.9 Chronic kidney disease, unspecified; E78.00 Pure hypercholesterolemia, unspecified; E66.9 Obesity, unspecified; K21.9 Gastro-esophageal reflux disease without esophagitis; N40.0 Benign prostatic hyperplasia without lower urinary tract symptoms; Z90.49 Acquired absence of other specified parts of digestive tract; Z98.890 Other specified postprocedural states; Z79.899 Other long term (current) drug therapy; Z79.82 Long term (current) use of aspirin; Z79.4 Long term (current) use of insulin; Z87.891 Personal history of nicotine dependence; Z88.5 Allergy status to narcotic agent; Z88.8 Allergy status to other drugs, medicaments and biological substances
CPT/HCPCS: 20610; 77002; J1040; J3490; Q9965

== ENCOUNTER → 2020-06-05 | Outpatient (CLI) | payer BC, MEDICARE ==
[2018-08-03 14:24] VITALS: BP 150/86
[~2020-06-05] MED LIST changes: -BUPIVACAINE MPF 0.25% 10 ML VIAL. ONE; -IOHEXOL 180 MG/ML 10 ML VIAL. ONE; -methylPREDNISolone ACETATE 80 MG/ML VIAL. ONE
--- NOTE | 2020-06-05 09:17 | RAD ---
MR#: [id number] Date of Study: 06/05/2020 Ordering Physician: JOHN DA SILVA, Referring Physician: JOHN DA SILVA, Tech: APPROVED REPORT Patient Location: OUT-PATIENT Indications Uncontrolled HTN Risk Factors Hypertension Renal Artery Doppler Right Renal Artery Left Renal Arter y Proximal 111.8/ cm/secProximal 60.9/ cm/sec Mid 90.9/ cm/secMid 61.8/ cm/sec Distal 62.7/ cm/secDistal 58.2/ cm/sec Renal/Aorta Ratio 0.96Renal/Aorta Ratio 0.53 Prox. Resistive Index 0.81Prox. Resistive Index 0.64 Mid Resistive Index 0.70Mid Resistive Index 0.63 Distal Resistive Index 0.71Distal Resistive Index 0.67 Renal Measurements RightLeft Kidney Kcomxr29.11 cm cmKidney Juwwoj20.26 cm cm Right Additional FindingsLeft Additional Findings Aortic Doppler VelocityWaveform Mid. Aorta 116.8 cm/sec Findings Grayscale images of the bilateral renal vasculature are limited due to body habitus. Grossly no renal artery stenosis identified with normal proximal, mid and distal bilateral renal artery velocities. N ormal aortic velocities with normal renal to aortic ratios bilaterally. Normal resistive indices bila terally. There is a small renal cyst on the right side measuring 1.38 x 1.45 x 1.1 cm. Based on limited images this appears to be a simple cyst. Critical Notification Critical Value: No <Conclusion> 1. No significant renal artery stenosis identified 2. Small incidental renal cyst as described above. Signed by : Damien Griffiths, Electronically Approved : 06/05/2020 09:17:18
== END ==
LOC: US 07:31
PROVIDERS: ATTEND Internal Medicine Cardiovascular Disease
DX: I10 Essential (primary) hypertension (principal); N28.1 Cyst of kidney, acquired
CPT/HCPCS: 93975

== ENCOUNTER → 2020-06-12 | Outpatient (CLI) | payer BC, MEDICARE ==
[2018-08-03 14:24] VITALS: BP 150/86
--- NOTE | 2020-06-12 08:28 | RAD ---
EXAM: Abdomen sonogram. HISTORY: Pain. TECHNIQUE: Sonographic imaging of the abdomen was performed. COMPARISON: None. FINDINGS: The liver is normal in size. No focal hepatic lesion is seen. The common bile duct is dilat ed to a caliber of 12 mm. The gallbladder is surgically absent. The kidneys are normal in size. There are small simple appearing right renal cysts. There is echogenic renal parenchyma. There is no hydro nephrosis. The spleen is normal in size. The pancreas is unremarkable. The aorta and vena cava are un remarkable. IMPRESSION: 1. Common bile duct dilatation. This can be seen with reservoir effect status post cholecystectomy. 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 2. Small simple appearing right renal cyst. Follow-up is not routinely performed for simple cysts. 3. Echogenic renal parenchyma. This can be seen with medical renal disease. Electronically signed by: Fatou Kuhn MD (06/12/2020 8:26 AM) [id number]
== END ==
LOC: US 11:44
PROVIDERS: ATTEND Nurse Practitioner Gerontology
DX: N28.1 Cyst of kidney, acquired (principal); Z90.49 Acquired absence of other specified parts of digestive tract
CPT/HCPCS: 76700

== ENCOUNTER → 2020-07-20 | Outpatient (CLI) | payer MEDICARE ==
[2018-08-03 14:24] VITALS: BP 150/86
--- NOTE | 2020-07-20 08:34 | RAD ---
EXAMINATION: Chest radiograph. VIEWS: 2 views COMPARISON: None INDICATION:80 years, Male, stage IV chronic kidney disease.. FINDINGS: Normal cardiomediastinal silhouette. Tortuous thoracic aorta with atherosclerotic calcifications. Dif fuse interstitial reticulations throughout both lungs. Cephalization of the pulmonary vessels with pr ominent bilateral kimi Atelectasis versus scarring in the left lingula. Possible trace left pleural e ffusion. No acute osseous process. Left shoulder prosthesis. Severe right acromioclavicular joint ost eoarthritis. High riding right humeral head, findings can be seen in chronic rotator cuff tear. Multi level degenerative changes in the spine. IMPRESSION: 1. Findings suggesting of pulmonary vascular congestion, without overt edema. 2. Possible trace left pleural effusion. Electronically signed by: Alena Rhodes MD (07/20/2020 8:31 AM) [id number]
== END ==
LOC: LAB 07:26
PROVIDERS: ATTEND Nurse Practitioner Adult Health
DX: E11.21 Type 2 diabetes mellitus with diabetic nephropathy (principal); N18.4 Chronic kidney disease, stage 4 (severe); D64.9 Anemia, unspecified; I10 Essential (primary) hypertension; R80.9 Proteinuria, unspecified; Z79.4 Long term (current) use of insulin; Z68.27 Body mass index [BMI] 27.0-27.9, adult
CPT/HCPCS: 36415; 71046; 86704; 86706; 86803; 87340

== ENCOUNTER → 2020-09-10 | Outpatient (CLI) | payer MEDICARE ==
[2018-08-03 14:24] VITALS: BP 150/86
[~2020-09-10] MED LIST changes: +BUPIVACAINE MPF 0.25% 10 ML VIAL. ONE; +HYDR-2759 PO; +IOHEXOL 180 MG/ML 10 ML VIAL. ONE; +methylPREDNISolone ACETATE 40 MG/ML VIAL. ONE
--- NOTE | 2020-09-10 09:15 | PDOC ---
Progress Note - Pain Clinic Date of Service: DOS: DATE: 09/10/20 TIME: 09:10 Diagnosis: Dx: Right shoulder joint pain with osteoarthritis Bilateral biceps tendinitis Lumbar radiculopathy with lumbar degenerative disease lumbar spondylosis and lumbar postlaminectomy syndrome Left knee joint pain with osteoarthritis Myofascial pain History or Present Illness: HPI: 80-year-old male returns for follow-up status post left knee joint injection with very good results but 100% improvement for the first month pain is returning slightly but his main complaint today is new and is left shoulder pain as well as pain in the base the neck and left shoulder patient reports is getting worse with activity patient has recently been started on dialysis and has a jugular catheter on the right side in place patient rates his pain in the shoulder and base the neck as a 9 on scale 10 is worse over the past week 9 on average and 8 its least is 8 today patient reports that sharp and cramping on and off in intensity worse with carrying items repetitive motions of the left shoulder and carrying items to his side as well as reaching over his head with his left hand. Patient reports no loss of motor function but significant fatigability with the left upper extremity with the pain. Patient reports disturbing his sleep occasionally but most nights he sleeps fairly well. Physical Exam: VS: Blood pressure is 119/61 pulse 85 respirations 18 temperature 90.6 3 Fahrenheit height 5 feet 6 inches weight is 176 pounds. PE: PHYSICAL EXAMINATION: GENERAL: The patient is awake, alert, oriented, appropriate, very pleasant demeanor HEENT: Shows normocephalic, atraumatic. Extraocular movements are intact and symmetrical. Oral cavity: Mucous membranes moist and pink. Dentition is intact. NECK: Shows anterior throat supple without palpable lymphadenopathy noted. Swallow reflex symmetrical. CHEST: Shows normal on inspection. Breath sounds are clear bilaterally, no rales rhonchi wheezes auscultated. Right jugular catheter present. HEART: Shows S1, S2 clear. No murmurs auscultated. ABDOMEN: Soft, nontender, nondistended. No palpable organomegaly is noted. No rebound or guarding demonstrated. BACK: Shows spine grossly in the midline. Normal-appearing cervical lordotic curvature. There is slightly increased thoracic kyphosis, some minor flattening of the lumbar lordotic curvature. Lumbar paraspinous muscles show symmetrical on inspection, on palpation shows some moderate tenderness diffusely throughout the upper, middle and lower distribution of the paraspinous muscles without specific trigger points, without radiation of pain. The patient has good rotational motion of the lumbar spine, both laterally as well as extension and flexion without significant difficulty. No tenderness over the spinous processes, sacrum or sacroiliac regions. EXTREMITIES: Lower extremities show deep tendon reflexes 2+ in the patellar and tendo calcaneus tendons. Motor exam is 5 on a scale of 5 with right dorsiflexion, extension, quadriceps and hamstring flexion and 5/5 on the left. Peripheral pulses are 1+ posterior tibial. No peripheral edema is noted bilate rally. Lower extremities are warm and dry to touch, equal in color and appearance. 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 SKIN: Shows warm and dry, good turgor. No edema. No sores, rashes or bruising throughout. Procedure: Procedure: Options were discussed with patient. Patient's old chart was viewed as his current medication regimen updated current view of systems updated today as well. We will proceed with a left acromioclavicular joint injection today with fluoroscopic guidance. Risk were discussed including but not limited to bleeding infection possibility of intravascular injection sequelae spread of local anesthetic and numbness side effects steroid medication exposure fluoroscopy and poor results regarding pain control. Patient understands wished to proceed. Patient return to clinic in approximately 4 weeks for follow-up, was counseled as return appointment activity level and side effects to be aware of. Medication Injected: Med Injected: Patient supine position under sterile prep and drape using C-arm fluoroscopic guidance patient's left shoulder was visualized and using 25-gauge needle 1% lidocaine was used to topically anesthetized area over the acromioclavicular joint on the left. Using a 25-gauge Quincke needle with stylette the joint was entered under direct fluoroscopic visualization without difficulty stylet was removed at this time 1 cc of contrast was injected with good intra-articular spread in the shoulder joint without uptake. At this time 2 cc of 0.25% bupivacaine and 40 mg Depo-Medrol was then injected into the joint. Needle was removed and sterile bandage was applied. Patient tolerated the procedure well and had no complications. Condition at Discharge: Condition at Discharge: Condition at discharge stable, patient already procedure well and had no complications. KAITLIN SCHUMACHER MD Sep 10, 2020 09:15
--- NOTE | 2020-09-10 09:16 | PDOC4 ---
Procedure Note: ICD 10 Code: ICD 10 Code: M 19.012 M 25.512 Procedure Note: Patient was consented for left acromioclavicular shoulder joint injection with fluoroscopy. Risks were discussed including but not limited to bleeding infection possibility of intravascular injection sequelae spread of local anesthetic and numbness side effects of steroid medications exposure to fluoroscopy, and poor results regarding pain control. Patient understands wished to proceed. Patient supine position under sterile prep and drape using C-arm fluoroscopic guidance patient's left shoulder was visualized and using 25-gauge needle 1% lidocaine was used to topically anesthetized area over the acromioclavicular kristin int on the left. Using a 25-gauge Quincke needle with stylette the joint was entered under direct fluoroscopic visualization without difficulty stylet was removed at this time 1 cc of contrast was injected with good intra-articular spread in the shoulder joint without uptake. At this time 2 cc of 0.25% bupivacaine and 40 mg Depo-Medrol was then injected into the joint. Needle was removed and sterile bandage was applied. Patient tolerated the procedure well and had no complications. KAITLIN SCHUMACHER MD Sep 10, 2020 09:16
== END | disposition home or self-care (01) ==
LOC: PNCL 08:05
PROVIDERS: ATTEND Anesthesiology
DX: M19.012 Primary osteoarthritis, left shoulder (principal); M19.011 Primary osteoarthritis, right shoulder; M75.22 Bicipital tendinitis, left shoulder; M75.21 Bicipital tendinitis, right shoulder; M51.16 Intervertebral disc disorders with radiculopathy, lumbar region; M47.26 Other spondylosis with radiculopathy, lumbar region; M96.1 Postlaminectomy syndrome, not elsewhere classified; M17.12 Unilateral primary osteoarthritis, left knee; M79.18 Myalgia, other site; E78.00 Pure hypercholesterolemia, unspecified; E66.9 Obesity, unspecified; K21.9 Gastro-esophageal reflux disease without esophagitis; I12.9 Hypertensive chronic kidney disease with stage 1 through stage 4 chronic kidney disease, or unspecified chronic kidney disease; E11.22 Type 2 diabetes mellitus with diabetic chronic kidney disease; N18.9 Chronic kidney disease, unspecified; N40.0 Benign prostatic hyperplasia without lower urinary tract symptoms; Z79.82 Long term (current) use of aspirin; Z79.4 Long term (current) use of insulin; Z79.899 Other long term (current) drug therapy; Z87.891 Personal history of nicotine dependence; Z90.49 Acquired absence of other specified parts of digestive tract; Z98.890 Other specified postprocedural states; Z88.5 Allergy status to narcotic agent; Z88.8 Allergy status to other drugs, medicaments and biological substances
CPT/HCPCS: 20610; 77002; J1030; J3490; Q9965; 20605

== ENCOUNTER 2020-09-24 08:27 | Day surgery (SDC) | payer MEDICARE ==
[~2020-09-24] VITALS: Ht 167.6 cm; Wt 81.2 kg
[~2020-09-24 08:27] MED LIST changes: -BUPIVACAINE MPF 0.25% 10 ML VIAL. ONE; +HEPARIN SODIUM 5,000 UNIT in IV NORMAL SALINE 500ML BAG 500 ML IRR ONE; -HYDR-2759 PO; +HYDROmorphone 2 MG/ML VIAL IVP PRN; -IOHEXOL 180 MG/ML 10 ML VIAL. ONE; +IV RINGERS,LACTATED 1000ML 1,000 ML IV SCH; +MORPHINE SULFATE 2 MG/ML INJ. IVP PRN; +PROCHLORPERAZINE 10 MG/2 ML VIAL. IVP PRN; +fentaNYL PF VIAL 100 MCG/2 ML VIAL IVP PRN; -methylPREDNISolone ACETATE 40 MG/ML VIAL. ONE
[2020-09-24] MEDS ORDERED: SCOPOLAMINE 1.5MG PATCH. TD ONE (09:00)
[2020-09-24] MEDS ORDERED: INSULIN LISPRO 100 UNIT/ML 3ML VIAL for OP,RR ONLY. SQ PRN (09:00)
[2020-09-24] MEDS ORDERED: INSULIN LISPRO 100 UNIT/ML 3ML VIAL for OP,RR ONLY. SQ ONE (09:05)
[2020-09-24 09:15] LABS: BASO # 0.1 x10^3/uL (0.0-0.2); BASO % 1 % (0-3); EOS # 0.6 x10^3/uL (0.0-0.7); EOS % 7 % (0-3); LYMPH # 1.7 x10^3/uL (1.0-4.8); LYMPH % 19 % (24-48); MEAN CORPUSCULAR HEMOGLOBIN 33 pg (25-35); MEAN CORPUSCULAR HGB CONC 33 g/dL (31-37); MEAN CORPUSCULAR VOLUME 98 fL (79-100); MONO # 0.8 x10^3/uL (0.0-1.1); MONO % 9 % (0-9); NEUT # 5.9 x10^3/uL (1.8-7.7); NEUT % 64 % (31-73); PLATELET COUNT 310 x10^3/uL (140-400); RED BLOOD COUNT 3.96 x10^6/uL (4.30-5.70); RED CELL DISTRIBUTION WIDTH 13.9 % (11.5-14.5); WHITE BLOOD COUNT 9.1 x10^3/uL (4.0-11.0)
[2020-09-24 09:45] LABS: CALCIUM 8.4 mg/dL (8.5-10.1); CREATININE 3.4 mg/dL (0.7-1.3); GFR 17.6; POTASSIUM 4.6 mmol/L (3.5-5.1)
[2020-09-24] MEDS ORDERED: PAPAVERINE 60 MG/2 ML VIAL. ONE (10:11)
[2020-09-24] MEDS ORDERED: LIDOCAINE 1% Multi-Dose 20 ML VIAL. ONE ×2 (10:11→10:12)
[2020-09-24] MEDS ORDERED: SURGICEL FIBRILLAR 1X2 EACH. ONE (10:11)
[2020-09-24] MEDS ORDERED: ONDANSETRON PF 4 MG/2 ML VIAL. ONE (10:14)
[2020-09-24] MEDS ORDERED: PROPOFOL 10 MG/ML (20ML) VIAL. IV ONE (10:14)
[2020-09-24] MEDS ORDERED: DEXAMETHASONE SOD PHOS 4 MG/ML VIAL ONE (10:14)
[2020-09-24] MEDS ORDERED: PHENYLEPHRINE in 0.9% NACL PF 1 MG/10 ML SYRINGE. IV ONE (10:54)
[2020-09-24] MEDS ORDERED: HEPARIN for IV BOLUS 10,000 UNIT/10 ML VIAL. ONE ×2 (11:19→11:46)
[2020-09-24] MEDS ORDERED: PROTAMINE 50 MG/5 ML VIAL. IV ONE (11:47)
--- NOTE | 2020-09-24 12:08 | PDOC ---
BRIEF OPERATIVE NOTE Date: Sep 24, 2020 Pre-Op Diagnosis ESRD on HD Post-Op Diagnosis Same Procedure Performed Left Basilic AVF creation Surgeon Digna Reyes DO, FACS Anesthesia Type: General Blood Loss minimal Complications None DIGNA REYES DO Sep 24, 2020 12:08
[2020-09-24] MEDS ORDERED: HYDR-2761 PO (12:09)
[2020-09-24] MEDS ORDERED: HYDR-2759 PO (12:13)
--- NOTE | 2020-09-24 12:20 | DISCH ---
DISCHARGE INSTRUCTIONS Condition on Discharge Condition on Discharge: Stable Activity After Discharge Activity Instructions for Disc: Activity as tolerated, Avoid exertion Bathing Instructions: No Tub Bath until see Diet after Discharge Diet after Discharge: Renal Dialysis, Diabetic No Calorie Level Wound Incision Care Wound Care Equipment: Dressings (may remove dressing in 2 days, keep clean and dry) Contacting the after DC Call your doctor for: If your condition worsens Follow-Up Follow up with: Dr. Tai in 2-3 weeks call for appointment [phone] Treatment/Equipment after DC Adaptive Equipment Issued: YONI Helton APRN Sep 24, 2020 12:20
[2020-09-24] MEDS ORDERED: fentaNYL PF VIAL 100 MCG/2 ML VIAL ONE (12:35)
[2020-09-24] MEDS ORDERED: HYDROcodone/APAP 5/325MG 1 TAB TABLET PO ONE (12:45)
--- NOTE | 2020-09-24 12:51 | OP ---
DATE OF SURGERY: 09/24/2020 VASCULAR SURGERY OPERATIVE REPORT ATTENDING SURGEON: Dr. Peter Tai. PREOPERATIVE DIAGNOSIS: End-stage renal disease, on hemodialysis. POSTOPERATIVE DIAGNOSIS: End-stage renal disease, on hemodialysis. PROCEDURE: Creation of a left brachiobasilic AV fistula. ANESTHESIA: General. SPECIMENS: None. ESTIMATED BLOOD LOSS: Minimal. COMPLICATIONS: None. PREOPERATIVE INDICATIONS: The patient is a pleasant 80-year-old male who presents for definitive dialysis access. The patient is currently utilizing a right-sided tunneled dialysis catheter for dialysis. He was consented for the procedure and understood all risks, benefits and alternatives of the procedure prior to proceeding. DESCRIPTION OF PROCEDURE: The patient was brought to the operating suite, placed in supine position. After establishing appropriate anesthesia, the left upper extremity was prepped and draped in sterile fashion. Next, a timeout procedure was performed. It was confirmed that the patient did receive appropriate perioperative antibiotics and the correct operative site was marked and draped. Following this, an antecubital incision was made, carried through skin and subcutaneous tissue. I was able to dissect out the confluence of the basilic vein, cephalic vein and the median antecubital vein. The basilic vein leading into the median antecubital vein was very large and generous and I thought that we could use the basilic vein as a common confluence maintaining flow to both the cephalic vein and the basilic vein given its location. The cephalic vein and basilic vein were dissected distal to the bifurcation of the median antecubital vein. Next, the brachial artery was dissected both proximally and distally and controlled with vessel loops. Following this, the patient was heparinized per weight-based protocol. Next, the vein was ligated and divided at the common confluence of the basilic vein proximal to the bifurcation of the cephalic and basilic vein in the antecubital fossa. Next, the vein was appropriately spatulated. Following this, the brachial artery was controlled proximally and distally after confirming adequate circulation time of the heparin. An 11 blade scalpel was used to create an arteriotomy and this was extended using Bales scissors. Next, an end-to-side anastomosis was sewn in place using 7-0 Prolene suture in a running fashion. Prior to completing the anastomosis, I did backbleed and flushed vessels appropriately and the anastomosis was completed and flow was restored. The patient had immediate thrill through the cephalic vein and the basilic vein due to where I sewed it at the confluence. I figured I would leave both vessels open and flowing and hopefully one of the two will develop adequately. We had excellent hemostasis at the anastomosis. The wound was irrigated and then after confirming a correct lap, sponge, needle and instrument count, then the deep dermal layer was closed using running 3-0 Vicryl suture followed by Dermabond. The patient tolerated the procedure well, had a palpable thrill throughout the cephalic vein and basilic vein and was transferred to the postanesthesia care unit in stable condition. I also confirmed that there was a good radial pulse at the level of the wrist. AT/SULMA DR: Brandon TID: [id number]
[2020-09-24 13:10] VITALS: BP 112/58
== END 2020-09-24 14:04 | disposition home or self-care (01) ==
LOC: SURG 08:27
PROVIDERS: ATTEND Surgery
DX: I12.0 Hypertensive chronic kidney disease with stage 5 chronic kidney disease or end stage renal disease (principal); E11.22 Type 2 diabetes mellitus with diabetic chronic kidney disease; N18.6 End stage renal disease; Z99.2 Dependence on renal dialysis; E78.00 Pure hypercholesterolemia, unspecified; I25.2 Old myocardial infarction; M19.90 Unspecified osteoarthritis, unspecified site; K21.9 Gastro-esophageal reflux disease without esophagitis; E66.9 Obesity, unspecified; F17.210 Nicotine dependence, cigarettes, uncomplicated; Z79.899 Other long term (current) drug therapy; Z95.5 Presence of coronary angioplasty implant and graft; Z98.890 Other specified postprocedural states
CPT/HCPCS: 36415; 36819; 80048; 82962; 85025; A4364; A4930; A6402; J0690; J1100; J1644; J1815; J2370; J2405; J2704; J2720; J3010; J3490; J7040; A4223; A6443; A6455; J2440

== ENCOUNTER → 2020-10-27 | Outpatient (CLI) | payer MEDICARE ==
[~2020-10-27] MED LIST changes: -HEPARIN SODIUM 5,000 UNIT in IV NORMAL SALINE 500ML BAG 500 ML IRR ONE; +HYDR-2759 PO; -HYDROmorphone 2 MG/ML VIAL IVP PRN; +IOHEXOL 180 MG/ML 10 ML VIAL. ONE; -IV RINGERS,LACTATED 1000ML 1,000 ML IV SCH; -MORPHINE SULFATE 2 MG/ML INJ. IVP PRN; -PROCHLORPERAZINE 10 MG/2 ML VIAL. IVP PRN; -fentaNYL PF VIAL 100 MCG/2 ML VIAL IVP PRN; +methylPREDNISolone ACETATE 80 MG/ML VIAL. ONE
--- NOTE | 2020-10-27 08:37 | PDOC4 ---
Procedure Note: ICD 10 Code: ICD 10 Code: M54.12 M 48.02 M 96.1 Procedure Note: Patient was consented for cervical epidural steroid injection with fluoroscopic guidance. Risks were discussed including but not limited to: Bleeding, infection, possibility of epidural hematoma and subsequent neurological compromise, dural puncture, headaches, spinal cord and/or nerve damage, side effects of steroid medication, and poor results regarding pain control. Patient understands and wished to proceed. Procedure cervical epidural steroid injection at the C6-7 level, using local anesthetic under sterile prep and drape using C-arm fluoroscopic guidance under local anesthesia medications injected ;120 mg Depo-Medrol +5 mL normal saline and 2 mL contrast; condition at discharge is stable patient tolerated procedure well. and had no complications KAITLIN SCHUMACHER MD Oct 27, 2020 08:37
--- NOTE | 2020-10-27 08:37 | PDOC ---
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 Right shoulder joint pain with osteoarthritis Left knee joint pain with osteoarthritis Myofascial pain History or Present Illness: HPI: 80-year-old male returns for follow-up last seen September 10, 2020 patient underwent left acromioclavicular joint injection with very good results about 70% improvement overall patient reports his chief complaint today however is pain in the base of the neck and low right arm with burning and numbness in the hand and fingers especially in the third and fourth fingers on the right side patient reports this is new has not felt this way since prior to his cervical fusion many years ago patient reports his pain is a 9 on scale 10 is worse over the past week 8 on average 8 its least is an 8 today patient reports radiating constant on and off in intensity worse with activity reaching lifting repetitive motions with the right arm or lifting and reaching at the same time such as lifting something in front of them patient reported dull and aching in the back of the neck as well as in the low back with some pain on the right side as well but this is secondary to the neck and right upper extremity pain following a radicular fashion. Patient reports generally does not awaken her from sleep at night but can rarely patient reports his low back does awaken him from sleep about once a night on most nights. He reports no bowel or bladder incontinence. Physical Exam: VS: Blood pressure is 125/71 pulse is 81 respirations 20 temperature 98.1 F height is 5 feet 6 inches weight is 177 PE: PHYSICAL EXAMINATION: GENERAL: The patient is awake, alert, oriented, appropriate, very pleasant in demeanor. HEENT: Shows normocephalic, atraumatic. Extraocular movements are intact and symmetrical. Oral cavity: Mucous membranes moist and pink. Dentition is intact. NECK: Shows anterior throat supple without palpable lymphadenopathy noted. Swallow reflex symmetrical. CHEST: Shows normal on inspection. Breath sounds are clear bilaterally, distant but no rales or rhonchi. HEART: Shows S1, S2 clear. No murmurs auscultated. ABDOMEN: Soft, nontender, nondistended, obese. No palpable organomegaly is noted. BACK: Shows spine grossly in the midline. Normal-appearing cervical lordotic curvature. Cervical paraspinous muscles show symmetrical inspection with well- healed surgical scar in the midline with palpation some moderate tenderness throughout the upper middle lower distribution paraspinous muscle slightly more on the right than the left but present bilaterally. Patient shows good rotation motion some mild limitation with extension secondary to previous surgery forward flexion is performed without significant pain reported. There is slightly increased thoracic kyphosis, some minor flattening of the lumbar lordotic curvature. Lumbar paraspinous muscles show symmetrical on inspection, on palpation shows some moderate tenderness diffusely throughout the upper, middle and lower distribution of the paraspinous muscles, but without specific trigger points, without radiation of pain. The patient has good rotational motion of the lumbar spine, both laterally as well as extension and flexion with moderate pain reported with right lateral rotation greater than 10 degrees as well as extension and axial loading with significant pain in the right low back but without radiation forward flexion is performed at 45 degrees without significant pain reported. No tenderness over the spinous processes, sacrum or sacroiliac regions. EXTREMITIES: Lower extremities show deep tendon reflexes 2+ in the patellar and tendo calcaneus tendons. Motor exam is 5 on a scale of 5 with right dorsiflexion, extension, quadriceps and hamstring flexion and 5/5 on the left. Peripheral pulses are 1 posterior tibial. No peripheral edema is noted bilater ally. Lower extremities are warm and dry to touch, equal in color and appearance. Upper extremity show deep tendon reflexes 2+ in the bicep triceps tendons, motor exam is positive for scale 5 on the right and 5 out of 5 on the left with squirrel worker strength bicep and tricep flexion. Peripheral pulses are 2+ radial no peripheral edema is noted bilaterally. Shoulder show significant sca rring over the left shoulder from previous replacement. SKIN: Shows warm and dry, good turgor. No edema. No sores, rashes or bruising throughout. Procedure: Procedure: Options were discussed with the patient. Patient's old chart was reviewed as his current medication regimen updated current review of systems updated today as well. We will proceed with a cervical epidural steroid injection today with fluoroscopic guidance. Risks were discussed including but not limited to: Bleeding, infection, possibility of epidural hematoma and subsequent neurological compromise, dural puncture, headaches, spinal cord and/or nerve damage, side effects of steroid medication, and poor results regarding pain control. Patient understands and wished to proceed. Return to clinic in approximate 2 weeks for follow-up, was counseled as to return appointment, activity level, and side effects to be aware of. Medication Injected: Med Injected: Procedure cervical epidural steroid injection at the C6-7 level, using local anesthetic under sterile prep and drape using C-arm fluoroscopic guidance under local anesthesia medications injected ;120 mg Depo-Medrol +5 mL normal saline and 2 mL contrast; condition at discharge is stable patient tolerated procedure well. and had no complications Condition at Discharge: Condition at Discharge: Condition at discharge stable, pain tolerated procedure well and had no complications. We will also refill patient's methocarbamol and this was called into his pharmacy. Patient was given instructions well side effects aware with the medication. KAITLIN SCHUMACHER MD Oct 27, 2020 08:36
== END | disposition home or self-care (01) ==
LOC: PNCL 07:51
PROVIDERS: ATTEND Anesthesiology
DX: M50.10 Cervical disc disorder with radiculopathy, unspecified cervical region (principal); M48.02 Spinal stenosis, cervical region; M51.16 Intervertebral disc disorders with radiculopathy, lumbar region; M47.27 Other spondylosis with radiculopathy, lumbosacral region; M17.12 Unilateral primary osteoarthritis, left knee; M19.012 Primary osteoarthritis, left shoulder; M79.18 Myalgia, other site; E78.00 Pure hypercholesterolemia, unspecified; K21.9 Gastro-esophageal reflux disease without esophagitis; E66.9 Obesity, unspecified; I12.9 Hypertensive chronic kidney disease with stage 1 through stage 4 chronic kidney disease, or unspecified chronic kidney disease; E11.22 Type 2 diabetes mellitus with diabetic chronic kidney disease; N18.9 Chronic kidney disease, unspecified; Z99.2 Dependence on renal dialysis; Z79.899 Other long term (current) drug therapy; Z98.890 Other specified postprocedural states; Z79.4 Long term (current) use of insulin; Z79.82 Long term (current) use of aspirin; Z87.891 Personal history of nicotine dependence; Z88.5 Allergy status to narcotic agent; Z88.8 Allergy status to other drugs, medicaments and biological substances
CPT/HCPCS: 62321; J1040; Q9965

== ENCOUNTER → 2020-11-12 | Outpatient (CLI) | payer MEDICARE ==
--- NOTE | 2020-11-12 08:34 | PDOC ---
Progress Note - Pain Clinic Date of Service: DOS: DATE: 11/12/20 TIME: 08:30 Diagnosis: Dx: Lumbar radiculopathy with lumbar degenerative disease lumbar spinal stenosis and lumbar spine lumbosacral spondylosis Cervical radiculopathy cervical degenerative disease cervical spinal stenosis and cervical postlaminectomy syndrome Right shoulder pain with osteoarthritis Left knee joint pain with osteoarthritis Myofascial pain History or Present Illness: HPI: 80-year-old male returns for follow-up status post cervical epidural steroid injection x1. Patient reports about 80% improvement initially in the neck and right upper extremity. Patient reports that his main complaint today is low back pain now with new pain radiating to the right lower extremity mostly the posterior gluteus posterior thigh and some in the posterior calf at times patient reports it is mostly in the hip and thigh but is still on the right side where originally it was only in the low back and responded well to some facet medial branch blocks but pain did not radiate into the lower extremity patient reports this is new over the past 2 weeks or so and not result of any specific injury or accident that he is aware of getting worse with time patient reports cramping and sharp on and off in intensity worse with walking standing better with sitting or laying down generally does not awaken from sleep at night patient reports pain is 8 on scale 10 is worst average and a 7 at its least and is a 7 today. Patient reports no bowel or bladder incontinence no motor or sensory deficits. Physical Exam: VS: Blood pressure is 122/61 pulse is 69 respirations 18 temperature is 98.2 F height is 5 foot 6 inches weight is 175 pounds. PE: PHYSICAL EXAMINATION: GENERAL: The patient is awake, alert, oriented, appropriate, very pleasant in demeanor HEENT: Shows normocephalic, atraumatic. Extraocular movements are intact and symmetrical. Oral cavity: Mucous membranes moist and pink. NECK: Shows anterior throat supple without palpable lymphadenopathy noted. Swallow reflex symmetrical. CHEST: Shows normal on inspection. Breath sounds are clear bilaterally, distant but no rales or rhonchi. HEART: Shows S1, S2 clear. No murmurs auscultated. ABDOMEN: Soft, nontender, nondistended, obese. No palpable organomegaly is noted. BACK: Shows spine grossly in the midline. Normal-appearing cervical lordotic curvature. There is slightly increased thoracic kyphosis, some minor flattening of the lumbar lordotic curvature. Lumbar paraspinous muscles show symmetrical on inspection, on palpation shows some moderate tenderness diffusely throughout the upper, middle and lower distribution of the paraspinous muscles, but without specific trigger points, without radiation of pain. The patient has good rotational motion of the lumbar spine, both laterally as well as extension and flexion with moderate tenderness with right lateral rotation and extension but no pain with forward flexion or left lateral rotation. EXTREMITIES: Lower extremities show deep tendon reflexes 2+ in the patellar and tendo calcaneus tendons. Motor exam is 5 on a scale of 5 with right dorsiflexion, extension, quadriceps and hamstring flexion and 5/5 on the left. Peripheral pulses are 1+ posterior tibial. No peripheral edema is noted bilaterally. Lower extremities are warm and dry to touch, equal in color and appearance. SKIN: Shows warm and dry, good turgor. No edema. No sores, rashes or bruising throughout. Procedure: Procedure: Options discussed with patient. Patient chart reviews his current medication regimen updated current review of systems updated today as well. We will proceed with a lumbar epidural steroid injection today with fluoroscopic guidance. Risks were discussed including but not limited to: Bleeding, infection, possibility of epidural hematoma and subsequent neurological compromise, dural puncture, headaches, spinal cord and/or nerve damage, side effects of steroid medication, and poor results regarding pain control. Patient understands and wished to proceed. Patient return to clinic in approximate 2 weeks for follow-up, was counseled return appointment, activity level, and side effect to be aware of. Medication Injected: Med Injected: Procedure is lumbar epidural steroid injection under local anesthetic using sterile prep and drape at the L5-S1 level using C-arm fluoroscopic guidance in both AP and lateral views medications injected is 120 mg Depo-Medrol +10mL preservative-free normal saline and 2 mL contrast- condition at discharge is stable patient tolerated procedure well had no complications. Condition at Discharge: Condition at Discharge: Condition at discharge is stable, patient already procedure well had no complications. KAITLIN SCHUMACHER MD Nov 12, 2020 08:34
--- NOTE | 2020-11-12 08:34 | PDOC4 ---
Procedure Note: ICD 10 Code: ICD 10 Code: M54.17 M 48.07 M51.87 Procedure Note: Patient was consented for lumbar epidural steroid injection with fluoroscopic guidance. Risks were discussed including but not limited to: Bleeding, infection, possibility of epidural hematoma and subsequent neurological compromise, dural puncture, headaches, spinal cord and/or nerve damage, side effects of steroid medication, and poor results regarding pain control. Patient understands and wished to proceed. Procedure is lumbar epidural steroid injection under local anesthetic using paulino rile prep and drape at the L5-S1 level using C-arm fluoroscopic guidance in both AP and lateral views medications injected is 120 mg Depo-Medrol +10mL preservative-free normal saline and 2 mL contrast- condition at discharge is stable patient tolerated procedure well had no complications. KAITLIN SCHUMACHER MD Nov 12, 2020 08:34
== END | disposition home or self-care (01) ==
LOC: PNCL 07:44
PROVIDERS: ATTEND Anesthesiology
DX: M51.16 Intervertebral disc disorders with radiculopathy, lumbar region (principal); M48.061 Spinal stenosis, lumbar region without neurogenic claudication; M47.26 Other spondylosis with radiculopathy, lumbar region; M50.10 Cervical disc disorder with radiculopathy, unspecified cervical region; M48.02 Spinal stenosis, cervical region; M96.1 Postlaminectomy syndrome, not elsewhere classified; M19.011 Primary osteoarthritis, right shoulder; M17.12 Unilateral primary osteoarthritis, left knee; M79.18 Myalgia, other site; E78.00 Pure hypercholesterolemia, unspecified; E66.9 Obesity, unspecified; K21.9 Gastro-esophageal reflux disease without esophagitis; I12.9 Hypertensive chronic kidney disease with stage 1 through stage 4 chronic kidney disease, or unspecified chronic kidney disease; E11.22 Type 2 diabetes mellitus with diabetic chronic kidney disease; N18.6 End stage renal disease; N40.0 Benign prostatic hyperplasia without lower urinary tract symptoms; Z99.2 Dependence on renal dialysis; Z79.82 Long term (current) use of aspirin; Z79.4 Long term (current) use of insulin; Z79.899 Other long term (current) drug therapy; Z87.891 Personal history of nicotine dependence; Z90.49 Acquired absence of other specified parts of digestive tract; Z98.890 Other specified postprocedural states; Z88.5 Allergy status to narcotic agent; Z88.8 Allergy status to other drugs, medicaments and biological substances
CPT/HCPCS: 62323; J1040; Q9965

== ENCOUNTER 2020-12-03 08:32 | Inpatient (IN) | payer MEDICARE ==
[~2020-12-03] VITALS: Ht 167.6 cm; Wt 87.0 kg
[2020-12-03] VITALS (15 sets, daily range): BP systolic 99–174; BP diastolic 56–74
[~2020-12-03 08:32] MED LIST changes: +DOXA4TAB3 PO; +FAMO20TA5 PO; +FOLI0.8T3 PO; +HEPARIN SODIUM 5,000 UNIT in IV NORMAL SALINE 500ML BAG 500 ML IRR ONE; +HYDROmorphone 2 MG/ML VIAL IVP PRN; -IOHEXOL 180 MG/ML 10 ML VIAL. ONE; +IV RINGERS,LACTATED 1000ML 1,000 ML IV SCH; +LIDOCAINE 1% Multi-Dose 20 ML VIAL. ONE; +MORPHINE SULFATE 2 MG/ML INJ. IVP PRN; +PAPAVERINE 60 MG/2 ML VIAL. ONE; +PROCHLORPERAZINE 10 MG/2 ML VIAL. IVP PRN; +SURGICEL FIBRILLAR 1X2 EACH. ONE; +fentaNYL PF VIAL 100 MCG/2 ML VIAL IVP PRN; -methylPREDNISolone ACETATE 80 MG/ML VIAL. ONE
--- NOTE | 2020-12-03 08:56 | DISCH ---
DISCHARGE INSTRUCTIONS Condition on Discharge Condition on Discharge: Stable Activity After Discharge Activity Instructions for Disc: Activity as tolerated Other activity instructions: elevate operative arm on pillows to prevent swelling as needed Lifting Instructions after Dis: No heavy lifting Diet after Discharge Diet after Discharge: Renal Dialysis, Diabetic No Calorie Level Wound Incision Care Wound Care Equipment: Dressings (may remove dressing in 48 hours) Contacting the DRMaureen after DC Call your doctor for: If your condition worsens Follow-Up Follow up with: call the office for follow up visit, follow up in 3 weeks [phone] Treatment/Equipment after DC Adaptive Equipment Issued: None YONI GARCIA APRN Dec 03, 2020 08:56
[2020-12-03] MEDS ORDERED: SCOPOLAMINE 1.5MG PATCH. TD ONE ×2 (09:30→10:00)
[2020-12-03] MEDS: IV NORMAL SALINE 1000ML BAG 1,000 ML IV SCH ×2 (09:56→20:00)
[2020-12-03] MEDS ORDERED: INSULIN LISPRO 100 UNIT/ML 3ML VIAL for OP,RR ONLY. SQ PRN (10:00)
[2020-12-03 10:05] LABS: BASO # 0.1 x10^3/uL (0.0-0.2); BASO % 1 % (0-3); EOS # 0.3 x10^3/uL (0.0-0.7); EOS % 4 % (0-3); HEMATOCRIT 35.9 % (39.0-53.0); HEMOGLOBIN 12.1 g/dL (13.0-17.5); LYMPH # 1.8 x10^3/uL (1.0-4.8); LYMPH % 23 % (24-48); MEAN CORPUSCULAR HEMOGLOBIN 32 pg (25-35); MEAN CORPUSCULAR HGB CONC 34 g/dL (31-37); MEAN CORPUSCULAR VOLUME 95 fL (79-100); MONO # 0.8 x10^3/uL (0.0-1.1); MONO % 10 % (0-9); NEUT # 4.9 x10^3/uL (1.8-7.7); NEUT % 63 % (31-73); PLATELET COUNT 236 x10^3/uL (140-400); RED CELL DISTRIBUTION WIDTH 13.8 % (11.5-14.5); WHITE BLOOD COUNT 7.8 x10^3/uL (4.0-11.0)
[2020-12-03 10:16] LABS: CALCIUM 8.6 mg/dL (8.5-10.1); CREATININE 4.3 mg/dL (0.7-1.3); GFR 13.4; POTASSIUM 4.1 mmol/L (3.5-5.1)
--- NOTE | 2020-12-03 10:30 | EKG ---
[facility] [address] [place] [address] Test Date: 2020-12-03 Test Time: 10:23:17 Pat Name: JATINDER HOUSE Department: Room: Gender: M Minister Of Religion: : 1940 Requested By: MYCHAL QUEEN Order Number: [id number] Reading MD: Damien Griffiths MD Measurements Intervals [place] Rate: 65 P: 0 SD: 234 QRS: 21 QRSD: 84 T: 64 QT: 420 QTc: 438 Interpretive Statements SINUS RHYTHM PROLONGED SD INTERVAL Electronically Signed On 12-07-2020 11:42:51 CDT by Damien Griffiths MD
[2020-12-03] MEDS ORDERED: IODIXANOL 320 MG/ML 100 ML VIAL. ONE ×3 (11:57→12:53)
[2020-12-03] MEDS ORDERED: LIDOCAINE 1% PF 2 ML VIAL. ONE (11:57)
[2020-12-03] MEDS ORDERED: fentaNYL PF VIAL 100 MCG/2 ML VIAL ONE (12:03)
[2020-12-03] MEDS ORDERED: MIDAZOLAM HCL/PF 2 MG/2 ML VIAL. ONE ×2 (12:04→12:30)
[2020-12-03] MEDS ORDERED: IODIXANOL 320 MG/ML 100 ML VIAL. IART ONE (12:15)
[2020-12-03] MEDS ORDERED: fentaNYL PF VIAL 100 MCG/2 ML VIAL IV ONE (12:15)
[2020-12-03] MEDS ORDERED: LIDOCAINE 1% Multi-Dose 20 ML VIAL. ONE (12:15)
[2020-12-03] MEDS ORDERED: MIDAZOLAM HCL/PF 2 MG/2 ML VIAL. IV ONE (12:15)
[2020-12-03] MEDS ORDERED: LIDOCAINE 1% Multi-Dose 20 ML VIAL. INJ ONE (12:15)
[2020-12-03] MEDS ORDERED: ONDANSETRON PF 4 MG/2 ML VIAL. ONE (12:23)
[2020-12-03] MEDS ORDERED: ONDANSETRON PF 4 MG/2 ML VIAL. IVP ONE (12:30)
[2020-12-03] MEDS ORDERED: HEPARIN for IV BOLUS 10,000 UNIT/10 ML VIAL. ONE (12:36)
[2020-12-03] MEDS ORDERED: HEPARIN for IV BOLUS 10,000 UNIT/10 ML VIAL. IV ONE (12:45)
--- NOTE | 2020-12-03 13:01 | PDOC1 ---
History and Physical Visit Information Date of Admission: 12/03/2020 History of Present Illness History of Present Illness 80-year-old man comes to the hospital in the setting of a planned vascular surgery for his left forearm fistula. In the preoperative evaluation he reported that he was having exertional chest discomfort as well as left arm pain after dialysis. This left arm pain is new and has occurred in the last 3 dialysis sessions. He denies any associated syncope or palpitations. No orthopnea or PND. He reports that his dyspnea mostly occurs when he is walking around in the yard. Cardiac Risk Factors Comments End-stage renal disease Hypertension Dyslipidemia Type 2 diabetes Current Medications Current Medications Current Medications Cefazolin Sodium 1 gm/Sodium Chloride 500 ml @ 500 mls/hr 1X ONCE IRR ; Start 12/03/20 at 06:00; Stop 12/03/20 at 06:59; Status DC Cefazolin Sodium/ Dextrose 50 ml @ 100 mls/hr 1X PREOP PRN IV PRIOR TO PROCEDURE; Start 12/03/20 at 06:00; Stop 12/03/20 at 18:00 Cellulose (Surgicel Fibrillar 1x2) 1 each STK-MED ONCE .ROUTE ; Start 12/03/20 at 07:04; Stop 12/03/20 at 07:04; Status DC Fentanyl Citrate (Fentanyl 2ml Vial) 25 mcg PRN Q5MIN PRN IVP MILD PAIN 1-3; Start 12/03/20 at 06:00; Stop 12/03/20 at 20:00 Fentanyl Citrate (Fentanyl 2ml Vial) 50 mcg PRN Q5MIN PRN IVP MODERATE PAIN 4- 6; Start 12/03/20 at 06:00; Stop 12/03/20 at 20:00 Fentanyl Citrate (Fentanyl 2ml Vial) 100 mcg 1X ONCE IV ; Start 12/03/20 at 12:15; Stop 12/03/20 at 12:16; Status DC Fentanyl Citrate (Fentanyl 2ml Vial) 100 mcg STK-MED ONCE .ROUTE ; Start 12/03/20 at 12:03; Stop 12/03/20 at 12:04; Status DC Heparin Sodium (Porcine) (Heparin Sodium) 4,000 unit 1X ONCE IV ; Start 12/03/20 at 12:45; Stop 12/03/20 at 12:46; Status DC Heparin Sodium (Porcine) (Heparin Sodium) 10,000 unit STK-MED ONCE .ROUTE ; Start 12/03/20 at 12:36; Stop 12/03/20 at 12:37; Status DC Heparin Sodium (Porcine) 5000 unit/Sodium Chloride 505 ml @ 505 mls/hr 1X ONCE IRR ; Start 12/03/20 at 06:00; Stop 12/03/20 at 06:59; Status DC Heparin Sodium/ Sodium Chloride 1,000 ml @ As Directed STK-MED ONCE .ROUTE ; Start 12/03/20 at 11:57; Stop 12/03/20 at 11:57; Status DC Heparin Sodium/ Sodium Chloride (HEPARIN for ARTERIAL LINE FLUSH) 1,000 unit 1X ONCE IART Last administered on 12/03/20at 12:15; Start 12/03/20 at 12:15; Stop 12/03/20 at 12:16; Status DC Heparin Sodium/ Sodium Chloride (HEPARIN for ARTERIAL LINE FLUSH) 1,000 unit 1X ONCE IART Last administered on 12/03/20at 12:15; Start 12/03/20 at 12:15; Stop 12/03/20 at 12:16; Status DC Hydromorphone HCl (Dilaudid) 0.5 mg PRN Q10MIN PRN IVP SEVERE PAIN 7-10, 2nd CHOICE; Start 12/03/20 at 06:00; Stop 12/03/20 at 20:00 Insulin Human Lispro (HumaLOG VIAL for OP,RR ONLY) 0-10 units PRN Q1HR PRN SQ PER PROTOCOL; Start 12/03/20 at 10:00; Stop 12/04/20 at 09:59 Iodixanol (Visipaque 320) 100 ml 1X ONCE IART ; Start 12/03/20 at 12:15; Stop 12/03/20 at 12:16; Status DC Iodixanol (Visipaque 320) 100 ml STK-MED ONCE .ROUTE ; Start 12/03/20 at 11:57; Stop 12/03/20 at 11:57; Status DC Iodixanol (Visipaque 320) 100 ml STK-MED ONCE .ROUTE ; Start 12/03/20 at 11:57; Stop 12/03/20 at 11:58; Status DC Iodixanol (Visipaque 320) 100 ml STK-MED ONCE .ROUTE ; Start 12/03/20 at 12:53; Stop 12/03/20 at 12:54; Status DC Lidocaine HCl (Lidocaine 1% 20ml Vial) 20 ml 1X ONCE INJ Last administered on 12/03/20at 12:28; Start 12/03/20 at 12:15; Stop 12/03/20 at 12:16; Status DC Lidocaine HCl (Lidocaine 1% 20ml Vial) 20 ml STK-MED ONCE .ROUTE ; Start 12/03/20 at 07:04; Stop 12/03/20 at 07:04; Status DC Lidocaine HCl (Lidocaine 1% 20ml Vial) 20 ml STK-MED ONCE .ROUTE ; Start 12/03/20 at 07:04; Stop 12/03/20 at 07:04; Status DC Lidocaine HCl (Lidocaine 1% 20ml Vial) 20 ml STK-MED ONCE .ROUTE ; Start 12/03/20 at 12:15; Stop 12/03/20 at 12:16; Status DC Lidocaine HCl (Xylocaine-Mpf 1% 2ml Vial) 2 ml STK-MED ONCE .ROUTE ; Start 12/03/20 at 11:57; Stop 12/03/20 at 11:57; Status DC Midazolam HCl (Versed) 2 mg 1X ONCE IV ; Start 12/03/20 at 12:15; Stop 12/03/20 at 12:16; Status DC Midazolam HCl (Versed) 2 mg STK-MED ONCE .ROUTE ; Start 12/03/20 at 12:04; Sto p 12/03/20 at 12:04; Status DC Midazolam HCl (Versed) 2 mg STK-MED ONCE .ROUTE ; Start 12/03/20 at 12:30; Stop 12/03/20 at 12:30; Status DC Morphine Sulfate (Morphine Sulfate) 1 mg PRN Q10MIN PRN IVP SEVERE PAIN 7-10; Start 12/03/20 at 06:00; Stop 12/03/20 at 20:00 Ondansetron HCl (Zofran) 4 mg 1X ONCE IVP Last administered on 12/03/20at 12:24; Start 12/03/20 at 12:30; Stop 12/03/20 at 12:32; Status DC Ondansetron HCl (Zofran) 4 mg STK-MED ONCE .ROUTE ; Start 12/03/20 at 12:23; Stop 12/03/20 at 12:24; Status DC Papaverine HCl 60 mg STK-MED ONCE .ROUTE ; Start 12/03/20 at 07:04; Stop 12/03/20 at 07:04; Status DC Prochlorperazine Edisylate (Compazine) 5 mg PACU PRN PRN IVP NAUSEA, MRX1; Start 12/03/20 at 06:00; Stop 12/03/20 at 20:00 Ringer's Solution 1,000 ml @ 30 mls/hr Q24H IV ; Start 12/03/20 at 06:00; Stop 12/03/20 at 17:59 Scopolamine (Transderm-Scop) 1 patch 1X ONCE TD ; Start 12/03/20 at 09:30; Stop 12/03/20 at 09:31; Status DC Scopolamine (Transderm-Scop) 1 patch 1X ONCE TD ; Start 12/03/20 at 10:00; Stop 12/03/20 at 10:01; Status DC Sodium Chloride 1,000 ml @ 100 mls/hr Q10H IV Last administered on 12/03/20at 09:56; Start 12/03/20 at 10:00 Allergies Allergies Allergies Coded Allergies Type Severity Reaction Last Updated Verified pseudoephedrine Adverse Reaction Severe urinary retention 12/03/20 Yes codeine Adverse Reaction Intermediate gi upset 12/03/20 Yes Social History Comments No alcohol, tobacco or illicit drug use. He is . Family History Comments Noncontributory ROS Review of System Negative for 10 out of 14 systems reviewed unless otherwise mentioned above in HPI Physical Exam Comments The patient appeared well nourished and normally developed. Head exam is unremarkable. No scleral icterus or corneal arcus noted. Neck is without jugular venous distension, thyromegaly, or carotid bruits. Carotid upstrokes are brisk bilaterally. Lungs are clear to auscultation and percussion. Cardiac exam reveals the PMI to be normally sized and situated. Rhythm is regular. First and second heart sounds normal. No murmurs, rubs or gallops. Abdominal exam reveals normal bowel sounds, no masses, no organomegaly and no aortic enlargement. Extremities are nonedematous and both femoral pulses are normal. Msk: No traumua Neuro: No focal deficits Vitals VITALS Vital Signs Date Time Temp Pulse Resp B/P (MAP) Pulse Ox O2 Delivery O2 Flow Rate FiO2 12/03/20 09:47 97.6 68 18 99/56 93 Room Air 97.6 Labs Labs Laboratory Tests Test 12/03/20 09:36 White Blood Count 7.8 x10^3/uL (4.0-11.0) Red Blood Count 3.80 x10^6/uL (4.30-5.70) Hemoglobin 12.1 g/dL (13.0-17.5) Hematocrit 35.9 % (39.0-53.0) Mean Corpuscular Volume 95 fL (79-100) Mean Corpuscular Hemoglobin 32 pg (25-35) Mean Corpuscular Hemoglobin Concent 34 g/dL (31-37) Red Cell Distribution Width 13.8 % (11.5-14.5) Platelet Count 236 x10^3/uL (140-400) Neutrophils (%) (Auto) 63 % (31-73) Lymphocytes (%) (Auto) 23 % (24-48) Monocytes (%) (Auto) 10 % (0-9) Eosinophils (%) (Auto) 4 % (0-3) Basophils (%) (Auto) 1 % (0-3) Neutrophils # (Auto) 4.9 x10^3/uL (1.8-7.7) Lymphocytes # (Auto) 1.8 x10^3/uL (1.0-4.8) Monocytes # (Auto) 0.8 x10^3/uL (0.0-1.1) Eosinophils # (Auto) 0.3 x10^3/uL (0.0-0.7) Basophils # (Auto) 0.1 x10^3/uL (0.0-0.2) Sodium Level 139 mmol/L (136-145) Potassium Level 4.1 mmol/L (3.5-5.1) Chloride Level 102 mmol/L (98-107) Carbon Dioxide Level 30 mmol/L (21-32) Anion Gap 7 (6-14) Blood Urea Nitrogen 48 mg/dL (8-26) Creatinine 4.3 mg/dL (0.7-1.3) Estimated GFR (Cockcroft-Gault) 13.4 Glucose Level 178 mg/dL (70-99) Glucose (Fingerstick) 188 mg/dL (70-99) Calcium Level 8.6 mg/dL (8.5-10.1) Laboratory Tests Test 12/03/20 09:36 White Blood Count 7.8 x10^3/uL (4.0-11.0) Red Blood Count 3.80 x10^6/uL (4.30-5.70) Hemoglobin 12.1 g/dL (13.0-17.5) Hematocrit 35.9 % (39.0-53.0) Mean Corpuscular Volume 95 fL (79-100) Mean Corpuscular Hemoglobin 32 pg (25-35) Mean Corpuscular Hemoglobin Concent 34 g/dL (31-37) Red Cell Distribution Width 13.8 % (11.5-14.5) Platelet Count 236 x10^3/uL (140-400) Neutrophils (%) (Auto) 63 % (31-73) Lymphocytes (%) (Auto) 23 % (24-48) Monocytes (%) (Auto) 10 % (0-9) Eosinophils (%) (Auto) 4 % (0-3) Basophils (%) (Auto) 1 % (0-3) Neutrophils # (Auto) 4.9 x10^3/uL (1.8-7.7) Lymphocytes # (Auto) 1.8 x10^3/uL (1.0-4.8) Monocytes # (Auto) 0.8 x10^3/uL (0.0-1.1) Eosinophils # (Auto) 0.3 x10^3/uL (0.0-0.7) Basophils # (Auto) 0.1 x10^3/uL (0.0-0.2) Sodium Level 139 mmol/L (136-145) Potassium Level 4.1 mmol/L (3.5-5.1) Chloride Level 102 mmol/L (98-107) Carbon Dioxide Level 30 mmol/L (21-32) Anion Gap 7 (6-14) Blood Urea Nitrogen 48 mg/dL (8-26) Creatinine 4.3 mg/dL (0.7-1.3) Estimated GFR (Cockcroft-Gault) 13.4 Glucose Level 178 mg/dL (70-99) Glucose (Fingerstick) 188 mg/dL (70-99) Calcium Level 8.6 mg/dL (8.5-10.1) Images Images No imaging available for review. EKG demonstrates sinus rhythm. VTE Prophylaxis Ordered VTE Prophylaxis Devices: No VTE Pharmacological Prophylaxi: No Assessment/Plan Assessment/Plan 1. Acute onset of unstable angina over the last 1 week. Patient has multiple cardiovascular risk factors. Discussed with vascular surgery service will currently cancel his surgery and we will plan for a cardiac catheterization. Risks and benefits discussed with the patient, his and his daughter. Further recommendations pending cardiac catheterization. Justicifation of Admission Dx: Justifications for Admission: Justification of Admission Dx: N/A SAMPSON LEONARD MD Dec 03, 2020 13:00
[2020-12-03] MEDS ORDERED: CLOPIDOGREL BISULFATE 75 MG TABLET PO ONE (13:15)
[2020-12-03] MEDS ORDERED: ASPIRIN 325 MG TABLET PO ONE (13:15)
[2020-12-03] MEDS: IV 1/2 NORMAL SALINE 1,000 ML IV SCH (14:15)
--- NOTE | 2020-12-03 15:07 | PDOC1 ---
History and Physical Date of Service: DOS: DATE: 12/03/20 TIME: 15:07 Chief Complaint: Chief Complain: Status post left heart cath History of Present Illness: HPI: 80-year-old male with past medical history of end-stage renal disease, hypertension, dyslipidemia, diabetes mellitus type 2 who comes in to the hospital for planned vascular surgery for his left arm fistula. Unfortunately, during his preop he was complaining of chest discomfort after dialysis. Chest pain was radiating towards his left arm and he stated that this had occurred in his previous dialysis sessions. At that time he denied any syncope or palpitations, shortness of breath or dyspnea upon rest. Patient was taken to the Supply Chain Buyer and patient received a drug-eluting stent in the LAD in which the LAD did show a 70% stenosis in the midsegment. Patient was seen and evaluated in the immediate post operative area. Patient was lying flat and access site was clean dry and intact in the right groin. No signs of active bleeding or pain. Denies things any chest pain, abdominal pain, shortness of breath or extreme tenderness after the procedure. Patient will be admitted for observation overnight. Past Medical/Surgical History: PMH/PSH: ESRD on HD, hypertension, dyslipidemia, diabetes mellitus type 2, history of pancreatitis Surgical history of left AV fistula in Sep 2020, history of cardiac stents, left ankle fusion and right rotator cuff repair, C3-C7 laminectomy with fusion Allergies: Allergies: Coded Allergies: pseudoephedrine (Verified Adverse Reaction, Severe, urinary retention, 12/03/20) codeine (Verified Adverse Reaction, Intermediate, gi upset, 12/03/20) Family History: Family History: Reviewed with no relevant findings Social History: Social History: Denies any tobacco, drug or alcohol abuse. Current Medications: Current Medications Current Medications Heparin Sodium (Porcine) 5000 unit/Sodium Chloride 505 ml @ 505 mls/hr 1X ONCE IRR ; Start 12/03/20 at 06:00; Stop 12/03/20 at 06:59; Status DC Cefazolin Sodium 1 gm/Sodium Chloride 500 ml @ 500 mls/hr 1X ONCE IRR ; Start 12/03/20 at 06:00; Stop 12/03/20 at 06:59; Status DC Fentanyl Citrate (Fentanyl 2ml Vial) 25 mcg PRN Q5MIN PRN IVP MILD PAIN 1-3; Start 12/03/20 at 06:00; Stop 12/03/20 at 20:00 Fentanyl Citrate (Fentanyl 2ml Vial) 50 mcg PRN Q5MIN PRN IVP MODERATE PAIN 4- 6; Start 12/03/20 at 06:00; Stop 12/03/20 at 20:00 Morphine Sulfate (Morphine Sulfate) 1 mg PRN Q10MIN PRN IVP SEVERE PAIN 7-10; Start 12/03/20 at 06:00; Stop 12/03/20 at 20:00 Ringer's Solution 1,000 ml @ 30 mls/hr Q24H IV ; Start 12/03/20 at 06:00; Stop 12/03/20 at 17:59 Hydromorphone HCl (Dilaudid) 0.5 mg PRN Q10MIN PRN IVP SEVERE PAIN 7-10, 2nd CHOICE; Start 12/03/20 at 06:00; Stop 12/03/20 at 20:00 Prochlorperazine Edisylate (Compazine) 5 mg PACU PRN PRN IVP NAUSEA, MRX1; Start 12/03/20 at 06:00; Stop 12/03/20 at 20:00 Cefazolin Sodium/ Dextrose 50 ml @ 100 mls/hr 1X PREOP PRN IV PRIOR TO PROCEDURE; Start 12/03/20 at 06:00; Stop 12/03/20 at 18:00 Lidocaine HCl (Lidocaine 1% 20ml Vial) 20 ml STK-MED ONCE .ROUTE ; Start 12/03/20 at 07:04; Stop 12/03/20 at 07:04; Status DC Lidocaine HCl (Lidocaine 1% 20ml Vial) 20 ml STK-MED ONCE .ROUTE ; Start 12/03/20 at 07:04; Stop 12/03/20 at 07:04; Status DC Cellulose (Surgicel Fibrillar 1x2) 1 each STK-MED ONCE .ROUTE ; Start 12/03/20 at 07:04; Stop 12/03/20 at 07:04; Status DC Papaverine HCl 60 mg STK-MED ONCE .ROUTE ; Start 12/03/20 at 07:04; Stop 12/03/20 at 07:04; Status DC Scopolamine (Transderm-Scop) 1 patch 1X ONCE TD ; Start 12/03/20 at 09:30; Stop 12/03/20 at 09:31; Status DC Sodium Chloride 1,000 ml @ 100 mls/hr Q10H IV Last administered on 12/03/20at 09:56; Start 12/03/20 at 10:00 Scopolamine (Transderm-Scop) 1 patch 1X ONCE TD ; Start 12/03/20 at 10:00; Stop 12/03/20 at 10:01; Status DC Insulin Human Lispro (HumaLOG VIAL for OP,RR ONLY) 0-10 units PRN Q1HR PRN SQ PER PROTOCOL; Start 12/03/20 at 10:00; Stop 12/04/20 at 09:59 Iodixanol (Visipaque 320) 100 ml STK-MED ONCE .ROUTE ; Start 12/03/20 at 11:57; Stop 12/03/20 at 11:57; Status DC Lidocaine HCl (Xylocaine-Mpf 1% 2ml Vial) 2 ml STK-MED ONCE .ROUTE ; Start 12/03/20 at 11:57; Stop 12/03/20 at 11:57; Status DC Heparin Sodium/ Sodium Chloride 1,000 ml @ As Directed STK-MED ONCE .ROUTE ; Start 12/03/20 at 11:57; Stop 12/03/20 at 11:57; Status DC Iodixanol (Visipaque 320) 100 ml STK-MED ONCE .ROUTE ; Start 12/03/20 at 11:57; Stop 12/03/20 at 11:58; Status DC Fentanyl Citrate (Fentanyl 2ml Vial) 100 mcg STK-MED ONCE .ROUTE ; Start 12/03/20 at 12:03; Stop 12/03/20 at 12:04; Status DC Midazolam HCl (Versed) 2 mg STK-MED ONCE .ROUTE ; Start 12/03/20 at 12:04; Stop 12/03/20 at 12:04; Status DC Heparin Sodium/ Sodium Chloride (HEPARIN for ARTERIAL LINE FLUSH) 1,000 unit 1X ONCE IART Last administered on 12/03/20at 12:15; Start 12/03/20 at 12:15; Stop 12/03/20 at 12:16; Status DC Heparin Sodium/ Sodium Chloride (HEPARIN for ARTERIAL LINE FLUSH) 1,000 unit 1X ONCE IART Last administered on 12/03/20at 12:15; Start 12/03/20 at 12:15; Stop 12/03/20 at 12:16; Status DC Midazolam HCl (Versed) 2 mg 1X ONCE IV Last administered on 12/03/20at 12:22; Start 12/03/20 at 12:15; Stop 12/03/20 at 12:16; Status DC Fentanyl Citrate (Fentanyl 2ml Vial) 100 mcg 1X ONCE IV Last administered on 12/03/20at 12:22; Start 12/03/20 at 12:15; Stop 12/03/20 at 12:16; Status DC Iodixanol (Visipaque 320) 100 ml 1X ONCE IART Last administered on 12/03/20at 13:04; Start 12/03/20 at 12:15; Stop 12/03/20 at 12:16; Status DC Lidocaine HCl (Lidocaine 1% 20ml Vial) 20 ml 1X ONCE INJ Last administered on 12/03/20at 12:28; Start 12/03/20 at 12:15; Stop 12/03/20 at 12:16; Status DC Lidocaine HCl (Lidocaine 1% 20ml Vial) 20 ml STK-MED ONCE .ROUTE ; Start 12/03/20 at 12:15; Stop 12/03/20 at 12:16; Status DC Ondansetron HCl (Zofran) 4 mg STK-MED ONCE .ROUTE ; Start 12/03/20 at 12:23; Stop 12/03/20 at 12:24; Status DC Ondansetron HCl (Zofran) 4 mg 1X ONCE IVP Last administered on 12/03/20at 12:24; Start 12/03/20 at 12:30; Stop 12/03/20 at 12:32; Status DC Midazolam HCl (Versed) 2 mg STK-MED ONCE .ROUTE ; Start 12/03/20 at 12:30; Stop 12/03/20 at 12:30; Status DC Heparin Sodium (Porcine) (Heparin Sodium) 10,000 unit STK-MED ONCE .ROUTE ; Start 12/03/20 at 12:36; Stop 12/03/20 at 12:37; Status DC Heparin Sodium (Porcine) (Heparin Sodium) 4,000 unit 1X ONCE IV Last administered on 12/03/20at 12:36; Start 12/03/20 at 12:45; Stop 12/03/20 at 12:46; Status DC Iodixanol (Visipaque 320) 100 ml STK-MED ONCE .ROUTE ; Start 12/03/20 at 12:53; Stop 12/03/20 at 12:54; Status DC Clopidogrel Bisulfate (Plavix) 600 mg 1X ONCE PO Last administered on 1 at 13:23; Start 12/03/20 at 13:15; Stop 12/03/20 at 13:16; Status DC Aspirin (Rebeca Aspirin) 325 mg 1X ONCE PO Last administered on 12/03/20at 13:23; Start 12/03/20 at 13:15; Stop 12/03/20 at 13:16; Status DC Sodium Chloride 1,000 ml @ 75 mls/hr [id number] IV ; Start 12/03/20 at 14:15 Aspirin (Ecotrin) 325 mg DAILYWBKFT PO ; Start 12/04/20 at 08:00 Clopidogrel Bisulfate (Plavix) 75 mg DAILYWBKFT PO ; Start 12/04/20 at 08:00 Active Scripts Active Nitrostat (Nitroglycerin) 0.4 Mg Tab.subl 0.4 Mg SL PRN Q5MIN PRN 30 Days Reported Doxazosin Mesylate 4 Mg Tablet 4 Mg PO HS Nephro-Zeenat Tablet (Folic Acid/Vitamin B Comp W-C) 0.8 Mg Tablet 0.8 Mg PO DAILY Atorvastatin Calcium 40 Mg Tablet 40 Mg PO DAILY Hydrocodone-Apap 5-325 (Hydrocodone Bit/Acetaminophen) 1 Tab Tablet 1 Tab PO PRN Q6HRS PRN Famotidine 20 Mg Tablet 20 Mg PO DAILY07 Methocarbamol 500 Mg Tablet 500 Mg PO TID Labetalol Hcl 200 Mg Tablet 1 Tab PO BID Bumetanide 1 Mg Tablet 1 Tab PO DAILY Hydralazine Hcl 50 Mg Tablet 1 Tab PO TID Finasteride 5 Mg Tablet 1 Tab PO DAILY Novolog Flexpen (Insulin Aspart) 100 Unit/1 Ml Insuln.pen 13 Unit SQ TID Aspirin 81 Mg Tab.chew 1 Tab PO DAILY Lantus Solostar (Insulin Glargine,Hum.rec.anlog) 100 Unit/1 Ml Insuln.pen 10 Unit SQ HS Multivitamins (Multivitamin) 1 Each Tablet 1 Tab PO DAILY Zolpidem Tartrate Er (Zolpidem Tartrate) 12.5 Mg Tab.mphase 1 Tab PO QHS Clonazepam 1 Mg Tablet 1 Mg PO HS ROS: Review of Systems Review of System REVIEW OF SYSTEMS: GENERAL: Denies weakness SKIN: No bruising, hair changes or rashes. EYES: No blurred, double or loss of vision. NOSE AND THROAT: No history of nosebleeds, hoarseness or sore throat. HEART: No history of palpitations, chest pain or shortness of breath on exertion. LUNGS: Denies cough, hemoptysis, wheezing or shortness of breath. GASTROINTESTINAL: Denies changes in appetite, nausea, vomiting, diarrhea or constipation. GENITOURINARY: No history of frequency, urgency, hesitancy or nocturia. NEUROLOGIC: Denies history of numbness, tingling, or tremor. PSYCHIATRIC: No history of panic, anxiety or depression. ENDOCRINE: No history of heat or cold intolerance, polyuria or polydipsia. EXTREMITIES: Denies joint pain, pain on walking or stiffness. Physical Exam: Vital Signs: Vital Signs Date Time Temp Pulse Resp B/P (MAP) Pulse Ox O2 Delivery O2 Flow Rate FiO2 12/03/20 14:20 54 18 93 Room Air 12/03/20 09:47 97.6 99/56 97.6 Physcial Exam: General: Well developed, well nourished, no acute distress, well appearing HEENT: Pupils equally round and reactive to light, EOMI, no discharge, normal conjunctiva Neck: Supple, no nuchal rigidity, no JVD, trachea midline, no tenderness Cardiac: RRR, no murmurs, no gallops, no rubs Chest/Lungs: CTAB, no wheeze, no rhonchi, no crackles Abdomen: soft, non-distended, no guarding, no peritoneal signs, non-tender Back: No tenderness Extremities: Right groin dressings is clear dry and intact. No pulsations or active bleeding. Neuro: Alert and oriented x 4, no focal deficits, normal speech Labs: Labs: Laboratory Tests Test 12/03/20 09:36 12/03/20 12:45 White Blood Count 7.8 x10^3/uL (4.0-11.0) Red Blood Count 3.80 x10^6/uL (4.30-5.70) Hemoglobin 12.1 g/dL (13.0-17.5) Hematocrit 35.9 % (39.0-53.0) Mean Corpuscular Volume 95 fL (79-100) Mean Corpuscular Hemoglobin 32 pg (25-35) Mean Corpuscular Hemoglobin Concent 34 g/dL (31-37) Red Cell Distribution Width 13.8 % (11.5-14.5) Platelet Count 236 x10^3/uL (140-400) Neutrophils (%) (Auto) 63 % (31-73) Lymphocytes (%) (Auto) 23 % (24-48) Monocytes (%) (Auto) 10 % (0-9) Eosinophils (%) (Auto) 4 % (0-3) Basophils (%) (Auto) 1 % (0-3) Neutrophils # (Auto) 4.9 x10^3/uL (1.8-7.7) Lymphocytes # (Auto) 1.8 x10^3/uL (1.0-4.8) Monocytes # (Auto) 0.8 x10^3/uL (0.0-1.1) Eosinophils # (Auto) 0.3 x10^3/uL (0.0-0.7) Basophils # (Auto) 0.1 x10^3/uL (0.0-0.2) Sodium Level 139 mmol/L (136-145) Potassium Level 4.1 mmol/L (3.5-5.1) Chloride Level 102 mmol/L (98-107) Carbon Dioxide Level 30 mmol/L (21-32) Anion Gap 7 (6-14) Blood Urea Nitrogen 48 mg/dL (8-26) Creatinine 4.3 mg/dL (0.7-1.3) Estimated GFR (Cockcroft-Gault) 13.4 Glucose Level 178 mg/dL (70-99) Glucose (Fingerstick) 188 mg/dL (70-99) Calcium Level 8.6 mg/dL (8.5-10.1) Activated Clotting Time 259 sec (92-181) Laboratory Tests Test 12/03/20 09:36 12/03/20 12:45 White Blood Count 7.8 x10^3/uL (4.0-11.0) Red Blood Count 3.80 x10^6/uL (4.30-5.70) Hemoglobin 12.1 g/dL (13.0-17.5) Hematocrit 35.9 % (39.0-53.0) Mean Corpuscular Volume 95 fL (79-100) Mean Corpuscular Hemoglobin 32 pg (25-35) Mean Corpuscular Hemoglobin Concent 34 g/dL (31-37) Red Cell Distribution Width 13.8 % (11.5-14.5) Platelet Count 236 x10^3/uL (140-400) Neutrophils (%) (Auto) 63 % (31-73) Lymphocytes (%) (Auto) 23 % (24-48) Monocytes (%) (Auto) 10 % (0-9) Eosinophils (%) (Auto) 4 % (0-3) Basophils (%) (Auto) 1 % (0-3) Neutrophils # (Auto) 4.9 x10^3/uL (1.8-7.7) Lymphocytes # (Auto) 1.8 x10^3/uL (1.0-4.8) Monocytes # (Auto) 0.8 x10^3/uL (0.0-1.1) Eosinophils # (Auto) 0.3 x10^3/uL (0.0-0.7) Basophils # (Auto) 0.1 x10^3/uL (0.0-0.2) Sodium Level 139 mmol/L (136-145) Potassium Level 4.1 mmol/L (3.5-5.1) Chloride Level 102 mmol/L (98-107) Carbon Dioxide Level 30 mmol/L (21-32) Anion Gap 7 (6-14) Blood Urea Nitrogen 48 mg/dL (8-26) Creatinine 4.3 mg/dL (0.7-1.3) Estimated GFR (Cockcroft-Gault) 13.4 Glucose Level 178 mg/dL (70-99) Glucose (Fingerstick) 188 mg/dL (70-99) Calcium Level 8.6 mg/dL (8.5-10.1) Activated Clotting Time 259 sec (92-181) Images: Images PROCEDURE: Left Heart Catheterization &LV MR#: [id number] Date of Study: 12/03/2020 Ordering Physician: SAMPSON LEONARD, Referring Physician: SAMPSON LEONARD, Tech: Hortensia Griffiths, (R) APPROVED REPORT Technologist: Hortensia Griffiths RT(R) Nurse: Isis Lacey RN Procedure(s) performed: 1. Left heart catheterization, selective coronary angiography 2. Instantaneous wave free ratio (IFR) measurement to left anterior descending artery stenosis 3. Successful PCI/drug-eluting stent placement to the left anterior descending artery Fluoro time: 10.9 min Dose: 82 Gycm2 Contrast: 181mls Mod Sed: 64 min INDICATION The indication(s) include : unstable angina . [facility] Clinical Frailty Scale [facility] Clinical Frailty Scale: Mildly Frail Heart Failure Heart Failure: No CASE TECHNIQUE IV conscious sedation was used throughout procedure with appropriate monitoring and was performed in the presence of a registered nurse who was an independent trained observer other than the physician performing the procedure. During this case, Fluoroscopy and low osmolar contrast were used for imaging. Specimen(s) Removed: No Estimated Blood loss: 15 cc's. PROCEDURE NARRATIVE After explaining the risks, benefits and alternative options, informed consent was obtained from patient. Patient was brought to the cardiac Supply Chain Buyer and his right groin was prepped and draped in the usual fashion. 20 cc of 2% lidocaine was infiltrated into the skin and subcutaneous tissues for local anesthesia. Arterial access was obtained in the right common femoral artery and a 6 Swedish sheath was inserted. 6 Swedish JL4 6 Swedish JR4 catheters were used to perform selective angiography of the left and right coronary arteries. LVEDP and transaortic gradients were measured. Since patient had angiographically borderline significant stenosis involving the left anterior descending artery, a decision was made to perform physiologic assessment using instantaneous wave free ratio (IFR). The left main coronary artery was engaged with a 6 Swedish XB 3.5 guide catheter and the stenosis in the mid segment was crossed with a [employer] Verrata Plus pressure wire. iFR measurement was made there was significant at 0.82. FINDINGS 1. Hemodynamics: Left ventricular end-diastolic pressure 16 mmHg. No pullback gradient across aortic valve. 2. Coronary angiography: a. The left main coronary artery arose from the left sinus of Valsalva, gave rise to the left anterior descending and left circumflex arteries and did not show any significant stenosis. b. The left anterior descending artery showed eccentric 70% stenosis in the midsegment that was physiologically significant based on IFR measurement of 0.82. c. The left circumflex artery showed 40% stenosis in the distal segment. d. The right coronary artery was a large and dominant vessel arising from the right sinus of Valsalva that showed widely patent stent in the proximal to mid segment. INTERVENTION A 2.5 x 15 mm Euphora balloon was advanced over the pressure wire, positioned across the stenosis in the mid segment of the left anterior descending artery and dilated at 12 penny. The lesion was then treated successfully with a 3.0 x 18 mm resolute Igor drug-eluting stent. Follow-up angiography showed resolution of the stenosis to 0% with DESTINI-3 distal flow. Patient tolerated the procedure well. Hemostasis was achieved using Mynx closure device. There were no immediate complications. DESTINI Flow DESTINI Flow (Pre-Intervention): DESTINI-3 DESTINI Flow (Post-Intervention): DESTINI-3 Conclusion 1. Patent previously placed stent in the right coronary artery. 70% eccentric stenosis involving the left anterior descending artery found to be physiologi av significant based on IFR measurement of 0.82. 2. Successful PCI/drug-eluting stent placement to the left anterior descending artery. Assessment/Plan Assessment/Plan NSTEMI Status post left heart cath with drug-eluting stent placed in the LAD on 2020-12-03 History of CAD with stents History of ESRD with HD History of diabetes mellitus type 2 History of hypertension Admit to hospitalist service for further management and observation Continue aspirin and Plavix R ISS and [facility] Vascular surgery consult for fistula revision? Heparin for DVT prophylaxis for DVT prophylaxis ADA/cardiac diet CODE STATUS full Discussed with RN and SW Disposition inpatient management as above DPOA: In addition to my E/M visit, advance care planning done with A total time of 20 minutes was spent from 1:00 to 120 face to face in discussion regarding the patient's goals of care, CODE STATUS. Justifications for Admission Other Justification NADER RICHARDS MD Dec 03, 2020 15:07
--- NOTE | 2020-12-03 15:11 | NUR ---
Report called to MIRIAM Galvez. Questions answered. VSS.
[2020-12-03] MEDS ORDERED: ACETAMINOPHEN 325 MG TABLET. PO PRN (15:15)
[2020-12-03] MEDS ORDERED: ONDANSETRON PF 4 MG/2 ML VIAL. IVP PRN (15:15)
[2020-12-03] MEDS ORDERED: LORazepam 0.5 MG TABLET PO PRN (15:15)
[2020-12-03] MEDS ORDERED: DEXTROSE 50% 25 GM / 50ML DISP.SYRIN. IV PRN (15:15)
[2020-12-03] MEDS ORDERED: SENNOSIDES 8.6 MG TABLET PO PRN (15:15)
[2020-12-03] MEDS ORDERED: ZOLPIDEM 5 MG TABLET. PO PRN ×2 (15:15→20:45)
[2020-12-03] MEDS ORDERED: DOCUSATE SODIUM 100 MG CAPSULE. PO PRN (15:15)
[2020-12-03] MEDS ORDERED: PROCHLORPERAZINE 10 MG/2 ML VIAL. IV PRN (15:15)
--- NOTE | 2020-12-03 15:23 | NUR ---
Patient arrived to room 671 via bed from cvobs after cardiac cath. at bedside. VSS. R groin site CDI. The patient, JATINDER HOUSE, 80 y/o, M admitted by NADER RICHARDS MD, was given written information regarding hospital policies, unit procedures and contact persons. Valuables were checked and noted. Home meds & history had been documented already. Will continue to monitor.
--- NOTE | 2020-12-03 16:24 | CARD ---
MR#: [id number] Date of Study: 12/03/2020 Ordering Physician: SAMPSON LEONARD, Referring Physician: SAMPSON LEONARD, Tech: RT Farzad(R) APPROVED REPORT Technologist: RT Farzad(R) Nurse: Isis Lacey RN Procedure(s) performed: 1. Left heart catheterization, selective coronary angiography 2. Instantaneous wave free ratio (IFR) measurement to left anterior descending artery stenosis 3. Successful PCI/drug-eluting stent placement to the left anterior descending artery Fluoro time: 10.9 min Dose: 82 Gycm2 Contrast: 181mls Mod Sed: 64 min INDICATION The indication(s) include : unstable angina . [facility] Clinical Frailty Scale [facility] Clinical Frailty Scale: Mildly Frail Heart Failure Heart Failure: No CASE TECHNIQUE IV conscious sedation was used throughout procedure with appropriate monitoring and was performed in the presence of a registered nurse who was an independent trained observer other than the physician p erforming the procedure. During this case, Fluoroscopy and low osmolar contrast were used for imaging . Specimen(s) Removed: No Estimated Blood loss: 15 cc's. PROCEDURE NARRATIVE After explaining the risks, benefits and alternative options, informed consent was obtained from shady ent. Patient was brought to the cardiac Coke Inspector and his right groin was prepped and draped in the u sual fashion. 20 cc of 2% lidocaine was infiltrated into the skin and subcutaneous tissues for local anesthesia. Arterial access was obtained in the right common femoral artery and a 6 Serbian sheath w as inserted. 6 Serbian JL4 6 Serbian JR4 catheters were used to perform selective angiography of the l eft and right coronary arteries. LVEDP and transaortic gradients were measured. Since patient had a ngiographically borderline significant stenosis involving the left anterior descending artery, a deci roosevelt was made to perform physiologic assessment using instantaneous wave free ratio (IFR). The left main coronary artery was engaged with a 6 Serbian XB 3.5 guide catheter and the stenosis in the mid se gment was crossed with a [employer] Verrata Plus pressure wire. iFR measurement was made there was sign ificant at 0.82. FINDINGS 1. Hemodynamics: Left ventricular end-diastolic pressure 16 mmHg. No pullback gradient across aorti c valve. 2. Coronary angiography: a. The left main coronary artery arose from the left sinus of Valsalva, gave rise to the left anteri or descending and left circumflex arteries and did not show any significant stenosis. b. The left anterior descending artery showed eccentric 70% stenosis in the midsegment that was phys iologically significant based on IFR measurement of 0.82. c. The left circumflex artery showed 40% stenosis in the distal segment. d. The right coronary artery was a large and dominant vessel arising from the right sinus of Valsalv a that showed widely patent stent in the proximal to mid segment. INTERVENTION A 2.5 x 15 mm Euphora balloon was advanced over the pressure wire, positioned across the stenosis in the mid segment of the left anterior descending artery and dilated at 12 penny. The lesion was then tr eated successfully with a 3.0 x 18 mm resolute Igor drug-eluting stent. Follow-up angiography showed resolution of the stenosis to 0% with DESTINI-3 distal flow. Patient tolerated the procedure well. He mostasis was achieved using Mynx closure device. There were no immediate complications. DESTINI Flow DESTINI Flow (Pre-Intervention): DESTINI-3 DESTINI Flow (Post-Intervention): DESTINI-3 Conclusion 1. Patent previously placed stent in the right coronary artery. 70% eccentric stenosis involving th e left anterior descending artery found to be physiologically significant based on IFR measurement of 0.82. 2. Successful PCI/drug-eluting stent placement to the left anterior descending artery. Recommendations 1. Aspirin 325 mg daily for 1 month followed by 81 mg daily 2. Plavix 75 mg daily 3. Cardiovascular risk factor modification Signed by : Jayant Hebert, Electronically Approved : 12/03/2020 16:24:35
[2020-12-03] MEDS ORDERED: NITROGLYCERIN SUBLINGUAL 0.4 MG BOTTLE OF 25. SL PRN (20:30)
[2020-12-03] MEDS ORDERED: HYDROcodone/APAP 5/325MG 1 TAB TABLET PO PRN (20:30)
[2020-12-03] MEDS ORDERED: DOXAZOSIN MESYLATE 4 MG TABLET. PO SCH (21:00)
[2020-12-03] MEDS ORDERED: clonazePAM 0.5 MG TABLET PO SCH (21:00)
[2020-12-03] MEDS ORDERED: INSULIN GLARGINE SYRINGE. SQ SCH (21:00)
[2020-12-03] MEDS: LABETALOL HCL 200 MG TABLET PO SCH (22:34)
[2020-12-03] MEDS: METHOCARBAMOL 500 MG TABLET PO SCH (22:35)
[2020-12-04 03:25] VITALS: BP 141/66
[2020-12-04] MEDS: IV 1/2 NORMAL SALINE 1,000 ML IV SCH (03:35)
[2020-12-04 05:06] LABS: BASO # 0.1 x10^3/uL (0.0-0.2); BASO % 1 % (0-3); EOS # 0.3 x10^3/uL (0.0-0.7); EOS % 4 % (0-3); HEMATOCRIT 32.1 % (39.0-53.0); HEMOGLOBIN 10.9 g/dL (13.0-17.5); LYMPH # 1.6 x10^3/uL (1.0-4.8); LYMPH % 21 % (24-48); MEAN CORPUSCULAR HEMOGLOBIN 32 pg (25-35); MEAN CORPUSCULAR HGB CONC 34 g/dL (31-37); MEAN CORPUSCULAR VOLUME 96 fL (79-100); MONO # 0.8 x10^3/uL (0.0-1.1); MONO % 10 % (0-9); NEUT % 64 % (31-73); PLATELET COUNT 215 x10^3/uL (140-400); RED BLOOD COUNT 3.36 x10^6/uL (4.30-5.70); RED CELL DISTRIBUTION WIDTH 13.9 % (11.5-14.5); WHITE BLOOD COUNT 7.8 x10^3/uL (4.0-11.0)
[2020-12-04 05:29] LABS: CALCIUM 8.1 mg/dL (8.5-10.1); CREATININE 5.2 mg/dL (0.7-1.3); GFR 10.8; MAGNESIUM 2.2 mg/dL (1.8-2.4); PHOSPHORUS 6.1 mg/dL (2.6-4.7); POTASSIUM 4.8 mmol/L (3.5-5.1)
[2020-12-04] MEDS ORDERED: FAMOTIDINE 20 MG TABLET. PO SCH (07:00)
[2020-12-04 07:24] VITALS: BP 170/67
[2020-12-04] MEDS ORDERED: ASPIRIN ENTERIC COATED 325 MG TABLET.DR. PO SCH (08:00)
[2020-12-04] MEDS ORDERED: CLOPIDOGREL BISULFATE 75 MG TABLET PO SCH (08:00)
[2020-12-04] MEDS ORDERED: BUMETANIDE 1 MG TABLET. PO SCH (09:00)
[2020-12-04] MEDS ORDERED: ATORVASTATIN CALCIUM 40 MG TABLET. PO SCH (09:00)
[2020-12-04] MEDS ORDERED: MULTIVITAMIN with MINERAL TABLET. PO SCH (09:00)
[2020-12-04] MEDS ORDERED: FINASTERIDE 5 MG TABLET. PO SCH (09:00)
[2020-12-04] MEDS ORDERED: ASPIRIN CHEWABLE 81 MG TABLET. PO SCH (09:00)
[2020-12-04] MEDS ORDERED: FOLIC/VIT B COMP W-C (RENAL) TABLET. PO SCH (09:00)
[2020-12-04] MEDS: METHOCARBAMOL 500 MG TABLET PO SCH ×2 (09:17→14:11)
[2020-12-04] MEDS: LABETALOL HCL 200 MG TABLET PO SCH (09:20)
[2020-12-04] MEDS: INSULIN LISPRO 300 UNITS/3 ML VIAL. SQ SCH ×2 (09:27→12:00)
--- NOTE | 2020-12-04 10:36 | PDOC ---
[employer] PROGRESS NOTE Date of Service DOS: DATE: 12/04/20 TIME: : Chief Complaint Chief Complaint ESRD on HD NSTEMI CAD (s/p stent) hypertension dyslipidemia diabetes mellitus type 2 hx of pancreatitis hx of C. Diff History of Present Illness History of Present Illness 12/04 Patient seen and examined at bedside charts reviewed Discussed with family Discussed stent and HD with patient and family TRANG and KRAIG Vitals/I&O Vitals/I&O: Vital Signs Date Time Temp Pulse Resp B/P (MAP) Pulse Ox O2 Delivery O2 Flow Rate FiO2 12/04/20 09:20 72 170/67 12/04/20 09:18 18 12/04/20 07:24 98.7 97 Room Air 98.7 I & O 12/03/20 12/03/20 12/04/20 15:00 23:00 07:00 Intake Total 300 ml 100 ml Output Total 100 ml 200 ml Balance 200 ml -100 ml Physical Exam Physical Exam: General: Well developed, well nourished, no acute distress, well appearing HEENT: Pupils equally round and reactive to light, EOMI, no discharge, normal conjunctiva Neck: Supple, no nuchal rigidity, no JVD, trachea midline, no tenderness Cardiac: RRR, no murmurs, no gallops, no rubs Chest/Lungs: CTAB, no wheeze, no rhonchi, no crackles Abdomen: soft, non-distended, no guarding, no peritoneal signs, non-tender Back: No tenderness Extremities: Right groin dressings is clear dry and intact. No pulsations or active bleeding. Neuro: Alert and oriented x 4, no focal deficits, normal speech General: Alert, Oriented X3, Cooperative Heart: Regular rate, Normal S1, Normal S2 Lungs: Clear Abdomen: Normal bowel sounds, Soft Extremities: No clubbing, No cyanosis Skin: No rashes, No breakdown, Other (Right Groin dressings clean and intact) Labs Labs: Laboratory Tests Test 12/03/20 12:45 12/03/20 16:55 12/03/20 21:09 12/04/20 04:30 Activated Clotting Time 259 sec (92-181) Glucose (Fingerstick) 156 mg/dL (70-99) 276 mg/dL (70-99) White Blood Count 7.8 x10^3/uL (4.0-11.0) Red Blood Count 3.36 x10^6/uL (4.30-5.70) Hemoglobin 10.9 g/dL (13.0-17.5) Hematocrit 32.1 % (39.0-53.0) Mean Corpuscular Volume 96 fL (79-100) Mean Corpuscular Hemoglobin 32 pg (25-35) Mean Corpuscular Hemoglobin Concent 34 g/dL (31-37) Red Cell Distribution Width 13.9 % (11.5-14.5) Platelet Count 215 x10^3/uL (140-400) Neutrophils (%) (Auto) 64 % (31-73) Lymphocytes (%) (Auto) 21 % (24-48) Monocytes (%) (Auto) 10 % (0-9) Eosinophils (%) (Auto) 4 % (0-3) Basophils (%) (Auto) 1 % (0-3) Neutrophils # (Auto) 5.0 x10^3/uL (1.8-7.7) Lymphocytes # (Auto) 1.6 x10^3/uL (1.0-4.8) Monocytes # (Auto) 0.8 x10^3/uL (0.0-1.1) Eosinophils # (Auto) 0.3 x10^3/uL (0.0-0.7) Basophils # (Auto) 0.1 x10^3/uL (0.0-0.2) Sodium Level 139 mmol/L (136-145) Potassium Level 4.8 mmol/L (3.5-5.1) Chloride Level 103 mmol/L (98-107) Carbon Dioxide Level 27 mmol/L (21-32) Anion Gap 9 (6-14) Blood Urea Nitrogen 58 mg/dL (8-26) Creatinine 5.2 mg/dL (0.7-1.3) Estimated GFR (Cockcroft-Gault) 10.8 Glucose Level 105 mg/dL (70-99) Calcium Level 8.1 mg/dL (8.5-10.1) Phosphorus Level 6.1 mg/dL (2.6-4.7) Magnesium Level 2.2 mg/dL (1.8-2.4) Test 12/04/20 09:08 Glucose (Fingerstick) 173 mg/dL (70-99) Review of Systems Review of Systems: ROS negative Assessment and Plan Assessmemt and Plan NSTEMI s/p left heart cath with KATHIE in LAD 12/03/20 CAD with stents ESRD with HD Diabetes mellitus type 2 Hypertension Hx pancreatitis Hx of C. Diff Plan Cardiology and nephrology input appreciated Probable discharge after HD, per cardiology and nephrology approval Continue aspirin and Plavix Continue monitoring on telemetry serial enzymes serial EKGs R ISS and Accu-Cheks DVT prophylaxis: heparin ADA/cardiac diet DPOA: Disposition: likely home after HD as noted above Full code Comment Review of Relevant I have reviewed the following items yasmine (where applicable) has been applied. Medications: Current Medications Medications (Trade) Dose Ordered Sig/Amber Route PRN Reason Start Time Stop Time Status Last Admin Dose Admin Heparin Sodium/ Sodium Chloride (HEPARIN for ARTERIAL LINE FLUSH) 1,000 unit 1X ONCE IART 12/03/20 12:15 12/03/20 12:16 DC 12/03/20 12:15 Heparin Sodium/ Sodium Chloride (HEPARIN for ARTERIAL LINE FLUSH) 1,000 unit 1X ONCE IART 12/03/20 12:15 12/03/20 12:16 DC 12/03/20 12:15 Midazolam HCl (Versed) 2 mg 1X ONCE IV 12/03/20 12:15 12/03/20 12:16 DC 12/03/20 12:22 Fentanyl Citrate (Fentanyl 2ml Vial) 100 mcg 1X ONCE IV 12/03/20 12:15 12/03/20 12:16 DC 12/03/20 12:22 Iodixanol (Visipaque 320) 100 ml 1X ONCE IART 12/03/20 12:15 12/03/20 12:16 DC 12/03/20 13:04 Lidocaine HCl (Lidocaine 1% 20ml Vial) 20 ml 1X ONCE INJ 12/03/20 12:15 12/03/20 12:16 DC 12/03/20 12:28 Ondansetron HCl (Zofran) 4 mg 1X ONCE IVP 12/03/20 12:30 12/03/20 12:32 DC 12/03/20 12:24 Heparin Sodium (Porcine) (Heparin Sodium) 4,000 unit 1X ONCE IV 12/03/20 12:45 12/03/20 12:46 DC 12/03/20 12:36 Clopidogrel Bisulfate (Plavix) 600 mg 1X ONCE PO 12/03/20 13:15 12/03/20 13:16 DC 12/03/20 13:23 Aspirin (Rebeca Aspirin) 325 mg 1X ONCE PO 12/03/20 13:15 12/03/20 13:16 DC 12/03/20 13:23 Aspirin (Ecotrin) 325 mg DAILYWBKFT PO 12/04/20 08:00 12/04/20 09:17 Clopidogrel Bisulfate (Plavix) 75 mg DAILYWBKFT PO 12/04/20 08:00 12/04/20 09:19 Aspirin (Aspirin Chewable) 81 mg DAILY PO 12/04/20 09:00 12/04/20 09:18 Atorvastatin Calcium (Lipitor) 40 mg DAILY PO 12/04/20 09:00 12/04/20 09:19 Bumetanide (Bumex) 1 mg DAILY PO 12/04/20 09:00 12/04/20 09:18 Doxazosin Mesylate (Cardura) 4 mg HS PO 12/03/20 21:00 12/03/20 22:33 Famotidine (Pepcid) 20 mg DAILY07 PO 12/04/20 07:00 12/04/20 09:19 Finasteride (Proscar) 5 mg DAILY PO 12/04/20 09:00 12/04/20 09:17 Vitamin B Complex/ Vitamin C (Gaby-Zeenat) 1 tab DAILY PO 12/04/20 09:00 12/04/20 09:17 Hydralazine HCl (Apresoline) 50 mg TID PO 12/03/20 21:00 12/04/20 09:18 Acetaminophen/ Hydrocodone Bitart (Lortab 5/325) 1 tab PRN Q6HRS PRN PO PAIN 12/03/20 20:30 12/04/20 09:18 Labetalol HCl (Trandate) 200 mg BID PO 12/03/20 21:00 12/04/20 09:20 Methocarbamol (Robaxin) 500 mg TID PO 12/03/20 21:00 12/04/20 09:17 Clonazepam (KlonoPIN) 1 mg HS PO 12/03/20 21:00 12/03/20 22:35 Insulin Human Lispro (HumaLOG) 13 units TIDWMEALS SQ 12/04/20 08:00 12/04/20 09:27 Insulin Glargine (Lantus Syringe) 10 unit QHS SQ 12/03/20 21:00 12/03/20 22:38 Multivitamins (Thera M Plus) 1 tab DAILY PO 12/04/20 09:00 12/04/20 09:19 Justifications for Admission Other Justification FRANCK NICK III DO Dec 04, 2020 10:36
--- NOTE | 2020-12-04 10:45 | PDOC2 ---
CONSULT Date of Consult Date of Consult DATE: 12/04/20 TIME: 10:45 Reason for Consult Reason for Consult: ESRD Source Source: Chart review, Patient History of Present Illness Reason for Visit: 80-year-old male with past medical history of end-stage renal disease, hypertension, diabetes mellitus type 2 who comes in to the hospital for planned vascular surgery for his left arm fistula.During his preop he was complaining of chest discomfort . Chest pain was radiating towards his left arm and he stated that this had occurred in his previous dialysis sessions as well .He was taken to the [facility], received a drug-eluting stent in the LAD which showed a 70% stenosis in the midsegmen He was admitted for observation overnight. No syncope or palpitations,No shortness of breath . No N/V . No F/C He Dialysis days are MWF- last was on Monday . Currently asymptomatic . prefers to hold off dialysis today and wait till Monday due to his procedures Past Medical History Cardiovascular: CAD, HTN, Hyperlipidemia Pulmonary: No pertinent hx CENTRAL NERVOUS SYSTEM: Carpal Tunnel Syndrome GI: GERD Heme/Onc: No pertinent hx Hepatobiliary: No pertinent hx Psych: Anxiety Musculoskeletal: Osteoarthritis Rheumatologic: No pertinent hx Infectious disease: No pertinent hx Renal/: Chronic renal insuff Endocrine: Diabetes Past Surgical History Past Surgical History: Cholecystectomy, Other Family History Family History: Heart Disease Social History ALCOHOL: none Drugs: None Current Medications Current Medications Current Medications Heparin Sodium (Porcine) 5000 unit/Sodium Chloride 505 ml @ 505 mls/hr 1X ONCE IRR ; Start 12/03/20 at 06:00; Stop 12/03/20 at 06:59; Status DC Cefazolin Sodium 1 gm/Sodium Chloride 500 ml @ 500 mls/hr 1X ONCE IRR ; Start 12/03/20 at 06:00; Stop 12/03/20 at 06:59; Status DC Fentanyl Citrate (Fentanyl 2ml Vial) 25 mcg PRN Q5MIN PRN IVP MILD PAIN 1-3; Start 12/03/20 at 06:00; Stop 12/03/20 at 20:00; Status DC Fentanyl Citrate (Fentanyl 2ml Vial) 50 mcg PRN Q5MIN PRN IVP MODERATE PAIN 4- 6; Start 12/03/20 at 06:00; Stop 12/03/20 at 20:00; Status DC Morphine Sulfate (Morphine Sulfate) 1 mg PRN Q10MIN PRN IVP SEVERE PAIN 7-10; Start 12/03/20 at 06:00; Stop 12/03/20 at 20:00; Status DC Ringer's Solution 1,000 ml @ 30 mls/hr Q24H IV ; Start 12/03/20 at 06:00; Stop 12/03/20 at 17:59; Status DC Hydromorphone HCl (Dilaudid) 0.5 mg PRN Q10MIN PRN IVP SEVERE PAIN 7-10, 2nd CHOICE; Start 12/03/20 at 06:00; Stop 12/03/20 at 20:00; Status DC Prochlorperazine Edisylate (Compazine) 5 mg PACU PRN PRN IVP NAUSEA, MRX1; Start 12/03/20 at 06:00; Stop 12/03/20 at 20:00; Status DC Cefazolin Sodium/ Dextrose 50 ml @ 100 mls/hr 1X PREOP PRN IV PRIOR TO P ROCEDURE; Start 12/03/20 at 06:00; Stop 12/03/20 at 18:00; Status DC Lidocaine HCl (Lidocaine 1% 20ml Vial) 20 ml STK-MED ONCE .ROUTE ; Start 12/03/20 at 07:04; Stop 12/03/20 at 07:04; Status DC Lidocaine HCl (Lidocaine 1% 20ml Vial) 20 ml STK-MED ONCE .ROUTE ; Start 12/03/20 at 07:04; Stop 12/03/20 at 07:04; Status DC Cellulose (Surgicel Fibrillar 1x2) 1 each STK-MED ONCE .ROUTE ; Start 12/03/20 at 07:04; Stop 12/03/20 at 07:04; Status DC Papaverine HCl 60 mg STK-MED ONCE .ROUTE ; Start 12/03/20 at 07:04; Stop 12/03/20 at 07:04; Status DC Scopolamine (Transderm-Scop) 1 patch 1X ONCE TD ; Start 12/03/20 at 09:30; S top 12/03/20 at 09:31; Status DC Sodium Chloride 1,000 ml @ 100 mls/hr Q10H IV Last administered on 12/03/20at 09:56; Start 12/03/20 at 10:00 Scopolamine (Transderm-Scop) 1 patch 1X ONCE TD ; Start 12/03/20 at 10:00; Stop 12/03/20 at 10:01; Status DC Insulin Human Lispro (HumaLOG VIAL for OP,RR ONLY) 0-10 units PRN Q1HR PRN SQ PER PROTOCOL; Start 12/03/20 at 10:00; Stop 12/04/20 at 09:59; Status DC Iodixanol (Visipaque 320) 100 ml STK-MED ONCE .ROUTE ; Start 12/03/20 at 11:57; Stop 12/03/20 at 11:57; Status DC Lidocaine HCl (Xylocaine-Mpf 1% 2ml Vial) 2 ml STK-MED ONCE .ROUTE ; Start 12/03/20 at 11:57; Stop 12/03/20 at 11:57; Status DC Heparin Sodium/ Sodium Chloride 1,000 ml @ As Directed STK-MED ONCE .ROUTE ; Start 12/03/20 at 11:57; Stop 12/03/20 at 11:57; Status DC Iodixanol (Visipaque 320) 100 ml STK-MED ONCE .ROUTE ; Start 12/03/20 at 11:57; Stop 12/03/20 at 11:58; Status DC Fentanyl Citrate (Fentanyl 2ml Vial) 100 mcg STK-MED ONCE .ROUTE ; Start 12/03/20 at 12:03; Stop 12/03/20 at 12:04; Status DC Midazolam HCl (Versed) 2 mg STK-MED ONCE .ROUTE ; Start 12/03/20 at 12:04; Stop 12/03/20 at 12:04; Status DC Heparin Sodium/ Sodium Chloride (HEPARIN for ARTERIAL LINE FLUSH) 1,000 unit 1X ONCE IART Last administered on 12/03/20at 12:15; Start 12/03/20 at 12:15; Stop 12/03/20 at 12:16; Status DC Heparin Sodium/ Sodium Chloride (HEPARIN for ARTERIAL LINE FLUSH) 1,000 unit 1X ONCE IART Last administered on 12/03/20at 12:15; Start 12/03/20 at 12:15; Stop 12/03/20 at 12:16; Status DC Midazolam HCl (Versed) 2 mg 1X ONCE IV Last administered on 12/03/20at 12:22; Start 12/03/20 at 12:15; Stop 12/03/20 at 12:16; Status DC Fentanyl Citrate (Fentanyl 2ml Vial) 100 mcg 1X ONCE IV Last administered on 12/03/20at 12:22; Start 12/03/20 at 12:15; Stop 12/03/20 at 12:16; Status DC Iodixanol (Visipaque 320) 100 ml 1X ONCE IART Last administered on 12/03/20at 13:04; Start 12/03/20 at 12:15; Stop 12/03/20 at 12:16; Status DC Lidocaine HCl (Lidocaine 1% 20ml Vial) 20 ml 1X ONCE INJ Last administered on 12/03/20at 12:28; Start 12/03/20 at 12:15; Stop 12/03/20 at 12:16; Status DC Lidocaine HCl (Lidocaine 1% 20ml Vial) 20 ml STK-MED ONCE .ROUTE ; Start 12/03/20 at 12:15; Stop 12/03/20 at 12:16; Status Cancel Ondansetron HCl (Zofran) 4 mg STK-MED ONCE .ROUTE ; Start 12/03/20 at 12:23; Stop 12/03/20 at 12:24; Status DC Ondansetron HCl (Zofran) 4 mg 1X ONCE IVP Last administered on 12/03/20at 12:24; Start 12/03/20 at 12:30; Stop 12/03/20 at 12:32; Status DC Midazolam HCl (Versed) 2 mg STK-MED ONCE .ROUTE ; Start 12/03/20 at 12:30; Stop 12/03/20 at 12:30; Status DC Heparin Sodium (Porcine) (Heparin Sodium) 10,000 unit STK-MED ONCE .ROUTE ; Start 12/03/20 at 12:36; Stop 12/03/20 at 12:37; Status DC Heparin Sodium (Porcine) (Heparin Sodium) 4,000 unit 1X ONCE IV Last administered on 12/03/20at 12:36; Start 12/03/20 at 12:45; Stop 12/03/20 at 12:46; Status DC Iodixanol (Visipaque 320) 100 ml STK-MED ONCE .ROUTE ; Start 12/03/20 at 12:53; Stop 12/03/20 at 12:54; Status DC Clopidogrel Bisulfate (Plavix) 600 mg 1X ONCE PO Last administered on 12/03/20at 13:23; Start 12/03/20 at 13:15; Stop 12/03/20 at 13:16; Status DC Aspirin (Rebeca Aspirin) 325 mg 1X ONCE PO Last administered on 12/03/20at 13:23; Start 12/03/20 at 13:15; Stop 12/03/20 at 13:16; Status DC Sodium Chloride 1,000 ml @ 75 mls/hr [id number] IV ; Start 12/03/20 at 14:15 Aspirin (Ecotrin) 325 mg DAILYWBKFT PO Last administered on 12/04/20at 09:17; Start 12/04/20 at 08:00 Clopidogrel Bisulfate (Plavix) 75 mg DAILYWBKFT PO Last administered on 12/04/20at 09:19; Start 12/04/20 at 08:00 Sennosides (Senna) 17.2 mg PRN BID PRN PO CONSTIPATION; Start 12/03/20 at 15:15 Docusate Sodium (Colace) 100 mg PRN DAILY PRN PO HARD STOOLS; Start 12/03/20 at 15:15 Ondansetron HCl (Zofran) 4 mg PRN Q6HRS PRN IVP NAUSEA/VOMITING; Start 12/03/20 at 15:15 Dextrose (Dextrose 50%-Water Syringe) 12.5 gm PRN Q15MIN PRN IV SEE COMMENTS; Start 12/03/20 at 15:15 Acetaminophen (Tylenol) 650 mg PRN Q4HRS PRN PO TEMP OVER 100.4F OR MILD PAIN; Start 12/03/20 at 15:15 Lorazepam (Ativan) 0.5 mg PRN Q6HRS PRN PO ANXIETY / AGITATION; Start 12/03/20 at 15:15 Lorazepam (Ativan Inj) 0.25 mg PRN Q4HRS PRN IV ANXIETY / AGITATION; Start 12/03/20 at 15:15 Prochlorperazine Edisylate (Compazine) 10 mg PRN Q6HRS PRN IV NAUSEA/VOMITING; Start 12/03/20 at 15:15 Zolpidem Tartrate (Ambien) 2.5 mg PRN QHS PRN PO INSOMNIA; Start 12/03/20 at 15:15; Stop 12/04/20 at 09:21; Status DC Aspirin (Aspirin Chewable) 81 mg DAILY PO Last administered on 12/04/20 09:18; Start 12/04/20 at 09:00 Atorvastatin Calcium (Lipitor) 40 mg DAILY PO Last administered on 12/04/20 09:19; Start 12/04/20 at 09:00 Bumetanide (Bumex) 1 mg DAILY PO Last administered on 12/04/20 09:18; Start 12/04/20 at 09:00 Doxazosin Mesylate (Cardura) 4 mg HS PO Last administered on 12/03/20 22:33; Start 12/03/20 at 21:00 Famotidine (Pepcid) 20 mg DAILY07 PO Last administered on 12/04/20 09:19; Start 12/04/20 at 07:00 Finasteride (Proscar) 5 mg DAILY PO Last administered on 12/04/20 09:17; Start 12/04/20 at 09:00 Vitamin B Complex/ Vitamin C (Gaby-Zeenat) 1 tab DAILY PO Last administered on 12/04/20at 09:17; Start 12/04/20 at 09:00 Hydralazine HCl (Apresoline) 50 mg TID PO Last administered on 12/04/20 09:18; Start 12/03/20 at 21:00 Acetaminophen/ Hydrocodone Bitart (Lortab 5/325) 1 tab PRN Q6HRS PRN PO PAIN Last administered on 12/04/20 09:18; Start 12/03/20 at 20:30 Labetalol HCl (Trandate) 200 mg BID PO Last administered on 12/04/20at 09:20; Start 12/03/20 at 21:00 Methocarbamol (Robaxin) 500 mg TID PO Last administered on 12/04/20 09:17; Start 12/03/20 at 21:00 Nitroglycerin (Nitrostat) 0.4 mg PRN Q5MIN PRN SL CHEST PAIN; Start 12/03/20 at 20:30 Clonazepam (KlonoPIN) 1 mg HS PO Last administered on 12/03/20at 22:35; Start 12/03/20 at 21:00 Insulin Human Lispro (HumaLOG) 13 units TIDWMEALS SQ Last administered on 10/22/21at 09:27; Start 12/04/20 at 08:00 Insulin Glargine (Lantus Syringe) 10 unit QHS SQ Last administered on 12/03/20at 22:38; Start 12/03/20 at 21:00 Multivitamins (Thera M Plus) 1 tab DAILY PO Last administered on 12/04/20at 09:19; Start 12/04/20 at 09:00 Zolpidem Tartrate (Ambien) 5 mg PRN QHS PRN PO INSOMNIA; Start 12/03/20 at 20:45 Active Scripts Active Nitrostat (Nitroglycerin) 0.4 Mg Tab.subl 0.4 Mg SL PRN Q5MIN PRN 30 Days Reported Doxazosin Mesylate 4 Mg Tablet 4 Mg PO HS Nephro-Zeenat Tablet (Folic Acid/Vitamin B Comp W-C) 0.8 Mg Tablet 0.8 Mg PO DAILY Atorvastatin Calcium 40 Mg Tablet 40 Mg PO DAILY Hydrocodone-Apap 5-325 (Hydrocodone Bit/Acetaminophen) 1 Tab Tablet 1 Tab PO PRN Q6HRS PRN Famotidine 20 Mg Tablet 20 Mg PO DAILY07 Methocarbamol 500 Mg Tablet 500 Mg PO TID Labetalol Hcl 200 Mg Tablet 1 Tab PO BID Bumetanide 1 Mg Tablet 1 Tab PO DAILY Hydralazine Hcl 50 Mg Tablet 1 Tab PO TID Finasteride 5 Mg Tablet 1 Tab PO DAILY Novolog Flexpen (Insulin Aspart) 100 Unit/1 Ml Insuln.pen 13 Unit SQ TID Aspirin 81 Mg Tab.chew 1 Tab PO DAILY Lantus Solostar (Insulin Glargine,Hum.rec.anlog) 100 Unit/1 Ml Insuln.pen 10 Unit SQ HS Multivitamins (Multivitamin) 1 Each Tablet 1 Tab PO DAILY Zolpidem Tartrate Er (Zolpidem Tartrate) 12.5 Mg Tab.mphase 1 Tab PO QHS Clonazepam 1 Mg Tablet 1 Mg PO HS Allergies Allergies: Coded Allergies: pseudoephedrine (Verified Adverse Reaction, Severe, urinary retention, 12/03/20) codeine (Verified Adverse Reaction, Intermediate, gi upset, 12/03/20) ROS Review of System As per HPI, rest of the ROS is negative Physical Exam Physical Exam General NAD HEEN OM moist Neck Supple Lungs CTA, Non labored CV S1S2, No M/E.G Abd Soft, NT, BS + Ext No LE edema , Vital Signs Vital Signs Date Time Temp Pulse Resp B/P (MAP) Pulse Ox O2 Delivery O2 Flow Rate FiO2 12/04/20 09:20 72 170/67 12/04/20 09:18 18 12/04/20 07:24 98.7 97 Room Air 98.7 Assessment & Plan ESRD On HD MWF , last HD was on Monday . Patient and would like to hold off on dialysis today E-lytes stable, K normal . Discussed with Patient and that I would recommned Dialysis today - at [facility] or can go back to his OP Unit at 3 PM - if dced prior to that. he can also call [facility] if they can do dialysis tomorrow as he is feeling tired today after Cath Recommend not to wait till Monday as it will be 4 days without dialysis . Alan RN to let us know of patients plan Acute onset of unstable angina- over the last 1 week. Patient has multiple cardiovascular risk factors . S/P Cardiac Cath on 12/03 - PCI/drug-eluting stent placement to the left anterior descending artery. History of CAD with stents diabetes mellitus type 2 hypertension per cardiology Labs Labs Laboratory Tests Test 12/03/20 09:36 12/03/20 12:45 12/03/20 16:55 12/03/20 21:09 White Blood Count 7.8 x10^3/uL (4.0-11.0) Red Blood Count 3.80 x10^6/uL (4.30-5.70) Hemoglobin 12.1 g/dL (13.0-17.5) Hematocrit 35.9 % (39.0-53.0) Mean Corpuscular Volume 95 fL (79-100) Mean Corpuscular Hemoglobin 32 pg (25-35) Mean Corpuscular Hemoglobin Concent 34 g/dL (31-37) Red Cell Distribution Width 13.8 % (11.5-14.5) Platelet Count 236 x10^3/uL (140-400) Neutrophils (%) (Auto) 63 % (31-73) Lymphocytes (%) (Auto) 23 % (24-48) Monocytes (%) (Auto) 10 % (0-9) Eosinophils (%) (Auto) 4 % (0-3) Basophils (%) (Auto) 1 % (0-3) Neutrophils # (Auto) 4.9 x10^3/uL (1.8-7.7) Lymphocytes # (Auto) 1.8 x10^3/uL (1.0-4.8) Monocytes # (Auto) 0.8 x10^3/uL (0.0-1.1) Eosinophils # (Auto) 0.3 x10^3/uL (0.0-0.7) Basophils # (Auto) 0.1 x10^3/uL (0.0-0.2) Sodium Level 139 mmol/L (136-145) Potassium Level 4.1 mmol/L (3.5-5.1) Chloride Level 102 mmol/L (98-107) Carbon Dioxide Level 30 mmol/L (21-32) Anion Gap 7 (6-14) Blood Urea Nitrogen 48 mg/dL (8-26) Creatinine 4.3 mg/dL (0.7-1.3) Estimated GFR (Cockcroft-Gault) 13.4 Glucose Level 178 mg/dL (70-99) Glucose (Fingerstick) 188 mg/dL (70-99) 156 mg/dL (70-99) 276 mg/dL (70-99) Calcium Level 8.6 mg/dL (8.5-10.1) Activated Clotting Time 259 sec (92-181) Test 12/04/20 04:30 12/04/20 09:08 White Blood Count 7.8 x10^3/uL (4.0-11.0) Red Blood Count 3.36 x10^6/uL (4.30-5.70) Hemoglobin 10.9 g/dL (13.0-17.5) Hematocrit 32.1 % (39.0-53.0) Mean Corpuscular Volume 96 fL (79-100) Mean Corpuscular Hemoglobin 32 pg (25-35) Mean Corpuscular Hemoglobin Concent 34 g/dL (31-37) Red Cell Distribution Width 13.9 % (11.5-14.5) Platelet Count 215 x10^3/uL (140-400) Neutrophils (%) (Auto) 64 % (31-73) Lymphocytes (%) (Auto) 21 % (24-48) Monocytes (%) (Auto) 10 % (0-9) Eosinophils (%) (Auto) 4 % (0-3) Basophils (%) (Auto) 1 % (0-3) Neutrophils # (Auto) 5.0 x10^3/uL (1.8-7.7) Lymphocytes # (Auto) 1.6 x10^3/uL (1.0-4.8) Monocytes # (Auto) 0.8 x10^3/uL (0.0-1.1) Eosinophils # (Auto) 0.3 x10^3/uL (0.0-0.7) Basophils # (Auto) 0.1 x10^3/uL (0.0-0.2) Sodium Level 139 mmol/L (136-145) Potassium Level 4.8 mmol/L (3.5-5.1) Chloride Level 103 mmol/L (98-107) Carbon Dioxide Level 27 mmol/L (21-32) Anion Gap 9 (6-14) Blood Urea Nitrogen 58 mg/dL (8-26) Creatinine 5.2 mg/dL (0.7-1.3) Estimated GFR (Cockcroft-Gault) 10.8 Glucose Level 105 mg/dL (70-99) Calcium Level 8.1 mg/dL (8.5-10.1) Phosphorus Level 6.1 mg/dL (2.6-4.7) Magnesium Level 2.2 mg/dL (1.8-2.4) Glucose (Fingerstick) 173 mg/dL (70-99) Laboratory Tests Test 12/03/20 12:45 12/03/20 16:55 12/03/20 21:09 12/04/20 04:30 Activated Clotting Time 259 sec (92-181) Glucose (Fingerstick) 156 mg/dL (70-99) 276 mg/dL (70-99) White Blood Count 7.8 x10^3/uL (4.0-11.0) Red Blood Count 3.36 x10^6/uL (4.30-5.70) Hemoglobin 10.9 g/dL (13.0-17.5) Hematocrit 32.1 % (39.0-53.0) Mean Corpuscular Volume 96 fL (79-100) Mean Corpuscular Hemoglobin 32 pg (25-35) Mean Corpuscular Hemoglobin Concent 34 g/dL (31-37) Red Cell Distribution Width 13.9 % (11.5-14.5) Platelet Count 215 x10^3/uL (140-400) Neutrophils (%) (Auto) 64 % (31-73) Lymphocytes (%) (Auto) 21 % (24-48) Monocytes (%) (Auto) 10 % (0-9) Eosinophils (%) (Auto) 4 % (0-3) Basophils (%) (Auto) 1 % (0-3) Neutrophils # (Auto) 5.0 x10^3/uL (1.8-7.7) Lymphocytes # (Auto) 1.6 x10^3/uL (1.0-4.8) Monocytes # (Auto) 0.8 x10^3/uL (0.0-1.1) Eosinophils # (Auto) 0.3 x10^3/uL (0.0-0.7) Basophils # (Auto) 0.1 x10^3/uL (0.0-0.2) Sodium Level 139 mmol/L (136-145) Potassium Level 4.8 mmol/L (3.5-5.1) Chloride Level 103 mmol/L (98-107) Carbon Dioxide Level 27 mmol/L (21-32) Anion Gap 9 (6-14) Blood Urea Nitrogen 58 mg/dL (8-26) Creatinine 5.2 mg/dL (0.7-1.3) Estimated GFR (Cockcroft-Gault) 10.8 Glucose Level 105 mg/dL (70-99) Calcium Level 8.1 mg/dL (8.5-10.1) Phosphorus Level 6.1 mg/dL (2.6-4.7) Magnesium Level 2.2 mg/dL (1.8-2.4) Test 12/04/20 09:08 Glucose (Fingerstick) 173 mg/dL (70-99) Review All relevant outside records, renal labs, imaging studies, telemetry/EKG's were reviewed. GERRY PARSONS MD Dec 04, 2020 10:45
[2020-12-04 11:10] VITALS: BP 160/69
--- NOTE | 2020-12-04 11:32 | NUR ---
SS following for discharge planning. SS reviewed pt chart and discussed with pt RN. Pt is from home with spouse and is currently on room air. Pt has outpatient hemodialysis at [facility], ; fax [phone], Monday, Monday, and Monday. Pt not wanting to do dialysis in the hospital. SS discussed with pt's spouse and Dr. Sterling. Sangita at [facility] reporting that they are able to see pt at 0700 tomorrow, 12/05/[address], for dialysis. Dr. Sterling agreeable to plan. Pt will discharge to home today with spouse. Pt's RN notified.
[2020-12-04] MEDS ORDERED: CLOP75TA PO (12:38)
[2020-12-04] MEDS ORDERED: ASPI325T11 PO (12:38)
--- NOTE | 2020-12-04 12:56 | DS ---
DATE OF DISCHARGE: 12/04/2020 ADMITTING DIAGNOSIS: Acute myocardial infarction. DISCHARGE DIAGNOSES: Resolving acute myocardial infarction, status post coronary artery stent placement to the left anterior descending artery with a previous stent in the right coronary artery noted; history of hypertension, hyperlipidemia, diabetes, pancreatitis, left arm AV fistula, left ankle fusion, right rotator cuff surgery, C3 through C7 laminectomy with fusion. CONSULTS: Cardiology. PROCEDURES: Cardiac catheterization with stent to the LAD. HOSPITAL COURSE: The patient is a pleasant elderly male who has multiple comorbidities including end-stage renal disease and he is on dialysis. Basically, he presented with chest pain. He was noted to have some EKG changes. We admitted the patient, consulted Cardiology. He was taken for cardiac catheterization with Dr. Hebert. There was a successful PCI/drug-eluting stent placement to the left anterior descending artery. Today, I saw and examined the patient. He is doing great, wants to go home. He does need to dialyze today, but we could not get a schedule for today. I consulted Dr. Sterling, she has arranged for him to get dialysis tomorrow morning, so the patient is clinically stable for discharge. We will discharge if okay with Cardiology. DISPOSITION: Home. ACTIVITY: As tolerated. DIET: Cardiac/renal. MEDICATIONS: Aspirin 325 daily, Plavix 75 a day, atorvastatin 40 a day, bumetanide 1 a day, clonazepam 1 at bedtime, doxazosin 4 a day, finasteride 5 a day, Pepcid 20 b.i.d., vitamins, folic acid, hydralazine 50 t.i.d., hydrocodone 5 q.4 hours p.r.n., insulin 13 units t.i.d. of NovoLog and 10 units at bedtime of Lantus, labetalol 200 b.i.d., methocarbamol 500 t.i.d., p.r.n. nitro, and Ambien 10 at bedtime. TOTAL TIME: [address]: REBECCA/tata TID: [id number]
[2020-12-04 14:15] VITALS: BP 163/70
== END 2020-12-04 15:13 | disposition home or self-care (01) | DRG 246 ==
LOC: SURG 08:32 → 6 SOUTH 13:54 → OBSVTOIN 12-04 10:47
PROVIDERS: ADMIT Internal Medicine; ATTEND Surgery
PROC: 027034Z Dilation of Coronary Artery, One Artery with Drug-eluting Intraluminal Device, Percutaneous Approach (ICD-10-PCS; principal; 2020-12-04)
PROC: 4A033BC Measurement of Arterial Pressure, Coronary, Percutaneous Approach (ICD-10-PCS; 2020-12-04)
PROC: 4A023N7 Measurement of Cardiac Sampling and Pressure, Left Heart, Percutaneous Approach (ICD-10-PCS; 2020-12-04)
PROC: B2151ZZ Fluoroscopy of Left Heart using Low Osmolar Contrast (ICD-10-PCS; 2020-12-04)
PROC: B2111ZZ Fluoroscopy of Multiple Coronary Arteries using Low Osmolar Contrast (ICD-10-PCS; 2020-12-04)
DX: I21.4 Non-ST elevation (NSTEMI) myocardial infarction (principal); N18.6 End stage renal disease; I12.0 Hypertensive chronic kidney disease with stage 5 chronic kidney disease or end stage renal disease; I25.110 Atherosclerotic heart disease of native coronary artery with unstable angina pectoris; E11.22 Type 2 diabetes mellitus with diabetic chronic kidney disease; E78.5 Hyperlipidemia, unspecified; I25.2 Old myocardial infarction; Z79.02 Long term (current) use of antithrombotics/antiplatelets; Z79.82 Long term (current) use of aspirin; Z95.5 Presence of coronary angioplasty implant and graft; Z98.1 Arthrodesis status; Z99.2 Dependence on renal dialysis; F41.9 Anxiety disorder, unspecified; K21.9 Gastro-esophageal reflux disease without esophagitis; M19.90 Unspecified osteoarthritis, unspecified site; Z88.8 Allergy status to other drugs, medicaments and biological substances; Z79.899 Other long term (current) drug therapy; Z20.822 Contact with and (suspected) exposure to COVID-19
CPT/HCPCS: 92928; 93458; 93571; G0269; 36415; 80048; 82962; 83735; 84100; 85025; 85347; 93005; 99152; 99153; C1769; C1894; G0378; G0379; J0690; J1644; J1815; J2250; J2405; J2440; J3010; J3490; J7040; Q9967

== ENCOUNTER → 2021-01-01 | Outpatient (CLI) | payer MEDICARE ==
[2020-12-04 14:15] VITALS: BP 163/70
[~2021-01-01] MED LIST changes: +AMLO-54 PO; -AMLO1CAP54 PO; +ASPI325T11 PO; +BUPIVACAINE MPF 0.25% 10 ML VIAL. ONE; -HEPARIN SODIUM 5,000 UNIT in IV NORMAL SALINE 500ML BAG 500 ML IRR ONE; -HYDROmorphone 2 MG/ML VIAL IVP PRN; +IOHEXOL 180 MG/ML 10 ML VIAL. ONE; -IV RINGERS,LACTATED 1000ML 1,000 ML IV SCH; -LIDOCAINE 1% Multi-Dose 20 ML VIAL. ONE; -MORPHINE SULFATE 2 MG/ML INJ. IVP PRN; -PAPAVERINE 60 MG/2 ML VIAL. ONE; -PROCHLORPERAZINE 10 MG/2 ML VIAL. IVP PRN; -SURGICEL FIBRILLAR 1X2 EACH. ONE; -fentaNYL PF VIAL 100 MCG/2 ML VIAL IVP PRN; +methylPREDNISolone ACETATE 80 MG/ML VIAL. ONE
--- NOTE | 2021-01-01 11:12 | PDOC ---
Progress Note - Pain Clinic Date of Service: DOS: DATE: 01/01/21 TIME: 11:07 Diagnosis: Dx: Cervical radiculopathy with cervical degenerative disease and cervical spinal stenosis and cervical postlaminectomy syndrome Lumbar radiculopathy with lumbar degenerative disc disease lumbar spinal stenosis and lumbar spondylosis Right shoulder joint pain with osteoarthritis Left knee joint pain with osteoarthritis Myofascial pain History or Present Illness: HPI: 80-year-old male returns for follow-up status post lumbar epidural steroid injection November 12, 2020 patient did very well with about 75% initially with the pain returning now in the low back in the bilateral lower extremities posterior gluteus posterior thighs posterior calves but his main complaint is left knee joint pain which is getting much worse with walking standing changing positions. Patient is still on his Plavix and is not cleared to be off of this until March 16 by his vascular surgeon. Patient is getting an AV fistula placed in his arm in about 2 weeks she still using a Groshong for his dialysis in the right subclavian. Patient reports his knee is his main complaint is aching sharp with pain and weightbearing cramping dull on and off in intensity region 8 on scale 10 at all times worst least and average today. Patient reports no loss of motor function no bowel or bladder incontinence. Physical Exam: VS: Blood pressure is 120/54 pulse 63 respirations 18 temperature 30.1 F weight is 178 pounds PE: PHYSICAL EXAMINATION: GENERAL: The patient is awake, alert, oriented, appropriate, very pleasant in demeanor, patient Kumpe by his . HEENT: Shows normocephalic, atraumatic. Extraocular movements are intact and symmetrical. Oral cavity: Mucous membranes moist and pink. NECK: Shows anterior throat supple without palpable lymphadenopathy noted. Swallow reflex symmetrical. CHEST: Shows normal on inspection. Groshong catheter right subclavian. Breath sounds are clear bilaterally, distant no rales or rhonchi. HEART: Shows S1, S2 clear. No murmurs auscultated. ABDOMEN: Soft, nontender, nondistended. No palpable organomegaly is noted. No rebound or guarding demonstrated. BACK: Shows spine grossly in the midline. Normal-appearing cervical lordotic curvature. There is increased thoracic kyphosis, some flattening of the lumbar lordotic curvature. Lumbar paraspinous muscles show symmetrical on inspection, on palpation shows some moderate tenderness diffusely throughout the upper, middle and lower distribution of the paraspinous muscles without specific trigger points, without radiation of pain. The patient has good rotational motion of the lumbar spine, both laterally as well as extension and flexion without significant difficulty. No tenderness over the spinous processes, sacrum or sacroiliac regions. EXTREMITIES: Lower extremities show deep tendon reflexes 2+ in the patellar and tendo calcaneus tendons. Motor exam is 4 on a scale of 5 with right dorsiflexion, extension, quadriceps and hamstring flexion and 4/5 on the left. Peripheral pulses are 1+ posterior tibial. No peripheral edema is noted bilaterally. Lower extremities are warm and dry to touch, equal in color and appearance. Patient's left knee shows significant tenderness with palpation with the medial collateral ligament and the anterior aspect of the medial compartment lateral and medial patella as well patient shows good rotation of motion without ratcheting or crepitus bilaterally. SKIN: Shows warm and dry, good turgor. No edema. No sores, rashes or bruising throughout. Procedure: Procedure: Options discussed with the patient. Patient chart reviews his current medication regimen updated current review of systems updated today as well. We will proceed with left intra-articular knee joint injection today with fluoroscopic guidance. Risk discussed including but not limited to bleeding infection possibility of intravascular injection sequelae spread local anesthetic numbness side effects steroid medications post arthroscopy portals regarding pain control. Patient understands wished to proceed. Patient return to clinic in approximately 4 weeks for follow-up, was counseled as return appointment, activity level, and side effect to be aware of. Medication Injected: Med Injected: Under sterile prep and drape patient in supine position using C-arm fluoroscopic guidance patient's left knee was sterilely prepped and draped in usual fashion. Using C-arm fluoroscopy the medial aspect of the knee joint was identified and visualized and using 1% lidocaine 25-gauge needle of the area of the skin overlying the medial knee compartment was anesthetized. Using a 22-gauge quickie needle with stylette the joint was entered under direct visualization without difficulty. Stylet was removed at this time 1 cc of contrast was then injected with good spread within the knee joint itself without washout or uptake. At this time solution containing 3 cc of 0.25 bupivacaine and 80 mg Depo-Medrol, was then injected. Needle was withdrawn and sterile bandage was applied. Patient tolerated procedure well and had no complications. Condition at Discharge: Condition at Discharge: Condition at discharge is stable, paced tolerated procedure well and had no complications. KAITLIN SCHUMACHER MD Jan 01, 2021 11:12
--- NOTE | 2021-01-01 11:13 | PDOC4 ---
Procedure Note: ICD 10 Code: ICD 10 Code: M2 5.562 M1 7.12 Procedure Note: Patient was consented for left intra-articular knee joint injection with fluoroscopic guidance. Risks discussed including but not limited to bleeding infection possibility of intravascular injection sequelae spread local anesthetic numbness side effects steroid medication exposure fluoroscopy and portals regarding pain control. Patient understands wished to proceed. Under sterile prep and drape patient in supine position using C-arm fluoroscopic guidance patient's left knee was sterilely prepped and draped in usual fashion. Using C-arm fluoroscopy the medial aspect of the knee joint was identified and visualized and using 1% lidocaine 25-gauge needle of the area of the skin overlying the medial knee compartment was anesthetized. Using a 22-gauge quickie needle with stylette the joint was entered under direct visualization without difficulty. Stylet was removed at this time 1 cc of contrast was then injected with good spread within the knee joint itself without washout or uptake. At this time solution containing 3 cc of 0.25 bupivacaine and 80 mg Depo-Medrol, was then injected. Needle was withdrawn and sterile bandage was applied. Patient tolerated procedure well and had no complications. KAITLIN SCHUMACHER MD Jan 01, 2021 11:13
== END | disposition home or self-care (01) ==
LOC: PNCL 10:29
PROVIDERS: ATTEND Anesthesiology
DX: M25.562 Pain in left knee (principal); M17.12 Unilateral primary osteoarthritis, left knee; M19.011 Primary osteoarthritis, right shoulder; M25.511 Pain in right shoulder; M51.16 Intervertebral disc disorders with radiculopathy, lumbar region; M47.26 Other spondylosis with radiculopathy, lumbar region; M48.061 Spinal stenosis, lumbar region without neurogenic claudication; M50.10 Cervical disc disorder with radiculopathy, unspecified cervical region; M48.02 Spinal stenosis, cervical region; M96.1 Postlaminectomy syndrome, not elsewhere classified; I12.0 Hypertensive chronic kidney disease with stage 5 chronic kidney disease or end stage renal disease; E11.22 Type 2 diabetes mellitus with diabetic chronic kidney disease; N18.6 End stage renal disease; M19.90 Unspecified osteoarthritis, unspecified site; K21.9 Gastro-esophageal reflux disease without esophagitis; N40.0 Benign prostatic hyperplasia without lower urinary tract symptoms; E78.00 Pure hypercholesterolemia, unspecified; Z98.890 Other specified postprocedural states; Z90.49 Acquired absence of other specified parts of digestive tract; Z79.899 Other long term (current) drug therapy
CPT/HCPCS: 20610; 77002; J1040; J3490; Q9965

== ENCOUNTER → 2021-01-12 | Outpatient (CLI) | payer MEDICARE ==
[~2021-01-12] MED LIST changes: -BUPIVACAINE MPF 0.25% 10 ML VIAL. ONE; -IOHEXOL 180 MG/ML 10 ML VIAL. ONE; -methylPREDNISolone ACETATE 80 MG/ML VIAL. ONE
--- NOTE | 2021-01-12 16:13 | RAD ---
CT cervical spine without contrast dated 01/12/2021. COMPARISON: None. Clinical indication: Cervical radiculopathy. TECHNIQUE: Contiguous axial imaging the cervical spine performed with thin cut coronal and sagittal reconstructi on. One or more of the following individualized dose reduction techniques were utilized for this examinat ion: 1. Automated exposure control 2. Adjustment of the mA and/or kV according to patient size 3. Use of iterative reconstruction technique. FINDINGS: Reversal of the normal cervical lordosis. Sagittal alignment is otherwise anatomic. Vertebral body he ights are maintained. No prevertebral soft tissue swelling. There has been laminectomy from C3 to C7 posterior fusion rods and facet screws appear to be intact. No radiolucency along the screw margins. Mild endplate hypertrophic changes throughout. Multilevel di sc space narrowing and facet arthropathy. At C2-C3, mild broad-based posterior bulge with mild hypertrophic change of the facet joints. The gelacio tral canal and foramen are adequate. At C3-C4, no definite posterior bulge. Evaluation is limited due to beam hardening artifact. Central canal is adequate. There is moderate to severe bilateral foraminal stenosis, right greater than left. At C4-C5, there is slight anterolisthesis with mild to moderate facet hypertrophic changes. There is fusion of the left-sided facet joint. The central canal is adequate. Moderate to severe left foramina l stenosis. The right foramen is mildly narrowed. At C5-C6, severe disc space narrowing with mild broad-based posterior disc ossified complex and mild to moderate facet arthropathy. Central canal is adequate. There is moderate to severe left foraminal stenosis with mild foraminal narrowing at multiple right. At C6-C7, severe disc space narrowing with moderate broad-based posterior disc C5 complex and moderat e facet arthropathy. The central canal is adequate. There is severe left foraminal stenosis with mild to moderate foraminal narrowing on the right. At C7-T1, mild broad-based posterior disc osteophyte complex with moderate facet hypertrophic changes . Central canal is adequate. Moderate left and mild right foraminal narrowing. IMPRESSION: 1. Status post laminectomy and posterior lateral fusion from C3 to C7 with no apparent hardware compl ication. 2. Moderate multilevel spondylosis. There is multilevel mild to moderate foraminal narrowing througho ut. Please see above report for full details. Electronically signed by: Angel Patton MD (01/12/2021 4:10 PM) NICOLE
== END | disposition home or self-care (01) ==
LOC: CT 10:53
PROVIDERS: ATTEND Anesthesiology
DX: M47.22 Other spondylosis with radiculopathy, cervical region (principal); M48.02 Spinal stenosis, cervical region; E78.00 Pure hypercholesterolemia, unspecified; K21.9 Gastro-esophageal reflux disease without esophagitis; E66.9 Obesity, unspecified; M19.90 Unspecified osteoarthritis, unspecified site; I12.0 Hypertensive chronic kidney disease with stage 5 chronic kidney disease or end stage renal disease; N18.6 End stage renal disease; E11.22 Type 2 diabetes mellitus with diabetic chronic kidney disease; N40.0 Benign prostatic hyperplasia without lower urinary tract symptoms; Z99.2 Dependence on renal dialysis; Z90.49 Acquired absence of other specified parts of digestive tract; Z98.890 Other specified postprocedural states; Z79.82 Long term (current) use of aspirin; Z79.4 Long term (current) use of insulin; Z79.899 Other long term (current) drug therapy; Z87.891 Personal history of nicotine dependence; Z82.49 Family history of ischemic heart disease and other diseases of the circulatory system; Z88.5 Allergy status to narcotic agent; Z88.8 Allergy status to other drugs, medicaments and biological substances
CPT/HCPCS: 72125

== ENCOUNTER 2021-01-19 05:48 | Day surgery (SDC) | payer MEDICARE ==
[~2021-01-19] VITALS: Ht 167.6 cm; Wt 79.7 kg
[2021-01-19] MEDS ORDERED: fentaNYL PF VIAL 100 MCG/2 ML VIAL IVP PRN ×2 (06:00)
[2021-01-19] MEDS ORDERED: HYDROmorphone 2 MG/ML VIAL IVP PRN (06:00)
[2021-01-19] MEDS ORDERED: MORPHINE SULFATE 2 MG/ML INJ. IVP PRN (06:00)
[2021-01-19] MEDS ORDERED: IV RINGERS,LACTATED 1000ML 1,000 ML IV SCH (06:00)
[2021-01-19] MEDS ORDERED: HEPARIN SODIUM 5,000 UNIT in IV NORMAL SALINE 500ML BAG 500 ML IRR ONE (06:00)
[2021-01-19] MEDS ORDERED: PROCHLORPERAZINE 10 MG/2 ML VIAL. IVP PRN (06:00)
[2021-01-19 06:26] VITALS: BP 120/56
[2021-01-19 06:44] LABS: BASO # 0.1 x10^3/uL (0.0-0.2); BASO % 1 % (0-3); EOS # 0.7 x10^3/uL (0.0-0.7); EOS % 8 % (0-3); HEMATOCRIT 32.3 % (39.0-53.0); HEMOGLOBIN 10.9 g/dL (13.0-17.5); LYMPH # 1.4 x10^3/uL (1.0-4.8); LYMPH % 16 % (24-48); MEAN CORPUSCULAR HEMOGLOBIN 34 pg (25-35); MEAN CORPUSCULAR HGB CONC 34 g/dL (31-37); MEAN CORPUSCULAR VOLUME 100 fL (79-100); MONO % 10 % (0-9); NEUT % 65 % (31-73); PLATELET COUNT 393 x10^3/uL (140-400); RED BLOOD COUNT 3.24 x10^6/uL (4.30-5.70); RED CELL DISTRIBUTION WIDTH 15.5 % (11.5-14.5); WHITE BLOOD COUNT 9.2 x10^3/uL (4.0-11.0)
[2021-01-19] MEDS ORDERED: IV NORMAL SALINE 1000ML BAG 1,000 ML IV SCH (06:45)
[2021-01-19] MEDS ORDERED: INSULIN LISPRO 100 UNIT/ML 3ML VIAL for OP,RR ONLY. SQ PRN (06:45)
[2021-01-19] MEDS ORDERED: PROPOFOL 10 MG/ML (20ML) VIAL. IV ONE (06:47)
[2021-01-19 06:51] LABS: CALCIUM 8.4 mg/dL (8.5-10.1); CREATININE 4.9 mg/dL (0.7-1.3); GFR 11.5; POTASSIUM 3.9 mmol/L (3.5-5.1)
[2021-01-19] MEDS ORDERED: ROCURONIUM 100 MG/10 ML VIAL. ONE (06:53)
[2021-01-19] MEDS ORDERED: LIDOCAINE 1% PF 5 ML VIAL. ONE (06:58)
[2021-01-19] MEDS ORDERED: SUCCINYLCHOLINE 200 MG/10 ML VIAL. ONE (06:58)
[2021-01-19] MEDS ORDERED: fentaNYL PF VIAL 100 MCG/2 ML VIAL ONE (07:00)
[2021-01-19] MEDS ORDERED: INSULIN LISPRO 100 UNIT/ML 3ML VIAL for OP,RR ONLY. SQ ONE (07:00)
[2021-01-19] MEDS ORDERED: SCOPOLAMINE 1.5MG PATCH. TD ONE ×2 (07:00)
[2021-01-19] MEDS ORDERED: PHENYLEPHRINE in 0.9% NACL PF 1 MG/10 ML SYRINGE. IV ONE ×4 (07:29→08:46)
[2021-01-19] MEDS ORDERED: GLYCOPYRROLATE 1 MG/5 ML VIAL. ONE (07:30)
[2021-01-19] MEDS ORDERED: DEXAMETHASONE SOD PHOS 4 MG/ML VIAL ONE (08:02)
[2021-01-19] MEDS ORDERED: ONDANSETRON PF 4 MG/2 ML VIAL. ONE (08:02)
[2021-01-19] MEDS ORDERED: LIDOCAINE 1% PF 30 ML VIAL. ONE (08:11)
[2021-01-19] MEDS ORDERED: HEPARIN for IV BOLUS 10,000 UNIT/10 ML VIAL. ONE (08:27)
[2021-01-19] MEDS ORDERED: PROTAMINE 50 MG/5 ML VIAL. IV ONE (08:28)
[2021-01-19] MEDS ORDERED: PHENYLEPHRINE 10 MG/ML VIAL. ONE (08:46)
[2021-01-19] MEDS ORDERED: HYDR-2759 PO (09:09)
--- NOTE | 2021-01-19 09:15 | DISCH ---
DISCHARGE INSTRUCTIONS Condition on Discharge Condition on Discharge: Stable Activity After Discharge Activity Instructions for Disc: Activity as tolerated Other activity instructions: elevate arm on pillows for swelling Bathing Instructions: Shower-keep dressing dry Exercise Instruction after Dis: Progress as tolerated Driving Instructions after Dis: Do not drive today Weight Bearing Status after Di: As tolerated Diet after Discharge Diet after Discharge: Cardiac, Renal Dialysis Diet Texture: Regular Liquid Texture: Thin Liquid Swallowing Supervision: None needed Wound Incision Care Other wound/incision instructi: may remove dressing in 2 days, then may shower Wound Care Equipment: Dressings Contacting the DRMaureen after DC Call your doctor for: If your condition worsens Follow-Up Follow up with: Follow up in 2-[address] Neely call for appointment [phone] Treatment/Equipment after DC Adaptive Equipment Issued: None YONI GARCIA APRN Jan 19, 2021 09:15
--- NOTE | 2021-01-19 09:21 | PDOC4 ---
BRIEF OPERATIVE NOTE Date: Jan 19, 2021 Pre-Op Diagnosis Renal failure, brachiobasilic fistula ready for transposition Post-Op Diagnosis same Procedure Performed Left brachiobasilic fistula transposition Surgeon Dr. Neely Machine Maintenance Technician Yoni Garcia NP Anesthesia Type: General Blood Loss 25cc Specimens Obtained none Findings adequate vein for transposition with good thrill post procedure Complications none Operative Note see dictated note for additional information YONI GARCIA CLOTH FINISHING RANGE OPERATOR Jan 19, 2021 09:21
[2021-01-19] MEDS ORDERED: HYDROcodone/APAP 5/325MG 1 TAB TABLET PO ONE (09:30)
--- NOTE | 2021-01-19 09:42 | SNU/HH DC ---
DISCHARGE ORDERS DISCHARGE INFORMATION: CONDITION ON DISCHARGE: Stable POST DISCHARGE ORDERS: ACTIVITY ORDERS: Activity as tolerated WEIGHT BEARING STATUS: As tolerated BATHING ORDERS: Shower-keep dressing dry DIET AFTER DISCHARGE: ADA OTHER WOUND INSTRUCTIONS: may remove dressing in 2 days, then may shower FOLLOW-UP: PHYSICIAN FOLLOW-UP: Follow up on 02/04 Edna Nolasco call for appointment [phone] TREATMENT/EQUIPMENT ORDERS: ADAPTIVE EQUIPMENT NEEDED: None Physical Therapy For: Evalulation/Treatment DISCHARGE MEDICATIONS: Home Meds Active Scripts Hydrocodone/Acetaminophen (Hydrocodone-Acetamin 5-325 mg) 1 Each Tablet, 1 EACH PO Q4HRS PRN for PAIN for 5 Days, #30 TAB Prov:YONI GARCIA CHIEF ACCOUNTING OFFICER 01/19/21 Aspirin (ASPIRIN EC) 325 Mg Tablet.dr, 325 MG PO DAILYWBKFT for cad for 30 Days, #30 TAB.SR Prov:CASTLE,NIAL K III DO 12/04/20 Clopidogrel Bisulfate (CLOPIDOGREL) 75 Mg Tablet, 75 MG PO DAILYWBKFT for stent for 30 Days, #30 TAB Prov:PARKNIAL K III DO 12/04/20 Nitroglycerin (NITROSTAT) 0.4 Mg Tab.subl, 0.4 MG SL PRN Q5MIN PRN for CHEST PAIN for 30 Days, BOTTLE Prov:MARINE BAEZA MD 08/24/14 Reported Medications Doxazosin Mesylate (DOXAZOSIN MESYLATE) 4 Mg Tablet, 2 MG PO HS for high blood pressure , TAB 12/02/20 Folic Acid/Vitamin B Comp W-C (NEPHRO-COLETTE TABLET) 0.8 Mg Tablet, 0.8 MG PO DAILY for daily, TAB 12/02/20 Atorvastatin Calcium (ATORVASTATIN CALCIUM) 40 Mg Tablet, 40 MG PO HS for FOR CHOLESTEROL, #30 TAB 0 Refills 12/02/20 Famotidine (FAMOTIDINE) 20 Mg Tablet, 20 MG PO DAILY07 for gerd, TAB 12/02/20 Methocarbamol (METHOCARBAMOL) 500 Mg Tablet, 500 MG PO TID for muscle relaxant, TAB 06/04/20 Labetalol Hcl (LABETALOL HCL) 200 Mg Tablet, 1 TAB PO BID for htn, #60 TAB 5 Refills 06/04/20 Hydralazine Hcl (HYDRALAZINE HCL) 50 Mg Tablet, 25 MG PO TID for HTN, #90 TAB 5 Refills 11/15/19 Finasteride (FINASTERIDE) 5 Mg Tablet, 1 TAB PO DAILY, #30 TAB 11 Refills 06/13/17 Insulin Aspart (NOVOLOG FLEXPEN) 100 Unit/1 Ml Insuln.pen, 10 UNIT SQ TID for control diabetes, SYR 06/13/17 Insulin Glargine,Hum.rec.anlog (LANTUS SOLOSTAR) 100 Unit/1 Ml Insuln.pen, 14 UNIT SQ HS for GLUCOSE CONTROL, #15 ML 5 Refills 08/03/16 Multivitamin (MULTIVITAMINS) 1 Each Tablet, 1 TAB PO DAILY, #90 TAB 3 Refills 08/22/14 Zolpidem Tartrate (ZOLPIDEM TARTRATE ER) 12.5 Mg Tab.mphase, 1 TAB PO QHS, #30 TAB 08/22/14 Clonazepam (CLONAZEPAM) 1 Mg Tablet, 1 MG PO HS, TAB 08/16/14 Discontinued Reported Medications Hydrocodone Bit/Acetaminophen (HYDROCODONE-APAP 5-325 ) 1 Tab Tablet, 1 TAB PO PRN Q6HRS PRN for PAIN, TAB 0 Refills 12/02/20 Bumetanide (BUMETANIDE) 1 Mg Tablet, 1 TAB PO DAILY for diuretic, #90 TAB 1 Refill 06/04/20 YONI GARCIA APRN Jan 19, 2021 09:42
[2021-01-19 09:50] VITALS: BP 98/48
--- NOTE | 2021-01-19 10:56 | OP ---
DATE OF SURGERY: 01/19/2021 PREOPERATIVE DIAGNOSES: 1. Chronic renal failure, requiring long-term hemodialysis access. 2. Previous left antecubital arteriovenous fistula formation. 3. Hypertension. POSTOPERATIVE DIAGNOSES: 1. Chronic renal failure, requiring long-term hemodialysis access. 2. Previous left antecubital arteriovenous fistula formation. 3. Hypertension. PROCEDURE: Revision of left arm arteriovenous fistula with transposition of basilic vein fistula. SURGEON: Caesar Neely MD HEAVY EQUIPMENT SUPERVISOR: Shantel Robert APRN ANESTHESIA: General. INDICATIONS: The patient presents with chronic renal failure for long-term access placement. He had a left antecubital arteriovenous fistula constructed by Dr. Tai several months ago. Followup ultrasound showed good caliber left basilic vein. He presents for basilic vein transposition. FINDINGS: The basilic vein was of good caliber throughout its course. The basilic vein was transposed to a new tunnel tract anterior to the biceps muscle. There was also flow to the left cephalic vein at the antecubital fossa. The cephalic vein was ligated to divert flow to the basilic vein fistula. There was excellent flow through the fistula at the completion of the case. DESCRIPTION OF PROCEDURE: The patient was taken to the operating room and placed supine on the operating table. He underwent a general anesthetic. His left arm was prepped and draped in normal sterile fashion. A 1% lidocaine was used as local anesthetic to supplement. A longitudinal incision was made over the distal medial left arm over the basilic vein fistula. Basilic vein was carefully mobilized free from the surrounding tissue. Side branches were ligated between 3-0 silk ties and Hemoclips. A second more proximal counterincision was made on the medial left arm. Basilic vein was mobilized all the way from the antecubital fossa to the left axilla. There was also pulsatile flow in the cephalic vein at the antecubital fossa. The cephalic vein was exposed through the medial arm incision. This was encircled and ligated with 3-0 silk tie. He was given 5000 units of IV heparin. After adequate circulation time, the basilic vein was clamped proximally and distally and divided close to the antecubital crease. The basilic vein was removed from its normal location. A Soo tunneler was used to create a new tract anterior to the biceps muscle. Vein was tunneled, taking care to prevent twisting of the graft. The vein was flushed with heparinized saline solution prior to tunneling. The vein was bevelled proximally and distally and an end-to-end anastomosis constructed with a running 6-0 Prolene suture. Prior to completion of anastomosis, the vein was backbled and forward flush. The anastomosis completed and flow was reconstituted through the basilic vein fistula. There was good flow through the basilic vein fistula with good thrill and Doppler flow. The incisions were well irrigated with saline irrigation. Subcutaneous tissue was reapproximated with 3-0 Vicryl sutures. Skin was reapproximated with running subcuticular 4-0 Vicryl. Mastisol and Steri-Strips were applied and a sterile dressing placed to the wound. ESTIMATED BLOOD LOSS: 25 mL. SPECIMEN: None. Please note that Shantel Robert assisted with exposure, fistula revision, and wound closure. GEREMIAS DR: Stanislav TID: [id number] CC: ARCHANA THOMAS MD
== END 2021-01-19 10:10 | disposition home or self-care (01) ==
LOC: SURG 05:48
PROVIDERS: ATTEND Specialist
DX: I12.0 Hypertensive chronic kidney disease with stage 5 chronic kidney disease or end stage renal disease (principal); N18.6 End stage renal disease; E11.22 Type 2 diabetes mellitus with diabetic chronic kidney disease; E78.00 Pure hypercholesterolemia, unspecified; E66.9 Obesity, unspecified; K21.9 Gastro-esophageal reflux disease without esophagitis; M19.90 Unspecified osteoarthritis, unspecified site; Z87.891 Personal history of nicotine dependence; Z90.49 Acquired absence of other specified parts of digestive tract; Z98.890 Other specified postprocedural states; Z79.899 Other long term (current) drug therapy; Z88.5 Allergy status to narcotic agent; Z88.8 Allergy status to other drugs, medicaments and biological substances; Z20.822 Contact with and (suspected) exposure to COVID-19
CPT/HCPCS: 36819; 80048; 82962; 85025; 87426; A4213; A4364; A4930; A6219; A6402; J0330; J0690; J1100; J1644; J1815; J2370; J2405; J2704; J3010; J3490; J7040; A4452; J2720

== ENCOUNTER 2021-02-06 04:40 | Emergency (ER) | payer MEDICARE ==
[~2021-02-06] VITALS: Ht 170.2 cm; Wt 80.0 kg
--- NOTE | 2021-02-06 04:55 | PHYS DOC ---
Past Medical History Past Medical History: Anxiety, Arthritis, Diabetes-Type II, High Cholesterol, Hypertension, CA, Other Past Surgical History: Cholecystectomy, Knee Replacement, Other Additional Past Surgical Histo: lt anklex3,bilat ROTATOR CUFF,rt.knee replacement, CARDIAC STENT, BACK SX Smoking Status: Former Smoker Alcohol Use: None Drug Use: None General Adult EDM: Chief Complaint: UPPER EXTREMITY PAIN HPI: HPI: Patient is a 80 year old male who is here for wound check of his left AV fistula site. He had a left AV fistula revision done earlier this month. There were no complications with this procedure. He was seen in the vascular surgery clinic a few days ago, and he had a dressing placed. His is not sure how to change the dressing, she was not reportedly educated on this, and the patient reports he was not educated on what to expect or how to change his dressing. There is dark brown blood on the current dressing in place. He denies any pain. He denies fevers. He denies any skin redness. He denies any injury or trauma to the area. There is no brisk or active or bright red bleeding. He has been compliant with dialysis, he is using his temporary dialysis port at this time. He denies chest pain or dyspnea. He denies abdominal pain. He denies nausea or vomiting. He denies dizziness or weakness. Review of Systems: Review of Systems: Constitutional: Denies fever or chills. [] HENT: Denies nasal congestion or sore throat. [] Respiratory: Denies cough or shortness of breath. [] Cardiovascular: Denies chest pain or edema. [] GI: Denies abdominal pain, nausea, vomiting Musculoskeletal: He has chronic arthritis of the left shoulder, with previous history of shoulder surgery, no acute changes reported today. No joint redness or swelling Integument: Bruising, mild soft tissue swelling and oozing/bleeding from his left upper extremity AV fistula surgical site Neurologic: Denies headache, focal weakness or sensory changes. [] Psychiatric: Denies depression or anxiety. [] Heart Score: C/O Chest Pain: No Risk Factors: Risk Factors: DM, Current or recent (<one month) smoker, HTN, HLP, family history of CAD, obesity. Risk Scores: Score 0 - 3: 2.5% MACE over next 6 weeks - Discharge Home Score 4 - 6: 20.3% MACE over next 6 weeks - Admit for Clinical Observation Score 7 - 10: 72.7% MACE over next 6 weeks - Early Invasive Strategies Allergies: Allergies: Allergies Coded Allergies Type Severity Reaction Last Updated Verified pseudoephedrine Adverse Reaction Severe urinary retention 12/03/20 Yes codeine Adverse Reaction Intermediate gi upset 12/03/20 Yes Physical Exam: PE: Constitutional: Well developed, well nourished, no acute distress, non-toxic appearance. [] HENT: Normocephalic, atraumatic Neck: Trachea is midline, no tenderness Cardiovascular: +2 radial pulses bilaterally, warm and well-perfused appearing Lungs & Thorax: Respirations are nonlabored Skin: There is a very small opening at one of his incision sites on the left upper extremity AV fistula surgery site, there is minimal dark oozing, no brisk bleeding, no tenderness, no erythema, no warmth, no purulent drainage. I was able to easily wipe away the blood, no active oozing after gentle cleaning. There is mild soft tissue tenderness. Extremities: Mild bleeding from very tiny incision of the left upper extremity AV fistula surgical site. No warmth or erythema, no evidence of infection, no purulent drainage. Significantly limited range of motion of the left shoulder secondary to previous surgery and injury. This is unchanged. Compartments are s oft. Neurologic: Alert and oriented X 3, normal motor function, normal sensory function, no focal deficits noted. [] Psychologic: Affect normal, judgement normal, mood normal. [] EKG: EKG: [] Radiology/Procedures: Radiology/Procedures: [] Course & Med Decision Making: Course & Med Decision Making I cleaned the patient's skin, I changed his dressing. I provided the patient and his with dressing supplies. They actually do have some dressing supplies at home. The patient and his admit that they never asked how to change the dressing, were unaware what to expect, and that is the main reason for the visit here today. There is no indication for laboratory exams, emergent imaging or admission. He is scheduled to have an outpatient ultrasound next week. I told him to keep his scheduled follow-up appointments with his vascular surgeon and with his PCP. Return precautions are given. The patient verbalizes understanding. Jonathan Disclaimer: Jonathan Disclaimer: This electronic medical record was generated, in whole or in part, using a voice recognition dictation system. Departure Departure Impression: Primary Impression: Arteriovenous fistula of left upper extremity Additional Impressions: Hemorrhage of arteriovenous fistula Qualified Codes: T82.838A - Hemorrhage due to vascular prosthetic devices, implants and grafts, initial encounter Visit for wound check Disposition: HOME / SELF CARE / HOMELESS Condition: STABLE Referrals: ARCHANA THOMAS MD (PCP) Patient Instructions: AV Fistula, Care After, Wound Check Additional Instructions: Return to the ER for skin redness, swelling, severe pain, temperature 100.4 or higher, if you notice any thick yellow or green drainage, if you notice any heavy or brisk bleeding or for any other concerns. Please contact your vascular surgeon's office on Monday and make sure you follow-up for your outpatient ultrasound. Currently, there is no evidence of infection. Your wound appears to be healing appropriately. You have been given dressing supplies, you may just keep a soft compression dressing on the area, make sure to check it at least once a day or every other day to make sure there is no evidence of infection. Follow-up with your primary care doctor and your surgeon as scheduled SANTIAGO THAKUR DO Feb 06, 2021 04:55
[2021-02-06 05:31] VITALS: BP 127/61
== END 2021-02-06 05:45 | disposition home or self-care (01) ==
LOC: ER 04:40
DX: T82.838A Hemorrhage due to vascular prosthetic devices, implants and grafts, initial encounter (principal); I77.0 Arteriovenous fistula, acquired; E11.9 Type 2 diabetes mellitus without complications; E78.00 Pure hypercholesterolemia, unspecified; I10 Essential (primary) hypertension; I25.2 Old myocardial infarction; Z87.891 Personal history of nicotine dependence; Z95.5 Presence of coronary angioplasty implant and graft; Z88.5 Allergy status to narcotic agent; Z88.8 Allergy status to other drugs, medicaments and biological substances; Y92.89 Other specified places as the place of occurrence of the external cause
CPT/HCPCS: 99284

== ENCOUNTER → 2021-02-08 | Outpatient (CLI) | payer MEDICARE ==
[2021-02-06 05:31] VITALS: BP 127/61
--- NOTE | 2021-02-08 16:48 | RAD ---
EXAM: Left upper extremity arterial Doppler. HISTORY: Left upper extremity bleeding at hemodialysis. COMPARISON: None. FINDINGS: Grayscale and Doppler analysis of the left upper extremity arterial system and fistula was performed. A complex fluid collection adjacent to the upper arm hemodialysis fistula is consistent with a subacu te hematoma. It measures approximately 12 x 4 cm. No pseudoaneurysm or active hemorrhage is identifie d. The hemodialysis fistula is patent. There is turbulent high velocity flow within the fistula distally with peak systolic velocity 542 cm/s. IMPRESSION: 1. 12 x 4 cm hematoma within the left upper arm. No pseudoaneurysm or active hemorrhage is identified . 2. Findings suggesting stenosis within the distal aspect of the arteriovenous fistula. Peak systolic velocity 542 cm/s. Correlate with flow rates. Electronically signed by: Alvaro Hahn MD (02/08/2021 4:46 PM) [id number]
== END ==
LOC: US 11:42
PROVIDERS: ATTEND Registered Nurse Medical-Surgical
DX: S40.022A Contusion of left upper arm, initial encounter (principal); I77.0 Arteriovenous fistula, acquired; X58.XXXA Exposure to other specified factors, initial encounter; Y93.89 Activity, other specified; Y92.89 Other specified places as the place of occurrence of the external cause; Y99.8 Other external cause status
CPT/HCPCS: 93931

== ENCOUNTER → 2021-03-26 | Outpatient (CLI) | payer MEDICARE ==
[~2021-03-26] MED LIST changes: +BUPIVACAINE MPF 0.25% 10 ML VIAL. ONE; +DEXAMETHASONE PRES.FREE 10 MG/ML VIAL. ONE; +IOHEXOL 180 MG/ML 10 ML VIAL. ONE
--- NOTE | 2021-03-26 09:36 | PDOC ---
Progress Note - Pain Clinic Date of Service: DOS: DATE: 03/26/21 TIME: 09:30 Diagnosis: Dx: Bilateral shoulder joint pain with osteoarthritis Left knee joint pain with osteoarthritis Cervical radiculopathy with cervical degenerative disease cervical spinal stenosis and cervical postlaminectomy syndrome Lumbar radiculopathy with lumbar degenerative disease lumbar spinal stenosis and lumbar and lumbosacral spondylosis Myofascial pain History or Present Illness: HPI: 40-year-old male returns for follow-up status post left knee joint injection January 01, 2021 patient did very well reports about 75% improvement in the pain in his knee with increased activity doing much better with walking standing changing position specially putting all of his weight on left leg with ambulatio n patient reports the pain is returning now but his chief complaint today is bilateral shoulder pain with activity weightbearing repetitive motions driving the car has been waking from sleep at night occasionally but not most nights patient reports its in the top and anterior aspect of the shoulder with repetitive motions weightbearing reaching reaching over his head with his hands slightly worse on the left than the right patient reports no loss of motor function but significant fatigability of the upper extremities with the pain. Patient reports pain is 8 on scale 10 at all times over the past week with least worse and average there is an 8 today. Patient reports no loss of motor function but significant fatigability as noted. Physical Exam: VS: Blood pressure is 123/55 pulse 69 respirations 18 temperature is 90.1 Height 5 feet 6 inches weight is 179 pounds. PE: PHYSICAL EXAMINATION: GENERAL: The patient is awake, alert, oriented, appropriate, very pleasant in demeanor HEENT: Shows normocephalic, atraumatic. Extraocular movements are intact and symmetrical. Oral cavity: Mucous membranes moist and pink. Dentition is intact. NECK: Shows anterior throat supple without palpable lymphadenopathy noted. Swallow reflex symmetrical. CHEST: Shows normal on inspection. Breath sounds are clear bilaterally. HEART: Shows S1, S2 clear. No murmurs auscultated. ABDOMEN: Soft, nontender, nondistended. No palpable organomegaly is noted. No rebound or guarding demonstrated. BACK: Shows spine grossly in the midline. Normal-appearing cervical lordotic curvature. Cervical paraspinous muscles show symmetrical with inspection, on palpation some moderate tenderness diffusely in the inferior aspect of the cervical paraspinous musculature but without radiation. Patient shows full rotation of motion cervical spine both laterally as well as full extension full forward flexion without significant difficulty. There is moderately increased thoracic kyphosis, some flattening of the lumbar lordotic curvature. Lumbar paraspinous muscles show symmetrical on inspection, on palpation shows some moderate tenderness diffusely throughout the upper, middle and lower distribution of the paraspinous muscles without specific trigger points, without radiation of pain. The patient has good rotational motion of the lumbar spine, both laterally as well as extension and flexion without significant difficulty. No tenderness over the spinous processes, sacrum or sacroiliac regions. EXTREMITIES: Lower extremities show deep tendon reflexes 2 in the patellar and tendo calcaneus tendons. Motor exam is 4 on a scale of 5 with right dorsiflexion, extension, quadriceps and hamstring flexion and 4/5 on the left. Peripheral pulses are 1+ posterior tibial. No peripheral edema is noted bilaterally. Lower extremities are warm and dry to touch, equal in color and appearance. Upper extremities show deep tendon reflexes 2+ in the bicep triceps tendons, motor exam strong with ornament setter strength rated at 4 out of 5 as is bicep and tricep flexion bilaterally. Patient has AV fistula in the left upper arm medially. Patient shoulder shows significant tenderness with palpation over the acromioclavicular joints bilaterally left more tender than the right patient's r otation motion shows significant tenderness with abduction at 90 degrees but is performed fully without loss of strength on resistance. Range of motion is maintained with some limited to range on the left secondary to pain only. Shoulder shrug strong and intact without resistance as well. SKIN: Shows warm and dry, good turgor. No edema. No sores, rashes or bruising throughout. Procedure: Procedure: Options were discussed with patient. Patient's old chart was reviewed as his current medication regimen updated current review of systems updated today as well. We will proceed with bilateral acromioclavicular shoulder joint injections with fluoroscopic guidance. Risks are discussed including but not limited to bleeding infection possibility of intravascular injection sequelae spread of local anesthetic numbness side effects steroid medication portals rating pain control. Patient understands wished to proceed. Patient will return to the clinic in approximately 4 weeks for follow-up, was counseled as to return appointment, activity level, and side effect to be aware of. Medication Injected: Med Injected: Patient supine position under sterile prep and drape using C-arm fluoroscopic guidance patient's right and left shoulders were visualized and using 25-gauge needle 1% lidocaine was used to topically anesthetized area over the acromioclavicular joints. Using a 22-gauge Quincke needle with stylette the joint was entered under direct fluoroscopic visualization without difficulty stylet was removed at this time 1 cc of contrast was injected, each shoulder, with good intra-articular spread in the shoulder joint without uptake. At this time 3 cc of 0.25% bupivacaine and 60 mg of Decadron was then injected into each acromioclavicular joint. Needle was removed and sterile bandages were applied. Patient tolerated the procedure well and had no complications. Condition at Discharge: Condition at Discharge: Condition at discharge is stable, patient tolerated the procedure well and had no complications. KAITLIN SCHUMACHER MD Mar 26, 2021 09:36
--- NOTE | 2021-03-26 09:37 | PDOC4 ---
Procedure Note: ICD 10 Code: ICD 10 Code: M2 5.513 M1 9.013 Procedure Note: Patient was consented for bilateral shoulder acromioclavicular joint injections with fluoroscopic guidance. Risk were discussed including not limited to bleeding infection possibility of intravascular injection and sequelae spread of local anesthetic numbness side effects steroid medication exposure to fluoroscopy and poor results regarding pain control. Patient understands wishes to proceed. Patient supine position under sterile prep and drape using C-arm fluoroscopic guidance patient's right and left shoulders were visualized and using 25-gauge needle 1% lidocaine was used to topically anesthetized area over the ac romioclavicular joints. Using a 22-gauge Quincke needle with stylette the joint was entered under direct fluoroscopic visualization without difficulty stylet was removed at this time 1 cc of contrast was injected, each shoulder, with good intra-articular spread in the shoulder joint without uptake. At this time 3 cc of 0.25% bupivacaine and 60 mg of Decadron was then injected into each acromioclavicular joint. Needle was removed and sterile bandages were applied. Patient tolerated the procedure well and had no complications. KAITLIN SCHUMACHER MD Mar 26, 2021 09:37
== END | disposition home or self-care (01) ==
LOC: PNCL 08:19
PROVIDERS: ATTEND Anesthesiology
DX: M19.011 Primary osteoarthritis, right shoulder (principal); M19.012 Primary osteoarthritis, left shoulder; M17.12 Unilateral primary osteoarthritis, left knee; M50.10 Cervical disc disorder with radiculopathy, unspecified cervical region; M48.02 Spinal stenosis, cervical region; M96.1 Postlaminectomy syndrome, not elsewhere classified; M51.16 Intervertebral disc disorders with radiculopathy, lumbar region; M48.061 Spinal stenosis, lumbar region without neurogenic claudication; M47.27 Other spondylosis with radiculopathy, lumbosacral region; M47.26 Other spondylosis with radiculopathy, lumbar region; M79.18 Myalgia, other site; E78.00 Pure hypercholesterolemia, unspecified; E66.9 Obesity, unspecified; K21.9 Gastro-esophageal reflux disease without esophagitis; I12.0 Hypertensive chronic kidney disease with stage 5 chronic kidney disease or end stage renal disease; E11.22 Type 2 diabetes mellitus with diabetic chronic kidney disease; N18.6 End stage renal disease; N40.0 Benign prostatic hyperplasia without lower urinary tract symptoms; Z87.891 Personal history of nicotine dependence; Z79.82 Long term (current) use of aspirin; Z79.899 Other long term (current) drug therapy; Z98.890 Other specified postprocedural states; Z79.4 Long term (current) use of insulin; Z88.5 Allergy status to narcotic agent; Z88.8 Allergy status to other drugs, medicaments and biological substances
CPT/HCPCS: 20610; 77002; J1100; J3490; Q9965

== ENCOUNTER → 2021-06-10 | Outpatient (CLI) | payer MEDICARE ==
[~2021-06-10] MED LIST changes: -BUPIVACAINE MPF 0.25% 10 ML VIAL. ONE; -DEXAMETHASONE PRES.FREE 10 MG/ML VIAL. ONE; -IOHEXOL 180 MG/ML 10 ML VIAL. ONE
--- NOTE | 2021-06-10 13:34 | KCIC ---
MR LUMBAR SPINE [id number] Date: 06/10/2021 8:05 AM Indication: LOW BACK PAIN. Previous back surgery years ago. Chronic LBP. Comparison: None. Technique: Multi-planar multi-weighted magnetic resonance imaging of the lumbar spine was performed w ithout intravenous contrast using the standard lumbar spine protocol. FINDINGS: The lumbar spine is normally aligned. No acute fracture. Moderate to severe multilevel degenerative d isc desiccation and disc height loss. Degenerative endplate edema at L1-2, L3-4, and L5-S1. The conus terminates at a normal level. No abnormal signal is seen within the visualized distal spina l cord. No clumping of intrathecal nerve roots. Partially visualized small renal cysts. T12-L1: Disc bulge. Mild facet arthropathy. No significant spinal stenosis or neural foraminal narrow ing. L1-L2: Disc bulge. Mild to moderate facet arthropathy. No spinal stenosis. Mild left lateral recess n arrowing. Mild right and moderate left neural foraminal narrowing. L2-L3: Disc bulge. Moderate facet arthropathy. Mild spinal stenosis. Mild bilateral neural foraminal narrowing. L3-L4: Disc bulge. Moderate facet arthropathy. Mild spinal stenosis and lateral recess narrowing. Mod erate to severe right and mild to moderate left neural foraminal narrowing. L4-L5: Left hemilaminectomy. Disc bulge with annular tear. Mild facet arthropathy. No significant spi nal stenosis. Mild lateral recess narrowing. Mild to moderate right and moderate left neural foramina l narrowing. L5-S1: Disc bulge with annular tear and left greater than right foraminal protrusions. Moderate facet arthropathy. No significant spinal stenosis. Mild right greater than left lateral recess narrowing. Moderate to severe bilateral neural foraminal narrowing. IMPRESSION: Moderate to severe lumbar spondylosis, detailed level by level above. No severe spinal canal stenosis . Electronically signed by: Raj Dorsey MD (06/10/2021 1:32 PM) [id number]
== END ==
LOC: KCIC MRI 07:59
PROVIDERS: ATTEND Nurse Practitioner
DX: M47.816 Spondylosis without myelopathy or radiculopathy, lumbar region (principal); M51.27 Other intervertebral disc displacement, lumbosacral region; M51.37 Other intervertebral disc degeneration, lumbosacral region; N28.1 Cyst of kidney, acquired; M48.07 Spinal stenosis, lumbosacral region; M48.8X7 Other specified spondylopathies, lumbosacral region
CPT/HCPCS: 72148

== ENCOUNTER → 2021-06-29 | Outpatient (CLI) | payer MEDICARE ==
[~2021-06-29] MED LIST changes: +BUPIVACAINE MPF 0.25% 10 ML VIAL. ONE; +CALC300T5 PO; +DEXAMETHASONE PRES.FREE 10 MG/ML VIAL. ONE
--- NOTE | 2021-06-29 12:02 | PDOC ---
Progress Note - Pain Clinic Date of Service: DOS: DATE: 06/29/21 TIME: 11:56 Diagnosis: Dx: Cervical radiculopathy with cervical degenerative disc disease and cervical spinal stenosis with cervical postlaminectomy syndrome Lumbar radiculopathy with lumbar degenerative disc disease and lumbar spinal stenosis with lumbar spondylosis Bilateral shoulder joint pain with osteoarthritis Left knee joint pain with osteoarthritis Myofascial pain History or Present Illness: HPI: 81-year-old male returns for follow-up status post bilateral shoulder acromioclavicular joint injections with good results patient reports about 75% improvement initially his chief complaint today however is right sided cervical pain and shoulder pain posteriorly patient reports no recent injury or accident he is aware is not been doing any activities with his right upper extremity significantly that might explain overuse or increase in pain but has had significant pain in the base of neck and shoulder to the point where it is coming difficult to sleep he is reporting a Salonpas lidocaine patches on the area which is helpful but only temporarily. Patient was doing some stretching as well and his is doing some massage for his neck and side of the neck as well patient reports the pain is a 9 at all times worst least and average is a 9 today patient reports some burning and constant aching pain which is dull and tight at times in the base the neck as well worse with repetitive motions with looking down such as reading and looking back up also wakes him from sleep about once a night but most nights he sleeps fairly well even on the right side. Patient reports no motor or sensory deficits but significant increase in difficulty with fine motor movements in the bilateral hands. Physical Exam: VS: Blood pressure is 104/52 pulse 68 respirations 18 temperature is 98.6 degrees. Height 5 feet 6 inches weight is 182 pounds. PE: PHYSICAL EXAMINATION: GENERAL: The patient is awake, alert, oriented, appropriate, very pleasant in demeanor, patient companied by his . HEENT: Shows normocephalic, atraumatic. Extraocular movements are intact and symmetrical. Oral cavity: Mucous membranes moist and pink. NECK: Shows anterior throat supple without palpable lymphadenopathy noted. Swallow reflex symmetrical. CHEST: Shows normal on inspection. Breath sounds are clear bilaterally, no rales rhonchi or wheezes auscultated. HEART: Shows S1, S2 clear. No murmurs auscultated. ABDOMEN: Soft, nontender, nondistended. No palpable organomegaly is noted. No rebound or guarding demonstrated. BACK: Shows spine grossly in the midline. Normal-appearing cervical lordotic curvature. Cervical paraspinous muscles show symmetrical with inspection and well-healed surgical scar in the midline. With palpation show some significant tenderness at the base of the skull in the area of the mastoid also into the cervical paraspinous muscles are very firm ropelike musculature bilaterally consistent with areas of trigger point musculature very firm and tender but without radiation into Carol to the superior and medial aspect of the trapezius also the posterior scalene muscle very firm ropelike musculature very tender with palpation but without radiation in this region as well. Left side shows fairly supple and nonsignificantly tender to palpation without significant trigger point areas. There is slightly increased thoracic kyphosis, some flattening of the lumbar lordotic curvature. Lumbar paraspinous muscles show symmetrical on inspection, on palpation shows some moderate tenderness diffusely throughout the upper, middle and lower distribution of the paraspinous muscles, without specific trigger points, without radiation of pain. The patient has good rotational motion of the lumbar spine, both laterally as well as extension and flexion without significant difficulty. EXTREMITIES: Lower extremities show deep tendon reflexes 1+ in the patellar and tendo calcaneus tendons. Motor exam is 4 on a scale of 5 with right dorsiflexion, extension, quadriceps and hamstring flexion and 4/5 on the left. Peripheral pulses are 1+ posterior tibial. No peripheral edema for is noted bilaterally. Lower extremities are warm and dry to touch, equal in color and appearance. Upper extremities show deep tendon reflexes 2+ in the bicep tricep tendons, motor exam strong with seal mixer strength rated 5 out of 5 as is bicep and tricep flexion. SKIN: Shows warm and dry, good turgor. No edema. No sores, rashes or bruising throughout. Procedure: Procedure: Options were discussed with the patient. Patient's old chart was reviewed as his current medication regimen updated current review of systems updated today as well. We will proceed with trigger point injections of the right-sided cervical paraspinous muscular, right-sided trapezius, right sided posterior scalene musculature. Risks were discussed including but not limited to bleeding infection possibility of intravascular injection sequelae spread of local anesthetic and numbness side effects steroid medication portals regarding pain control. Patient understands wished to proceed. Patient will return to the clinic in approximately 4 weeks for follow-up, was counseled as to return appointment, activity level, and side effects to be aware of. Medication Injected: Med Injected: Patient sitting position under sterile prep and drape patient's neck was sterilely prepped and draped in the base of the skull to the shoulder both posteriorly and anteriorly. Using 25-gauge needle and identifying trigger points in the posterior cervical paraspinous posterior as well as a trapezius muscular and posterior scalene each area identified and injected after negative aspiration at each site total of 8 cc 0.25% ropivacaine total of 20 mg dexamethasone. Patient tolerated the procedure well and had no complications. Condition at Discharge: Condition at Discharge: Condition at discharge stable, patient tolerated the procedure well and had no complications. KAITLIN SCHUMACHER MD June 29, 2021 12:02
--- NOTE | 2021-06-29 12:03 | PDOC4 ---
Procedure Note: ICD 10 Code: ICD 10 Code: M60.89 Procedure Note: Patient was consented for trigger point injection of the right cervical paraspinous posterior, right trapezius posterior, right posterior scalene musculature. Risk were discussed including but not limited to bleeding infection possibility of intravascular injection sequelae spread of local anesthetic and numbness side effects steroid medication and poor results regarding pain control. Patient understands and wished to proceed. Patient sitting position under sterile prep and drape patient's neck was paulino rilely prepped and draped in the base of the skull to the shoulder both posteriorly and anteriorly. Using 25-gauge needle and identifying trigger points in the posterior cervical paraspinous posterior as well as a trapezius muscular and posterior scalene each area identified and injected after negative aspiration at each site total of 8 cc 0.25% ropivacaine total of 20 mg dexameth asone. Patient tolerated the procedure well and had no complications. KAITLIN SCHUMACHER MD June 29, 2021 12:03
== END | disposition home or self-care (01) ==
LOC: PNCL 10:59
PROVIDERS: ATTEND Anesthesiology
DX: M79.18 Myalgia, other site (principal); M50.10 Cervical disc disorder with radiculopathy, unspecified cervical region; M48.02 Spinal stenosis, cervical region; M96.1 Postlaminectomy syndrome, not elsewhere classified; M51.16 Intervertebral disc disorders with radiculopathy, lumbar region; M48.061 Spinal stenosis, lumbar region without neurogenic claudication; M19.011 Primary osteoarthritis, right shoulder; M19.012 Primary osteoarthritis, left shoulder; M17.12 Unilateral primary osteoarthritis, left knee; I10 Essential (primary) hypertension; E78.00 Pure hypercholesterolemia, unspecified; K21.9 Gastro-esophageal reflux disease without esophagitis; E66.9 Obesity, unspecified; E11.9 Type 2 diabetes mellitus without complications; Z90.49 Acquired absence of other specified parts of digestive tract; Z98.890 Other specified postprocedural states; Z79.899 Other long term (current) drug therapy; Z79.4 Long term (current) use of insulin; Z79.82 Long term (current) use of aspirin; Z87.891 Personal history of nicotine dependence; Z88.5 Allergy status to narcotic agent; Z88.8 Allergy status to other drugs, medicaments and biological substances
CPT/HCPCS: 20553; J1100; J3490